=== PATIENT | male | born 1955 | race Caucasian/White ===

== ENCOUNTER → 2019-02-12 | Day surgery (SDC) | payer OTHER ==
[~2019-02-12] MED LIST: ALLO300T PO; AMLO5TAB10 PO; ASPI81TA50 PO; BISO1TAB7 PO; CRESTOR20 MG PO; ERGO500027 PO; FLUO40CA2 PO; GLYCOPYRROLATE 1 MG/5 ML VIAL. ONE; HYDROmorphone 2 MG/ML VIAL IV PRN; IV RINGERS,LACTATED 1000ML 1,000 ML IV SCH; LIDOCAINE 1% PF 2 ML VIAL. ID PRN; LISI-334 PO; METF10007 PO; MORPHINE SULFATE 2 MG/ML VIAL. IV PRN; NIAC500T PO; OMEG1CAP38 PO; ONDANSETRON PF 4 MG/2 ML VIAL. IV PRN; PROCHLORPERAZINE 10 MG/2 ML VIAL. IV PRN; PROPOFOL 20 ML IV ONE; PROPOFOL 40 ML IV ONE; ePHEDrine PF IN SALINE 50 MG/10 ML SYRINGE. IV ONE; fentaNYL PF VIAL 100 MCG/2 ML VIAL IV PRN
[2019-02-12 09:28] VITALS: BP 97/60
--- NOTE | 2019-02-12 13:12 | HP ---
ADMIT DATE: 02/12/2019 UPDATED HISTORY AND PHYSICAL REASON: Colorectal screening, positive Cologuard. HISTORY OF PRESENT ILLNESS: A 63-year-old male whose past medical history is significant for gout, hypertension, diabetes and hyperlipidemia, is seen for a screening colon exam. Bowel habits are regular without diarrhea or constipation and no melena and/or hematochezia. Weight and appetite are stable. Recent Cologuard was positive. He is otherwise without additional complaints. PAST MEDICAL HISTORY: Diabetes, hypertension, hyperlipidemia, gout. ALLERGIES: None. MEDICATIONS: Include allopurinol, amlodipine, aspirin, bisoprolol, vitamin D, Prozac, lisinopril, metformin, niacin, omega 3 and pravastatin. FAMILY AND SOCIAL HISTORY: Smoker and nondrinker. PAST SURGICAL HISTORY: Status post tonsillectomy. REVIEW OF SYSTEMS: Per records. PHYSICAL EXAMINATION: GENERAL: A well-nourished, well-developed male who is alert and cooperative in no acute distress. VITAL SIGNS: Temp is 98.3, pulse 84, respirations 20. HEENT: Normocephalic and atraumatic head. Pupils and extraocular muscles are not tested. LUNGS: Clear. CARDIOVASCULAR: Reveals an S1, S2 without S3, S4 or appreciable murmur. ABDOMEN: Soft abdomen, normal bowel sounds without appreciable hepatosplenomegaly. EXTREMITIES: Reveals no cyanosis, clubbing or edema. IMPRESSION: Colorectal screening, positive Cologuard test, was recommended at this time. The risks and benefits of procedure including risk of hemorrhage and perforation discussed. The patient is willing to proceed. I thank Dr. Vega for allowing us to consult and participate in this patient's care. XOCHITL VEGA MD DR: MIKHAIL/bettie JOB#: [id number] / [id number]
--- NOTE | 2019-02-15 15:06 | PATHOLOGY ---
[facility] Accession Number: [id number] . 01 Material submitted: . PART A: SIGMOID POLYP PART B: HEPATIC FLEXURE POLYP PART C: CECUM POLYP . 01 Clinical history: . Pre-OP DX: Screen Post-OP DX: Pending polyp . 02 Diagnosis: A. Colon biopsy, sigmoid polyp: - Pedunculated tubulovillous adenoma, predominantly tubular. . B. Colon biopsies, hepatic flexure polyp: - Tubular adenoma. . C. Colon biopsies, cecal polyp: - Tubular adenoma. . (JPM:mm; 02/15/2019) [facility]/02/15/2019 . 02 Comment: Sections of the sigmoid colon polyp biopsy reveal a pedunculated tubulovillous adenoma, which is predominantly tubular. There is no high grade dysplasia or evidence of malignancy. The base of the polyp is lined by normal colonic mucosa. . Sections of the hepatic flexure and cecal biopsies reveal tubular adenomas showing no high grade dysplasia or evidence of malignancy. . (JPM:mml; 02/15/2019) . 02 Electronically signed: . Abdi Rodríguez MD, Pathologist NPI- [id number] . 01 Gross description: . A. Received in formalin labeled "Hi Hannon, sigmoid polyp," is a 0.8 x 0.8 x 0.7 cm polypoid piece of carranza soft tissue with a stalk measuring 0.8 cm in length and 0.5 cm in diameter. The margin of the stalk is inked and the specimen is sectioned perpendicular to the margin and entirely submitted in cassette A1 and A2. . B. Received in formalin labeled "Hannon, Hi, hepatic flexure polyp," are 2 segments of carranza soft tissue measuring 0.7 x 0.4 x 0.2 cm in aggregate dimensions and ranging from 0.3 to 0.5 cm in maximum dimension. The specimen is submitted entirely in cassette B1. . C. Received in formalin labeled "Hannon, Hi, cecum polyp," are multiple segments of carranza soft tissue measuring 1.5 x 0.6 x 0.1 cm in aggregate dimensions. The specimen is filtered and entirely submitted in cassette C1. (TSD; 02/12/2019) TOB/TOB . 02 Pathologist provided ICD-10: D12.5, D12.3, D12.0 . 02 CPT . 964633, 643006, 409761 Specimen Comment: A courtesy copy of this report has been sent to Specimen Comment: [phone], . Specimen Comment: Report sent to / DR PEREZ Specimen Comment: A duplicate report has been generated due to demographic updates. Performed at: [facility] [address], [place] [id number] MD Terrell Haskins MD Phone: [phone] Performed at: [facility] [address] [place], [place] [id number] MD Abdi Rodríguez MD Phone: [phone]
== END | disposition home or self-care (01) ==
LOC: SURG 07:25
PROVIDERS: ATTEND Internal Medicine Gastroenterology
DX: D12.0 Benign neoplasm of cecum (principal); D12.3 Benign neoplasm of transverse colon; D12.5 Benign neoplasm of sigmoid colon; K57.30 Diverticulosis of large intestine without perforation or abscess without bleeding; K64.0 First degree hemorrhoids; I10 Essential (primary) hypertension; E11.9 Type 2 diabetes mellitus without complications; E78.5 Hyperlipidemia, unspecified; M10.9 Gout, unspecified; Z79.82 Long term (current) use of aspirin; Z79.899 Other long term (current) drug therapy; Z79.84 Long term (current) use of oral hypoglycemic drugs; F17.200 Nicotine dependence, unspecified, uncomplicated; Z98.890 Other specified postprocedural states
CPT/HCPCS: 45385; 88305; J0171; J2704; J3490; 45380

== ENCOUNTER 2020-01-02 04:33 | Inpatient (IN) | payer MEDICARE, OTHER ==
[2020-01-02] VITALS (11 sets, daily range): BP systolic 122–142; BP diastolic 72–84
[~2020-01-02] VITALS: Ht 188 cm; Wt 89.2 kg
[~2020-01-02 04:33] MED LIST changes: -BISO1TAB7 PO; +BISO1TAB8 PO; -GLYCOPYRROLATE 1 MG/5 ML VIAL. ONE; -HYDROmorphone 2 MG/ML VIAL IV PRN; -IV RINGERS,LACTATED 1000ML 1,000 ML IV SCH; -LIDOCAINE 1% PF 2 ML VIAL. ID PRN; -MORPHINE SULFATE 2 MG/ML VIAL. IV PRN; -ONDANSETRON PF 4 MG/2 ML VIAL. IV PRN; -PROCHLORPERAZINE 10 MG/2 ML VIAL. IV PRN; -PROPOFOL 20 ML IV ONE; -PROPOFOL 40 ML IV ONE; -ePHEDrine PF IN SALINE 50 MG/10 ML SYRINGE. IV ONE; -fentaNYL PF VIAL 100 MCG/2 ML VIAL IV PRN
[2020-01-02] MEDS ORDERED: IV NORMAL SALINE 1000ML BAG 1,000 ML IV ONE (05:30)
--- NOTE | 2020-01-02 05:37 | PHYS DOC ---
Adult General Chief Complaint Chief Complaint: HEMATEMESIS/VOMITING BLOOD HPI HPI 64-year-old male presents to the emergency Department complaints of hematemesis. Patient states he woke this morning coughing and subsequently started vomiting blood. He has no history of blood thinning medications nor that of bleeding ul ers. He describes nausea, vomiting some diarrhea. Patient describes decreased appetite over the last couple days. He denies any concerns for dizziness or syncopal episode. Denies any chest pain or shortness of breath. He has been taking some Pepto-Bismol so his stool is dark. Rectal exam was performed with evidence of dark stool however heme negative on examination per laboratory study. He describes hematemesis this morning with dark clots as well as bright red blood. Nothing makes symptoms worse, nothing makes symptoms better. Review of Systems Review of Systems Constitutional: Denies fever or chills [] Respiratory: Denies cough or shortness of breath [] Cardiovascular: No additional information not addressed in HPI [] GI: epigastric pain, nausea, vomiting, hematemesis, no bloody stools or diarrhea [] : Denies dysuria or hematuria [] Musculoskeletal: Denies back pain or joint pain [] Neurologic: Denies headache, focal weakness or sensory changes [] All other systems were reviewed and found to be within normal limits, except as documented in this note. Current Medications Current Medications Current Medications Medications (Trade) Dose Ordered Sig/Alex Start Time Stop Time Status Last Admin Dose Admin Info (CONTRAST GIVEN -- Rx MONITORING) 1 each PRN DAILY PRN 01/02/20 06:45 01/04/20 06:44 Iohexol (Omnipaque 300 Mg/ml) 75 ml 1X ONCE 01/02/20 06:45 01/02/20 06:46 DC 01/02/20 06:44 75 ML Morphine Sulfate (Morphine Sulfate) 2 mg PRN Q2HR PRN 01/02/20 06:15 01/03/20 06:14 Ondansetron HCl (Zofran) 4 mg PRN Q8HRS PRN 01/02/20 06:15 01/03/20 06:14 Pantoprazole Sodium (PROTONIX VIAL for IV PUSH) 80 mg 1X ONCE 01/02/20 06:15 01/02/20 06:18 DC 01/02/20 06:52 80 MG Pantoprazole Sodium 80 mg/ Sodium Chloride 100 ml @ 10 mls/hr Q10H 01/02/20 06:30 01/02/20 17:22 10 MLS/HR Sodium Chloride 1,000 ml @ 1,000 mls/hr 1X ONCE 01/02/20 05:30 01/02/20 06:29 DC 01/02/20 05:55 1,000 MLS/HR Allergies Allergies Physical Exam Physical Exam Constitutional: Well developed, well nourished, no acute distress, non-toxic appearance. [] HENT: Normocephalic, atraumatic, bilateral external ears normal, oropharynx moist, no oral exudates, nose normal. [] Eyes: PERRLA, EOMI, conjunctiva normal, no discharge. [] Cardiovascular:Heart rate regular rhythm, no murmur [] Lungs & Thorax: Bilateral breath sounds clear to auscultation [] Abdomen: Bowel sounds normal, soft, TTP epigastric, no masses, no pulsatile masses. [] Skin: Warm, dry, no erythema, no rash. [] Extremities: No tenderness, no edema. [] Neurologic: Alert and oriented X 3, no focal deficits noted. [] Psychologic: Affect normal, judgement normal, mood normal. [] Current Patient Data Vital Signs Vital Signs Date Time Temp Pulse Resp B/P (MAP) Pulse Ox O2 Delivery O2 Flow Rate FiO2 01/02/20 07:30 77 16 119/78 (92) 96 Room Air 01/02/20 05:00 97.6 97.6 Lab Values Laboratory Tests Test 01/02/20 05:35 01/02/20 05:47 Stool Occult Blood Negative (NEG) White Blood Count 11.6 x10^3/uL (4.0-11.0) H Red Blood Count 4.54 x10^6/uL (4.30-5.70) Hemoglobin 12.5 g/dL (13.0-17.5) L Hematocrit 37.8 % (39.0-53.0) L Mean Corpuscular Volume 83 fL (79-100) Mean Corpuscular Hemoglobin 28 pg (25-35) Mean Corpuscular Hemoglobin Concent 33 g/dL (31-37) Red Cell Distribution Width 13.8 % (11.5-14.5) Platelet Count 228 x10^3/uL (140-400) Neutrophils (%) (Auto) 83 % (31-73) H Lymphocytes (%) (Auto) 9 % (24-48) L Monocytes (%) (Auto) 6 % (0-9) Eosinophils (%) (Auto) 1 % (0-3) Basophils (%) (Auto) 1 % (0-3) Neutrophils # (Auto) 9.6 x10^3/uL (1.8-7.7) H Lymphocytes # (Auto) 1.0 x10^3/uL (1.0-4.8) Monocytes # (Auto) 0.7 x10^3/uL (0.0-1.1) Eosinophils # (Auto) 0.2 x10^3/uL (0.0-0.7) Basophils # (Auto) 0.1 x10^3/uL (0.0-0.2) Prothrombin Time 13.4 SEC (11.7-14.0) Prothrombin Time INR 1.1 (0.8-1.1) Sodium Level 139 mmol/L (136-145) Potassium Level 4.1 mmol/L (3.5-5.1) Chloride Level 101 mmol/L (98-107) Carbon Dioxide Level 26 mmol/L (21-32) Anion Gap 12 (6-14) Blood Urea Nitrogen 35 mg/dL (8-26) H Creatinine 1.2 mg/dL (0.7-1.3) Estimated GFR (Cockcroft-Gault) 60.6 BUN/Creatinine Ratio 29 (6-20) H Glucose Level 228 mg/dL (70-99) H Calcium Level 8.8 mg/dL (8.5-10.1) Total Bilirubin 0.4 mg/dL (0.2-1.0) Aspartate Amino Transferase (AST) 19 U/L (15-37) Alanine Aminotransferase (ALT) 12 U/L (16-63) L Alkaline Phosphatase 73 U/L (46-116) Total Protein 6.2 g/dL (6.4-8.2) L Albumin 2.9 g/dL (3.4-5.0) L Albumin/Globulin Ratio 0.9 (1.0-1.7) L Laboratory Tests 01/02/20 05:47 Laboratory Tests 01/02/20 05:47 EKG EKG [] Radiology/Procedures Radiology/Procedures [facility] [address] [place] [address] IMAGING REPORT Signed PATIENT: VANITA DE LA CRUZ LACCOUNT: [id number] : 1955 LOCATION: ER AGE: 64 SEX: M EXAM STATUS: REG ER ORD. PHYSICIAN: JACKSON CHERY MD REASON: abd pain, hematemsis, dark stools PROCEDURE: CT ABD PELV W/ IV CONTRST ONLY PQRS Compliance Statement: One or more of the following individualized dose reduction techniques were utilized for this examination: 1. Automated exposure control 2. Adjustment of the mA and/or kV according to patient size 3. Use of iterative reconstruction technique CT ABD PELV W/ IV CONTRST ONLY Clinical Indication: Abdominal pain, hematemesis, dark stools. Comparison: CT abdomen and pelvis without contrast September. Technique: Helical CT imaging of the abdomen and pelvis is performed after 75 cc of Omnipaque 300 IV contrast. Findings: Stable nodule in the right lower lobe. Lung bases are clear. Coronary artery disease. Cardiac size normal. There is moderate wall thickening of the distal esophagus. There are several subcentimeter paraesophageal lymph nodes. Mildly enlarged retrocrural lymph nodes. The liver, spleen, pancreas, and adrenal glands are normal. There is cholelithiasis. Abdominal aorta is normal caliber. Kidneys enhance symmetrically, no hydronephrosis. There is gastrohepatic and. The celiac and connor hepatis adenopathy. Gastrohepatic soft tissue mass measures 6.9 x 3 cm and may be matted lymph nodes. There is mild wall thickening at the gastroesophageal junction. There is no dilated small bowel. Moderate distal colon diverticulosis. The appendix is normal. There is induration of the lower ventral abdominal wall subcutaneous fat bilaterally. The urinary bladder is mildly distended, otherwise normal. The prostate is moderately enlarged. There is no pelvic free fluid. There is disc space narrowing of L5/S1. Mild grade 1 retrolisthesis of L5 on S1. IMPRESSION: 1. Moderate wall thickening of the distal esophagus. Considerations include esophageal malignancy, Marcos's esophagus, or esophagitis. 2. Gastrohepatic, retroperitoneal, and connor hepatis adenopathy. Mildly enlarged retrocrural lymph nodes. There are subcentimeter paraesophageal lymph nodes. Considerations include viet metastases, lymphoproliferative disorder and other consideration. 3. Cholelithiasis. 4. Moderate distal colon diverticulosis. 5. Prostate is moderately enlarged. Electronically signed by: Jareth Espinal MD (01/02/2020 7:02 AM) [id number] DICTATED and SIGNED BY: JARETH ESPINAL MD DATE: 01/02/20 0702 [] Course & Med Decision Making Course & Med Decision Making Pertinent Labs and Imaging studies reviewed. (See chart for details) []64-year-old male presents to the emergency Department complaints of hematemesis. Patient states he woke this morning coughing and subsequently started vomiting blood. He has no history of blood thinning medications nor that of bleeding ulcers. He describes nausea, vomiting some diarrhea. Patient describes decreased appetite over the last couple days. He denies any concerns for dizziness or syncopal episode. Denies any chest pain or shortness of breath. He has been taking some Pepto-Bismol so his stool is dark. Rectal exam was performed with evidence of dark stool however heme negative on examination per laboratory study. He describes hematemesis this morning with dark clots as well as bright red blood. Nothing makes symptoms worse, nothing makes symptoms better. Dragon Disclaimer Dragon Disclaimer This electronic medical record was generated, in whole or in part, using a voice recognition dictation system. Departure Departure Impression: Primary Impression: Hematemesis Additional Impressions: Upper GI bleed Diabetes Disposition: ADMITTED INPATIENT Admitting Physician: HIMLyla Condition: STABLE Referrals: GELACIO PEREZ MD (PCP) Problem Qualifiers Primary Impression: Hematemesis Nausea presence: with nausea Qualified Codes: K92.0 - Hematemesis Additional Impressions: Diabetes Diabetes mellitus type: other specified (including NEEL) Diabetes mellitus exterminator termite insulin use: without exterminator termite use Diabetes mellitus complication status: without complication Qualified Codes: E13.9 - Other specified diabetes mellitus without complications JACKSON CHERY MD Jan 02, 2020 05:37
[2020-01-02 05:58] LABS: BASO # 0.1 x10^3/uL (0.0-0.2); BASO % 1 % (0-3); EOS # 0.2 x10^3/uL (0.0-0.7); EOS % 1 % (0-3); HEMATOCRIT 37.8 % (39.0-53.0); HEMOGLOBIN 12.5 g/dL (13.0-17.5); LYMPH % 9 % (24-48); MEAN CORPUSCULAR HEMOGLOBIN 28 pg (25-35); MEAN CORPUSCULAR HGB CONC 33 g/dL (31-37); MEAN CORPUSCULAR VOLUME 83 fL (79-100); MONO # 0.7 x10^3/uL (0.0-1.1); MONO % 6 % (0-9); NEUT # 9.6 x10^3/uL (1.8-7.7); NEUT % 83 % (31-73); PLATELET COUNT 228 x10^3/uL (140-400); RED BLOOD COUNT 4.54 x10^6/uL (4.30-5.70); RED CELL DISTRIBUTION WIDTH 13.8 % (11.5-14.5); WHITE BLOOD COUNT 11.6 x10^3/uL (4.0-11.0)
[2020-01-02 06:03] LABS: FECAL OB PT NEGATIVE (NEG)
[2020-01-02 06:10] LABS: CALCIUM 8.8 mg/dL (8.5-10.1); CREATININE 1.2 mg/dL (0.7-1.3); GFR 60.6; POTASSIUM 4.1 mmol/L (3.5-5.1)
[2020-01-02 06:12] LABS: ALBUMIN 2.9 g/dL (3.4-5.0); ALBUMIN/GLOBULIN RATIO 0.9 (1.0-1.7); TOTAL BILIRUBIN 0.4 mg/dL (0.2-1.0); TOTAL PROTEIN 6.2 g/dL (6.4-8.2)
[2020-01-02] MEDS ORDERED: MORPHINE SULFATE 2 MG/ML VIAL. IV PRN (06:15)
[2020-01-02] MEDS ORDERED: PANTOPRAZOLE IV PUSH 40 MG VIAL. IVP ONE (06:15)
[2020-01-02] MEDS ORDERED: ONDANSETRON PF 4 MG/2 ML VIAL. IV PRN (06:15)
[2020-01-02 06:22] LABS: PROTHROMBIN TIME PATIENT 13.4 SEC (11.7-14.0)
[2020-01-02] MEDS: PANTOPRAZOLE SODIUM IV DRIP 80 MG in IV NORMAL SALINE 100ML 100 ML IV SCH ×2 (06:34→17:22)
[2020-01-02] MEDS ORDERED: IOHEXOL 300 MG/ML 100ML VIAL. IV ONE (06:45)
[2020-01-02] MEDS ORDERED: CONTRAST GIVEN. MC PRN (06:45)
--- NOTE | 2020-01-02 07:04 | RAD ---
PQRS Compliance Statement: One or more of the following individualized dose reduction techniques were utilized for this examination: 1. Automated exposure control 2. Adjustment of the mA and/or kV according to patient size 3. Use of iterative reconstruction technique CT ABD PELV W/ IV CONTRST ONLY Clinical Indication: Abdominal pain, hematemesis, dark stools. Comparison: CT abdomen and pelvis without contrast September. Technique: Helical CT imaging of the abdomen and pelvis is performed after 75 cc of Omnipaque 300 IV contrast. Findings: Stable nodule in the right lower lobe. Lung bases are clear. Coronary artery disease. Cardiac size normal. There is moderate wall thickening of the distal esophagus. There are several subcentimeter paraesophageal lymph nodes. Mildly enlarged retrocrural lymph nodes. The liver, spleen, pancreas, and adrenal glands are normal. There is cholelithiasis. Abdominal aorta is normal caliber. Kidneys enhance symmetrically, no hydronephrosis. There is gastrohepatic and. The celiac and connor hepatis adenopathy. Gastrohepatic soft tissue mass measures 6.9 x 3 cm and may be matted lymph nodes. There is mild wall thickening at the gastroesophageal junction. There is no dilated small bowel. Moderate distal colon diverticulosis. The appendix is normal. There is induration of the lower ventral abdominal wall subcutaneous fat bilaterally. The urinary bladder is mildly distended, otherwise normal. The prostate is moderately enlarged. There is no pelvic free fluid. There is disc space narrowing of L5/S1. Mild grade 1 retrolisthesis of L5 on S1. IMPRESSION: 1. Moderate wall thickening of the distal esophagus. Considerations include esophageal malignancy, Marcos's esophagus, or esophagitis. 2. Gastrohepatic, retroperitoneal, and connor hepatis adenopathy. Mildly enlarged retrocrural lymph nodes. There are subcentimeter paraesophageal lymph nodes. Considerations include viet metastases, lymphoproliferative disorder and other consideration. 3. Cholelithiasis. 4. Moderate distal colon diverticulosis. 5. Prostate is moderately enlarged. Electronically signed by: Jareth Espinal MD (01/02/2020 7:02 AM) [id number]
[2020-01-02] MEDS ORDERED: ALLO300T PO (10:14)
[2020-01-02] MEDS ORDERED: METF10007 PO (10:15)
[2020-01-02] MEDS ORDERED: CRESTOR40 MG PO (10:19)
[2020-01-02] MEDS ORDERED: ICOS1CAP PO (10:19)
[2020-01-02] MEDS ORDERED: INSU100C4 SQ (10:19)
[2020-01-02] MEDS ORDERED: INSU100V37 SQ (10:20)
--- NOTE | 2020-01-02 10:33 | PDOC2 ---
CONSULT Date of Consult Date of Consult DATE: 01/02/20 TIME: 10:30 Reason for Consult Reason for Consult: Hematemesis/-with asa use, most likely secondary to UGI bleed. PUD, varies, Radha-ross tear, and/or malignancy in differential. Plan serial cbcs IV fluids egd to further assess. Risks and benefits discussed with patient including risk of hemorrhage,perforation, and/or anesthestic reaction who is willing to proceed Full note dictated Current Problem List Problem List Problems Medical Problems: (1) Diabetes Status: Acute (2) Hematemesis Status: Acute (3) Upper GI bleed Status: Acute Current Medications Current Medications Current Medications Sodium Chloride 1,000 ml @ 1,000 mls/hr 1X ONCE IV Last administered on 01/02/20at 05:55; Start 01/02/20 at 05:30; Stop 01/02/20 at 06:29; Status DC Ondansetron HCl (Zofran) 4 mg PRN Q8HRS PRN IV NAUSEA/VOMITING; Start 01/02/20 at 06:15; Stop 01/03/20 at 06:14 Morphine Sulfate (Morphine Sulfate) 2 mg PRN Q2HR PRN IV PAIN; Start 01/02/20 at 06:15; Stop 01/03/20 at 06:14 Pantoprazole Sodium (PROTONIX VIAL for IV PUSH) 80 mg 1X ONCE IVP Last administered on 01/02/20at 06:52; Start 01/02/20 at 06:15; Stop 01/02/20 at 06:18; Status DC Pantoprazole Sodium 80 mg/ Sodium Chloride 100 ml @ 10 mls/hr Q10H IV Last administered on 01/02/20at 06:34; Start 01/02/20 at 06:30 Iohexol (Omnipaque 300 Mg/ml) 75 ml 1X ONCE IV Last administered on 01/02/20at 06:44; Start 01/02/20 at 06:45; Stop 01/02/20 at 06:46; Status DC Info (CONTRAST GIVEN -- Rx MONITORING) 1 each PRN DAILY PRN MC SEE COMMENTS; Start 01/02/20 at 06:45; Stop 01/04/20 at 06:44 Active Scripts Active Reported Tresiba (Insulin Degludec) 100 Unit/1 Ml Vial 45 Unit SQ HS Crestor (Rosuvastatin Calcium) 40 Mg Tablet 20 Mg PO HS Vascepa (Icosapent Ethyl) 1 Gm Capsule 2 Cap PO BID 30 Days Novolog (Insulin Aspart) 100 Unit/1 Ml Cartridge 25 Unit SQ TIDBFRMEAL Metformin Hcl 1,000 Mg Tablet 1,000 Mg PO BIDWMEALS Allopurinol 300 Mg Tablet 1 Tab PO HS Niaspan (Niacin) 500 Mg Tab.er.24h 500 Mg PO HS Fluoxetine Hcl 40 Mg Capsule 1 Cap PO DAILYWBKFT Vitamin D2 (Ergocalciferol (Vitamin D2)) 50,000 Unit Capsule 1 Cap PO WEEKLY Aspir-Low (Aspirin) 81 Mg Tablet.dr 1 Tab PO DAILY Amlodipine Besylate 5 Mg Tablet 5 Mg PO DAILY Lisinopril 20 Mg Tablet 1 Tab PO DAILY Bisoprolol-Hctz 10-6.25 Mg Tab (Bisoprolol Fumarate/Hctz) 1 Each Tablet 1 Tab PO DAILY Allergies Allergies: Coded Allergies: No Known Drug Allergies (Unverified , 02/12/19) Vitals VITALS Vital Signs Date Time Temp Pulse Resp B/P (MAP) Pulse Ox O2 Delivery O2 Flow Rate FiO2 01/02/20 09:30 97.7 97 20 134/83 (100) 100 Room Air 97.7 Labs Labs Laboratory Tests Test 01/02/20 05:35 01/02/20 05:47 Stool Occult Blood Negative (NEG) White Blood Count 11.6 x10^3/uL (4.0-11.0) Red Blood Count 4.54 x10^6/uL (4.30-5.70) Hemoglobin 12.5 g/dL (13.0-17.5) Hematocrit 37.8 % (39.0-53.0) Mean Corpuscular Volume 83 fL (79-100) Mean Corpuscular Hemoglobin 28 pg (25-35) Mean Corpuscular Hemoglobin Concent 33 g/dL (31-37) Red Cell Distribution Width 13.8 % (11.5-14.5) Platelet Count 228 x10^3/uL (140-400) Neutrophils (%) (Auto) 83 % (31-73) Lymphocytes (%) (Auto) 9 % (24-48) Monocytes (%) (Auto) 6 % (0-9) Eosinophils (%) (Auto) 1 % (0-3) Basophils (%) (Auto) 1 % (0-3) Neutrophils # (Auto) 9.6 x10^3/uL (1.8-7.7) Lymphocytes # (Auto) 1.0 x10^3/uL (1.0-4.8) Monocytes # (Auto) 0.7 x10^3/uL (0.0-1.1) Eosinophils # (Auto) 0.2 x10^3/uL (0.0-0.7) Basophils # (Auto) 0.1 x10^3/uL (0.0-0.2) Prothrombin Time 13.4 SEC (11.7-14.0) Prothromb Time International Ratio 1.1 (0.8-1.1) Sodium Level 139 mmol/L (136-145) Potassium Level 4.1 mmol/L (3.5-5.1) Chloride Level 101 mmol/L (98-107) Carbon Dioxide Level 26 mmol/L (21-32) Anion Gap 12 (6-14) Blood Urea Nitrogen 35 mg/dL (8-26) Creatinine 1.2 mg/dL (0.7-1.3) Estimated GFR (Cockcroft-Gault) 60.6 BUN/Creatinine Ratio 29 (6-20) Glucose Level 228 mg/dL (70-99) Calcium Level 8.8 mg/dL (8.5-10.1) Total Bilirubin 0.4 mg/dL (0.2-1.0) Aspartate Amino Transf (AST/SGOT) 19 U/L (15-37) Alanine Aminotransferase (ALT/SGPT) 12 U/L (16-63) Alkaline Phosphatase 73 U/L (46-116) Total Protein 6.2 g/dL (6.4-8.2) Albumin 2.9 g/dL (3.4-5.0) Albumin/Globulin Ratio 0.9 (1.0-1.7) Laboratory Tests Test 01/02/20 05:35 01/02/20 05:47 Stool Occult Blood Negative (NEG) White Blood Count 11.6 x10^3/uL (4.0-11.0) Red Blood Count 4.54 x10^6/uL (4.30-5.70) Hemoglobin 12.5 g/dL (13.0-17.5) Hematocrit 37.8 % (39.0-53.0) Mean Corpuscular Volume 83 fL (79-100) Mean Corpuscular Hemoglobin 28 pg (25-35) Mean Corpuscular Hemoglobin Concent 33 g/dL (31-37) Red Cell Distribution Width 13.8 % (11.5-14.5) Platelet Count 228 x10^3/uL (140-400) Neutrophils (%) (Auto) 83 % (31-73) Lymphocytes (%) (Auto) 9 % (24-48) Monocytes (%) (Auto) 6 % (0-9) Eosinophils (%) (Auto) 1 % (0-3) Basophils (%) (Auto) 1 % (0-3) Neutrophils # (Auto) 9.6 x10^3/uL (1.8-7.7) Lymphocytes # (Auto) 1.0 x10^3/uL (1.0-4.8) Monocytes # (Auto) 0.7 x10^3/uL (0.0-1.1) Eosinophils # (Auto) 0.2 x10^3/uL (0.0-0.7) Basophils # (Auto) 0.1 x10^3/uL (0.0-0.2) Prothrombin Time 13.4 SEC (11.7-14.0) Prothromb Time International Ratio 1.1 (0.8-1.1) Sodium Level 139 mmol/L (136-145) Potassium Level 4.1 mmol/L (3.5-5.1) Chloride Level 101 mmol/L (98-107) Carbon Dioxide Level 26 mmol/L (21-32) Anion Gap 12 (6-14) Blood Urea Nitrogen 35 mg/dL (8-26) Creatinine 1.2 mg/dL (0.7-1.3) Estimated GFR (Cockcroft-Gault) 60.6 BUN/Creatinine Ratio 29 (6-20) Glucose Level 228 mg/dL (70-99) Calcium Level 8.8 mg/dL (8.5-10.1) Total Bilirubin 0.4 mg/dL (0.2-1.0) Aspartate Amino Transf (AST/SGOT) 19 U/L (15-37) Alanine Aminotransferase (ALT/SGPT) 12 U/L (16-63) Alkaline Phosphatase 73 U/L (46-116) Total Protein 6.2 g/dL (6.4-8.2) Albumin 2.9 g/dL (3.4-5.0) Albumin/Globulin Ratio 0.9 (1.0-1.7) XOCHITL BRUCE MD Jan 02, 2020 10:33
--- NOTE | 2020-01-02 11:10 | CONS ---
DATE OF CONSULTATION: 01/02/2020 GI CONSULTATION REASON FOR CONSULTATION: Hematemesis. HISTORY OF PRESENT ILLNESS: A 64-year-old male with past medical history significant for hypertension, diabetes, GERD, arthritis, is seen with hematemesis. The patient states that he was awakened early this morning with nausea. Subsequently, 6-7 episodes of bright red blood and dark red blood with the emesis with this and feeling lightheaded. He has decided to come to the hospital, does take aspirin. As risk factors for peptic ulcer disease, does not take any of the second generation anticoagulations for heart disease such as Plavix, Eliquis, Brilinta. He has had no history of bleeding in the past. Weight and appetite have been stable. Prior colonoscopy a year ago was unrevealing with continued issues, requests additional evaluation. PAST MEDICAL HISTORY: Diabetes, hypertension, hyperlipidemia, gouty arthritis. ALLERGIES: None. MEDICATIONS: On admission include insulin, Crestor, metformin, allopurinol, fluoxetine, aspirin, amlodipine, lisinopril. SOCIAL HISTORY: Does not drink or smoke at this time. FAMILY HISTORY: Noncontributory. REVIEW OF SYSTEMS: Per records. PHYSICAL EXAMINATION: GENERAL: Reveals a well-nourished, well-developed male who is pale in appearance. VITAL SIGNS: Temperature 97.7, pulse 97, respirations 20, blood pressure 134/83. HEENT: Normocephalic, atraumatic head. Pupils and extraocular movements are not tested. Sclerae anicteric. NECK: Supple. LUNGS: Clear. CARDIOVASCULAR: Reveals an S1, S2 without S3, S4 or appreciable murmurs. Tachycardic. ABDOMEN: Reveals a soft abdomen, normal bowel sounds, without appreciable hepatosplenomegaly. EXTREMITIES: Reveals no cyanosis, clubbing or edema. LABORATORY STUDIES: Sodium 139, potassium 4.1, chloride 101, BUN of 35, creatinine 1.2, glucose 228, calcium 8.8, total bilirubin 0.4, AST of 19, ALT of 12, alkaline phosphatase 73, total protein 6.2, albumin 2.9. Hemoglobin 12.5, hematocrit 37.8, white count 11.8, platelet count 228,000. INR is 1.1. IMPRESSION: Hematemesis with aspirin use. Differential includes Radha-Drew tear, peptic ulcer disease, varices, malignancy, among others; therefore, recommend upper endoscopy, PPI therapy, IV fluids. Risks and benefits of procedure including risk of hemorrhage and perforation for operation have been discussed. The patient is willing to proceed at this time. XOCHITL BRUCE MD DR: MIKHAIL/ebttie JOB#: [id number] / [id number] ANNE Marcos MD
[2020-01-02] MEDS ORDERED: PROPOFOL 40 ML IV ONE (11:21)
[2020-01-02] MEDS ORDERED: LIDOCAINE 2% PF 5 ML VIAL. ONE (11:22)
[2020-01-02] MEDS ORDERED: IV RINGERS,LACTATED 1000ML 1,000 ML IV SCH (11:30)
--- NOTE | 2020-01-02 11:45 | PDOC4 ---
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
--- NOTE | 2020-01-02 12:00 | NUR ---
Patient arrived to room 201 via wheelchair, transferred to bed with no assistance. Vital stable, patient on protonix gtt, alert and oriented, call light in reach, will continue to monitor.
[2020-01-02] MEDS: IV NORMAL SALINE 1000ML BAG 1,000 ML IV SCH (12:45)
--- NOTE | 2020-01-02 13:00 | NUR ---
Patient returned from EGD, alert and oriented, vitals stable. Gag reflex tested, clear liquids ordered per Dr. Foster. Will continue to monitor.
[2020-01-02] MEDS ORDERED: IV DEXTROSE 5% 250 ML BAG. IV PRN (13:30)
[2020-01-02] MEDS ORDERED: DEXTROSE 50% 25 GM / 50ML DISP.SYRIN. IV PRN (13:30)
--- NOTE | 2020-01-02 13:32 | PDOC1 ---
History and Physical Date of Admission Date of Admission 01/02/2020 Identification/Chief Complaint Chief Complaint I vomited blood History of Present Illness History of Present Illness Patient is a 64-year-old gentleman with past medical history of hypertension dyslipidemia gout diabetes mellitus type 2 insulin requiring was in his usual state of health until this morning when he presented approximately 6 episodes of hematemesis. The story dates back to approximately 6 months ago when he was noticed to have lost some weight by his primary care physician. The patient did not change his diet this was unintentional weight loss and he continued to be monitored, the patient subsequently developed a sensation his epigastrium of food getting stuck. The patient took 2 bites of his meals and he felt quite full. He decided to self medicate with Pepto-Bismol as the reason for change in the color of his stools. This provided very little relief, the patient has had a colonoscopy already less than a year ago by Dr. Vega and according to the patient results were normal. The patient has not quantified weight loss he denies excessive use of NSAIDs he denies excess alcohol ingestion he denies smoking. Patient does not have a history in his family of cancer. He was admitted to the hospital for upper GI bleeding and underwent an EGD prior to my encounter. A mass in his cardia has been found. I have discussed the findings with him and his family members and reassurance has been provided. The time my notes he is in no acute distress and quite hungry since his last meal was yesterday evening, surgical device sales representative has requested to continue with clear liquid diet for the time being until he is evaluated. Oncology and radiation oncology consultations have been requested by her GI access consultant. The Geronimo Reid's is greatly appreciated. Family members at bedside were reassured as well. All of their concerns were addressed to the best of my abilities Past Medical History Cardiovascular: HTN Rheumatologic: Gout Endocrine: Diabetes Past Surgical History Past Surgical History: No pertinent history Family History Family History: Other (unremarkable and no pertinent) Current Problem List Problem List Problems Medical Problems: (1) Diabetes Status: Acute (2) Hematemesis Status: Acute (3) Upper GI bleed Status: Acute Current Medications Current Medications Current Medications Medications (Trade) Dose Ordered Sig/Alex Start Time Stop Time Status Last Admin Dose Admin Allopurinol (Zyloprim) 300 mg HS 01/02/20 21:00 UNV Amlodipine Besylate (Norvasc) 5 mg DAILY 2/10/20 09:00 UNV Dextrose (Dextrose 50%-Water Syringe) 12.5 gm PRN Q15MIN PRN 01/02/20 13:30 UNV Dextrose (Iv Dextrose 5%) 250 ml PRN Q15MIN PRN 01/02/20 13:30 UNV Info (CONTRAST GIVEN -- Rx MONITORING) 1 each PRN DAILY PRN 01/02/20 06:45 01/04/20 06:44 Insulin Human Lispro (HumaLOG) 0-7 UNITS TIDWMEALS 01/02/20 17:00 UNV Iohexol (Omnipaque 300 Mg/ml) 75 ml 1X ONCE 01/02/20 06:45 01/02/20 06:46 DC 01/02/20 06:44 75 ML Lidocaine HCl (Lidocaine Pf 2% Vial) 5 ml STK-MED ONCE 01/02/20 11:22 01/02/20 11:22 DC Lisinopril (Prinivil) 20 mg DAILY 01/03/20 09:00 UNV Morphine Sulfate (Morphine Sulfate) 2 mg PRN Q2HR PRN 01/02/20 06:15 01/03/20 06:14 Non-Formulary Medication (Bisoprolol Fumarate/Hctz (Bisoprolol-Hctz 10-6.25 Mg Tab)) 1 tab DAILY 01/03/20 09:00 UNV Non-Formulary Medication (Fluoxetine Hcl ) 1 cap [id number] 01/03/20 08:00 UNV Non-Formulary Medication (Niacin (Niaspan)) 500 mg HS 01/02/20 21:00 UNV Non-Formulary Medication (Rosuvastatin Calcium (Crestor)) 20 mg HS 01/02/20 21:00 UNV Ondansetron HCl (Zofran) 4 mg PRN Q8HRS PRN 01/02/20 06:15 01/03/20 06:14 Pantoprazole Sodium (PROTONIX VIAL for IV PUSH) 80 mg 1X ONCE 01/02/20 06:15 01/02/20 06:18 DC 01/02/20 06:52 80 MG Pantoprazole Sodium 80 mg/ Sodium Chloride 100 ml @ 10 mls/hr Q10H 01/02/20 06:30 01/02/20 06:34 10 MLS/HR Propofol 40 ml @ As Directed STK-MED ONCE 01/02/20 11:21 01/02/20 11:22 DC Ringer's Solution 1,000 ml @ 100 mls/hr Q10H 01/02/20 11:30 01/02/20 12:34 DC 01/02/20 11:20 100 MLS/HR Sodium Chloride 1,000 ml @ 75 mls/hr [id number] 01/02/20 12:45 01/02/20 12:45 75 MLS/HR Sucralfate (Carafate) 1 gm QIDACHS 01/02/20 16:30 Allergies Allergies Allergies Coded Allergies Type Severity Reaction Last Updated Verified No Known Drug Allergies 01/02/20 No ROS Review of System CONSTITUTIONAL: No fever or chills EYES: No recent changes SKIN: No rash or itching CARDIOVASCULAR: No chest pain, syncope, palpitations, or edema RESPIRATORY: No SOB or cough GASTROINTESTINAL: No nausea, vomiting or abdominal pain NEUROLOGICAL: No headaches or weakness ENDOCRINE: No cold or heat intolerance GENITOURINARY: No urgency or frequency of urination MUSCULOSKELETAL: No back pain or joint pain LYMPHATICS: No enlarged lymph nodes PSYCHIATRIC: No anxiety or depression Physical Exam Physical Exam Gen.: well-developed well-nourished in no apparent distress Head: Normal shape atraumatic Eyes: Pupils equal reactive to light and accommodation, normal conjunctivae and lids Ears: Normal shape Nose: Normal shape no trauma Mouth: No exudates of the back of throat no thrush no lesions Neck: Supple no JVD no carotid bruit or lymphadenopathy no thyromegaly Chest: Lungs clear to auscultation with good inspiratory effort no crackles rales or rhonchi Cardiovascular: S1-S2 regular rhythm no murmurs gallops or rubs Abdomen: Bowel sounds present soft nontender no hepatosplenomegaly appreciated sign Extremities: No clubbing no cyanosis no edema peripheral pulses palpated bilaterally Neurological: Alert awake oriented in person time place and situation, cranial nerves II through XII intact, no motor or sensory deficits appreciated Psych: Appropriate mood, cooperative Vitals Vitals Vital Signs Date Time Temp Pulse Resp B/P (MAP) Pulse Ox O2 Delivery O2 Flow Rate FiO2 01/02/20 12:08 86 16 115/72 98 Room Air 01/02/20 11:38 98.0 2 98.0 Labs Labs Laboratory Tests Test 01/02/20 05:35 01/02/20 05:47 01/02/20 11:23 01/02/20 12:46 Stool Occult Blood Negative (NEG) White Blood Count 11.6 x10^3/uL (4.0-11.0) Red Blood Count 4.54 x10^6/uL (4.30-5.70) Hemoglobin 12.5 g/dL (13.0-17.5) Hematocrit 37.8 % (39.0-53.0) Mean Corpuscular Volume 83 fL (79-100) Mean Corpuscular Hemoglobin 28 pg (25-35) Mean Corpuscular Hemoglobin Concent 33 g/dL (31-37) Red Cell Distribution Width 13.8 % (11.5-14.5) Platelet Count 228 x10^3/uL (140-400) Neutrophils (%) (Auto) 83 % (31-73) Lymphocytes (%) (Auto) 9 % (24-48) Monocytes (%) (Auto) 6 % (0-9) Eosinophils (%) (Auto) 1 % (0-3) Basophils (%) (Auto) 1 % (0-3) Neutrophils # (Auto) 9.6 x10^3/uL (1.8-7.7) Lymphocytes # (Auto) 1.0 x10^3/uL (1.0-4.8) Monocytes # (Auto) 0.7 x10^3/uL (0.0-1.1) Eosinophils # (Auto) 0.2 x10^3/uL (0.0-0.7) Basophils # (Auto) 0.1 x10^3/uL (0.0-0.2) Prothrombin Time 13.4 SEC (11.7-14.0) Prothromb Time International Ratio 1.1 (0.8-1.1) Sodium Level 139 mmol/L (136-145) Potassium Level 4.1 mmol/L (3.5-5.1) Chloride Level 101 mmol/L (98-107) Carbon Dioxide Level 26 mmol/L (21-32) Anion Gap 12 (6-14) Blood Urea Nitrogen 35 mg/dL (8-26) Creatinine 1.2 mg/dL (0.7-1.3) Estimated GFR (Cockcroft-Gault) 60.6 BUN/Creatinine Ratio 29 (6-20) Glucose Level 228 mg/dL (70-99) Calcium Level 8.8 mg/dL (8.5-10.1) Total Bilirubin 0.4 mg/dL (0.2-1.0) Aspartate Amino Transf (AST/SGOT) 19 U/L (15-37) Alanine Aminotransferase (ALT/SGPT) 12 U/L (16-63) Alkaline Phosphatase 73 U/L (46-116) Total Protein 6.2 g/dL (6.4-8.2) Albumin 2.9 g/dL (3.4-5.0) Albumin/Globulin Ratio 0.9 (1.0-1.7) Glucose (Fingerstick) 189 mg/dL (70-99) 154 mg/dL (70-99) Laboratory Tests Test 01/02/20 05:35 01/02/20 05:47 01/02/20 11:23 01/02/20 12:46 Stool Occult Blood Negative (NEG) White Blood Count 11.6 x10^3/uL (4.0-11.0) Red Blood Count 4.54 x10^6/uL (4.30-5.70) Hemoglobin 12.5 g/dL (13.0-17.5) Hematocrit 37.8 % (39.0-53.0) Mean Corpuscular Volume 83 fL (79-100) Mean Corpuscular Hemoglobin 28 pg (25-35) Mean Corpuscular Hemoglobin Concent 33 g/dL (31-37) Red Cell Distribution Width 13.8 % (11.5-14.5) Platelet Count 228 x10^3/uL (140-400) Neutrophils (%) (Auto) 83 % (31-73) Lymphocytes (%) (Auto) 9 % (24-48) Monocytes (%) (Auto) 6 % (0-9) Eosinophils (%) (Auto) 1 % (0-3) Basophils (%) (Auto) 1 % (0-3) Neutrophils # (Auto) 9.6 x10^3/uL (1.8-7.7) Lymphocytes # (Auto) 1.0 x10^3/uL (1.0-4.8) Monocytes # (Auto) 0.7 x10^3/uL (0.0-1.1) Eosinophils # (Auto) 0.2 x10^3/uL (0.0-0.7) Basophils # (Auto) 0.1 x10^3/uL (0.0-0.2) Prothrombin Time 13.4 SEC (11.7-14.0) Prothromb Time International Ratio 1.1 (0.8-1.1) Sodium Level 139 mmol/L (136-145) Potassium Level 4.1 mmol/L (3.5-5.1) Chloride Level 101 mmol/L (98-107) Carbon Dioxide Level 26 mmol/L (21-32) Anion Gap 12 (6-14) Blood Urea Nitrogen 35 mg/dL (8-26) Creatinine 1.2 mg/dL (0.7-1.3) Estimated GFR (Cockcroft-Gault) 60.6 BUN/Creatinine Ratio 29 (6-20) Glucose Level 228 mg/dL (70-99) Calcium Level 8.8 mg/dL (8.5-10.1) Total Bilirubin 0.4 mg/dL (0.2-1.0) Aspartate Amino Transf (AST/SGOT) 19 U/L (15-37) Alanine Aminotransferase (ALT/SGPT) 12 U/L (16-63) Alkaline Phosphatase 73 U/L (46-116) Total Protein 6.2 g/dL (6.4-8.2) Albumin 2.9 g/dL (3.4-5.0) Albumin/Globulin Ratio 0.9 (1.0-1.7) Glucose (Fingerstick) 189 mg/dL (70-99) 154 mg/dL (70-99) VTE Prophylaxis Ordered VTE Prophylaxis Devices: Yes VTE Pharmacological Prophylaxi: No Assessment/Plan Assessment/Plan Upper GI bleed secondary to gastric mass I suspicion for malignancy biopsies have been taken and we will follow up on the pathology History of hypertension well controlled the present time Story of diabetes mellitus type 2 insulin requiring History of gout Dyslipidemia Reactive leukocytosis most likely Plan: Hold aspirin Follow laboratory data in the a.m. We'll follow recommendations from consultants Clear liquid diet Medications have been resume VT prophylaxis with SCD ANNE RODRIGUEZ MD Jan 02, 2020 13:32
[2020-01-02] MEDS: FLUoxetine HCL 20 MG CAPSULE PO SCH (14:24)
[2020-01-02] MEDS: LISINOPRIL 20 MG TABLET PO SCH (14:25)
[2020-01-02] MEDS: hydroCHLOROthiazide 25 MG TABLET PO SCH (14:25)
[2020-01-02] MEDS: ATENOLOL 50 MG TABLET. PO SCH (14:25)
[2020-01-02] MEDS: amLODIPine BESYLATE 5 MG TABLET PO SCH (14:26)
[2020-01-02] MEDS: INSULIN LISPRO 300 UNITS/3 ML VIAL. SQ SCH (17:00)
[2020-01-02] MEDS: SUCRALFATE 1 GM/10 ML ORAL.SUSP. PEG SCH ×2 (17:23→21:28)
[2020-01-02] MEDS: NIACIN ER 250 MG TABLET.ER PO SCH (21:28)
[2020-01-02] MEDS: ALLOPURINOL 300 MG TABLET. PO SCH (21:28)
[2020-01-02] MEDS: ATORVASTATIN CALCIUM 40 MG TABLET. PO SCH (21:28)
[2020-01-03] MEDS: IV NORMAL SALINE 1000ML BAG 1,000 ML IV SCH ×2 (00:28→15:44)
[2020-01-03] MEDS: PANTOPRAZOLE SODIUM IV DRIP 80 MG in IV NORMAL SALINE 100ML 100 ML IV SCH (02:06)
[2020-01-03 03:15] VITALS: BP 119/75
[2020-01-03 04:32] LABS: BASO % 1 % (0-3); EOS # 0.2 x10^3/uL (0.0-0.7); EOS % 2 % (0-3); HEMATOCRIT 34.1 % (39.0-53.0); HEMOGLOBIN 11.6 g/dL (13.0-17.5); LYMPH # 1.6 x10^3/uL (1.0-4.8); LYMPH % 20 % (24-48); MEAN CORPUSCULAR HEMOGLOBIN 28 pg (25-35); MEAN CORPUSCULAR HGB CONC 34 g/dL (31-37); MEAN CORPUSCULAR VOLUME 83 fL (79-100); MONO # 0.7 x10^3/uL (0.0-1.1); MONO % 9 % (0-9); NEUT # 5.5 x10^3/uL (1.8-7.7); NEUT % 68 % (31-73); PLATELET COUNT 201 x10^3/uL (140-400); RED BLOOD COUNT 4.12 x10^6/uL (4.30-5.70)
[2020-01-03 05:02] LABS: ALBUMIN 2.7 g/dL (3.4-5.0); ALBUMIN/GLOBULIN RATIO 0.9 (1.0-1.7); CALCIUM 8.7 mg/dL (8.5-10.1); CREATININE 1.1 mg/dL (0.7-1.3); POTASSIUM 4.1 mmol/L (3.5-5.1); TOTAL BILIRUBIN 0.6 mg/dL (0.2-1.0); TOTAL PROTEIN 5.7 g/dL (6.4-8.2)
[2020-01-03 06:53] VITALS: BP 135/79
[2020-01-03] MEDS: SUCRALFATE 1 GM/10 ML ORAL.SUSP. PEG SCH ×4 (07:30→20:24)
[2020-01-03] MEDS ORDERED: IOHEXOL 300 MG/ML 100ML VIAL. IV ONE (07:45)
[2020-01-03] MEDS ORDERED: IOHEXOL 240 MG/ML 50ML VIAL. PO ONE (07:45)
[2020-01-03] MEDS: INSULIN LISPRO 300 UNITS/3 ML VIAL. SQ SCH ×4 (08:00→17:38)
[2020-01-03] MEDS ORDERED: CONTRAST GIVEN. MC PRN (08:00)
[2020-01-03 10:08] VITALS: BP 131/76
--- NOTE | 2020-01-03 10:50 | PDOC ---
Subjective: Subjective: Was tolerating clears, now NPO and not sure why. Chest discomfort improved. No recurrent vomiting/bleeding though stools are liquid/black. Objective: Objective: D/w nurse - NPO for another CT today. Surgery and rad onc consults pending. Vital Signs: Vital Signs Date Time Temp Pulse Resp B/P (MAP) Pulse Ox O2 Delivery O2 Flow Rate FiO2 01/03/20 10:08 98.5 69 18 131/76 (94) 96 Room Air 98.5 01/02/20 11:38 2 Labs: Laboratory Tests Test 01/02/20 11:23 01/02/20 12:46 01/02/20 17:26 01/02/20 23:18 Glucose (Fingerstick) 189 mg/dL (70-99) 154 mg/dL (70-99) 110 mg/dL (70-99) 108 mg/dL (70-99) Test 01/03/20 06:56 Glucose (Fingerstick) 145 mg/dL (70-99) Imaging: CT A/P 01/02 IMPRESSION: 1. Moderate wall thickening of the distal esophagus. Considerations include esophageal malignancy, Marcos's esophagus, or esophagitis. 2. Gastrohepatic, retroperitoneal, and connor hepatis adenopathy. Mildly enlarged retrocrural lymph nodes. There are subcentimeter paraesophageal lymph nodes. Considerations include viet metastases, lymphoproliferative disorder and other consideration. 3. Cholelithiasis. 4. Moderate distal colon diverticulosis. 5. Prostate is moderately enlarged. EGD 01/02 gastric cardia mass s/p biopsies PE: GEN: NAD LUNGS: CTAB HEART: RRR ABD: NABS, S/ND/NT NEURO/PSYCH: A & O 3 A/P: Hematemesis - resolved Anemia - stable Gastric mass, lymphadenopathy Cholelithiasis, diverticulosis - noted on CT -- Okay to resume diet after CT per GI. PO PPI, note also on sucralfate. Check anemia parameters for completeness. Await biopsy results. Hemodynamically unstable?: No Is patient in severe pain?: No Is NPO status required?: Yes (for CT) MONICA RESTREPO Jan 03, 2020 10:50
--- NOTE | 2020-01-03 11:48 | NUR ---
SS following for discharge planning. SS reviewed pt chart. Pt is from home with spouse and is currently on room air. SS will continue to follow for discharge planning.
--- NOTE | 2020-01-03 11:52 | RAD ---
CT of the chest, abdomen, and pelvis 01/03/2020 INDICATION: Gastric mass, chest. Staging exam. COMPARISON STUDY: CT of the abdomen with IV contrast only, yesterday TECHNIQUE: CT imaging of the abdomen, pelvis, and chest was performed following the administration of IV and enteric contrast. FINDINGS: Chest: Heart size is normal. No pericardial effusion is seen. Dense coronary calcification is noted. No pathologically enlarged mediastinal adenopathy is seen. Scattered small lymph nodes are noted adjacent to the distal esophagus. Redemonstration of distal esophageal thickening. There is a node immediately posterior to the esophagus on series CT #4, image #3 measuring 2 cm in diameter with central hypodensity. This could represent metastatic adenopathy, possibly with some component of necrosis. There is no pneumothorax, pleural effusion, or focal consolidative infiltrate. Few scattered calcified nodules are noted in the left lung base consistent with prior granulomatous disease. There is a nonspecific 1 to 2 mm nodule in the left lower lobe on axial image 44 which is nonspecific. There is a medial, subpleural 5 mm noncalcified nodule right lower lobe (axial image 39). No acute osseous abnormalities are seen. Abdomen and pelvis: Cholelithiasis noted. Liver is unremarkable. Adrenal glands are unremarkable. Spleen is unremarkable. Probable subcentimeter cysts noted in the posterior right kidney. Kidneys are otherwise unremarkable. Pancreas is unremarkable. Periaortic and retroperitoneal adenopathy is noted in the upper abdomen. Appearance is similar to prior study. Prominent lymph node nodes are present along the superior lesser curvature of the stomach. Largest mass is seen in the right upper abdomen positioned between the duodenum and the IVC. This is felt to most likely represent a conglomeration of lymph nodes measuring 5.4 cm transverse x 3.8 cm and AP. There is no evidence of bowel obstruction. Enteric contrast is seen within the rectum. Distal colonic diverticulosis is noted. Bladder is grossly unremarkable. The prostate is enlarged and partially calcified. No acute osseous abnormalities are seen. IMPRESSION: 1. Distal esophageal thickening, similar to prior exam, concerning for neoplasm. Correlate with recent endoscopy. 2. Mass in the epigastrium abutting/contiguous with the stomach. This could represent a conglomeration of lymph nodes adjacent to the stomach. A partially exophytic gastric mass cannot be excluded on the basis of this exam.. 3. Paraesophageal lymphadenopathy, and upper abdominal lymphadenopathy, most prominent in the lesser curvature of the stomach and in the connor hepatis. The finding is concerning for metastatic disease. 4. 5 mm noncalcified nodule, right lower lobe. 1 to 2 mm nodule, left lower lobe. The appearance is nonspecific. Imaging surveillance recommended. CT DOSING PQRS STATEMENT: One or more of the following individualized dose reduction techniques were utilized for this examination: 1. Automated exposure control 2. Adjustment of the mA and/or kV according to patient size 3. Use of iterative reconstruction technique Electronically signed by: Tyson Arshad MD (01/03/2020 11:50 AM) [id number]
--- NOTE | 2020-01-03 12:06 | PDOC2 ---
DIRKANDREY Elías SUPERVISOR DISPLAY FABRICATION 01/03/20 1206: CONSULT Date of Consult Date of Consult DATE: 01/03/20 TIME: 12:02 Reason for Consult Reason for Consult: gastric mass Referring Physician Referring Physician: Dr Vega Identification/Chief Complaint Chief Complaint hematemesis Source Source: Chart review, Patient History of Present Illness Reason for Visit: Admitted with hematemesis, underwent EGD, findings of gastric mass, biopsies taken Past Medical History Cardiovascular: HTN Rheumatologic: Gout Endocrine: Diabetes Past Surgical History Past Surgical History: No pertinent history Family History Family History: Other (unremarkable and no pertinent) Social History No ALCOHOL: none Drugs: None Lives: with Family Current Problem List Problem List Problems Medical Problems: (1) Diabetes Status: Acute (2) Hematemesis Status: Acute (3) Upper GI bleed Status: Acute Current Medications Current Medications Current Medications Sodium Chloride 1,000 ml @ 1,000 mls/hr 1X ONCE IV Last administered on 01/02/20at 05:55; Start 01/02/20 at 05:30; Stop 01/02/20 at 06:29; Status DC Ondansetron HCl (Zofran) 4 mg PRN Q8HRS PRN IV NAUSEA/VOMITING; Start 01/02/20 at 06:15; Stop 01/03/20 at 06:14; Status DC Morphine Sulfate (Morphine Sulfate) 2 mg PRN Q2HR PRN IV PAIN; Start 01/02/20 at 06:15; Stop 01/03/20 at 06:14; Status DC Pantoprazole Sodium (PROTONIX VIAL for IV PUSH) 80 mg 1X ONCE IVP Last administered on 01/02/20at 06:52; Start 01/02/20 at 06:15; Stop 01/02/20 at 06:18; Status DC Pantoprazole Sodium 80 mg/ Sodium Chloride 100 ml @ 10 mls/hr Q10H IV Last administered on 01/03/20at 02:06; Start 01/02/20 at 06:30; Stop 01/03/20 at 10:49; Status DC Iohexol (Omnipaque 300 Mg/ml) 75 ml 1X ONCE IV Last administered on 01/02/20at 0 6:44; Start 01/02/20 at 06:45; Stop 01/02/20 at 06:46; Status DC Info (CONTRAST GIVEN -- Rx MONITORING) 1 each PRN DAILY PRN MC SEE COMMENTS; Start 01/02/20 at 06:45; Stop 01/04/20 at 06:44 Propofol 40 ml @ As Directed STK-MED ONCE IV ; Start 01/02/20 at 11:21; Stop 01/02/20 at 11:22; Status DC Lidocaine HCl (Lidocaine Pf 2% Vial) 5 ml STK-MED ONCE .ROUTE ; Start 01/02/20 at 11:22; Stop 01/02/20 at 11:22; Status DC Ringer's Solution 1,000 ml @ 100 mls/hr Q10H IV Last administered on 01/02/20at 11:20; Start 01/02/20 at 11:30; Stop 01/02/20 at 12:34; Status DC Sodium Chloride 1,000 ml @ 75 mls/hr [id number] IV Last administered on 01/03/20at 00:28; Start 01/02/20 at 12:45 Sucralfate (Carafate) 1 gm QIDACHS PEG Last administered on 01/02/20at 21:28; Start 01/02/20 at 16:30 Allopurinol (Zyloprim) 300 mg HS PO Last administered on 01/02/20at 21:28; Start 01/02/20 at 21:00 Amlodipine Besylate (Norvasc) 5 mg DAILY PO Last administered on 01/02/20at 14:26; Start 01/02/20 at 14:00 Lisinopril (Prinivil) 20 mg DAILY PO Last administered on 01/02/20at 14:25; Start 01/02/20 at 14:00 Atenolol (Tenormin) 100 mg DAILY PO Last administered on 01/02/20at 14:25; Start 01/02/20 at 14:00 Fluoxetine HCl (PROzac) 40 mg DAILY PO Last administered on 01/02/20at 14:24; Start 01/02/20 at 14:00 Niacin (Slo-Niacin) 500 mg QHS PO Last administered on 01/02/20at 21:28; Start 01/02/20 at 21:00 Atorvastatin Calcium (Lipitor) 80 mg QHS PO Last administered on 01/02/20at 21:28; Start 01/02/20 at 21:00 Insulin Human Lispro (HumaLOG) 0-7 UNITS TIDWMEALS SQ ; Start 01/02/20 at 17:00 Dextrose (Dextrose 50%-Water Syringe) 12.5 gm PRN Q15MIN PRN IV SEE COMMENTS; Start 01/02/20 at 13:30 Dextrose (Iv Dextrose 5%) 250 ml PRN Q15MIN PRN IV SEE COMMENTS; Start 01/02/20 at 13:30 Hydrochlorothiazide (Hydrodiuril) 6.25 mg DAILY PO Last administered on 01/02/20at 14:25; Start 01/02/20 at 14:30 Iohexol (Omnipaque 240 Mg/ml) 30 ml 1X ONCE PO Last administered on 01/03/20at 07:45; Start 01/03/20 at 07:45; Stop 01/03/20 at 07:50; Status DC Iohexol (Omnipaque 300 Mg/ml) 75 ml 1X ONCE IV Last administered on 01/03/20at 07:45; Start 01/03/20 at 07:45; Stop 01/03/20 at 07:50; Status DC Info (CONTRAST GIVEN -- Rx MONITORING) 1 each PRN DAILY PRN MC SEE COMMENTS; Start 01/03/20 at 08:00; Stop 01/05/20 at 07:59 Pantoprazole Sodium (Protonix) 40 mg DAILYAC PO ; Start 01/03/20 at 12:00 Active Scripts Active Reported Tresiba (Insulin Degludec) 100 Unit/1 Ml Vial 45 Unit SQ HS Crestor (Rosuvastatin Calcium) 40 Mg Tablet 20 Mg PO HS Vascepa (Icosapent Ethyl) 1 Gm Capsule 2 Cap PO BID 30 Days Novolog (Insulin Aspart) 100 Unit/1 Ml Cartridge 25 Unit SQ TIDBFRMEAL Metformin Hcl 1,000 Mg Tablet 1,000 Mg PO BIDWMEALS Allopurinol 300 Mg Tablet 1 Tab PO HS Niaspan (Niacin) 500 Mg Tab.er.24h 500 Mg PO HS Fluoxetine Hcl 40 Mg Capsule 1 Cap PO DAILYWBKFT Vitamin D2 (Ergocalciferol (Vitamin D2)) 50,000 Unit Capsule 1 Cap PO WEEKLY Aspir-Low (Aspirin) 81 Mg Tablet.dr 1 Tab PO DAILY Amlodipine Besylate 5 Mg Tablet 5 Mg PO DAILY Lisinopril 20 Mg Tablet 1 Tab PO DAILY Bisoprolol-Hctz 10-6.25 Mg Tab (Bisoprolol Fumarate/Hctz) 1 Each Tablet 1 Tab PO DAILY Allergies Allergies: Coded Allergies: No Known Drug Allergies (Unverified , 01/02/20) ROS General: YES: Other (weight loss, 20 lbs 6 months); No: Chills PSYCHOLOGICAL ROS: No: Anxiety, Depression Eyes: No Blurry vision, No Double vision HEENT: No: Sore Throat Hematological and Lymphatic: YES: Bleeding Problems; No: Blood Clots Respiratory: No: Cough, Shortness of breath Cardiovascular: No Chest Pain, No Palpitations Gastrointestinal: Yes Other (see hpi) Genitourinary: No Dysuria, No Retention Musculoskeletal: No Joint Pain, No Muscle Pain Neurological: No Impaired Coord/balance, No Numbness/Tingling Skin: No Pruritus, No Rash Physical Exam General: Alert, Oriented X3, Cooperative HEENT: Atraumatic, PERRLA Lungs: Clear to auscultation, Normal air movement Heart: Regular rate, Normal S1, Normal S2 Abdomen: Soft, No tenderness Extremities: No clubbing, No cyanosis Skin: No rashes, No breakdown Neuro: Normal gait, Normal speech Psych/Mental Status: Mental status NL, Mood NL MUSCULOSKELETAL: No deformity, No swelling Vitals VITALS Vital Signs Date Time Temp Pulse Resp B/P (MAP) Pulse Ox O2 Delivery O2 Flow Rate FiO2 01/03/20 10:08 98.5 69 18 131/76 (94) 96 Room Air 98.5 01/02/20 11:38 2 Labs Labs Laboratory Tests Test 01/02/20 05:35 01/02/20 05:47 01/02/20 11:23 01/02/20 12:46 Stool Occult Blood Negative (NEG) White Blood Count 11.6 x10^3/uL (4.0-11.0) Red Blood Count 4.54 x10^6/uL (4.30-5.70) Hemoglobin 12.5 g/dL (13.0-17.5) Hematocrit 37.8 % (39.0-53.0) Mean Corpuscular Volume 83 fL (79-100) Mean Corpuscular Hemoglobin 28 pg (25-35) Mean Corpuscular Hemoglobin Concent 33 g/dL (31-37) Red Cell Distribution Width 13.8 % (11.5-14.5) Platelet Count 228 x10^3/uL (140-400) Neutrophils (%) (Auto) 83 % (31-73) Lymphocytes (%) (Auto) 9 % (24-48) Monocytes (%) (Auto) 6 % (0-9) Eosinophils (%) (Auto) 1 % (0-3) Basophils (%) (Auto) 1 % (0-3) Neutrophils # (Auto) 9.6 x10^3/uL (1.8-7.7) Lymphocytes # (Auto) 1.0 x10^3/uL (1.0-4.8) Monocytes # (Auto) 0.7 x10^3/uL (0.0-1.1) Eosinophils # (Auto) 0.2 x10^3/uL (0.0-0.7) Basophils # (Auto) 0.1 x10^3/uL (0.0-0.2) Prothrombin Time 13.4 SEC (11.7-14.0) Prothromb Time International Ratio 1.1 (0.8-1.1) Sodium Level 139 mmol/L (136-145) Potassium Level 4.1 mmol/L (3.5-5.1) Chloride Level 101 mmol/L (98-107) Carbon Dioxide Level 26 mmol/L (21-32) Anion Gap 12 (6-14) Blood Urea Nitrogen 35 mg/dL (8-26) Creatinine 1.2 mg/dL (0.7-1.3) Estimated GFR (Cockcroft-Gault) 60.6 BUN/Creatinine Ratio 29 (6-20) Glucose Level 228 mg/dL (70-99) Calcium Level 8.8 mg/dL (8.5-10.1) Total Bilirubin 0.4 mg/dL (0.2-1.0) Aspartate Amino Transf (AST/SGOT) 19 U/L (15-37) Alanine Aminotransferase (ALT/SGPT) 12 U/L (16-63) Alkaline Phosphatase 73 U/L (46-116) Total Protein 6.2 g/dL (6.4-8.2) Albumin 2.9 g/dL (3.4-5.0) Albumin/Globulin Ratio 0.9 (1.0-1.7) Glucose (Fingerstick) 189 mg/dL (70-99) 154 mg/dL (70-99) Test 2/9/20 17:26 01/02/20 23:18 01/03/20 04:10 01/03/20 06:56 Glucose (Fingerstick) 110 mg/dL (70-99) 108 mg/dL (70-99) 145 mg/dL (70-99) White Blood Count 8.0 x10^3/uL (4.0-11.0) Red Blood Count 4.12 x10^6/uL (4.30-5.70) Hemoglobin 11.6 g/dL (13.0-17.5) Hematocrit 34.1 % (39.0-53.0) Mean Corpuscular Volume 83 fL (79-100) Mean Corpuscular Hemoglobin 28 pg (25-35) Mean Corpuscular Hemoglobin Concent 34 g/dL (31-37) Red Cell Distribution Width 14.0 % (11.5-14.5) Platelet Count 201 x10^3/uL (140-400) Neutrophils (%) (Auto) 68 % (31-73) Lymphocytes (%) (Auto) 20 % (24-48) Monocytes (%) (Auto) 9 % (0-9) Eosinophils (%) (Auto) 2 % (0-3) Basophils (%) (Auto) 1 % (0-3) Neutrophils # (Auto) 5.5 x10^3/uL (1.8-7.7) Lymphocytes # (Auto) 1.6 x10^3/uL (1.0-4.8) Monocytes # (Auto) 0.7 x10^3/uL (0.0-1.1) Eosinophils # (Auto) 0.2 x10^3/uL (0.0-0.7) Basophils # (Auto) 0.0 x10^3/uL (0.0-0.2) Sodium Level 143 mmol/L (136-145) Potassium Level 4.1 mmol/L (3.5-5.1) Chloride Level 109 mmol/L (98-107) Carbon Dioxide Level 27 mmol/L (21-32) Anion Gap 7 (6-14) Blood Urea Nitrogen 29 mg/dL (8-26) Creatinine 1.1 mg/dL (0.7-1.3) Estimated GFR (Cockcroft-Gault) 67.0 BUN/Creatinine Ratio 26 (6-20) Glucose Level 118 mg/dL (70-99) Calcium Level 8.7 mg/dL (8.5-10.1) Iron Level 118 ug/dL (65-175) Total Iron Binding Capacity 232 ug/dL (250-450) Iron Saturation 51 % (15-34) Total Bilirubin 0.6 mg/dL (0.2-1.0) Aspartate Amino Transf (AST/SGOT) 16 U/L (15-37) Alanine Aminotransferase (ALT/SGPT) 9 U/L (16-63) Alkaline Phosphatase 65 U/L (46-116) Total Protein 5.7 g/dL (6.4-8.2) Albumin 2.7 g/dL (3.4-5.0) Albumin/Globulin Ratio 0.9 (1.0-1.7) Vitamin B12 Level 273 pg/mL (247-911) Test 01/03/20 11:07 Glucose (Fingerstick) 158 mg/dL (70-99) Laboratory Tests Test 01/02/20 12:46 01/02/20 17:26 01/02/20 23:18 01/03/20 04:10 Glucose (Fingerstick) 154 mg/dL (70-99) 110 mg/dL (70-99) 108 mg/dL (70-99) White Blood Count 8.0 x10^3/uL (4.0-11.0) Red Blood Count 4.12 x10^6/uL (4.30-5.70) Hemoglobin 11.6 g/dL (13.0-17.5) Hematocrit 34.1 % (39.0-53.0) Mean Corpuscular Volume 83 fL (79-100) Mean Corpuscular Hemoglobin 28 pg (25-35) Mean Corpuscular Hemoglobin Concent 34 g/dL (31-37) Red Cell Distribution Width 14.0 % (11.5-14.5) Platelet Count 201 x10^3/uL (140-400) Neutrophils (%) (Auto) 68 % (31-73) Lymphocytes (%) (Auto) 20 % (24-48) Monocytes (%) (Auto) 9 % (0-9) Eosinophils (%) (Auto) 2 % (0-3) Basophils (%) (Auto) 1 % (0-3) Neutrophils # (Auto) 5.5 x10^3/uL (1.8-7.7) Lymphocytes # (Auto) 1.6 x10^3/uL (1.0-4.8) Monocytes # (Auto) 0.7 x10^3/uL (0.0-1.1) Eosinophils # (Auto) 0.2 x10^3/uL (0.0-0.7) Basophils # (Auto) 0.0 x10^3/uL (0.0-0.2) Sodium Level 143 mmol/L (136-145) Potassium Level 4.1 mmol/L (3.5-5.1) Chloride Level 109 mmol/L (98-107) Carbon Dioxide Level 27 mmol/L (21-32) Anion Gap 7 (6-14) Blood Urea Nitrogen 29 mg/dL (8-26) Creatinine 1.1 mg/dL (0.7-1.3) Estimated GFR (Cockcroft-Gault) 67.0 BUN/Creatinine Ratio 26 (6-20) Glucose Level 118 mg/dL (70-99) Calcium Level 8.7 mg/dL (8.5-10.1) Iron Level 118 ug/dL (65-175) Total Iron Binding Capacity 232 ug/dL (250-450) Iron Saturation 51 % (15-34) Total Bilirubin 0.6 mg/dL (0.2-1.0) Aspartate Amino Transf (AST/SGOT) 16 U/L (15-37) Alanine Aminotransferase (ALT/SGPT) 9 U/L (16-63) Alkaline Phosphatase 65 U/L (46-116) Total Protein 5.7 g/dL (6.4-8.2) Albumin 2.7 g/dL (3.4-5.0) Albumin/Globulin Ratio 0.9 (1.0-1.7) Vitamin B12 Level 273 pg/mL (247-911) Test 01/03/20 06:56 01/03/20 11:07 Glucose (Fingerstick) 145 mg/dL (70-99) 158 mg/dL (70-99) Assessment/Plan Assessment/Plan UGI bleed gastric mass, bx pending ct reviewed oncology and radiation consults pending will have Dr Barros review RIGO BARROS MD 01/03/20 3261: CONSULT Assessment/Plan Assessment/Plan Pt seen and examined. Agree with Ms. Galvin's note Pt currently reports feeling well, hay diet abd soft, ND, NTTP EGD suggests clean GE junction CT reviewed. Biopsy pending. Options would include neoadjuvant therapy or consideration for total gastrectomy for palliative concerns. Thanks for consult! ANDREY GALVIN APRN Jan 03, 2020 12:06 RIGO BARROS MD Jan 03, 2020 17:18
[2020-01-03] MEDS: hydroCHLOROthiazide 25 MG TABLET PO SCH (13:50)
[2020-01-03] MEDS: ATENOLOL 50 MG TABLET. PO SCH (13:50)
[2020-01-03] MEDS: amLODIPine BESYLATE 5 MG TABLET PO SCH (13:51)
[2020-01-03] MEDS: LISINOPRIL 20 MG TABLET PO SCH (13:51)
[2020-01-03] MEDS: FLUoxetine HCL 20 MG CAPSULE PO SCH (13:51)
[2020-01-03] MEDS: PANTOPRAZOLE 40 MG TABLET.DR. PO SCH (13:53)
--- NOTE | 2020-01-03 13:54 | PDOC ---
Provider Note Provider Note Med Onc consult: 1. Clinical stage IV gastric cancer Await path results Plan bone scan See dictation Hemodynamically unstable?: No Is patient in severe pain?: No Is NPO status required?: Yes (for CT) LUNA MCCRACKEN MD Jan 03, 2020 13:54
[2020-01-03 14:11] VITALS: BP 146/88
--- NOTE | 2020-01-03 16:07 | PDOC ---
[employer] PROGRESS NOTE Chief Complaint Chief Complaint Upper GI bleed secondary to gastric mass History of hypertension well controlled the present time Story of diabetes mellitus type 2 insulin requiring History of gout Dyslipidemia Reactive leukocytosis most likely History of Present Illness History of Present Illness Pt seen and examined Discussed with RN chart reviewed No acute events overnight Vitals/I&O Vitals/I&O: Vital Signs Date Time Temp Pulse Resp B/P (MAP) Pulse Ox O2 Delivery O2 Flow Rate FiO2 01/03/20 14:11 98.1 76 18 146/88 (107) 98 Room Air 98.1 01/02/20 11:38 2 I & O 01/02/20 01/02/20 01/03/20 15:00 23:00 07:00 Intake Total 1160 ml 360 ml 100 ml Balance 1160 ml 360 ml 100 ml Physical Exam General: Alert, Oriented X3, Cooperative Heart: Regular rate, Normal S1, Normal S2 Lungs: Clear Abdomen: Soft, No tenderness Extremities: No clubbing, No cyanosis Skin: No rashes, No breakdown Labs Labs: Laboratory Tests Test 01/02/20 17:26 01/02/20 23:18 01/03/20 04:10 01/03/20 06:56 Glucose (Fingerstick) 110 mg/dL (70-99) 108 mg/dL (70-99) 145 mg/dL (70-99) White Blood Count 8.0 x10^3/uL (4.0-11.0) Red Blood Count 4.12 x10^6/uL (4.30-5.70) Hemoglobin 11.6 g/dL (13.0-17.5) Hematocrit 34.1 % (39.0-53.0) Mean Corpuscular Volume 83 fL (79-100) Mean Corpuscular Hemoglobin 28 pg (25-35) Mean Corpuscular Hemoglobin Concent 34 g/dL (31-37) Red Cell Distribution Width 14.0 % (11.5-14.5) Platelet Count 201 x10^3/uL (140-400) Neutrophils (%) (Auto) 68 % (31-73) Lymphocytes (%) (Auto) 20 % (24-48) Monocytes (%) (Auto) 9 % (0-9) Eosinophils (%) (Auto) 2 % (0-3) Basophils (%) (Auto) 1 % (0-3) Neutrophils # (Auto) 5.5 x10^3/uL (1.8-7.7) Lymphocytes # (Auto) 1.6 x10^3/uL (1.0-4.8) Monocytes # (Auto) 0.7 x10^3/uL (0.0-1.1) Eosinophils # (Auto) 0.2 x10^3/uL (0.0-0.7) Basophils # (Auto) 0.0 x10^3/uL (0.0-0.2) Sodium Level 143 mmol/L (136-145) Potassium Level 4.1 mmol/L (3.5-5.1) Chloride Level 109 mmol/L (98-107) Carbon Dioxide Level 27 mmol/L (21-32) Anion Gap 7 (6-14) Blood Urea Nitrogen 29 mg/dL (8-26) Creatinine 1.1 mg/dL (0.7-1.3) Estimated GFR (Cockcroft-Gault) 67.0 BUN/Creatinine Ratio 26 (6-20) Glucose Level 118 mg/dL (70-99) Calcium Level 8.7 mg/dL (8.5-10.1) Iron Level 118 ug/dL (65-175) Total Iron Binding Capacity 232 ug/dL (250-450) Iron Saturation 51 % (15-34) Total Bilirubin 0.6 mg/dL (0.2-1.0) Aspartate Amino Transf (AST/SGOT) 16 U/L (15-37) Alanine Aminotransferase (ALT/SGPT) 9 U/L (16-63) Alkaline Phosphatase 65 U/L (46-116) Total Protein 5.7 g/dL (6.4-8.2) Albumin 2.7 g/dL (3.4-5.0) Albumin/Globulin Ratio 0.9 (1.0-1.7) Vitamin B12 Level 273 pg/mL (247-911) Test 01/03/20 11:07 Glucose (Fingerstick) 158 mg/dL (70-99) Review of Systems Review of Systems: denies SOA denies cough Assessment and Plan Assessmemt and Plan Problems Medical Problems: (1) Diabetes Status: Acute (2) Hematemesis Status: Acute (3) Upper GI bleed Status: Acute Upper GI bleed secondary to gastric mass History of hypertension well controlled the present time Story of diabetes mellitus type 2 insulin requiring History of gout Dyslipidemia Reactive leukocytosis most likely Plan: -Continue to hold aspirin -Oncology consulted -Pending pathology result -Clear liquid diet -VT prophylaxis with SCD -Discharge disposition pending Comment Review of Relevant I have reviewed the following items didier (where applicable) has been applied. Medications: Current Medications Medications (Trade) Dose Ordered Sig/Alex Route PRN Reason Start Time Stop Time Status Last Admin Dose Admin Sucralfate (Carafate) 1 gm QIDACHS PEG 01/02/20 16:30 01/03/20 13:49 Allopurinol (Zyloprim) 300 mg HS PO 01/02/20 21:00 01/02/20 21:28 Niacin (Slo-Niacin) 500 mg QHS PO 01/02/20 21:00 01/02/20 21:28 Atorvastatin Calcium (Lipitor) 80 mg QHS PO 01/02/20 21:00 01/02/20 21:28 Insulin Human Lispro (HumaLOG) 0-7 UNITS TIDWMEALS SQ 01/02/20 17:00 01/03/20 13:59 Iohexol (Omnipaque 240 Mg/ml) 30 ml 1X ONCE PO 01/03/20 07:45 01/03/20 07:50 DC 01/03/20 07:45 Iohexol (Omnipaque 300 Mg/ml) 75 ml 1X ONCE IV 01/03/20 07:45 01/03/20 07:50 DC 01/03/20 07:45 Pantoprazole Sodium (Protonix) 40 mg DAILYAC PO 01/03/20 12:00 01/03/20 13:53 Hemodynamically unstable?: No Is patient in severe pain?: No Is NPO status required?: Yes (for CT) LEV COVINGTON III DO Jan 03, 2020 16:07
[2020-01-03 19:36] VITALS: BP 116/72
[2020-01-03] MEDS: ALLOPURINOL 300 MG TABLET. PO SCH (20:24)
[2020-01-03] MEDS: NIACIN ER 250 MG TABLET.ER PO SCH (20:24)
[2020-01-03] MEDS: ATORVASTATIN CALCIUM 40 MG TABLET. PO SCH (20:25)
[2020-01-03 22:49] VITALS: BP 109/74
--- NOTE | 2020-01-03 22:57 | CONS ---
DATE OF CONSULTATION: 01/03/2020 REQUESTING PHYSICIAN: Dr. Naeem Chino. REASON FOR CONSULTATION: Suspected gastric cancer with lymph node metastasis. HISTORY OF PRESENT ILLNESS: The patient is a 64-year-old gentleman who noticed 6 episodes of hematemesis on 01/02/2020 that prompted him to seek medical attention at [facility]. He has had a 15-pound weight loss over 6 months prior to admission. He has had a history of colonoscopy approximately in [address] Vega which was unremarkable. No history of smoking or heavy alcohol use. He underwent a CT chest, abdomen and pelvis on 01/03/2020 that revealed distal esophageal thickening concerning for neoplasm. Mass in the epigastrium abutting/contiguous with the stomach. Paraesophageal lymphadenopathy and upper abdominal lymphadenopathy, most prominent in the lesser curvature of the stomach in the connor hepatis, concerning for metastatic disease. There is evidence of periaortic and retroperitoneal adenopathy in the upper abdomen. A 5 mm noncalcified nodule in the right lower lobe and 1-2 mm nodule in the left lower lobe is nonspecific. He underwent an upper endoscopy by Dr. Jose Vega on 01/02/2020 which revealed gastric cardia mass. Biopsies were obtained. PAST MEDICAL HISTORY: Hypertension, gout, diabetes. FAMILY HISTORY: Positive for breast cancer. SOCIAL HISTORY: No significant history of smoking or alcohol abuse. He smokes pipe occasionally and he did that for about 5 years. REVIEW OF SYSTEMS: A 12-point review of system was performed. Pertinent positives are mentioned in the history of present illness. Rest of the system review is negative. PHYSICAL EXAMINATION: GENERAL APPEARANCE: The patient is a 64-year-old gentleman who is well developed and nourished and in no acute cardiorespiratory distress. VITAL SIGNS: Blood pressure 146/88, temperature 98.1. HEAD: Atraumatic, normocephalic. EYES: No icterus. NECK: Supple. CHEST: Bilaterally symmetrical. HEART: S1, S2 normal. ABDOMEN: Soft, nontender. CENTRAL NERVOUS SYSTEM: No focal deficits. LYMPHATICS: There is evidence of a left axillary lymph node palpable about 3 cm. SKIN: No rashes. PSYCHOLOGIC: Mood and affect are appropriate. LABORATORY DATA: WBC 8, hemoglobin 11.6, platelet count 201. IMPRESSION AND PLAN: 1. Gastric cancer with retroperitoneal and periaortic lymphadenopathy in addition to other abdominal lymphadenopathy, is clinically suggestive of stage IV gastric cancer. He underwent endoscopy on 01/02/[address] Jose Vega that revealed a gastric cardia mass and biopsies have been obtained and I will await biopsy results. I explained to the patient that clinically this is consistent with advanced gastric cancer and I would recommend palliative chemotherapy after confirmation of diagnosis. I will obtain bone scan for completion of staging workup. 2. Anemia. Hemoglobin 11.6 on 01/03/2020, likely secondary to underlying malignancy. I will obtain iron studies and B12. LUNA MCCRACKEN MD DR: EBONI/bettie JOB#: [id number] / [id number]
[2020-01-04 03:42] VITALS: BP 113/68
[2020-01-04 03:56] LABS: HEMATOCRIT 32.1 % (39.0-53.0); RED BLOOD COUNT 3.88 x10^6/uL (4.30-5.70); RED CELL DISTRIBUTION WIDTH 13.9 % (11.5-14.5)
[2020-01-04] MEDS: IV NORMAL SALINE 1000ML BAG 1,000 ML IV SCH (04:32)
[2020-01-04] MEDS: SUCRALFATE 1 GM/10 ML ORAL.SUSP. PEG SCH ×3 (05:58→17:01)
[2020-01-04] MEDS: PANTOPRAZOLE 40 MG TABLET.DR. PO SCH (05:58)
[2020-01-04 07:01] VITALS: BP 123/78
[2020-01-04] MEDS: hydroCHLOROthiazide 25 MG TABLET PO SCH (08:48)
[2020-01-04] MEDS: FLUoxetine HCL 20 MG CAPSULE PO SCH (08:48)
[2020-01-04] MEDS: ATENOLOL 50 MG TABLET. PO SCH (08:48)
[2020-01-04] MEDS: LISINOPRIL 20 MG TABLET PO SCH (08:48)
[2020-01-04] MEDS: amLODIPine BESYLATE 5 MG TABLET PO SCH (08:48)
--- NOTE | 2020-01-04 08:52 | PDOC ---
SURGICAL PROGRESS NOTE Subjective Pt without c/o, no N/V Vital Signs Vital Signs Date Time Temp Pulse Resp B/P (MAP) Pulse Ox O2 Delivery O2 Flow Rate FiO2 01/04/20 07:01 98.4 65 16 123/78 (93) 97 Room Air 98.4 I&O Intake and Output 01/04/20 07:00 Intake Total 2030 ml Balance 2030 ml Intake Oral 920 ml IV Total 1110 ml # Voids 7 General: Alert, Oriented X3, Cooperative, No acute distress Abdomen: Soft, No tenderness Labs Laboratory Tests Test 01/02/20 11:23 01/02/20 12:46 01/02/20 14:35 01/02/20 17:26 Glucose (Fingerstick) 189 mg/dL (70-99) 154 mg/dL (70-99) 110 mg/dL (70-99) Clostridium difficile Toxin B Gene Negative (Negative) Test 01/02/20 23:18 01/03/20 04:10 01/03/20 06:56 01/03/20 11:07 Glucose (Fingerstick) 108 mg/dL (70-99) 145 mg/dL (70-99) 158 mg/dL (70-99) White Blood Count 8.0 x10^3/uL (4.0-11.0) Red Blood Count 4.12 x10^6/uL (4.30-5.70) Hemoglobin 11.6 g/dL (13.0-17.5) Hematocrit 34.1 % (39.0-53.0) Mean Corpuscular Volume 83 fL (79-100) Mean Corpuscular Hemoglobin 28 pg (25-35) Mean Corpuscular Hemoglobin Concent 34 g/dL (31-37) Red Cell Distribution Width 14.0 % (11.5-14.5) Platelet Count 201 x10^3/uL (140-400) Neutrophils (%) (Auto) 68 % (31-73) Lymphocytes (%) (Auto) 20 % (24-48) Monocytes (%) (Auto) 9 % (0-9) Eosinophils (%) (Auto) 2 % (0-3) Basophils (%) (Auto) 1 % (0-3) Neutrophils # (Auto) 5.5 x10^3/uL (1.8-7.7) Lymphocytes # (Auto) 1.6 x10^3/uL (1.0-4.8) Monocytes # (Auto) 0.7 x10^3/uL (0.0-1.1) Eosinophils # (Auto) 0.2 x10^3/uL (0.0-0.7) Basophils # (Auto) 0.0 x10^3/uL (0.0-0.2) Sodium Level 143 mmol/L (136-145) Potassium Level 4.1 mmol/L (3.5-5.1) Chloride Level 109 mmol/L (98-107) Carbon Dioxide Level 27 mmol/L (21-32) Anion Gap 7 (6-14) Blood Urea Nitrogen 29 mg/dL (8-26) Creatinine 1.1 mg/dL (0.7-1.3) Estimated GFR (Cockcroft-Gault) 67.0 BUN/Creatinine Ratio 26 (6-20) Glucose Level 118 mg/dL (70-99) Calcium Level 8.7 mg/dL (8.5-10.1) Iron Level 118 ug/dL (65-175) Total Iron Binding Capacity 232 ug/dL (250-450) Iron Saturation 51 % (15-34) Total Bilirubin 0.6 mg/dL (0.2-1.0) Aspartate Amino Transf (AST/SGOT) 16 U/L (15-37) Alanine Aminotransferase (ALT/SGPT) 9 U/L (16-63) Alkaline Phosphatase 65 U/L (46-116) Total Protein 5.7 g/dL (6.4-8.2) Albumin 2.7 g/dL (3.4-5.0) Albumin/Globulin Ratio 0.9 (1.0-1.7) Vitamin B12 Level 273 pg/mL (247-911) Test 01/03/20 16:34 01/03/20 20:27 01/04/20 03:25 01/04/20 07:04 Glucose (Fingerstick) 223 mg/dL (70-99) 244 mg/dL (70-99) 146 mg/dL (70-99) White Blood Count 8.0 x10^3/uL (4.0-11.0) Red Blood Count 3.88 x10^6/uL (4.30-5.70) Hemoglobin 11.0 g/dL (13.0-17.5) Hematocrit 32.1 % (39.0-53.0) Mean Corpuscular Volume 83 fL (79-100) Mean Corpuscular Hemoglobin 28 pg (25-35) Mean Corpuscular Hemoglobin Concent 34 g/dL (31-37) Red Cell Distribution Width 13.9 % (11.5-14.5) Platelet Count 193 x10^3/uL (140-400) Ferritin 127 ng/mL (26-388) Laboratory Tests Test 01/03/20 11:07 01/03/20 16:34 01/03/20 20:27 01/04/20 03:25 Glucose (Fingerstick) 158 mg/dL (70-99) 223 mg/dL (70-99) 244 mg/dL (70-99) White Blood Count 8.0 x10^3/uL (4.0-11.0) Red Blood Count 3.88 x10^6/uL (4.30-5.70) Hemoglobin 11.0 g/dL (13.0-17.5) Hematocrit 32.1 % (39.0-53.0) Mean Corpuscular Volume 83 fL (79-100) Mean Corpuscular Hemoglobin 28 pg (25-35) Mean Corpuscular Hemoglobin Concent 34 g/dL (31-37) Red Cell Distribution Width 13.9 % (11.5-14.5) Platelet Count 193 x10^3/uL (140-400) Ferritin 127 ng/mL (26-388) Test 01/04/20 07:04 Glucose (Fingerstick) 146 mg/dL (70-99) Problem List Problems Medical Problems: (1) Diabetes Status: Acute (2) Hematemesis Status: Acute (3) Upper GI bleed Status: Acute Assessment/Plan gastric mass await biopsy to consider treatment options. potentially, pt may be d/c'ed home prior to biopsy results RIGO MAGUIRE MD Jan 04, 2020 08:52
[2020-01-04] MEDS: INSULIN LISPRO 300 UNITS/3 ML VIAL. SQ SCH ×2 (08:59→12:36)
[2020-01-04 10:04] VITALS: BP 134/72
--- NOTE | 2020-01-04 11:57 | PDOC ---
[employer] PROGRESS NOTE Chief Complaint Chief Complaint Upper GI bleed secondary to gastric mass History of hypertension well controlled the present time Story of diabetes mellitus type 2 insulin requiring History of gout Dyslipidemia Reactive leukocytosis most likely History of Present Illness History of Present Illness Patient was seen and examined on the floor Discussed with RN Chart reviewed Pathologist called No acute events overnight Vitals/I&O Vitals/I&O: Vital Signs Date Time Temp Pulse Resp B/P (MAP) Pulse Ox O2 Delivery O2 Flow Rate FiO2 01/04/20 10:04 98.0 64 16 134/72 (92) 100 Room Air 98.0 01/04/20 08:00 2.0 I & O 01/03/20 01/03/20 01/04/20 15:00 23:00 07:00 Intake Total 360 ml 1220 ml 450 ml Balance 360 ml 1220 ml 450 ml Physical Exam General: Alert, Oriented X3, Cooperative, No acute distress Heart: Regular rate, Normal S1, Normal S2 Lungs: Clear Abdomen: Soft, No tenderness Extremities: No clubbing, No cyanosis Skin: No rashes, No breakdown Labs Labs: Laboratory Tests Test 01/03/20 16:34 01/03/20 20:27 01/04/20 03:25 01/04/20 07:04 Glucose (Fingerstick) 223 mg/dL (70-99) 244 mg/dL (70-99) 146 mg/dL (70-99) White Blood Count 8.0 x10^3/uL (4.0-11.0) Red Blood Count 3.88 x10^6/uL (4.30-5.70) Hemoglobin 11.0 g/dL (13.0-17.5) Hematocrit 32.1 % (39.0-53.0) Mean Corpuscular Volume 83 fL (79-100) Mean Corpuscular Hemoglobin 28 pg (25-35) Mean Corpuscular Hemoglobin Concent 34 g/dL (31-37) Red Cell Distribution Width 13.9 % (11.5-14.5) Platelet Count 193 x10^3/uL (140-400) Ferritin 127 ng/mL (26-388) Test 01/04/20 11:13 Glucose (Fingerstick) 210 mg/dL (70-99) Review of Systems Review of Systems: Neuro: denies new onset weakness, denies [facility]: denies n/v/d, denies any melena Assessment and Plan Assessmemt and Plan Assessment: Upper GI bleed secondary to gastric mass Anemia History of hypertension well controlled the present time Story of diabetes mellitus type 2 insulin requiring History of gout Dyslipidemia Reactive leukocytosis most likely Plan: Call patient with results of pathology report when available Monitor anemia Per hem/onc, consider palliative chemotherapy pending Dx Comment Review of Relevant I have reviewed the following items didier (where applicable) has been applied. Medications: Current Medications Medications (Trade) Dose Ordered Sig/Alex Route PRN Reason Start Time Stop Time Status Last Admin Dose Admin Pantoprazole Sodium (Protonix) 40 mg DAILYAC PO 01/03/20 12:00 01/04/20 05:58 Insulin Human Lispro (HumaLOG) 15 units TIDWMEALS SQ 01/03/20 17:30 01/04/20 08:59 Hemodynamically unstable?: No Is patient in severe pain?: No Is NPO status required?: Yes (for CT) LEV COVINGTON III DO Jan 04, 2020 11:57
--- NOTE | 2020-01-04 14:00 | PDOC ---
Subjective: Subjective: Says he just got a call about his biopsy - "it's gastric." Tolerating diet, stooling normally. Would like to go home. Objective: Vital Signs: Vital Signs Date Time Temp Pulse Resp B/P (MAP) Pulse Ox O2 Delivery O2 Flow Rate FiO2 01/04/20 10:04 98.0 64 16 134/72 (92) 100 Room Air 98.0 01/04/20 08:00 2.0 Labs: Laboratory Tests Test 01/03/20 16:34 01/03/20 20:27 01/04/20 07:04 01/04/20 11:13 Glucose (Fingerstick) 223 mg/dL (70-99) 244 mg/dL (70-99) 146 mg/dL (70-99) 210 mg/dL (70-99) Imaging: Bone Scan 01/04 pending PE: GEN: NAD LUNGS: CTAB HEART: RRR ABD: NABS, S/ND/NT NEURO/PSYCH: A & O 3 A/P: Gastric mass, lymphadenopathy -- No biopsy results I see but pt says he got a call with results ? Continue PPI, add B12. Continue per oncology, etc. Hemodynamically unstable?: No Is patient in severe pain?: No Is NPO status required?: No MONICA RESTREPO Jan 04, 2020 14:00
[2020-01-04 14:07] VITALS: BP 116/63
--- NOTE | 2020-01-04 14:52 | PDOC ---
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, 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, no focal neurologic deficit SKIN: No rash IV: ok Labs Lab Laboratory Tests Test 01/03/20 16:34 01/03/20 20:27 01/04/20 03:25 01/04/20 07:04 Glucose (Fingerstick) 223 mg/dL (70-99) 244 mg/dL (70-99) 146 mg/dL (70-99) White Blood Count 8.0 x10^3/uL (4.0-11.0) Red Blood Count 3.88 x10^6/uL (4.30-5.70) Hemoglobin 11.0 g/dL (13.0-17.5) Hematocrit 32.1 % (39.0-53.0) Mean Corpuscular Volume 83 fL (79-100) Mean Corpuscular Hemoglobin 28 pg (25-35) Mean Corpuscular Hemoglobin Concent 34 g/dL (31-37) Red Cell Distribution Width 13.9 % (11.5-14.5) Platelet Count 193 x10^3/uL (140-400) Ferritin 127 ng/mL (26-388) Test 01/04/20 11:13 Glucose (Fingerstick) 210 mg/dL (70-99) Objective Assessment Patient was presented in Tumor Board, today. All radiologic exams and pathology was reviewed and discussed. HER2 receptors are pending. Because of the extensive disease including paraaortic nodes patient was placed in Stage IV. Despite amount of bulky disease patient is asymptomatic. His bleeding has also been controlled. Plan Plan of Care Dr. Kellogg will be visiting with patient concerning systemic treatment options. At this time, since patient is asymptomatic radiation does not have a role. However, if there is bleeding, pain or obstruction, reconsideration of radiation for palliative purposes can be revisited. In addition, if patient has a dramatic response consolidation with radiation should be followed. Hemodynamically unstable?: No Is patient in severe pain?: No Is NPO status required?: No Problem Qualifiers (1) Hematemesis: Nausea presence: with nausea Qualified Codes: K92.0 - Hematemesis (2) Hematemesis: Nausea presence: with nausea Qualified Codes: K92.0 - Hematemesis (3) Diabetes: Diabetes mellitus type: other specified (including NEEL) Diabetes mellitus long term care administrator insulin use: without long term care administrator use Diabetes mellitus complication status: without complication Qualified Codes: E13.9 - Other specified diabetes mellitus without complications DELFINO ATKINSON MD Jan 04, 2020 14:52
--- NOTE | 2020-01-04 15:48 | PDOC ---
PROGRESS NOTES Subjective Subjective HPI - f/u of Gastric cancer ROS - No Hematemesis Objective Objective Vital Signs Date Time Temp Pulse Resp B/P (MAP) Pulse Ox O2 Delivery O2 Flow Rate FiO2 01/04/20 14:07 98.3 62 16 116/63 (80) 99 Room Air 98.3 01/04/20 08:00 2.0 Intake and Output 01/04/20 07:00 Intake Total 2030 ml Balance 2030 ml Intake Oral 920 ml IV Total 1110 ml # Voids 7 Physical Exam Heart: Normal S1, Normal S2 General: Alert, Oriented X3 Lungs: Clear to auscultation Neuro: Normal speech Psych/Mental Status: Mental status NL Assessment Assessment Problems Medical Problems: (1) Diabetes Status: Acute (2) Hematemesis Status: Acute (3) Upper GI bleed Status: Acute IMPRESSION AND PLAN: 1. Gastric cancer with retroperitoneal and periaortic lymphadenopathy in addition to other abdominal lymphadenopathy, is clinically suggestive of stage IV gastric cancer. He underwent endoscopy on 01/02/[address] Jose Vega that revealed a gastric cardia mass and biopsies have been obtained and I reviewed with pathologist that confirmed malignancy. I would recommend palliative chemotherapy. Her 2 antonio pending. Bone scan 01/04/2020 for completion of staging workup. Results pending Ok to d/c home when ok with others. f/u with me next week. 2. Anemia. Hemoglobin 11.6 on 01/03/2020, likely secondary to underlying malignancy. Iron studies are suggestive of anemia due to chronic disease. B12 is 273. Plan B12 supplements. Comment Review of Relevant I have reviewed the following items didier (where applicable) has been applied. Labs Laboratory Tests Test 01/02/20 17:26 01/02/20 23:18 01/03/20 04:10 01/03/20 06:56 Glucose (Fingerstick) 110 mg/dL (70-99) 108 mg/dL (70-99) 145 mg/dL (70-99) White Blood Count 8.0 x10^3/uL (4.0-11.0) Red Blood Count 4.12 x10^6/uL (4.30-5.70) Hemoglobin 11.6 g/dL (13.0-17.5) Hematocrit 34.1 % (39.0-53.0) Mean Corpuscular Volume 83 fL (79-100) Mean Corpuscular Hemoglobin 28 pg (25-35) Mean Corpuscular Hemoglobin Concent 34 g/dL (31-37) Red Cell Distribution Width 14.0 % (11.5-14.5) Platelet Count 201 x10^3/uL (140-400) Neutrophils (%) (Auto) 68 % (31-73) Lymphocytes (%) (Auto) 20 % (24-48) Monocytes (%) (Auto) 9 % (0-9) Eosinophils (%) (Auto) 2 % (0-3) Basophils (%) (Auto) 1 % (0-3) Neutrophils # (Auto) 5.5 x10^3/uL (1.8-7.7) Lymphocytes # (Auto) 1.6 x10^3/uL (1.0-4.8) Monocytes # (Auto) 0.7 x10^3/uL (0.0-1.1) Eosinophils # (Auto) 0.2 x10^3/uL (0.0-0.7) Basophils # (Auto) 0.0 x10^3/uL (0.0-0.2) Sodium Level 143 mmol/L (136-145) Potassium Level 4.1 mmol/L (3.5-5.1) Chloride Level 109 mmol/L (98-107) Carbon Dioxide Level 27 mmol/L (21-32) Anion Gap 7 (6-14) Blood Urea Nitrogen 29 mg/dL (8-26) Creatinine 1.1 mg/dL (0.7-1.3) Estimated GFR (Cockcroft-Gault) 67.0 BUN/Creatinine Ratio 26 (6-20) Glucose Level 118 mg/dL (70-99) Calcium Level 8.7 mg/dL (8.5-10.1) Iron Level 118 ug/dL (65-175) Total Iron Binding Capacity 232 ug/dL (250-450) Iron Saturation 51 % (15-34) Total Bilirubin 0.6 mg/dL (0.2-1.0) Aspartate Amino Transf (AST/SGOT) 16 U/L (15-37) Alanine Aminotransferase (ALT/SGPT) 9 U/L (16-63) Alkaline Phosphatase 65 U/L (46-116) Total Protein 5.7 g/dL (6.4-8.2) Albumin 2.7 g/dL (3.4-5.0) Albumin/Globulin Ratio 0.9 (1.0-1.7) Vitamin B12 Level 273 pg/mL (247-911) Test 01/03/20 11:07 01/03/20 16:34 01/03/20 20:27 01/04/20 03:25 Glucose (Fingerstick) 158 mg/dL (70-99) 223 mg/dL (70-99) 244 mg/dL (70-99) White Blood Count 8.0 x10^3/uL (4.0-11.0) Red Blood Count 3.88 x10^6/uL (4.30-5.70) Hemoglobin 11.0 g/dL (13.0-17.5) Hematocrit 32.1 % (39.0-53.0) Mean Corpuscular Volume 83 fL (79-100) Mean Corpuscular Hemoglobin 28 pg (25-35) Mean Corpuscular Hemoglobin Concent 34 g/dL (31-37) Red Cell Distribution Width 13.9 % (11.5-14.5) Platelet Count 193 x10^3/uL (140-400) Ferritin 127 ng/mL (26-388) Test 01/04/20 07:04 01/04/20 11:13 Glucose (Fingerstick) 146 mg/dL (70-99) 210 mg/dL (70-99) Laboratory Tests Test 01/03/20 16:34 01/03/20 20:27 01/04/20 03:25 01/04/20 07:04 Glucose (Fingerstick) 223 mg/dL (70-99) 244 mg/dL (70-99) 146 mg/dL (70-99) White Blood Count 8.0 x10^3/uL (4.0-11.0) Red Blood Count 3.88 x10^6/uL (4.30-5.70) Hemoglobin 11.0 g/dL (13.0-17.5) Hematocrit 32.1 % (39.0-53.0) Mean Corpuscular Volume 83 fL (79-100) Mean Corpuscular Hemoglobin 28 pg (25-35) Mean Corpuscular Hemoglobin Concent 34 g/dL (31-37) Red Cell Distribution Width 13.9 % (11.5-14.5) Platelet Count 193 x10^3/uL (140-400) Ferritin 127 ng/mL (26-388) Test 01/04/20 11:13 Glucose (Fingerstick) 210 mg/dL (70-99) Medications Current Medications Sodium Chloride 1,000 ml @ 1,000 mls/hr 1X ONCE IV Last administered on 01/02/20at 05:55; Start 01/02/20 at 05:30; Stop 01/02/20 at 06:29; Status DC Ondansetron HCl (Zofran) 4 mg PRN Q8HRS PRN IV NAUSEA/VOMITING; Start 01/02/20 at 06:15; Stop 01/03/20 at 06:14; Status DC Morphine Sulfate (Morphine Sulfate) 2 mg PRN Q2HR PRN IV PAIN; Start 01/02/20 at 06:15; Stop 01/03/20 at 06:14; Status DC Pantoprazole Sodium (PROTONIX VIAL for IV PUSH) 80 mg 1X ONCE IVP Last administered on 01/02/20at 06:52; Start 01/02/20 at 06:15; Stop 01/02/20 at 06:18; Status DC Pantoprazole Sodium 80 mg/ Sodium Chloride 100 ml @ 10 mls/hr Q10H IV Last adm inistered on 01/03/20at 02:06; Start 01/02/20 at 06:30; Stop 01/03/20 at 10:49; Status DC Iohexol (Omnipaque 300 Mg/ml) 75 ml 1X ONCE IV Last administered on 01/02/20at 06:44; Start 01/02/20 at 06:45; Stop 01/02/20 at 06:46; Status DC Info (CONTRAST GIVEN -- Rx MONITORING) 1 each PRN DAILY PRN MC SEE COMMENTS; Start 01/02/20 at 06:45; Stop 01/04/20 at 06:44; Status DC Propofol 40 ml @ As Directed STK-MED ONCE IV ; Start 01/02/20 at 11:21; Stop 01/02/20 at 11:22; Status DC Lidocaine HCl (Lidocaine Pf 2% Vial) 5 ml STK-MED ONCE .ROUTE ; Start 01/02/20 at 11:22; Stop 01/02/20 at 11:22; Status DC Ringer's Solution 1,000 ml @ 100 mls/hr Q10H IV Last administered on 01/02/20at 11:20; Start 01/02/20 at 11:30; Stop 01/02/20 at 12:34; Status DC Sodium Chloride 1,000 ml @ 75 mls/hr [id number] IV Last administered on 01/04/20at 04:32; Start 01/02/20 at 12:45 Sucralfate (Carafate) 1 gm QIDACHS PEG Last administered on 01/04/20at 11:30; Start 01/02/20 at 16:30 Allopurinol (Zyloprim) 300 mg HS PO Last administered on 01/03/20at 20:24; Start 01/02/20 at 21:00 Amlodipine Besylate (Norvasc) 5 mg DAILY PO Last administered on 01/04/20at 08:48; Start 01/02/20 at 14:00 Lisinopril (Prinivil) 20 mg DAILY PO Last administered on 01/04/20at 08:48; Start 01/02/20 at 14:00 Atenolol (Tenormin) 100 mg DAILY PO Last administered on 01/04/20at 08:48; Start 01/02/20 at 14:00 Fluoxetine HCl (PROzac) 40 mg DAILY PO Last administered on 01/04/20at 08:48; Start 01/02/20 at 14:00 Niacin (Slo-Niacin) 500 mg QHS PO Last administered on 01/03/20at 20:24; Start 01/02/20 at 21:00 Atorvastatin Calcium (Lipitor) 80 mg QHS PO Last administered on 01/03/20 20:25; Start 01/02/20 at 21:00 Insulin Human Lispro (HumaLOG) 0-7 UNITS TIDWMEALS SQ Last administered on 01/03/20at 13:59; Start 01/02/20 at 17:00; Stop 01/03/20 at 17:25; Status DC Dextrose (Dextrose 50%-Water Syringe) 12.5 gm PRN Q15MIN PRN IV SEE COMMENTS; Start 01/02/20 at 13:30 Dextrose (Iv Dextrose 5%) 250 ml PRN Q15MIN PRN IV SEE COMMENTS; Start 01/02/20 at 13:30 Hydrochlorothiazide (Hydrodiuril) 6.25 mg DAILY PO Last administered on 01/04/20at 08:48; Start 01/02/20 at 14:30 Iohexol (Omnipaque 240 Mg/ml) 30 ml 1X ONCE PO Last administered on 01/03/20at 07:45; Start 01/03/20 at 07:45; Stop 01/03/20 at 07:50; Status DC Iohexol (Omnipaque 300 Mg/ml) 75 ml 1X ONCE IV Last administered on 01/03/20at 07:45; Start 01/03/20 at 07:45; Stop 01/03/20 at 07:50; Status DC Info (CONTRAST GIVEN -- Rx MONITORING) 1 each PRN DAILY PRN MC SEE COMMENTS; Start 01/03/20 at 08:00; Stop 01/05/20 at 07:59 Pantoprazole Sodium (Protonix) 40 mg DAILYAC PO Last administered on 01/04/20at 05:58; Start 01/03/20 at 12:00 Insulin Human Lispro (HumaLOG) 15 units TIDWMEALS SQ Last administered on 01/04/20at 12:36; Start 01/03/20 at 17:30 Cyanocobalamin (Vitamin B-12) 1,000 mcg DAILY PO ; Start 01/05/20 at 09:00 Active Scripts Active Reported Tresiba (Insulin Degludec) 100 Unit/1 Ml Vial 45 Unit SQ HS Crestor (Rosuvastatin Calcium) 40 Mg Tablet 20 Mg PO HS Vascepa (Icosapent Ethyl) 1 Gm Capsule 2 Cap PO BID 30 Days Novolog (Insulin Aspart) 100 Unit/1 Ml Cartridge 25 Unit SQ TIDBFRMEAL Metformin Hcl 1,000 Mg Tablet 1,000 Mg PO BIDWMEALS Allopurinol 300 Mg Tablet 1 Tab PO HS Niaspan (Niacin) 500 Mg Tab.er.24h 500 Mg PO HS Fluoxetine Hcl 40 Mg Capsule 1 Cap PO DAILYWBKFT Vitamin D2 (Ergocalciferol (Vitamin D2)) 50,000 Unit Capsule 1 Cap PO WEEKLY Aspir-Low (Aspirin) 81 Mg Tablet.dr 1 Tab PO DAILY Amlodipine Besylate 5 Mg Tablet 5 Mg PO DAILY Lisinopril 20 Mg Tablet 1 Tab PO DAILY Bisoprolol-Hctz 10-6.25 Mg Tab (Bisoprolol Fumarate/Hctz) 1 Each Tablet 1 Tab PO DAILY Vitals/I & O Vital Sign - Last 24 Hours 01/03/20 01/03/20 01/03/20 01/04/20 19:36 19:45 22:49 03:42 Temp 98.0 98.2 98.0 98.0 98.2 98.0 Pulse 76 81 61 Resp 16 16 16 B/P (MAP) 116/72 (87) 109/74 (86) 113/68 (83) Pulse Ox 95 99 98 O2 Delivery Room Air Room Air Room Air Room Air 01/04/20 01/04/20 01/04/20 01/04/20 07:01 08:00 08:48 08:48 Temp 98.4 98.4 Pulse 65 65 65 Resp 16 B/P (MAP) 123/78 (93) 123/78 123/78 Pulse Ox 97 O2 Delivery Room Air Room Air O2 Flow Rate 2.0 01/04/20 01/04/20 01/04/20 08:48 10:04 14:07 Temp 98.0 98.3 98.0 98.3 Pulse 65 64 62 Resp 16 16 B/P (MAP) 123/78 134/72 (92) 116/63 (80) Pulse Ox 100 99 O2 Delivery Room Air Room Air Intake and Output 01/03/20 01/03/20 01/04/20 15:00 23:00 07:00 Intake Total 360 ml 1220 ml 450 ml Balance 360 ml 1220 ml 450 ml Hemodynamically unstable?: No Is patient in severe pain?: No Is NPO status required?: LUNA Woodard MD Jan 04, 2020 15:47
[2020-01-04] MEDS ORDERED: CYANOCOBALAMIN (VITAMIN B-12) 1,000 MCG TABLET. PO SCH (16:00)
--- NOTE | 2020-01-04 16:34 | RAD ---
Whole body bone scan Clinical indications: Gastric cancer. Staging. COMPARISON: No previous bone scan available. CT study of the chest abdomen pelvis dated January 03, 2020. TECHNIQUE: After IV infusion of 25 mCi of technetium 99m MDP, delayed anterior and posterior planar images of the whole body were performed. Left lateral and right lateral images of the chest were performed. FINDINGS: Bilateral renal function is evident. Scoliosis is seen. Degenerative changes of the sternoclavicular joints and AC joints are seen. Degenerative changes of both feet and ankles is seen. No pattern of uptake is seen to indicate osseous metastatic disease scintigraphically otherwise. IMPRESSION: No osseous metastatic disease is seen scintigraphically. Electronically signed by: Manpreet Nugent MD (01/04/2020 4:30 PM) [facility]
--- NOTE | 2020-01-04 17:06 | PATHOLOGY ---
[facility] Accession Number: [id number] . 01 Material submitted: . gastrointestinal site - GASTRIC CARDIA MASS . 01 Clinical history: . hematemesis . 02 Diagnosis: Gastric biopsies, gastric cardia mass: - ADENOCARCINOMA, MODERATELY-WELL TO FOCALLY POORLY DIFFERENTIATED. SEE COMMENT. LBQ 01/04/2020 1305 Local . 02 Comment: Sections of the gastric cardia mass reveal a malignant epithelial neoplasm. Focal areas of the neoplasm show fairly well formed malignant glands which infiltrate between and around smooth muscle fibers. There are focal areas showing crowded small malignant glands which infiltrate a reactive desmoplastic stroma. There is also an area of the neoplasm where the malignant cells are present in solid nests and sheets within which there are a few signet ring tumor cells. There is evidence of ulceration with acute inflammatory exudate. A properly controlled immunoperoxidase stain for Helicobacter is negative for Helicobacter organisms. The morphologic findings are supportive of the diagnosis of a moderately-well to focally poorly differentiated adenocarcinoma. The case is also examined by Dr. Sesay, who concurs with the diagnosis. The results are reported to Dr. Kellogg, Dr. Vega, and Dr. Briones on 01/04/2020. (JPM/db; 01/04/2020) . Special stain: Immunoperoxidase stain for Helicobacter on A1 . 02 Electronically signed: . Abdi Rodríguez MD, Pathologist NPI- [id number] . 01 Gross description: . The specimen is received in formalin, labeled "[place], gastric cardia mass" and consists of multiple fragments of pink-carranza tissue measuring 1.4 x 0.6 x 0.3 cm in aggregate which are entirely submitted in A1. (SDY; 01/03/2020) SYU/SYU 01/03/[address] [place] [address] . 02 Pathologist provided ICD-10: C16.9 . 02 CPT . 792839, A01168 Specimen Comment: A courtesy copy of this report has been sent to [phone], [phone] Specimen Comment: [id number] Specimen Comment: Report sent to / DR PEREZ Performed at: 01 [facility] [address] [facility] [address], [place], [place] [id number] MD Terrell Haskins MD Phone: [phone] Performed at: 02 [facility] [address] [place], [place] [id number] MD Abdi Rodríguez MD Phone: [phone]
[2020-01-04] MEDS ORDERED: PANT40TA77 PO (17:32)
[2020-01-04] MEDS ORDERED: CYAN-25 PO (17:33)
--- NOTE | 2020-01-04 18:43 | NUR ---
Discharge Note: VANITA DE LA CRUZ Discharge instructions and discharge home medications reviewed with Patient and a copy given. All questions have been answered and understanding verbalized. [facility] [place] per patient request.
[2020-01-05] MEDS ORDERED: CYANOCOBALAMIN (VITAMIN B-12) 1,000 MCG TABLET. PO SCH (09:00)
== END 2020-01-04 18:35 | disposition home or self-care (01) | DRG 374 ==
LOC: ER 04:33 → ED HOLD 08:11 → 2 NORTH 09:53
PROVIDERS: ADMIT Internal Medicine; ATTEND Internal Medicine
PROC: 0DB68ZX Excision of Stomach, Via Natural or Artificial Opening Endoscopic, Diagnostic (ICD-10-PCS; principal; 2020-01-02 11:15)
DX: C16.9 Malignant neoplasm of stomach, unspecified (principal); K57.31 Diverticulosis of large intestine without perforation or abscess with bleeding; D62 Acute posthemorrhagic anemia; E11.9 Type 2 diabetes mellitus without complications; E78.5 Hyperlipidemia, unspecified; I10 Essential (primary) hypertension; M10.9 Gout, unspecified; K21.9 Gastro-esophageal reflux disease without esophagitis; M19.90 Unspecified osteoarthritis, unspecified site; D72.828 Other elevated white blood cell count; K80.20 Calculus of gallbladder without cholecystitis without obstruction; F17.290 Nicotine dependence, other tobacco product, uncomplicated; Z80.3 Family history of malignant neoplasm of breast; Z79.82 Long term (current) use of aspirin; Z79.4 Long term (current) use of insulin
CPT/HCPCS: 36415; 43239; 71260; 74177; 78306; 80053; 82274; 82378; 82607; 82728; 82962; 83540; 83550; 85025; 85027; 85610; 86301; 87493; 99285; A9503; C9113; J1815; J2001; J2704; J7030; J7120; Q9966; Q9967; G0378

== ENCOUNTER 2020-01-13 08:22 | Day surgery (SDC) | payer MEDICARE ==
[~2020-01-13] VITALS: Ht 188 cm; Wt 89.5 kg
[~2020-01-13 08:22] MED LIST changes: +CRESTOR40 MG PO; +CYAN-25 PO; +HYDROmorphone 2 MG/ML VIAL IV PRN; +ICOS1CAP PO; +INSU100C4 SQ; +INSU100V37 SQ; +IV RINGERS,LACTATED 1000ML 1,000 ML IV SCH; +MORPHINE SULFATE 2 MG/ML VIAL. IV PRN; +ONDANSETRON PF 4 MG/2 ML VIAL. IV PRN; +PANT40TA77 PO; +PROCHLORPERAZINE 10 MG/2 ML VIAL. IV PRN; +fentaNYL PF VIAL 100 MCG/2 ML VIAL IV PRN
[2020-01-13] MEDS ORDERED: HEPARIN PF 500 UNIT/5 ML DISP.SYRIN. ONE ×2 (09:06→09:07)
[2020-01-13] MEDS ORDERED: HEPARIN for IV BOLUS 10,000 UNIT/10 ML VIAL. ONE (09:06)
[2020-01-13] MEDS ORDERED: BUPIVACAINE-EPI 0.25%-1:200000 MPF 30 ML VIAL. ONE (09:07)
[2020-01-13] MEDS ORDERED: ACETAMINOPHEN 500 MG TABLET PO ONE (09:15)
[2020-01-13] MEDS ORDERED: INSULIN LISPRO 100 UNIT/ML 3ML VIAL for OP,RR ONLY. SQ PRN (09:15)
[2020-01-13] MEDS ORDERED: DEXAMETHASONE SOD PHOS 20 MG/5 ML VIAL. ONE (09:26)
[2020-01-13] MEDS ORDERED: LIDOCAINE 2% PF 5 ML VIAL. ONE (09:26)
[2020-01-13] MEDS ORDERED: PROPOFOL 20 ML IV ONE (09:26)
[2020-01-13] MEDS ORDERED: ONDANSETRON PF 4 MG/2 ML VIAL. ONE (09:26)
[2020-01-13] MEDS ORDERED: SEVOFLURANE 61 TO 120 MINUTES. IH ONE (10:38)
--- NOTE | 2020-01-13 10:46 | PDOC4 ---
Operative Note Operative Note Date: 01/13/2020 Preoperative diagnosis: Gastric cancer Postoperative diagnosis: Same Procedure: Port-A-Cath placement left cephalic Surgeon: Fidencio Specimen: None Patient: Patient is a 64-year-old male who is been diagnosed with metastatic gastric cancer is needing chemotherapy and long-term venous access for his chemotherapy. Procedure Port-A-Cath placement was explained to the patient in detail risks benefits were also discussed including bleeding infection pneumothoraces alternatives to this procedure also discussed with the patient who seemed to understand and gave both verbal and written consent had the procedure performed. Patient was taken to the operative room placed in supine position general anesthesia was initiated once patient was sleep his chest and neck were prepped and draped usual sterile fashion using ChloraPrep. An area in the left deltopectoral groove was injected with quarter percent Marcaine with epinephrine incision was made with a 15 blade scalpel this is carried down through the subcutaneous tissue using electrocautery provide hemostasis until the cephalic vein was visualized this was controlled proximally and distally with Vicryl suture. The vein was partially opened with 11 blade scalpel and a Salinger wire was placed under direct visualization and by fluoroscopy a peel- away dilator was then placed over the wire and the catheter was placed through the peel-away. Port was placed on the back end of the catheter this was all done under fluoroscopy. The port was then sutured in place and a pocket was made with blunt dissection on the anterior chest wall this was sewn into place with a 3-0 Prolene. The port was then accessed was good blood return was easily flushed with hep saline. Wound was then closed in 2 layers a deep layer running 3-0 Vicryl skin was approximated for septic and a Monocryl. Port was then accessed again and locked with 1 mL of 1000 units per cc of heparin. Mastisol Steri- Strips and island dressing were applied. Patient was awakened expend an operating operating room taken to recovery in stable condition all sponge instrument needle counts listed as correct estimate blood loss 5 mL MADELYN NAVARRO MD Jan 13, 2020 10:46
--- NOTE | 2020-01-13 10:48 | DISCH ---
DISCHARGE INSTRUCTIONS Condition on Discharge Condition on Discharge: Stable Activity After Discharge Activity Instructions for Disc: Avoid exertion Other activity instructions: no lifting left arm above head for 1 week Diet after Discharge Diet after Discharge: Diabetic No Calorie Level Diet Texture: Regular Liquid Texture: Thin Liquid Checks after Discharge Checks after discharge: Check blood press - daily, Check blood sugar, ac/hs Contacting the DRCelso after DC Call your doctor for: If your condition worsens Follow-Up Follow up with: Dr. Navarro in 2 weeks Treatment/Equipment after DC Adaptive Equipment Issued: None MADELYN NAVARRO MD Jan 13, 2020 10:48
[2020-01-13] MEDS ORDERED: HYDR-3164 PO (11:17)
[2020-01-13 11:53] VITALS: BP 126/66
--- NOTE | 2020-01-15 08:01 | RAD ---
C-arm fluoroscopy with fluoroscopic spot views Clinical indications: Port-A-Cath insertion in OR. Total fluoroscopic time: 10.1 seconds. Total fluoroscopic spot views: 3. IMPRESSION: See operative report for full details. Electronically signed by: Manpreet Nugent MD (01/15/2020 7:58 AM) [facility]
== END 2020-01-13 12:21 | disposition home or self-care (01) ==
LOC: SURG 08:22
PROVIDERS: ATTEND Surgery
DX: Z45.2 Encounter for adjustment and management of vascular access device (principal); C16.9 Malignant neoplasm of stomach, unspecified; I10 Essential (primary) hypertension; M10.9 Gout, unspecified; E11.9 Type 2 diabetes mellitus without complications; F32.9 Major depressive disorder, single episode, unspecified; E78.00 Pure hypercholesterolemia, unspecified; Z79.899 Other long term (current) drug therapy; Z87.891 Personal history of nicotine dependence; Z87.442 Personal history of urinary calculi; Z87.39 Personal history of other diseases of the musculoskeletal system and connective tissue; Z79.84 Long term (current) use of oral hypoglycemic drugs
CPT/HCPCS: 36561; 82962; A7015; C1788; J0696; J1100; J1644; J2001; J2405; J2704; J7120; 36556

== ENCOUNTER 2020-09-02 06:28 | Inpatient (IN) | payer MEDICARE ==
[~2020-09-02] VITALS: Ht 185.4 cm; Wt 86.6 kg
[2020-09-02] VITALS (8 sets, daily range): BP systolic 99–116; BP diastolic 54–69
[~2020-09-02 06:28] MED LIST changes: +AMLO-186 PO; -AMLO5TAB10 PO; +HYDR-3164 PO; -HYDROmorphone 2 MG/ML VIAL IV PRN; -IV RINGERS,LACTATED 1000ML 1,000 ML IV SCH; -MORPHINE SULFATE 2 MG/ML VIAL. IV PRN; -ONDANSETRON PF 4 MG/2 ML VIAL. IV PRN; -PROCHLORPERAZINE 10 MG/2 ML VIAL. IV PRN; -fentaNYL PF VIAL 100 MCG/2 ML VIAL IV PRN
--- NOTE | 2020-09-02 06:59 | PHYS DOC ---
Past Medical History Past Medical History: Depression, Diabetes-Type I, High Cholesterol, Hype rtension Past Surgical History: Tonsillectomy Smoking Status: Former Smoker Alcohol Use: None General Adult EDM: Chief Complaint: GI PROBLEM HPI: HPI: History obtained from patient. Patient is a 65-year-old male with a history of insulin-dependent diabetes as well as stomach cancer who presents with hematemesis. He states 1 hour prior to arrival he began vomiting bright red blood. He states he was diagnosed with stomach cancer approximately 8 months ago. He states he has been receiving chemotherapy every 2 weeks. He states his last treatment was 5 days ago. He states that he has never had bloody vomit posttreatments before. He states he was never told that this could be expected. Denies any abdominal pain. Denies shortness of breath or chest pain. Did note some lightheadedness prior to EMS arrival. States he did get nausea relief with 4 mg of Zofran. States he also notes black tarry stools beginning this morning. Does not take iron or Pepto-Bismol. Does not take blood thinners. States he follows with Dr. Yanez at [facility] for his cancer. Denies fevers. No other complaints. Review of Systems: Review of Systems: Constitutional: Denies fever or chills. [] Eyes: Denies change in visual acuity. [] HENT: Denies nasal congestion or sore throat. [] Respiratory: Denies cough or shortness of breath. [] Cardiovascular: Denies chest pain or edema. [] GI: Positive for hematemesis and black tarry stools : Denies dysuria. [] Musculoskeletal: Denies back pain or joint pain. [] Integument: Denies rash. [] Neurologic: Denies headache, focal weakness or sensory changes. [] Endocrine: Denies polyuria or polydipsia. [] Lymphatic: Denies swollen glands. [] Psychiatric: Denies depression or anxiety. [] Heart Score: Risk Factors: Risk Factors: DM, Current or recent (<one month) smoker, HTN, HLP, family history of CAD, obesity. Risk Scores: Score 0 - 3: 2.5% MACE over next 6 weeks - Discharge Home Score 4 - 6: 20.3% MACE over next 6 weeks - Admit for Clinical Observation Score 7 - 10: 72.7% MACE over next 6 weeks - Early Invasive Strategies Current Medications: Current Medications Medications (Trade) Dose Ordered Sig/Alex Start Time Stop Time Status Last Admin Dose Admin Metoclopramide HCl (Reglan Vial) 10 mg 1X ONCE 09/02/20 07:00 09/02/20 07:01 Pantoprazole Sodium (PROTONIX VIAL for IV PUSH) 80 mg 1X ONCE 09/02/20 07:00 09/02/20 07:01 Pantoprazole Sodium 80 mg/ Sodium Chloride 100 ml @ 10 mls/hr Q10H 09/02/20 07:00 09/03/20 06:59 Sodium Chloride 1,000 ml @ 1,000 mls/hr 1X ONCE 09/02/20 07:00 09/02/20 07:59 Allergies: Allergies: Allergies Coded Allergies Type Severity Reaction Last Updated Verified No Known Drug Allergies 01/13/20 No Physical Exam: PE: Constitutional: Well developed, well nourished, no acute distress, non-toxic appearance. [] HENT: Normocephalic, atraumatic, bilateral external ears normal, oropharynx moist, no oral exudates, nose normal. [] Eyes: PERRLA, EOMI, conjunctiva normal, no discharge. [] Neck: Normal range of motion, no tenderness, supple, no stridor. [] Cardiovascular:Heart rate regular rhythm, no murmur [] Lungs & Thorax: Bilateral breath sounds clear to auscultation [] Abdomen: Soft, nontender, nonacute abdomen. No involuntary guarding or rigidity noted. No acute peritonitis. Bright red blood noted on patient's chest. Black tarry stool noted on rectal exam. Skin: Warm, dry, no erythema, no rash. [] Back: No tenderness, no CVA tenderness. [] Extremities: No tenderness, no cyanosis, no clubbing, ROM intact, no edema. [] Neurologic: Alert and oriented X 3, normal motor function, normal sensory function, no focal deficits noted. [] Psychologic: Affect normal, judgement normal, mood normal. [] Current Patient Data: Labs: Laboratory Tests Test 09/02/20 06:45 White Blood Count 13.1 x10^3/uL Red Blood Count 2.98 x10^6/uL Hemoglobin 9.2 g/dL Hematocrit 27.3 % Mean Corpuscular Volume 92 fL Mean Corpuscular Hemoglobin 31 pg Mean Corpuscular Hemoglobin Concent 34 g/dL Red Cell Distribution Width 16.4 % Platelet Count 292 x10^3/uL Neutrophils (%) (Auto) 66 % Lymphocytes (%) (Auto) 27 % Monocytes (%) (Auto) 4 % Eosinophils (%) (Auto) 2 % Basophils (%) (Auto) 0 % Neutrophils # (Auto) 8.7 x10^3/uL Lymphocytes # (Auto) 3.6 x10^3/uL Monocytes # (Auto) 0.5 x10^3/uL Eosinophils # (Auto) 0.3 x10^3/uL Basophils # (Auto) 0.0 x10^3/uL Prothrombin Time 14.7 SEC Prothromb Time International Ratio 1.2 Sodium Level 135 mmol/L Potassium Level 4.5 mmol/L Chloride Level 102 mmol/L Carbon Dioxide Level 22 mmol/L Anion Gap 11 Blood Urea Nitrogen 58 mg/dL Creatinine 1.5 mg/dL Estimated GFR (Cockcroft-Gault) 46.7 BUN/Creatinine Ratio 39 Glucose Level 498 mg/dL Lactic Acid Level 6.0 mmol/L Calcium Level 8.7 mg/dL Total Bilirubin 0.5 mg/dL Aspartate Amino Transf (AST/SGOT) 13 U/L Alanine Aminotransferase (ALT/SGPT) 17 U/L Alkaline Phosphatase 52 U/L Total Protein 5.3 g/dL Albumin 2.7 g/dL Albumin/Globulin Ratio 1.0 Lipase 152 U/L Current Medications Medications (Trade) Dose Ordered Sig/Alex Route PRN Reason Start Time Stop Time Status Last Admin Dose Admin Pantoprazole Sodium (PROTONIX VIAL for IV PUSH) 80 mg 1X ONCE IVP 09/02/20 07:00 09/02/20 07:01 DC 09/02/20 07:21 Metoclopramide HCl (Reglan Vial) 10 mg 1X ONCE IVP 09/02/20 07:00 09/02/20 07:01 DC 09/02/20 07:20 Pantoprazole Sodium 80 mg/ Sodium Chloride 100 ml @ 10 mls/hr Q10H IV 09/02/20 07:00 09/03/20 06:59 09/02/20 07:22 Sodium Chloride 1,000 ml @ 1,000 mls/hr 1X ONCE IV 09/02/20 07:00 09/02/20 07:59 DC 09/02/20 07:22 Iohexol (Omnipaque 350 Mg/ml) 90 ml 1X ONCE IV 09/02/20 08:15 09/02/20 08:20 DC 09/02/20 08:40 Info (CONTRAST GIVEN -- Rx MONITORING) 1 each PRN DAILY PRN MC SEE COMMENTS 09/02/20 08:30 09/04/20 08:29 Vital Signs: Vital Signs Date Time Temp Pulse Resp B/P (MAP) Pulse Ox O2 Delivery O2 Flow Rate FiO2 09/02/20 06:32 97.5 79 16 114/64 (81) 94 Room Air 97.5 EKG: EKG: [] Radiology/Procedures: Radiology/Procedures: [id number] [place] [address] IMAGING REPORT Signed PATIENT: VANITA DE LA CRUZ LACCOUNT: [id number] : 1955 LOCATION: ER AGE: 65 SEX: M EXAM STATUS: REG ER ORD. PHYSICIAN: LULY ROSADO DO REASON: UGIB hx stomach CA PROCEDURE: CT ANGIOGRAPHY ABD AND PELVIS PQRS Compliance Statement: One or more of the following individualized dose reduction techniques were utilized for this examination: 1. Automated exposure control 2. Adjustment of the mA and/or kV according to patient size 3. Use of iterative reconstruction technique CT ANGIOGRAPHY ABD AND PELVIS Clinical Indication: Reason: UGIB hx stomach CA / Comparison: CT chest abdomen and pelvis with contrast January 03, 2020. TECHNIQUE: Helical CT imaging of the abdomen and pelvis is performed before and after 75 cc of Omnipaque 300 IV contrast using angiogram protocol. 3-D MIP and volume rendering reconstructions of the abdominal aorta. Findings: The abdominal aorta is normal caliber. Abdominal aorta branches are patent. There is a small caliber accessory right renal artery. The iliac and visualized femoral arteries are without significant stenosis. There is no blush of enhancement or pooling of contrast to indicate acute upper GI bleed. There is atelectasis or scarring in the periphery of the bilateral lung bases. Cardiac size is normal. Wall thickening of the distal esophagus is unchanged. Cholelithiasis. Liver, spleen, pancreas, and right adrenal gland are stable. There is a new 1.3 cm nodule of the left adrenal gland. There is mild bilateral pelvic caliectasis. There is no ureteral calculus. Finding probably secondary to moderate distention of the urinary bladder. Retrocrural lymph nodes are improved. Gastrohepatic mass is stable to slightly smaller. Alan hepatis adenopathy is stable to slightly improved. The lymph nodes are more low density which could be due to necrosis. Retroperitoneal adenopathy is unchanged. No dilated small bowel. Distal colon diverticulosis. No colon wall thickening is identified. The seminal vesicles are prominent. Prostate moderately enlarged. No pelvic free fluid. There is grade 1 retrolisthesis of L5 on S1. IMPRESSION: 1. No evidence of acute GI bleed. 2. Upper abdominal adenopathy is stable to slightly improved. The lymph nodes are decreased in density which could be due to necrosis. 3. There is unchanged thickening of the distal esophagus concerning for neoplasm. 4. There is new small left adrenal nodule suspicious for metastasis. 5. There is mild bilateral pelvocaliectasis probably secondary to moderate distention of the urinary bladder. Electronically signed by: Jareth Espinal MD (09/02/2020 9:11 AM) [facility] DICTATED and SIGNED BY: JARETH ESPINAL MD DATE: 09/02/20910 [] Course & Med Decision Making: Course & Med Decision Making Pertinent Labs and Imaging studies reviewed. (See chart for details) [] Patient is a 65-year-old male who presents with chief complaint of hematemesis. He states this began 1 hour ago. He notes history of stomach cancer. Initial vital signs grossly unremarkable. Normal blood pressure. Non- tachycardic. Clinically the patient does appear anemic with pale skin and pale conjunctive a. Initial labs are consistent with upper GI bleed BUN to creatinine ratio 39. Lactate of 6.0. Anemia of 9.2. No previous hemoglobin for comparison. Patient did temporarily have a low blood pressure of 90/60. Given his acute blood loss with 1 episode of active bright red bloody vomit in the emergency department 1 unit packed red blood cells will be transfused slo wly. He was given 1 L normal saline and his blood pressure did improve. Remains non-tachycardic. Appropriate mentation. After antiemetics he has not vomited. He was given 80 mg of Protonix as well as started on 8 mg/h drip of Protonix. Given the patient's active GI bleed I did discuss the case with GI specialist Dr. Palacios. He agreed with current treatment plan and recommend h ospitalization. He also mentioned that this might not be amenable to endoscopy given the cancerous component to his etiology. He recommended consulting general surgery and interventional radiology. I did speak with general surgeon Dr. Harris as well as interventional radiologist physician . They have been notified of the patient. Per the request of Dr. Riddle CT angiography of the abdomen pelvis will be obtained. He does remain hemodynamically stable. Patient will be hospitalized to our facility for further monitoring and care. Dragon Disclaimer: Dragon Disclaimer: This electronic medical record was generated, in whole or in part, using a voice recognition dictation system. Departure Departure Impression: Primary Impression: Upper GI bleed Additional Impressions: Gastric adenocarcinoma Anemia Qualified Codes: D62 - Acute posthemorrhagic anemia Lactic acidemia Disposition: ADMITTED INPT THIS HOSP Condition: STABLE Referrals: GELACIO PEREZ MD (PCP) LULY ROSADO DO Sep 02, 2020 06:59
[2020-09-02] MEDS ORDERED: IV NORMAL SALINE 1000ML BAG 1,000 ML IV ONE ×2 (07:00→11:00)
[2020-09-02] MEDS ORDERED: METOCLOPRAMIDE HCL 10 MG/2 ML VIAL. IVP ONE (07:00)
[2020-09-02] MEDS ORDERED: PANTOPRAZOLE IV PUSH 40 MG VIAL. IVP ONE (07:00)
[2020-09-02 07:02] LABS: BASO % 0 % (0-3); EOS # 0.3 x10^3/uL (0.0-0.7); EOS % 2 % (0-3); HEMATOCRIT 27.3 % (39.0-53.0); HEMOGLOBIN 9.2 g/dL (13.0-17.5); LYMPH # 3.6 x10^3/uL (1.0-4.8); LYMPH % 27 % (24-48); MEAN CORPUSCULAR HEMOGLOBIN 31 pg (25-35); MEAN CORPUSCULAR HGB CONC 34 g/dL (31-37); MEAN CORPUSCULAR VOLUME 92 fL (79-100); MONO # 0.5 x10^3/uL (0.0-1.1); MONO % 4 % (0-9); NEUT # 8.7 x10^3/uL (1.8-7.7); NEUT % 66 % (31-73); PLATELET COUNT 292 x10^3/uL (140-400); RED BLOOD COUNT 2.98 x10^6/uL (4.30-5.70); RED CELL DISTRIBUTION WIDTH 16.4 % (11.5-14.5); WHITE BLOOD COUNT 13.1 x10^3/uL (4.0-11.0)
[2020-09-02] MEDS: PANTOPRAZOLE SODIUM IV DRIP 80 MG in IV NORMAL SALINE 100ML 100 ML IV SCH ×2 (07:22→17:40)
[2020-09-02 07:26] LABS: PROTHROMBIN TIME PATIENT 14.7 SEC (11.7-14.0)
[2020-09-02 07:27] LABS: ALBUMIN 2.7 g/dL (3.4-5.0); CALCIUM 8.7 mg/dL (8.5-10.1); CREATININE 1.5 mg/dL (0.7-1.3); GFR 46.7; POTASSIUM 4.5 mmol/L (3.5-5.1); TOTAL BILIRUBIN 0.5 mg/dL (0.2-1.0); TOTAL PROTEIN 5.3 g/dL (6.4-8.2)
[2020-09-02] MEDS ORDERED: IOHEXOL 350 MG/ML 100 ML VIAL. IV ONE (08:15)
[2020-09-02] MEDS ORDERED: CONTRAST GIVEN. MC PRN (08:30)
--- NOTE | 2020-09-02 09:14 | RAD ---
PQRS Compliance Statement: One or more of the following individualized dose reduction techniques were utilized for this examination: 1. Automated exposure control 2. Adjustment of the mA and/or kV according to patient size 3. Use of iterative reconstruction technique CT ANGIOGRAPHY ABD AND PELVIS Clinical Indication: Reason: UGIB hx stomach CA / Comparison: CT chest abdomen and pelvis with contrast January 03, 2020. TECHNIQUE: Helical CT imaging of the abdomen and pelvis is performed before and after 75 cc of Omnipaque 300 IV contrast using angiogram protocol. 3-D MIP and volume rendering reconstructions of the abdominal aorta. Findings: The abdominal aorta is normal caliber. Abdominal aorta branches are patent. There is a small caliber accessory right renal artery. The iliac and visualized femoral arteries are without significant stenosis. There is no blush of enhancement or pooling of contrast to indicate acute upper GI bleed. There is atelectasis or scarring in the periphery of the bilateral lung bases. Cardiac size is normal. Wall thickening of the distal esophagus is unchanged. Cholelithiasis. Liver, spleen, pancreas, and right adrenal gland are stable. There is a new 1.3 cm nodule of the left adrenal gland. There is mild bilateral pelvic caliectasis. There is no ureteral calculus. Finding probably secondary to moderate distention of the urinary bladder. Retrocrural lymph nodes are improved. Gastrohepatic mass is stable to slightly smaller. Alan hepatis adenopathy is stable to slightly improved. The lymph nodes are more low density which could be due to necrosis. Retroperitoneal adenopathy is unchanged. No dilated small bowel. Distal colon diverticulosis. No colon wall thickening is identified. The seminal vesicles are prominent. Prostate moderately enlarged. No pelvic free fluid. There is grade 1 retrolisthesis of L5 on S1. IMPRESSION: 1. No evidence of acute GI bleed. 2. Upper abdominal adenopathy is stable to slightly improved. The lymph nodes are decreased in density which could be due to necrosis. 3. There is unchanged thickening of the distal esophagus concerning for neoplasm. 4. There is new small left adrenal nodule suspicious for metastasis. 5. There is mild bilateral pelvocaliectasis probably secondary to moderate distention of the urinary bladder. Electronically signed by: Jareth Espinal MD (09/02/2020 9:11 AM) [facility]
--- NOTE | 2020-09-02 10:55 | PDOC1 ---
History and Physical Date of Service: DOS: DATE: 09/02/20 TIME: 10:51 Chief Complaint: Chief Complain: Hematemesis History of Present Illness: HPI: 65-year-old male with a history of insulin-dependent diabetes as well as stomach cancer who presents with hematemesis. He states 1 hour prior to arrival he began vomiting bright red blood. He states he was diagnosed with stomach cancer approximately 8 months ago. He states he has been receiving chemotherapy every 2 weeks. He states his last treatment was 5 days ago. He states that he has never had bloody vomit posttreatments before. He states he was never told that this could be expected. Denies any abdominal pain. Denies shortness of breath or chest pain. Did note some lightheadedness prior to EMS arrival. States he did get nausea relief with 4 mg of Zofran. States he also notes black tarry stools beginning this morning. Does not take iron or Pepto-Bismol. Does not take blood thinners. States he follows with Dr. Yanez at [facility] for his cancer. Denies fevers. No other complaints. Past Medical/Surgical History: PMH/PSH: Past Medical History: Depression, Diabetes-Type I, High Cholesterol, Hypertension Past Surgical History: Tonsillectomy Allergies: Allergies: Coded Allergies: No Known Drug Allergies (Unverified , 01/13/20) Family History: Family History: Reviewed and none reported Social History: Social History: Smoking Status: Former Smoker Alcohol Use: None Current Medications: Current Medications Current Medications Pantoprazole Sodium (PROTONIX VIAL for IV PUSH) 80 mg 1X ONCE IVP Last administered on 09/02/20at 07:21; Start 09/02/20 at 07:00; Stop 09/02/20 at 07:01; Status DC Metoclopramide HCl (Reglan Vial) 10 mg 1X ONCE IVP Last administered on 09/02/20at 07:20; Start 09/02/20 at 07:00; Stop 09/02/20 at 07:01; Status DC Pantoprazole Sodium 80 mg/ Sodium Chloride 100 ml @ 10 mls/hr Q10H IV Last administered on 09/02/20at 07:22; Start 09/02/20 at 07:00; Stop 09/03/20 at 06:59 Sodium Chloride 1,000 ml @ 1,000 mls/hr 1X ONCE IV Last administered on 08/24 at 07:22; Start 09/02/20 at 07:00; Stop 09/02/20 at 07:59; Status DC Iohexol (Omnipaque 350 Mg/ml) 90 ml 1X ONCE IV Last administered on 09/02/20at 08:40; Start 09/02/20 at 08:15; Stop 09/02/20 at 08:20; Status DC Info (CONTRAST GIVEN -- Rx MONITORING) 1 each PRN DAILY PRN MC SEE COMMENTS; Start 09/02/20 at 08:30; Stop 09/04/20 at 08:29 Sodium Chloride 1,000 ml @ 1,000 mls/hr 1X ONCE IV ; Start 09/02/20 at 11:00; Stop 09/02/20 at 11:59 Active Scripts Active Reported [place] 5-325 Tablet (Acetaminophen/Hydrocodone Bitart) 1 Each Tablet 1-2 Tab PO Q6HRS Vitamin B-12 (Cyanocobalamin (Vitamin B-12)) 1,000 Mcg Tablet 1 Tab PO DAILY 30 Days Protonix (Pantoprazole Sodium) 40 Mg Tablet.dr 40 Mg PO DAILYAC Tresiba (Insulin Degludec) 100 Unit/1 Ml Vial 45 Unit SQ HS Crestor (Rosuvastatin Calcium) 40 Mg Tablet 20 Mg PO HS Vascepa (Icosapent Ethyl) 1 Gm Capsule 2 Cap PO BID 30 Days Novolog (Insulin Aspart) 100 Unit/1 Ml Cartridge 25 Unit SQ TIDBFRMEAL Metformin Hcl 1,000 Mg Tablet 1,000 Mg PO BIDWMEALS Allopurinol 300 Mg Tablet 1 Tab PO HS Fluoxetine Hcl 40 Mg Capsule 1 Cap PO DAILYWBKFT Vitamin D2 (Ergocalciferol (Vitamin D2)) 50,000 Unit Capsule 1 Cap PO WEEKLY Aspir-Low (Aspirin) 81 Mg Tablet.dr 1 Tab PO DAILY Amlodipine Besylate 5 Mg Tablet 5 Mg PO DAILY Lisinopril 20 Mg Tablet 1 Tab PO DAILY Bisoprolol-Hctz 10-6.25 Mg Tab (Bisoprolol Fumarate/Hctz) 1 Each Tablet 1 Tab PO DAILY ROS: Review of Systems Review of System REVIEW OF SYSTEMS: GENERAL: Denies weakness SKIN: No bruising, hair changes or rashes. EYES: No blurred, double or loss of vision. NOSE AND THROAT: No history of nosebleeds, hoarseness or sore throat. HEART: No history of palpitations, chest pain or shortness of breath on exertion. LUNGS: Denies cough, hemoptysis, wheezing or shortness of breath. GASTROINTESTINAL: Denies changes in appetite, nausea, vomiting, diarrhea or constipation. GENITOURINARY: No history of frequency, urgency, hesitancy or nocturia. NEUROLOGIC: Denies history of numbness, tingling, or tremor. PSYCHIATRIC: No history of panic, anxiety or depression. ENDOCRINE: No history of heat or cold intolerance, polyuria or polydipsia. EXTREMITIES: Denies joint pain, pain on walking or stiffness. Physical Exam: Vital Signs: Vital Signs Date Time Temp Pulse Resp B/P (MAP) Pulse Ox O2 Delivery O2 Flow Rate FiO2 09/02/20 09:28 97.5 84 16 99/59 97.5 09/02/20 06:32 94 Room Air Physcial Exam: GEN: No apparent distress. Alert and oriented HEENT: Normal cephalic, atraumatic, external auditory canals are patent EYES: Extraocular muscles are intact, pupil are equally round and reactive to light and accommodation MUSCULOSKELETAL: Well developed , well nourished, good range of motion ENDOCRINE: No thyromegaly was palpated LYMPHATICS: No cervical chain or axillary nodes were noted HEMATOPOIETIC: No bruising NECK: Supple, no JVD, no thyromegaly was noted LUNGS: Clear to auscultation in all lung fowler without rhonchi or wheezing HEART: RRR, S!, S2 present. Peripheral pulses intact, no obvious murmurs noted ABDOMEN: Soft, nontender. Positive bowel sounds, no organomegaly, normal bowel sounds EXTREMITIES: Without clubbing, cyanosis, or edema. Pedal pulses intact. Negative Homans sign NEUROLOGIC: Normal speech and tone. A&O x 3, moves all extremities, no obvious focal deficits PSYCHIATRIC: Normal affect, normal mood. Stable SKIN: No ulcerations or rashes, good skin turgor, no jaundice VASCULAR: Good capillary refill, neurovascular bundle appears to be intact Labs: Labs: Laboratory Tests Test 09/02/20 06:45 White Blood Count 13.1 x10^3/uL (4.0-11.0) Red Blood Count 2.98 x10^6/uL (4.30-5.70) Hemoglobin 9.2 g/dL (13.0-17.5) Hematocrit 27.3 % (39.0-53.0) Mean Corpuscular Volume 92 fL (79-100) Mean Corpuscular Hemoglobin 31 pg (25-35) Mean Corpuscular Hemoglobin Concent 34 g/dL (31-37) Red Cell Distribution Width 16.4 % (11.5-14.5) Platelet Count 292 x10^3/uL (140-400) Neutrophils (%) (Auto) 66 % (31-73) Lymphocytes (%) (Auto) 27 % (24-48) Monocytes (%) (Auto) 4 % (0-9) Eosinophils (%) (Auto) 2 % (0-3) Basophils (%) (Auto) 0 % (0-3) Neutrophils # (Auto) 8.7 x10^3/uL (1.8-7.7) Lymphocytes # (Auto) 3.6 x10^3/uL (1.0-4.8) Monocytes # (Auto) 0.5 x10^3/uL (0.0-1.1) Eosinophils # (Auto) 0.3 x10^3/uL (0.0-0.7) Basophils # (Auto) 0.0 x10^3/uL (0.0-0.2) Prothrombin Time 14.7 SEC (11.7-14.0) Prothromb Time International Ratio 1.2 (0.8-1.1) Sodium Level 135 mmol/L (136-145) Potassium Level 4.5 mmol/L (3.5-5.1) Chloride Level 102 mmol/L (98-107) Carbon Dioxide Level 22 mmol/L (21-32) Anion Gap 11 (6-14) Blood Urea Nitrogen 58 mg/dL (8-26) Creatinine 1.5 mg/dL (0.7-1.3) Estimated GFR (Cockcroft-Gault) 46.7 BUN/Creatinine Ratio 39 (6-20) Glucose Level 498 mg/dL (70-99) Lactic Acid Level 6.0 mmol/L (0.4-2.0) Calcium Level 8.7 mg/dL (8.5-10.1) Total Bilirubin 0.5 mg/dL (0.2-1.0) Aspartate Amino Transf (AST/SGOT) 13 U/L (15-37) Alanine Aminotransferase (ALT/SGPT) 17 U/L (16-63) Alkaline Phosphatase 52 U/L (46-116) Total Protein 5.3 g/dL (6.4-8.2) Albumin 2.7 g/dL (3.4-5.0) Albumin/Globulin Ratio 1.0 (1.0-1.7) Lipase 152 U/L (73-393) Laboratory Tests Test 09/02/20 06:45 White Blood Count 13.1 x10^3/uL (4.0-11.0) Red Blood Count 2.98 x10^6/uL (4.30-5.70) Hemoglobin 9.2 g/dL (13.0-17.5) Hematocrit 27.3 % (39.0-53.0) Mean Corpuscular Volume 92 fL (79-100) Mean Corpuscular Hemoglobin 31 pg (25-35) Mean Corpuscular Hemoglobin Concent 34 g/dL (31-37) Red Cell Distribution Width 16.4 % (11.5-14.5) Platelet Count 292 x10^3/uL (140-400) Neutrophils (%) (Auto) 66 % (31-73) Lymphocytes (%) (Auto) 27 % (24-48) Monocytes (%) (Auto) 4 % (0-9) Eosinophils (%) (Auto) 2 % (0-3) Basophils (%) (Auto) 0 % (0-3) Neutrophils # (Auto) 8.7 x10^3/uL (1.8-7.7) Lymphocytes # (Auto) 3.6 x10^3/uL (1.0-4.8) Monocytes # (Auto) 0.5 x10^3/uL (0.0-1.1) Eosinophils # (Auto) 0.3 x10^3/uL (0.0-0.7) Basophils # (Auto) 0.0 x10^3/uL (0.0-0.2) Prothrombin Time 14.7 SEC (11.7-14.0) Prothromb Time International Ratio 1.2 (0.8-1.1) Sodium Level 135 mmol/L (136-145) Potassium Level 4.5 mmol/L (3.5-5.1) Chloride Level 102 mmol/L (98-107) Carbon Dioxide Level 22 mmol/L (21-32) Anion Gap 11 (6-14) Blood Urea Nitrogen 58 mg/dL (8-26) Creatinine 1.5 mg/dL (0.7-1.3) Estimated GFR (Cockcroft-Gault) 46.7 BUN/Creatinine Ratio 39 (6-20) Glucose Level 498 mg/dL (70-99) Lactic Acid Level 6.0 mmol/L (0.4-2.0) Calcium Level 8.7 mg/dL (8.5-10.1) Total Bilirubin 0.5 mg/dL (0.2-1.0) Aspartate Amino Transf (AST/SGOT) 13 U/L (15-37) Alanine Aminotransferase (ALT/SGPT) 17 U/L (16-63) Alkaline Phosphatase 52 U/L (46-116) Total Protein 5.3 g/dL (6.4-8.2) Albumin 2.7 g/dL (3.4-5.0) Albumin/Globulin Ratio 1.0 (1.0-1.7) Lipase 152 U/L (73-393) Images: Images CTA ABD/[place] IMPRESSION: 1. No evidence of acute GI bleed. 2. Upper abdominal adenopathy is stable to slightly improved. The lymph nodes are decreased in density which could be due to necrosis. 3. There is unchanged thickening of the distal esophagus concerning for neoplasm. 4. There is new small left adrenal nodule suspicious for metastasis. 5. There is mild bilateral pelvocaliectasis probably secondary to moderate distention of the urinary bladder. Assessment/Plan Assessment/Plan Acute upper GI bleed Gastric adenocarcinoma Acute posthemorrhagic anemia Lactic acidosis DONNIE due to vasomotor nephropathy Hyperglycemia with clinical insignificance at this time Severe protein malnutrition Hyponatremia likely due to volume depletion Reactive leukocytosis Admit to medicine for further management GI consult Pending 2 units PRBC Trend hemoglobin Contraindicated for DVT prophylaxis IV Protonix GI prophylaxis ADA diet Full code Discussed with RN and SW Disposition pending GI evaluation Surrogate decision maker is the Justifications for Admission Other Justification SAGAR AVELAR MD Sep 02, 2020 10:55
[2020-09-02] MEDS ORDERED: POTASSIUM CHLORIDE 10MEQ 100 ML IV PRN (11:00)
[2020-09-02] MEDS ORDERED: MAGNESIUM SULFATE 2GM 50 ML IV SCH (11:00)
[2020-09-02] MEDS ORDERED: DEXTROSE 50% 25 GM / 50ML DISP.SYRIN. IV PRN (11:00)
[2020-09-02] MEDS ORDERED: DOCUSATE SODIUM 100 MG CAPSULE. PO PRN (11:00)
[2020-09-02] MEDS ORDERED: ONDANSETRON PF 4 MG/2 ML VIAL. IVP PRN (11:00)
[2020-09-02] MEDS ORDERED: POTASSIUM CHLORIDE 20 MEQ TABLET.ER. PO PRN (11:00)
[2020-09-02] MEDS ORDERED: POTASSIUM CHLORIDE 10MEQ 100 ML IV SCH (11:00)
[2020-09-02] MEDS ORDERED: SENNOSIDES 8.6 MG TABLET PO PRN (11:00)
[2020-09-02] MEDS ORDERED: ELECTROLYTE (NON-ICU) PROTOCOL MC PRN (11:15)
--- NOTE | 2020-09-02 11:23 | PDOC2 ---
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 At that time he presented with hematemesis and had endoscopy revealing the mass biopsy showing adenocarcinoma. CT imaging revealed associated lymphadenopathy which was malignant suggesting a stage IV diagnosis. Since that time he has had a port placed and is undergoing chemotherapy at [facility]. He describes acute chemotherapy and then some recent maintenance therapy at home IV which may or may not be immunotherapy. We just do not have the records. He is a good historian and relates that his tumor has shrunk down to about a quarter of its previous size and has been maintaining a good appetite without nausea vomiting or anorexia. However over the last 24 hours his symptoms of change. He develop ed nausea, vomiting with hematemesis of dark red blood and clots and melena. These are all new symptoms but are similar to his presentation back in December. He describes no other bleeding episodes in the last 8 months. Past Medical History Cardiovascular: HTN Heme/Onc: Cancer (Gastric adenocarcinoma) Rheumatologic: Gout Endocrine: Diabetes Past Surgical History Past Surgical History: Other (Port placement), No pertinent history Family History Family History: Other Social History ALCOHOL: none Drugs: None Lives: with Family Current Problem List Problem List Problems Medical Problems: (1) Anemia Status: Acute (2) Lactic acidemia Status: Acute (3) Upper GI bleed Status: Acute Current Medications Current Medications Current Medications Pantoprazole Sodium (PROTONIX VIAL for IV PUSH) 80 mg 1X ONCE IVP Last administered on 09/02/20at 07:21; Start 09/02/20 at 07:00; Stop 09/02/20 at 07:01; Status DC Metoclopramide HCl (Reglan Vial) 10 mg 1X ONCE IVP Last administered on 09/02/20at 07:20; Start 09/02/20 at 07:00; Stop 09/02/20 at 07:01; Status DC Pantoprazole Sodium 80 mg/ Sodium Chloride 100 ml @ 10 mls/hr Q10H IV Last administered on 09/02/20at 07:22; Start 09/02/20 at 07:00; Stop 09/03/20 at 06:59 Sodium Chloride 1,000 ml @ 1,000 mls/hr 1X ONCE IV Last administered on 09/02/20at 07:22; Start 09/02/20 at 07:00; Stop 09/02/20 at 07:59; Status DC Iohexol (Omnipaque 350 Mg/ml) 90 ml 1X ONCE IV Last administered on 09/02/20at 08:40; Start 09/02/20 at 08:15; Stop 09/02/20 at 08:20; Status DC Info (CONTRAST GIVEN -- Rx MONITORING) 1 each PRN DAILY PRN MC SEE COMMENTS; Start 09/02/20 at 08:30; Stop 09/04/20 at 08:29 Sodium Chloride 1,000 ml @ 1,000 mls/hr 1X ONCE IV Last administered on 09/02/20at 08:00; Start 09/02/20 at 11:00; Stop 09/02/20 at 11:59 Sennosides (Senna) 17.2 mg PRN BID PRN PO CONSTIPATION; Start 09/02/20 at 11:00 Docusate Sodium (Colace) 100 mg PRN DAILY PRN PO HARD STOOLS; Start 09/02/20 at 11:00 Ondansetron HCl (Zofran) 4 mg PRN Q6HRS PRN IVP NAUSEA/VOMITING; Start 09/02/20 at 11:00 Potassium Chloride (Klor-Con) 40 meq 1X PRN PO PER PROTOCOL; Start 09/02/20 at 11:00; Status UNV Magnesium Oxide (Magnesium Oxide) 400 mg BID PO ; Start 09/02/20 at 21:00; Stop 09/04/20 at 09:01; Status UNV Potassium Chloride/Water 100 ml @ 100 mls/hr Q1H IV ; Start 09/02/20 at 11:00; Stop 09/02/20 at 14:59; Status UNV Magnesium Sulfate 50 ml @ 25 mls/hr Q24H IV ; Start 09/02/20 at 11:00; Stop 09/04/20 at 12:59; Status UNV Potassium Chloride/Water 100 ml @ 100 mls/hr Q1H PRN IV low k; Start 09/02/20 at 11:00; Status UNV Insulin Human Lispro (HumaLOG) 0-5 UNITS TIDWMEALS SQ ; Start 09/02/20 at 12:00 Dextrose (Dextrose 50%-Water Syringe) 12.5 gm PRN Q15MIN PRN IV SEE COMMENTS; Start 09/02/20 at 11:00 Info (Non-Icu Electrolyte Protocol) 1 ea CONT PRN PRN MC SEE COMMENTS; Start 09/02/20 at 11:15 Active Scripts Active Reported [place] 5-325 Tablet (Acetaminophen/Hydrocodone Bitart) 1 Each Tablet 1-2 Tab PO Q6HRS Vitamin B-12 (Cyanocobalamin (Vitamin B-12)) 1,000 Mcg Tablet 1 Tab PO DAILY 30 Days Protonix (Pantoprazole Sodium) 40 Mg Tablet.dr 40 Mg PO DAILYAC Tresiba (Insulin Degludec) 100 Unit/1 Ml Vial 45 Unit SQ HS Crestor (Rosuvastatin Calcium) 40 Mg Tablet 20 Mg PO HS Vascepa (Icosapent Ethyl) 1 Gm Capsule 2 Cap PO BID 30 Days Novolog (Insulin Aspart) 100 Unit/1 Ml Cartridge 25 Unit SQ TIDBFRMEAL Metformin Hcl 1,000 Mg Tablet 1,000 Mg PO BIDWMEALS Allopurinol 300 Mg Tablet 1 Tab PO HS Fluoxetine Hcl 40 Mg Capsule 1 Cap PO DAILYWBKFT Vitamin D2 (Ergocalciferol (Vitamin D2)) 50,000 Unit Capsule 1 Cap PO WEEKLY Aspir-Low (Aspirin) 81 Mg Tablet.dr 1 Tab PO DAILY Amlodipine Besylate 5 Mg Tablet 5 Mg PO DAILY Lisinopril 20 Mg Tablet 1 Tab PO DAILY Bisoprolol-Hctz 10-6.25 Mg Tab (Bisoprolol Fumarate/Hctz) 1 Each Tablet 1 Tab PO DAILY Allergies Allergies: Coded Allergies: No Known Drug Allergies (Unverified , 01/13/20) Physical Exam General: Alert, Oriented X3, Cooperative HEENT: Atraumatic, PERRLA Lungs: Clear to auscultation Heart: Regular rate, Normal S1, Normal S2 Abdomen: Normal bowel sounds, Soft, No tenderness, No hepatosplenomegaly Extremities: No clubbing, No cyanosis Psych/Mental Status: Mental status NL Vitals VITALS Vital Signs Date Time Temp Pulse Resp B/P (MAP) Pulse Ox O2 Delivery O2 Flow Rate FiO2 09/02/20 10:26 85 97/51 (66) 97 Room Air 09/02/20 09:28 97.5 16 97.5 Labs Labs Laboratory Tests Test 09/02/20 06:45 White Blood Count 13.1 x10^3/uL (4.0-11.0) Red Blood Count 2.98 x10^6/uL (4.30-5.70) Hemoglobin 9.2 g/dL (13.0-17.5) Hematocrit 27.3 % (39.0-53.0) Mean Corpuscular Volume 92 fL (79-100) Mean Corpuscular Hemoglobin 31 pg (25-35) Mean Corpuscular Hemoglobin Concent 34 g/dL (31-37) Red Cell Distribution Width 16.4 % (11.5-14.5) Platelet Count 292 x10^3/uL (140-400) Neutrophils (%) (Auto) 66 % (31-73) Lymphocytes (%) (Auto) 27 % (24-48) Monocytes (%) (Auto) 4 % (0-9) Eosinophils (%) (Auto) 2 % (0-3) Basophils (%) (Auto) 0 % (0-3) Neutrophils # (Auto) 8.7 x10^3/uL (1.8-7.7) Lymphocytes # (Auto) 3.6 x10^3/uL (1.0-4.8) Monocytes # (Auto) 0.5 x10^3/uL (0.0-1.1) Eosinophils # (Auto) 0.3 x10^3/uL (0.0-0.7) Basophils # (Auto) 0.0 x10^3/uL (0.0-0.2) Prothrombin Time 14.7 SEC (11.7-14.0) Prothromb Time International Ratio 1.2 (0.8-1.1) Sodium Level 135 mmol/L (136-145) Potassium Level 4.5 mmol/L (3.5-5.1) Chloride Level 102 mmol/L (98-107) Carbon Dioxide Level 22 mmol/L (21-32) Anion Gap 11 (6-14) Blood Urea Nitrogen 58 mg/dL (8-26) Creatinine 1.5 mg/dL (0.7-1.3) Estimated GFR (Cockcroft-Gault) 46.7 BUN/Creatinine Ratio 39 (6-20) Glucose Level 498 mg/dL (70-99) Lactic Acid Level 6.0 mmol/L (0.4-2.0) Calcium Level 8.7 mg/dL (8.5-10.1) Total Bilirubin 0.5 mg/dL (0.2-1.0) Aspartate Amino Transf (AST/SGOT) 13 U/L (15-37) Alanine Aminotransferase (ALT/SGPT) 17 U/L (16-63) Alkaline Phosphatase 52 U/L (46-116) Total Protein 5.3 g/dL (6.4-8.2) Albumin 2.7 g/dL (3.4-5.0) Albumin/Globulin Ratio 1.0 (1.0-1.7) Lipase 152 U/L (73-393) Laboratory Tests Test 09/02/20 06:45 White Blood Count 13.1 x10^3/uL (4.0-11.0) Red Blood Count 2.98 x10^6/uL (4.30-5.70) Hemoglobin 9.2 g/dL (13.0-17.5) Hematocrit 27.3 % (39.0-53.0) Mean Corpuscular Volume 92 fL (79-100) Mean Corpuscular Hemoglobin 31 pg (25-35) Mean Corpuscular Hemoglobin Concent 34 g/dL (31-37) Red Cell Distribution Width 16.4 % (11.5-14.5) Platelet Count 292 x10^3/uL (140-400) Neutrophils (%) (Auto) 66 % (31-73) Lymphocytes (%) (Auto) 27 % (24-48) Monocytes (%) (Auto) 4 % (0-9) Eosinophils (%) (Auto) 2 % (0-3) Basophils (%) (Auto) 0 % (0-3) Neutrophils # (Auto) 8.7 x10^3/uL (1.8-7.7) Lymphocytes # (Auto) 3.6 x10^3/uL (1.0-4.8) Monocytes # (Auto) 0.5 x10^3/uL (0.0-1.1) Eosinophils # (Auto) 0.3 x10^3/uL (0.0-0.7) Basophils # (Auto) 0.0 x10^3/uL (0.0-0.2) Prothrombin Time 14.7 SEC (11.7-14.0) Prothromb Time International Ratio 1.2 (0.8-1.1) Sodium Level 135 mmol/L (136-145) Potassium Level 4.5 mmol/L (3.5-5.1) Chloride Level 102 mmol/L (98-107) Carbon Dioxide Level 22 mmol/L (21-32) Anion Gap 11 (6-14) Blood Urea Nitrogen 58 mg/dL (8-26) Creatinine 1.5 mg/dL (0.7-1.3) Estimated GFR (Cockcroft-Gault) 46.7 BUN/Creatinine Ratio 39 (6-20) Glucose Level 498 mg/dL (70-99) Lactic Acid Level 6.0 mmol/L (0.4-2.0) Calcium Level 8.7 mg/dL (8.5-10.1) Total Bilirubin 0.5 mg/dL (0.2-1.0) Aspartate Amino Transf (AST/SGOT) 13 U/L (15-37) Alanine Aminotransferase (ALT/SGPT) 17 U/L (16-63) Alkaline Phosphatase 52 U/L (46-116) Total Protein 5.3 g/dL (6.4-8.2) Albumin 2.7 g/dL (3.4-5.0) Albumin/Globulin Ratio 1.0 (1.0-1.7) Lipase 152 U/L (73-393) Assessment/Plan Assessment/Plan Acute hematemesis and melena. Based on his history most likely related to his fundic adenocarcinoma but could be related to other causes that might of superimposed themselves in his clinical setting of chronic chemotherapy. This could include peptic ulcer disease or Radha-Drew tear but most likely the bleeding is from the tumor particularly since it is likely necrotic after chronic chemotherapy. Fortunately his platelet count is reasonable and he is not on any blood thinners and clinically appears fairly stable today. Intervention and treatment of such bleeding is difficult. Endoscopic evaluation can be limited particularly if the tumor itself is necrotic but possibly might benefit from epinephrine injection or cautery in a limited way. If another source for bleeding such as a peptic ulcer or Radha-Drew tear in addition to his cancer is the cause for bleeding this can be treated and could be part of the rationale for an EGD just to eliminate other possibilities. Plan: Supportive care, IV fluids, transfusion Proceed with COVID testing We will consider endoscopic evaluation tomorrow to rule out other causes and provide any potential treatment for his gastric cancer bleeding. Fortunately the CT angiogram does not reveal any active bleeding into the lumen so hopefully his bleeding has slowed or stopped. However if he develops recurrent recalcitrant bleeding it may be prudent to consider interventional radiology since endoscopic or even surgical approaches are limited in this setting Although he relates a significant amount of improvement with his chemotherapy , the CT angio does suggest improvement but not resolution of adenopathy or the mass. TANYA BLAIR MD Sep 02, 2020 11:23
[2020-09-02] MEDS: INSULIN LISPRO 300 UNITS/3 ML VIAL. SQ SCH ×2 (12:00→18:03)
[2020-09-02] MEDS ORDERED: MAGNESIUM OXIDE 400 MG TABLET PO SCH (21:00)
[2020-09-02] MEDS: INSULIN GLARGINE SYRINGE. SQ SCH (22:12)
[2020-09-03] VITALS (9 sets, daily range): BP systolic 91–128; BP diastolic 60–75
[2020-09-03] MEDS: PANTOPRAZOLE SODIUM IV DRIP 80 MG in IV NORMAL SALINE 100ML 100 ML IV SCH (04:15)
[2020-09-03 04:59] LABS: BASO % 0 % (0-3); EOS # 0.1 x10^3/uL (0.0-0.7); EOS % 2 % (0-3); HEMATOCRIT 24.1 % (39.0-53.0); HEMOGLOBIN 8.3 g/dL (13.0-17.5); LYMPH % 26 % (24-48); MEAN CORPUSCULAR HEMOGLOBIN 31 pg (25-35); MEAN CORPUSCULAR HGB CONC 35 g/dL (31-37); MEAN CORPUSCULAR VOLUME 89 fL (79-100); MONO # 0.4 x10^3/uL (0.0-1.1); MONO % 5 % (0-9); NEUT # 5.2 x10^3/uL (1.8-7.7); NEUT % 68 % (31-73); PLATELET COUNT 215 x10^3/uL (140-400); RED CELL DISTRIBUTION WIDTH 16.5 % (11.5-14.5); WHITE BLOOD COUNT 7.6 x10^3/uL (4.0-11.0)
[2020-09-03 05:15] LABS: CALCIUM 8.9 mg/dL (8.5-10.1); CREATININE 1.5 mg/dL (0.7-1.3); GFR 46.7; MAGNESIUM 1.8 mg/dL (1.8-2.4); PHOSPHORUS 2.7 mg/dL (2.6-4.7); POTASSIUM 4.4 mmol/L (3.5-5.1)
[2020-09-03] MEDS ORDERED: LIDOCAINE 2% PF 5 ML VIAL. ONE (07:33)
[2020-09-03] MEDS ORDERED: PROPOFOL 10 MG/ML (20ML) VIAL. IV ONE ×3 (07:33→08:41)
[2020-09-03] MEDS: IV RINGERS,LACTATED 1000ML 1,000 ML IV SCH ×2 (07:40→21:20)
[2020-09-03] MEDS: INSULIN LISPRO 300 UNITS/3 ML VIAL. SQ SCH ×4 (08:00→17:46)
[2020-09-03] MEDS: INSULIN GLARGINE SYRINGE. SQ SCH ×2 (09:00→21:00)
[2020-09-03] MEDS ORDERED: EPINEPHrine SYRINGE 1 MG/10 ML SYRINGE SQ ONE (09:04)
[2020-09-03] MEDS ORDERED: EPINEPHrine SYRINGE 1 MG/10 ML SYRINGE ONE (09:17)
--- NOTE | 2020-09-03 09:27 | PDOC4 ---
PROCEDURE Procedure EGD with therapeutic scope Anesthesia- propofol Dx- AdenoCA in fundus- with acute bleeding E- distal esophagitis and 4 cm hiatal hernia- no bleeding G- large organized clots in fundus with recent bleeding- mutlpile organized clots removed with therapeutic scope with suction and Ny Net- over 300 cc- but some could not be removed- area was blindly injected with epinephrine 1:10,000 - total of 8 cc antral gastritis without ulcers- body of stomach OK D- several small duodenal ulcers WITHOUT bleeding- superficial- Plan- close observation REglan and liquids only to avoid further hematemesis if bleeding controlled, consider repeat EGD in several days to re- evaluate if further active bleeding occurs, consider TANYA STEARNS MD Sep 03, 2020 09:27
--- NOTE | 2020-09-03 09:35 | PDOC ---
PROGRESS NOTES Date of Service: DATE: 09/03/20 TIME: 09:34 Chief Complaint Chief Complaint Images: Images CTA ABD/[place] IMPRESSION: 1. No evidence of acute GI bleed. 2. Upper abdominal adenopathy is stable to slightly improved. The lymph nodes are decreased in density which could be due to necrosis. 3. There is unchanged thickening of the distal esophagus concerning for neoplasm. 4. There is new small left adrenal nodule suspicious for metastasis. 5. There is mild bilateral pelvocaliectasis probably secondary to moderate distention of the urinary bladder. impression Acute upper GI bleed hgb at 8.3, trend Gastric adenocarcinoma Gastrohepatic mass is stable to slightly smaller. Alan hepatis adenopathy is stable to slightly improved. The lymph nodes are more low density which could be due to necrosis. Retroperitoneal adenopathy is unchanged. Acute posthemorrhagic anemia Lactic acidosis DONNIE due to vasomotor nephropathy Hyperglycemia with clinical insignificance at this time Severe protein malnutrition Hyponatremia likely due to volume depletion Reactive leukocytosis remote tobacco abuse new small left adrenal nodule suspicious for metastasis. on cta 09-02 plan Admit to medicine cvc bed GI consult transfused 2 units PRBC Contraindicated for DVT prophylaxis IV Protonix GI prophylaxis ADA diet Full code Discussed with RN and SW Disposition pending GI evaluation Surrogate decision maker is the oncology consult hgb q 8 hrs REglan and liquids only to avoid further hematemesis if bleeding controlled, consider repeat EGD in several days to re-evaluate if further active bleeding occurs, consider IR consult 38 min pt exam, chart review, > 50% of time spent with exam, chart review, pt care coordination Justifications for Admission Justifications for Admission Other Justification acute ugi bleeding History of Present Illness History of Present Illness Chief Complaint: Chief Complain: Hematemesis History of Present Illness: HPI: 65-year-old male with a history of insulin-dependent diabetes as well as stomach cancer who presents with hematemesis. He states 1 hour prior to arrival he b teressa vomiting bright red blood. He states he was diagnosed with stomach cancer approximately 8 months ago. He states he has been receiving chemotherapy every 2 weeks. He states his last treatment was 5 days ago. He states that he has never had bloody vomit post treatments before. He states he was never told that this could be expected. Denies any abdominal pain. Denies shortness of breath or chest pain. Did note some lightheadedness prior to EMS arrival. States he did get nausea relief with 4 mg of Zofran. States he also notes black tarry stools beginning 10-10 . Does not take iron or Pepto-Bismol. Does not take blood thinners. States he follows with Dr. Yaenz at [facility] for his cancer. Denies fevers. No other complaints. Past Medical/Surgical History: PMH/PSH: Past Medical History: Depression, Diabetes-Type I, High Cholesterol, Hypertension Past Surgical History: Tonsillectomy Allergies: Allergies: Coded Allergies: No Known Drug Allergies (Unverified , 01/13/20) Family History: Family History: Reviewed and none reported Social History: Social History: Smoking Status: Former Smoker Alcohol Use: None Vitals Vitals Vital Signs Date Time Temp Pulse Resp B/P (MAP) Pulse Ox O2 Delivery O2 Flow Rate FiO2 09/03/20 09:26 97.4 108 20 141/70 97 Room Air 97.4 09/03/20 09:19 3 Physical Exam General: Alert, Oriented X3, Cooperative, No acute distress Heart: Regular rate, Normal S1, Normal S2 Lungs: Clear Abdomen: Normal bowel sounds, Soft, No tenderness, No hepatosplenomegaly Extremities: No clubbing, No cyanosis Labs LABS PROCEDURE Procedure EGD with therapeutic scope Anesthesia- propofol Dx- AdenoCA in fundus- with acute bleeding E- distal esophagitis and 4 cm hiatal hernia- no bleeding G- large organized clots in fundus with recent bleeding- mutlpile organized clots removed with therapeutic scope with suction and Ny Net- over 300 cc- but some could not be removed- area was blindly injected with epinephrine 1:10 ,000 - total of 8 cc antral gastritis without ulcers- body of stomach OK D- several small duodenal ulcers WITHOUT bleeding- superficial- Plan- close observation REglan and liquids only to avoid further hematemesis if bleeding controlled, consider repeat EGD in several days to re- evaluate if further active bleeding occurs, consider TANYA STEARNS MD Sep 03, 2020 09:27 One or more of the following individualized dose reduction techniques were utilized for this examination: 1. Automated exposure control 2. Adjustment of the mA and/or kV according to patient size 3. Use of iterative reconstruction technique CT ANGIOGRAPHY ABD AND PELVIS Clinical Indication: Reason: UGIB hx stomach CA / Comparison: CT chest abdomen and pelvis with contrast January 03, 2020. TECHNIQUE: Helical CT imaging of the abdomen and pelvis is performed before and after 75 cc of Omnipaque 300 IV contrast using angiogram protocol. 3-D MIP and volume rendering reconstructions of the abdominal aorta. Findings: The abdominal aorta is normal caliber. Abdominal aorta branches are patent. There is a small caliber accessory right renal artery. The iliac and visualized femoral arteries are without significant stenosis. There is no blush of enhancement or pooling of contrast to indicate acute upper GI bleed. There is atelectasis or scarring in the periphery of the bilateral lung bases. Cardiac size is normal. Wall thickening of the distal esophagus is unchanged. Cholelithiasis. Liver, spleen, pancreas, and right adrenal gland are stable. There is a new 1.3 cm nodule of the left adrenal gland. There is mild bilateral pelvic caliectasis. There is no ureteral calculus. Finding probably secondary to moderate distention of the urinary bladder. Retrocrural lymph nodes are improved. Gastrohepatic mass is stable to slightly smaller. Alan hepatis adenopathy is stable to slightly improved. The lymph nodes are more low density which could be due to necrosis. Retroperitoneal adenopathy is unchanged. No dilated small bowel. Distal colon diverticulosis. No colon wall thickening is identified. The seminal vesicles are prominent. Prostate moderately enlarged. No pelvic free fluid. There is grade 1 retrolisthesis of L5 on S1. IMPRESSION: 1. No evidence of acute GI bleed. 2. Upper abdominal adenopathy is stable to slightly improved. The lymph nodes are decreased in density which could be due to necrosis. 3. There is unchanged thickening of the distal esophagus concerning for neoplasm. 4. There is new small left adrenal nodule suspicious for metastasis. 5. There is mild bilateral pelvocaliectasis probably secondary to moderate distention of the urinary bladder. Electronically signed by: Jareth Espinal MD (09/02/2020 9:11 AM) [facility] DICTATED and SIGNED BY: JARETH ESPINAL MD DATE: 09/02/20 0911 Laboratory Tests Test 09/02/20 14:24 09/02/20 17:38 09/02/20 18:00 09/02/20 21:45 Glucose (Fingerstick) 378 mg/dL (70-99) 325 mg/dL (70-99) 375 mg/dL (70-99) SARS-CoV-2 Antigen (Rapid) Negative (NEGATIVE) Test 09/03/20 04:00 White Blood Count 7.6 x10^3/uL (4.0-11.0) Red Blood Count 2.70 x10^6/uL (4.30-5.70) Hemoglobin 8.3 g/dL (13.0-17.5) Hematocrit 24.1 % (39.0-53.0) Mean Corpuscular Volume 89 fL (79-100) Mean Corpuscular Hemoglobin 31 pg (25-35) Mean Corpuscular Hemoglobin Concent 35 g/dL (31-37) Red Cell Distribution Width 16.5 % (11.5-14.5) Platelet Count 215 x10^3/uL (140-400) Neutrophils (%) (Auto) 68 % (31-73) Lymphocytes (%) (Auto) 26 % (24-48) Monocytes (%) (Auto) 5 % (0-9) Eosinophils (%) (Auto) 2 % (0-3) Basophils (%) (Auto) 0 % (0-3) Neutrophils # (Auto) 5.2 x10^3/uL (1.8-7.7) Lymphocytes # (Auto) 2.0 x10^3/uL (1.0-4.8) Monocytes # (Auto) 0.4 x10^3/uL (0.0-1.1) Eosinophils # (Auto) 0.1 x10^3/uL (0.0-0.7) Basophils # (Auto) 0.0 x10^3/uL (0.0-0.2) Sodium Level 140 mmol/L (136-145) Potassium Level 4.4 mmol/L (3.5-5.1) Chloride Level 105 mmol/L (98-107) Carbon Dioxide Level 27 mmol/L (21-32) Anion Gap 8 (6-14) Blood Urea Nitrogen 48 mg/dL (8-26) Creatinine 1.5 mg/dL (0.7-1.3) Estimated GFR (Cockcroft-Gault) 46.7 Glucose Level 282 mg/dL (70-99) Calcium Level 8.9 mg/dL (8.5-10.1) Phosphorus Level 2.7 mg/dL (2.6-4.7) Magnesium Level 1.8 mg/dL (1.8-2.4) Assessment and Plan Assessmemt and Plan Problems Medical Problems: (1) Anemia Status: Acute (2) Lactic acidemia Status: Acute (3) Upper GI bleed Status: Acute Comment Review of Relevant I have reviewed the following items didier (where applicable) has been applied. Labs Laboratory Tests Test 09/02/20 06:45 09/02/20 14:24 09/02/20 17:38 09/02/20 18:00 White Blood Count 13.1 x10^3/uL (4.0-11.0) Red Blood Count 2.98 x10^6/uL (4.30-5.70) Hemoglobin 9.2 g/dL (13.0-17.5) Hematocrit 27.3 % (39.0-53.0) Mean Corpuscular Volume 92 fL (79-100) Mean Corpuscular Hemoglobin 31 pg (25-35) Mean Corpuscular Hemoglobin Concent 34 g/dL (31-37) Red Cell Distribution Width 16.4 % (11.5-14.5) Platelet Count 292 x10^3/uL (140-400) Neutrophils (%) (Auto) 66 % (31-73) Lymphocytes (%) (Auto) 27 % (24-48) Monocytes (%) (Auto) 4 % (0-9) Eosinophils (%) (Auto) 2 % (0-3) Basophils (%) (Auto) 0 % (0-3) Neutrophils # (Auto) 8.7 x10^3/uL (1.8-7.7) Lymphocytes # (Auto) 3.6 x10^3/uL (1.0-4.8) Monocytes # (Auto) 0.5 x10^3/uL (0.0-1.1) Eosinophils # (Auto) 0.3 x10^3/uL (0.0-0.7) Basophils # (Auto) 0.0 x10^3/uL (0.0-0.2) Prothrombin Time 14.7 SEC (11.7-14.0) Prothromb Time International Ratio 1.2 (0.8-1.1) Sodium Level 135 mmol/L (136-145) Potassium Level 4.5 mmol/L (3.5-5.1) Chloride Level 102 mmol/L (98-107) Carbon Dioxide Level 22 mmol/L (21-32) Anion Gap 11 (6-14) Blood Urea Nitrogen 58 mg/dL (8-26) Creatinine 1.5 mg/dL (0.7-1.3) Estimated GFR (Cockcroft-Gault) 46.7 BUN/Creatinine Ratio 39 (6-20) Glucose Level 498 mg/dL (70-99) Lactic Acid Level 6.0 mmol/L (0.4-2.0) Calcium Level 8.7 mg/dL (8.5-10.1) Total Bilirubin 0.5 mg/dL (0.2-1.0) Aspartate Amino Transf (AST/SGOT) 13 U/L (15-37) Alanine Aminotransferase (ALT/SGPT) 17 U/L (16-63) Alkaline Phosphatase 52 U/L (46-116) Total Protein 5.3 g/dL (6.4-8.2) Albumin 2.7 g/dL (3.4-5.0) Albumin/Globulin Ratio 1.0 (1.0-1.7) Lipase 152 U/L (73-393) Glucose (Fingerstick) 378 mg/dL (70-99) 325 mg/dL (70-99) SARS-CoV-2 Antigen (Rapid) Negative (NEGATIVE) Test 09/02/20 21:45 09/03/20 04:00 Glucose (Fingerstick) 375 mg/dL (70-99) White Blood Count 7.6 x10^3/uL (4.0-11.0) Red Blood Count 2.70 x10^6/uL (4.30-5.70) Hemoglobin 8.3 g/dL (13.0-17.5) Hematocrit 24.1 % (39.0-53.0) Mean Corpuscular Volume 89 fL (79-100) Mean Corpuscular Hemoglobin 31 pg (25-35) Mean Corpuscular Hemoglobin Concent 35 g/dL (31-37) Red Cell Distribution Width 16.5 % (11.5-14.5) Platelet Count 215 x10^3/uL (140-400) Neutrophils (%) (Auto) 68 % (31-73) Lymphocytes (%) (Auto) 26 % (24-48) Monocytes (%) (Auto) 5 % (0-9) Eosinophils (%) (Auto) 2 % (0-3) Basophils (%) (Auto) 0 % (0-3) Neutrophils # (Auto) 5.2 x10^3/uL (1.8-7.7) Lymphocytes # (Auto) 2.0 x10^3/uL (1.0-4.8) Monocytes # (Auto) 0.4 x10^3/uL (0.0-1.1) Eosinophils # (Auto) 0.1 x10^3/uL (0.0-0.7) Basophils # (Auto) 0.0 x10^3/uL (0.0-0.2) Sodium Level 140 mmol/L (136-145) Potassium Level 4.4 mmol/L (3.5-5.1) Chloride Level 105 mmol/L (98-107) Carbon Dioxide Level 27 mmol/L (21-32) Anion Gap 8 (6-14) Blood Urea Nitrogen 48 mg/dL (8-26) Creatinine 1.5 mg/dL (0.7-1.3) Estimated GFR (Cockcroft-Gault) 46.7 Glucose Level 282 mg/dL (70-99) Calcium Level 8.9 mg/dL (8.5-10.1) Phosphorus Level 2.7 mg/dL (2.6-4.7) Magnesium Level 1.8 mg/dL (1.8-2.4) Laboratory Tests Test 09/02/20 14:24 09/02/20 17:38 09/02/20 18:00 09/02/20 21:45 Glucose (Fingerstick) 378 mg/dL (70-99) 325 mg/dL (70-99) 375 mg/dL (70-99) SARS-CoV-2 Antigen (Rapid) Negative (NEGATIVE) Test 09/03/20 04:00 White Blood Count 7.6 x10^3/uL (4.0-11.0) Red Blood Count 2.70 x10^6/uL (4.30-5.70) Hemoglobin 8.3 g/dL (13.0-17.5) Hematocrit 24.1 % (39.0-53.0) Mean Corpuscular Volume 89 fL (79-100) Mean Corpuscular Hemoglobin 31 pg (25-35) Mean Corpuscular Hemoglobin Concent 35 g/dL (31-37) Red Cell Distribution Width 16.5 % (11.5-14.5) Platelet Count 215 x10^3/uL (140-400) Neutrophils (%) (Auto) 68 % (31-73) Lymphocytes (%) (Auto) 26 % (24-48) Monocytes (%) (Auto) 5 % (0-9) Eosinophils (%) (Auto) 2 % (0-3) Basophils (%) (Auto) 0 % (0-3) Neutrophils # (Auto) 5.2 x10^3/uL (1.8-7.7) Lymphocytes # (Auto) 2.0 x10^3/uL (1.0-4.8) Monocytes # (Auto) 0.4 x10^3/uL (0.0-1.1) Eosinophils # (Auto) 0.1 x10^3/uL (0.0-0.7) Basophils # (Auto) 0.0 x10^3/uL (0.0-0.2) Sodium Level 140 mmol/L (136-145) Potassium Level 4.4 mmol/L (3.5-5.1) Chloride Level 105 mmol/L (98-107) Carbon Dioxide Level 27 mmol/L (21-32) Anion Gap 8 (6-14) Blood Urea Nitrogen 48 mg/dL (8-26) Creatinine 1.5 mg/dL (0.7-1.3) Estimated GFR (Cockcroft-Gault) 46.7 Glucose Level 282 mg/dL (70-99) Calcium Level 8.9 mg/dL (8.5-10.1) Phosphorus Level 2.7 mg/dL (2.6-4.7) Magnesium Level 1.8 mg/dL (1.8-2.4) Medications Current Medications Pantoprazole Sodium (PROTONIX VIAL for IV PUSH) 80 mg 1X ONCE IVP Last administered on 09/02/20at 07:21; Start 09/02/20 at 07:00; Stop 09/02/20 at 07:01; Status DC Metoclopramide HCl (Reglan Vial) 10 mg 1X ONCE IVP Last administered on 09/02/20at 07:20; Start 09/02/20 at 07:00; Stop 09/02/20 at 07:01; Status DC Pantoprazole Sodium 80 mg/ Sodium Chloride 100 ml @ 10 mls/hr Q10H IV Last administered on 09/03/20at 04:15; Start 09/02/20 at 07:00; Stop 09/03/20 at 06:59; Status DC Sodium Chloride 1,000 ml @ 1,000 mls/hr 1X ONCE IV Last administered on 09/02/20at 07:22; Start 09/02/20 at 07:00; Stop 09/02/20 at 07:59; Status DC Iohexol (Omnipaque 350 Mg/ml) 90 ml 1X ONCE IV Last administered on 09/02/20at 08:40; Start 09/02/20 at 08:15; Stop 09/02/20 at 08:20; Status DC Info (CONTRAST GIVEN -- Rx MONITORING) 1 each PRN DAILY PRN MC SEE COMMENTS; Start 09/02/20 at 08:30; Stop 09/04/20 at 08:29 Sodium Chloride 1,000 ml @ 1,000 mls/hr 1X ONCE IV Last administered on 09/02/20at 08:00; Start 09/02/20 at 11:00; Stop 09/02/20 at 11:59; Status DC Sennosides (Senna) 17.2 mg PRN BID PRN PO CONSTIPATION; Start 09/02/20 at 11:00 Docusate Sodium (Colace) 100 mg PRN DAILY PRN PO HARD STOOLS; Start 09/02/20 at 11:00 Ondansetron HCl (Zofran) 4 mg PRN Q6HRS PRN IVP NAUSEA/VOMITING; Start 09/12 at 11:00 Potassium Chloride (Klor-Con) 40 meq 1X PRN PO PER PROTOCOL; Start 09/02/20 at 11:00; Status UNV Magnesium Oxide (Magnesium Oxide) 400 mg BID PO ; Start 09/02/20 at 21:00; Stop 09/04/20 at 09:01; Status UNV Potassium Chloride/Water 100 ml @ 100 mls/hr Q1H IV ; Start 09/02/20 at 11:00; Stop 09/02/20 at 14:59; Status UNV Magnesium Sulfate 50 ml @ 25 mls/hr Q24H IV ; Start 09/02/20 at 11:00; Stop 09/04/20 at 12:59; Status UNV Potassium Chloride/Water 100 ml @ 100 mls/hr Q1H PRN IV low k; Start 09/02/20 at 11:00; Status UNV Insulin Human Lispro (HumaLOG) 0-5 UNITS TIDWMEALS SQ Last administered on 09/02/20at 18:03; Start 09/02/20 at 12:00 Dextrose (Dextrose 50%-Water Syringe) 12.5 gm PRN Q15MIN PRN IV SEE COMMENTS; Start 09/02/20 at 11:00 Info (Non-Icu Electrolyte Protocol) 1 ea CONT PRN PRN MC SEE COMMENTS; Start 09/02/20 at 11:15 Insulin Glargine (Lantus Syringe) 15 unit BID SQ Last administered on 09/02/20at 22:12; Start 09/02/20 at 21:00 Propofol (Diprivan) 200 mg STK-MED ONCE IV ; Start 09/03/20 at 07:33; Stop 09/03/20 at 07:33; Status DC Lidocaine HCl (Lidocaine Pf 2% Vial) 5 ml STK-MED ONCE .ROUTE ; Start 09/03/20 at 07:33; Stop 09/03/20 at 07:33; Status DC Ringer's Solution 1,000 ml @ 75 mls/hr [id number] IV Last administered on 09/03/20at 07:40; Start 09/03/20 at 08:00 Propofol (Diprivan) 200 mg STK-MED ONCE IV ; Start 09/03/20 at 08:18; Stop 09/03/20 at 08:19; Status DC Propofol (Diprivan) 200 mg STK-MED ONCE IV ; Start 09/03/20 at 08:41; Stop 09/03/20 at 08:42; Status DC Epinephrine HCl (EPINEPHrine SYRINGE) 1 mg STK-MED ONCE SQ Last administered on 09/03/20at 09:04; Start 09/03/20 at 09:04; Stop 09/03/20 at 09:08; Status DC Epinephrine HCl (EPINEPHrine SYRINGE) 1 mg STK-MED ONCE .ROUTE ; Start 09/03/20 at 09:17; Stop 09/03/20 at 09:17; Status DC Active Scripts Active Reported [place] 5-325 Tablet (Acetaminophen/Hydrocodone Bitart) 1 Each Tablet 1-2 Tab PO Q6HRS Vitamin B-12 (Cyanocobalamin (Vitamin B-12)) 1,000 Mcg Tablet 1 Tab PO DAILY 30 Days Protonix (Pantoprazole Sodium) 40 Mg Tablet.dr 40 Mg PO DAILYAC Tresiba (Insulin Degludec) 100 Unit/1 Ml Vial 45 Unit SQ HS Crestor (Rosuvastatin Calcium) 40 Mg Tablet 20 Mg PO HS Vascepa (Icosapent Ethyl) 1 Gm Capsule 2 Cap PO BID 30 Days Novolog (Insulin Aspart) 100 Unit/1 Ml Cartridge 25 Unit SQ TIDBFRMEAL Metformin Hcl 1,000 Mg Tablet 1,000 Mg PO BIDWMEALS Allopurinol 300 Mg Tablet 1 Tab PO HS Fluoxetine Hcl 40 Mg Capsule 1 Cap PO DAILYWBKFT Vitamin D2 (Ergocalciferol (Vitamin D2)) 50,000 Unit Capsule 1 Cap PO WEEKLY Aspir-Low (Aspirin) 81 Mg Tablet.dr 1 Tab PO DAILY Amlodipine Besylate 5 Mg Tablet 5 Mg PO DAILY Lisinopril 20 Mg Tablet 1 Tab PO DAILY Bisoprolol-Hctz 10-6.25 Mg Tab (Bisoprolol Fumarate/Hctz) 1 Each Tablet 1 Tab PO DAILY Vitals/I & O Vital Sign - Last 24 Hours 09/02/20 09/02/20 09/02/20 09/02/20 09:41 09:56 10:11 10:26 Pulse 74 83 83 85 B/P (MAP) 100/54 (69) 93/51 (65) 95/51 (66) 97/51 (66) Pulse Ox 95 96 96 97 O2 Delivery Room Air Room Air Room Air Room Air 09/02/20 09/02/20 09/02/20 09/02/20 10:41 10:56 11:11 11:26 Pulse 78 94 80 80 B/P (MAP) 109/56 (73) 114/66 (82) 103/59 (74) 101/58 (72) Pulse Ox 98 97 98 96 O2 Delivery Room Air Room Air Room Air Room Air 09/02/20 09/02/20 09/02/20 10/10/20 11:41 12:15 15:00 19:43 Temp 97.6 98.0 98.4 97.6 98.0 98.4 Pulse 82 93 91 96 Resp 20 18 16 B/P (MAP) 102/63 (76) 116/69 (85) 99/54 (69) 107/61 (76) Pulse Ox 98 97 95 96 O2 Delivery Room Air Room Air Room Air Room Air 09/02/20 09/03/20 09/03/20 09/03/20 22:46 03:17 06:11 07:51 Temp 99.0 97.9 98.2 97.5 99.0 97.9 98.2 97.5 Pulse 94 90 99 99 Resp 16 16 16 20 B/P (MAP) 105/64 (78) 107/70 (82) 107/64 (78) Pulse Ox 97 98 97 98 O2 Delivery Room Air Room Air Room Air 09/03/20 09/03/20 09/03/20 09/03/20 08:00 09:09 09:19 09:26 Temp 97.4 97.4 97.4 97.4 97.4 97.4 Pulse 99 116 110 108 Resp 20 20 B/P (MAP) 159/78 144/74 141/70 Pulse Ox 98 100 100 97 O2 Delivery Nasal Cannula Nasal Cannula Nasal Cannula Room Air O2 Flow Rate 3 4 3 Intake and Output 09/02/20 09/02/20 09/03/20 15:00 23:00 07:00 Intake Total 2350 ml 660 ml 100 ml Balance 2350 ml 660 ml 100 ml Justicifation of Admission Dx: Justifications for Admission: Justification of Admission Dx: Yes Comments: ACUTE UPPER GI BLEEDING, STOMACH CANCER MADELYN ALICIA MD Sep 03, 2020 09:35
[2020-09-03] MEDS ORDERED: PANTOPRAZOLE IV PUSH 40 MG VIAL. IVP ONE (10:00)
[2020-09-03] MEDS ORDERED: DEXTROSE 50% 25 GM / 50ML DISP.SYRIN. IV PRN (13:00)
[2020-09-03] MEDS: METOCLOPRAMIDE HCL 10 MG/2 ML VIAL. IVP SCH ×2 (14:18→22:00)
[2020-09-03 16:01] LABS: BILIRUBIN,URINE NEGATIVE (NEG); CLARITY,URINE CLEAR; COLOR,URINE YELLOW; NITRITE,URINE NEGATIVE (NEG); PROTEIN,URINE NEGATIVE (NEG-TRACE); UROBILINOGEN,URINE 0.2 mg/dL (0.2 mg/dL)
[2020-09-03 16:11] LABS: BACTERIA,URINE 0 /HPF (0-FEW); RBC,URINE 0 /HPF (0-2); WBC,URINE 0 /HPF (0-4)
[2020-09-04] VITALS (15 sets, daily range): BP systolic 113–153; BP diastolic 65–81
[2020-09-04] MEDS: METOCLOPRAMIDE HCL 10 MG/2 ML VIAL. IVP SCH ×3 (05:07→22:04)
[2020-09-04 07:09] LABS: BASO % 1 % (0-3); EOS # 0.1 x10^3/uL (0.0-0.7); EOS % 2 % (0-3); LYMPH % 25 % (24-48); MEAN CORPUSCULAR HEMOGLOBIN 32 pg (25-35); MEAN CORPUSCULAR HGB CONC 35 g/dL (31-37); MEAN CORPUSCULAR VOLUME 90 fL (79-100); MONO # 0.4 x10^3/uL (0.0-1.1); MONO % 9 % (0-9); NEUT # 2.6 x10^3/uL (1.8-7.7); NEUT % 64 % (31-73); PLATELET COUNT 127 x10^3/uL (140-400); RED BLOOD COUNT 1.93 x10^6/uL (4.30-5.70); RED CELL DISTRIBUTION WIDTH 16.3 % (11.5-14.5); WHITE BLOOD COUNT 4.1 x10^3/uL (4.0-11.0)
[2020-09-04 07:16] LABS: HEMOGLOBIN 6.2 g/dL (13.0-17.5)
[2020-09-04 07:17] LABS: HEMATOCRIT 17.5 % (39.0-53.0)
[2020-09-04 07:26] LABS: CREATININE 1.3 mg/dL (0.7-1.3); GFR 55.1; POTASSIUM 4.4 mmol/L (3.5-5.1)
--- NOTE | 2020-09-04 08:06 | PDOC ---
[employer] PROGRESS NOTE Date of Service DOS: DATE: 09/04/20 TIME: 08:06 Chief Complaint Chief Complaint Images: Images CTA ABD/[place] IMPRESSION: 1. No evidence of acute GI bleed. 2. Upper abdominal adenopathy is stable to slightly improved. The lymph nodes are decreased in density which could be due to necrosis. 3. There is unchanged thickening of the distal esophagus concerning for neoplasm. 4. There is new small left adrenal nodule suspicious for metastasis. 5. There is mild bilateral pelvocaliectasis probably secondary to moderate distention of the urinary bladder. impression Acute upper GI bleed hgb at 8.3, trend Gastric adenocarcinoma Gastrohepatic mass is stable to slightly smaller. Alan hepatis adenopathy is stable to slightly improved. The lymph nodes are more low density which could be due to necrosis. Retroperitoneal adenopathy is unchanged. Acute posthemorrhagic anemia Lactic acidosis DONNIE due to vasomotor nephropathy Hyperglycemia with clinical insignificance at this time Severe protein malnutrition Hyponatremia likely due to volume depletion Reactive leukocytosis remote tobacco abuse new small left adrenal nodule suspicious for metastasis. on cta 09-02 plan Admit to medicine cvc bed GI consult transfused 2 units PRBC Contraindicated for DVT prophylaxis IV Protonix GI prophylaxis ADA diet Full code Discussed with RN and SW Disposition pending GI evaluation Surrogate decision maker is the oncology consult hgb q 8 hrs REglan and liquids only to avoid further hematemesis if bleeding controlled, consider repeat EGD in several days to re-evaluate if further active bleeding occurs, consider IR consult 38 min pt exam, chart review, > 50% of time spent with exam, chart review, pt care coordination Justifications for Admission Justifications for Admission Other Justification acute ugi bleeding History of Present Illness History of Present Illness Mr Abraham is a 65-year-old male with a history of insulin-dependent diabetes, depression, HLD, HTN, gastric adenocarcinoma presents with hematemesis. He states 1 hour prior to arrival he began vomiting bright red blood. He states he was diagnosed with stomach cancer approximately 8 months ago. He states he has been receiving chemotherapy every 2 weeks. He states his last treatment was 5 days ago. He states that he has never had bloody vomit post treatments before. He states he was never told that this could be expected. Denies any abdominal pain. Denies shortness of breath or chest pain. Did note some lightheadedness prior to EMS arrival. States he did get nausea relief with 4 mg of Zofran. States he also notes black tarry stools beginning 10-10 . Does not take iron or Pepto-Bismol. Does not take blood thinners. States he follows with Dr. Yanez at [facility] for his cancer. Denies fevers. No other complaints. Hb 6.2 today, feeling badly. 2u PRBC ordered. Glucose in 300s. Takes 15u tid and 15u lantus at night. Vitals/I&O Vitals/I&O: Vital Signs Date Time Temp Pulse Resp B/P (MAP) Pulse Ox O2 Delivery O2 Flow Rate FiO2 09/04/20 07:09 98.3 92 16 136/65 (88) 98 Room Air 98.3 09/03/20 09:19 3 I & O 09/03/20 09/03/20 09/04/20 15:00 23:00 07:00 Intake Total 1500 ml 1440 ml 726 ml Balance 1500 ml 1440 ml 726 ml Physical Exam General: Alert, Oriented X3, Cooperative, No acute distress Heart: Regular rate, Normal S1, Normal S2 Lungs: Clear Abdomen: Normal bowel sounds, Soft, No tenderness, No hepatosplenomegaly Extremities: No clubbing, No cyanosis Labs Labs: Laboratory Tests Test 09/03/20 12:01 09/03/20 14:25 09/03/20 16:10 09/03/20 17:16 Glucose (Fingerstick) 372 mg/dL (70-99) 366 mg/dL (70-99) Urine Collection Type Unknown Urine Color Yellow Urine Clarity Clear Urine pH 5.0 (<5.0-8.0) Urine Specific [place] 1.025 (1.000-1.030) Urine Protein Negative mg/dL (NEG-TRACE) Urine Glucose (UA) >=1000 mg/dL (NEG) Urine Ketones (Stick) Trace mg/dL (NEG) Urine Blood Negative (NEG) Urine Nitrite Negative (NEG) Urine Bilirubin Negative (NEG) Urine Urobilinogen Dipstick 0.2 mg/dL (0.2 mg/dL) Urine Leukocyte Esterase Negative (NEG) Urine RBC 0 /HPF (0-2) Urine WBC 0 /HPF (0-4) Urine Bacteria 0 /HPF (0-FEW) Hemoglobin 6.6 g/dL (13.0-17.5) Test 09/03/20 20:55 09/04/20 06:10 09/04/20 07:10 Glucose (Fingerstick) 343 mg/dL (70-99) 319 mg/dL (70-99) White Blood Count 4.1 x10^3/uL (4.0-11.0) Red Blood Count 1.93 x10^6/uL (4.30-5.70) Hemoglobin 6.2 g/dL (13.0-17.5) Hematocrit 17.5 % (39.0-53.0) Mean Corpuscular Volume 90 fL (79-100) Mean Corpuscular Hemoglobin 32 pg (25-35) Mean Corpuscular Hemoglobin Concent 35 g/dL (31-37) Red Cell Distribution Width 16.3 % (11.5-14.5) Platelet Count 127 x10^3/uL (140-400) Neutrophils (%) (Auto) 64 % (31-73) Lymphocytes (%) (Auto) 25 % (24-48) Monocytes (%) (Auto) 9 % (0-9) Eosinophils (%) (Auto) 2 % (0-3) Basophils (%) (Auto) 1 % (0-3) Neutrophils # (Auto) 2.6 x10^3/uL (1.8-7.7) Lymphocytes # (Auto) 1.0 x10^3/uL (1.0-4.8) Monocytes # (Auto) 0.4 x10^3/uL (0.0-1.1) Eosinophils # (Auto) 0.1 x10^3/uL (0.0-0.7) Basophils # (Auto) 0.0 x10^3/uL (0.0-0.2) Sodium Level 137 mmol/L (136-145) Potassium Level 4.4 mmol/L (3.5-5.1) Chloride Level 104 mmol/L (98-107) Carbon Dioxide Level 28 mmol/L (21-32) Anion Gap 5 (6-14) Blood Urea Nitrogen 42 mg/dL (8-26) Creatinine 1.3 mg/dL (0.7-1.3) Estimated GFR (Cockcroft-Gault) 55.1 Glucose Level 328 mg/dL (70-99) Calcium Level 8.0 mg/dL (8.5-10.1) Assessment and Plan Assessmemt and Plan Problems Medical Problems: (1) Anemia Status: Acute (2) Lactic acidemia Status: Acute (3) Upper GI bleed Status: Acute Comment Review of Relevant I have reviewed the following items didier (where applicable) has been applied. Medications: Current Medications Medications (Trade) Dose Ordered Sig/Alex Route PRN Reason Start Time Stop Time Status Last Admin Dose Admin Epinephrine HCl (EPINEPHrine SYRINGE) 1 mg STK-MED ONCE SQ 09/03/20 09:04 09/03/20 09:08 DC 09/03/20 09:04 Metoclopramide HCl (Reglan Vial) 10 mg Q8HRS IVP 09/03/20 14:00 09/04/20 05:07 Pantoprazole Sodium (PROTONIX VIAL for IV PUSH) 40 mg 1X ONCE IVP 09/03/20 10:00 09/03/20 10:01 DC 09/03/20 12:39 Insulin Human Lispro (HumaLOG) 0-7 UNITS TIDWMEALS SQ 09/03/20 13:00 09/03/20 17:46 Justifications for Admission Other Justification Upper GIB LAURA KIRBY MD Sep 04, 2020 08:06
[2020-09-04] MEDS: PANTOPRAZOLE IV PUSH 40 MG VIAL. IVP SCH (08:25)
[2020-09-04] MEDS: INSULIN LISPRO 300 UNITS/3 ML VIAL. SQ SCH ×4 (08:32→16:47)
[2020-09-04] MEDS: INSULIN GLARGINE SYRINGE. SQ SCH (08:32)
[2020-09-04] MEDS: IV RINGERS,LACTATED 1000ML 1,000 ML IV SCH (10:40)
--- NOTE | 2020-09-04 12:10 | PDOC2 ---
CONSULT Date of Consult Date of Consult DATE: 09/04/20 TIME: 12:01 Reason for Consult Reason for Consult: History of gastric cancer Referring Physician Referring Physician: Dr. King Identification/Chief Complaint Chief Complaint Hematemesis Source Source: Chart review, Patient History of Present Illness Reason for Visit: Hi Abraham is a 65-year-old male with history of gastric adenocarcinoma who has been admitted to the hospital for further evaluation and management of hematemesis. Patient reports having been diagnosed with gastric cancer with HER-2 positive in December 2019. He has followed initially with Dr. Kellogg and then subsequently transferred care to Dr. Walter Yanez at [facility]. He had previously received FOLFOX with Herceptin and has now transition to palliative chemotherapy with 5-FU with Herceptin. He reports that he was informed that his cancer was not controlled at the last visit with Dr. Yanez. He reports that his last cycle of chemotherapy was 1 week ago. He denies fever or chills. He reports noticing vomiting with black contents. He subsequently noticed black stools. He came into the hospital for further evaluation and jerome retana. He received endoscopy during this hospital stay which showed distal esophagitis, large organized clots in the gastric fundus, antral gastritis with ulcers and small duodenal ulcers. Multiple organized clots were removed with suction and the area was blindly injected with epinephrine. Repeat endoscopy is being planned by Dr. Mac Oncology consultation has been sought in view of the patient's history of cancer. He reports no additional concerns at this time. Past Medical History Cardiovascular: HTN Heme/Onc: Cancer (Gastric adenocarcinoma) Rheumatologic: Gout Endocrine: Diabetes Past Surgical History Past Surgical History: Other (Port placement), No pertinent history Family History Family History: Other Social History ALCOHOL: none Drugs: None Lives: with Family Current Problem List Problem List Problems Medical Problems: (1) Anemia Status: Acute (2) Lactic acidemia Status: Acute (3) Upper GI bleed Status: Acute Current Medications Current Medications Current Medications Pantoprazole Sodium (PROTONIX VIAL for IV PUSH) 80 mg 1X ONCE IVP Last administered on 09/02/20at 07:21; Start 09/02/20 at 07:00; Stop 09/02/20 at 07:01; Status DC Metoclopramide HCl (Reglan Vial) 10 mg 1X ONCE IVP Last administered on 09/02/20at 07:20; Start 09/02/20 at 07:00; Stop 09/02/20 at 07:01; Status DC Pantoprazole Sodium 80 mg/ Sodium Chloride 100 ml @ 10 mls/hr Q10H IV Last administered on 09/03/20at 04:15; Start 09/02/20 at 07:00; Stop 09/03/20 at 06:59; Status DC Sodium Chloride 1,000 ml @ 1,000 mls/hr 1X ONCE IV Last administered on 09/02/20at 07:22; Start 09/02/20 at 07:00; Stop 09/02/20 at 07:59; Status DC Iohexol (Omnipaque 350 Mg/ml) 90 ml 1X ONCE IV Last administered on 09/02/20at 08:40; Start 09/02/20 at 08:15; Stop 09/02/20 at 08:20; Status DC Info (CONTRAST GIVEN -- Rx MONITORING) 1 each PRN DAILY PRN MC SEE COMMENTS; Start 09/02/20 at 08:30; Stop 09/04/20 at 08:29; Status DC Sodium Chloride 1,000 ml @ 1,000 mls/hr 1X ONCE IV Last administered on 09/02/20at 08:00; Start 09/02/20 at 11:00; Stop 09/02/20 at 11:59; Status DC Sennosides (Senna) 17.2 mg PRN BID PRN PO CONSTIPATION; Start 09/02/20 at 11:00 Docusate Sodium (Colace) 100 mg PRN DAILY PRN PO HARD STOOLS; Start 09/02/20 at 11:00 Ondansetron HCl (Zofran) 4 mg PRN Q6HRS PRN IVP NAUSEA/VOMITING; Start 09/02/20 at 11:00 Potassium Chloride (Klor-Con) 40 meq 1X PRN PO PER PROTOCOL; Start 09/02/20 at 11:00; Status UNV Magnesium Oxide (Magnesium Oxide) 400 mg BID PO ; Start 09/02/20 at 21:00; Stop 09/04/20 at 09:01; Status UNV Potassium Chloride/Water 100 ml @ 100 mls/hr Q1H IV ; Start 09/02/20 at 11:00; Stop 09/02/20 at 14:59; Status UNV Magnesium Sulfate 50 ml @ 25 mls/hr Q24H IV ; Start 09/02/20 at 11:00; Stop 09/04/20 at 12:59; Status UNV Potassium Chloride/Water 100 ml @ 100 mls/hr Q1H PRN IV low k; Start 09/02/20 at 11:00; Status UNV Insulin Human Lispro (HumaLOG) 0-5 UNITS TIDWMEALS SQ Last administered on 09/02/20at 18:03; Start 09/02/20 at 12:00; Stop 09/03/20 at 12:52; Status DC Dextrose (Dextrose 50%-Water Syringe) 12.5 gm PRN Q15MIN PRN IV SEE COMMENTS; Start 09/02/20 at 11:00 Info (Non-Icu Electrolyte Protocol) 1 ea CONT PRN PRN MC SEE COMMENTS; Start 09/02/20 at 11:15 Insulin Glargine (Lantus Syringe) 15 unit BID SQ Last administered on 09/03/20at 21:00; Start 09/02/20 at 21:00 Propofol (Diprivan) 200 mg STK-MED ONCE IV ; Start 09/03/20 at 07:33; Stop 09/03/20 at 07:33; Status DC Lidocaine HCl (Lidocaine Pf 2% Vial) 5 ml STK-MED ONCE .ROUTE ; Start 09/03/20 at 07:33; Stop 09/03/20 at 07:33; Status DC Ringer's Solution 1,000 ml @ 75 mls/hr [id number] IV Last administered on 09/03/20at 07:40; Start 09/03/20 at 08:00 Propofol (Diprivan) 200 mg STK-MED ONCE IV ; Start 09/03/20 at 08:18; Stop 09/03/20 at 08:19; Status DC Propofol (Diprivan) 200 mg STK-MED ONCE IV ; Start 09/03/20 at 08:41; Stop 09/03/20 at 08:42; Status DC Epinephrine HCl (EPINEPHrine SYRINGE) 1 mg STK-MED ONCE SQ Last administered on 09/03/20at 09:04; Start 09/03/20 at 09:04; Stop 09/03/20 at 09:08; Status DC Epinephrine HCl (EPINEPHrine SYRINGE) 1 mg STK-MED ONCE .ROUTE ; Start 10/11/20 at 09:17; Stop 09/03/20 at 09:17; Status DC Metoclopramide HCl (Reglan Vial) 10 mg Q8HRS IVP Last administered on 09/04/20at 05:07; Start 09/03/20 at 14:00 Pantoprazole Sodium (PROTONIX VIAL for IV PUSH) 40 mg DAILYAC IVP Last administered on 09/04/20at 08:25; Start 09/04/20 at 07:30 Pantoprazole Sodium (PROTONIX VIAL for IV PUSH) 40 mg 1X ONCE IVP Last administered on 09/03/20at 12:39; Start 09/03/20 at 10:00; Stop 09/03/20 at 10:01; Status DC Insulin Human Lispro (HumaLOG) 0-7 UNITS TIDWMEALS SQ Last administered on 09/04/20at 08:32; Start 09/03/20 at 13:00 Dextrose (Dextrose 50%-Water Syringe) 12.5 gm PRN Q15MIN PRN IV SEE COMMENTS; Start 09/03/20 at 13:00; Status UNV Active Scripts Active Reported D[place]on 5-325 Tablet (Acetaminophen/Hydrocodone Bitart) 1 Each Tablet 1-2 Tab PO Q6HRS Vitamin B-12 (Cyanocobalamin (Vitamin B-12)) 1,000 Mcg Tablet 1 Tab PO DAILY 30 Days Protonix (Pantoprazole Sodium) 40 Mg Tablet.dr 40 Mg PO DAILYAC Tresiba (Insulin Degludec) 100 Unit/1 Ml Vial 45 Unit SQ HS Crestor (Rosuvastatin Calcium) 40 Mg Tablet 20 Mg PO HS Vascepa (Icosapent Ethyl) 1 Gm Capsule 2 Cap PO BID 30 Days Novolog (Insulin Aspart) 100 Unit/1 Ml Cartridge 25 Unit SQ TIDBFRMEAL Metformin Hcl 1,000 Mg Tablet 1,000 Mg PO BIDWMEALS Allopurinol 300 Mg Tablet 1 Tab PO HS Fluoxetine Hcl 40 Mg Capsule 1 Cap PO DAILYWBKFT Vitamin D2 (Ergocalciferol (Vitamin D2)) 50,000 Unit Capsule 1 Cap PO WEEKLY Aspir-Low (Aspirin) 81 Mg Tablet.dr 1 Tab PO DAILY Amlodipine Besylate 5 Mg Tablet 5 Mg PO DAILY Lisinopril 20 Mg Tablet 1 Tab PO DAILY Bisoprolol-Hctz 10-6.25 Mg Tab (Bisoprolol Fumarate/Hctz) 1 Each Tablet 1 Tab PO DAILY Allergies Allergies: Coded Allergies: No Known Drug Allergies (Unverified , 09/03/20) ROS General: YES: Fatigue, Malaise; No: Chills, Night Sweats PSYCHOLOGICAL ROS: No: Anxiety, Behavioral Disorder Eyes: No Blurry vision, No Decreased vision HEENT: No: Heacaches, Visual Changes ALLERGY AND IMMUNOLOGY: No: Nasal Congestion Hematological and Lymphatic: No: Blood Clots, Brusing, Night Sweats ENDOCRINE: YES: Malaise/lethargy Respiratory: No: Cough, Hemoptysis Cardiovascular: No Chest Pain, No Palpitations Gastrointestinal: Yes Nausea, Yes Vomiting, Yes Abdominal Pain, Yes Melena, Yes Other (Hematemesis positive) Genitourinary: No Dysuria, No Flank Pain Musculoskeletal: No Gait Disturbance, No Joint Pain Neurological: No Confusion, No Dizziness Skin: No Dry Skin, No Eczema Physical Exam General: Alert, Oriented X3 HEENT: Atraumatic Lungs: Clear to auscultation Heart: Regular rate Abdomen: Normal bowel sounds, Soft Extremities: No clubbing, No cyanosis Skin: No rashes Neuro: Normal gait, Normal speech Psych/Mental Status: Mental status NL MUSCULOSKELETAL: No deformity Vitals VITALS Vital Signs Date Time Temp Pulse Resp B/P (MAP) Pulse Ox O2 Delivery O2 Flow Rate FiO2 09/04/20 11:14 98.6 108 18 127/74 98.6 09/04/20 10:50 98 Room Air 09/03/20 09:19 3 Labs Labs Laboratory Tests Test 09/02/20 14:24 09/02/20 17:38 09/02/20 18:00 09/02/20 21:45 Glucose (Fingerstick) 378 mg/dL (70-99) 325 mg/dL (70-99) 375 mg/dL (70-99) Coronavirus (PCR) Not detected (Not Detected) SARS-CoV-2 Antigen (Rapid) Negative (NEGATIVE) Test 09/03/20 04:00 09/03/20 12:01 09/03/20 14:25 09/03/20 16:10 White Blood Count 7.6 x10^3/uL (4.0-11.0) Red Blood Count 2.70 x10^6/uL (4.30-5.70) Hemoglobin 8.3 g/dL (13.0-17.5) 6.6 g/dL (13.0-17.5) Hematocrit 24.1 % (39.0-53.0) Mean Corpuscular Volume 89 fL (79-100) Mean Corpuscular Hemoglobin 31 pg (25-35) Mean Corpuscular Hemoglobin Concent 35 g/dL (31-37) Red Cell Distribution Width 16.5 % (11.5-14.5) Platelet Count 215 x10^3/uL (140-400) Neutrophils (%) (Auto) 68 % (31-73) Lymphocytes (%) (Auto) 26 % (24-48) Monocytes (%) (Auto) 5 % (0-9) Eosinophils (%) (Auto) 2 % (0-3) Basophils (%) (Auto) 0 % (0-3) Neutrophils # (Auto) 5.2 x10^3/uL (1.8-7.7) Lymphocytes # (Auto) 2.0 x10^3/uL (1.0-4.8) Monocytes # (Auto) 0.4 x10^3/uL (0.0-1.1) Eosinophils # (Auto) 0.1 x10^3/uL (0.0-0.7) Basophils # (Auto) 0.0 x10^3/uL (0.0-0.2) Sodium Level 140 mmol/L (136-145) Potassium Level 4.4 mmol/L (3.5-5.1) Chloride Level 105 mmol/L (98-107) Carbon Dioxide Level 27 mmol/L (21-32) Anion Gap 8 (6-14) Blood Urea Nitrogen 48 mg/dL (8-26) Creatinine 1.5 mg/dL (0.7-1.3) Estimated GFR (Cockcroft-Gault) 46.7 Glucose Level 282 mg/dL (70-99) Calcium Level 8.9 mg/dL (8.5-10.1) Phosphorus Level 2.7 mg/dL (2.6-4.7) Magnesium Level 1.8 mg/dL (1.8-2.4) Glucose (Fingerstick) 372 mg/dL (70-99) Urine Collection Type Unknown Urine Color Yellow Urine Clarity Clear Urine pH 5.0 (<5.0-8.0) Urine Specific [place] 1.025 (1.000-1.030) Urine Protein Negative mg/dL (NEG-TRACE) Urine Glucose (UA) >=1000 mg/dL (NEG) Urine Ketones (Stick) Trace mg/dL (NEG) Urine Blood Negative (NEG) Urine Nitrite Negative (NEG) Urine Bilirubin Negative (NEG) Urine Urobilinogen Dipstick 0.2 mg/dL (0.2 mg/dL) Urine Leukocyte Esterase Negative (NEG) Urine RBC 0 /HPF (0-2) Urine WBC 0 /HPF (0-4) Urine Bacteria 0 /HPF (0-FEW) Test 09/03/20 17:16 09/03/20 20:55 09/04/20 06:10 09/04/20 07:10 Glucose (Fingerstick) 366 mg/dL (70-99) 343 mg/dL (70-99) 319 mg/dL (70-99) White Blood Count 4.1 x10^3/uL (4.0-11.0) Red Blood Count 1.93 x10^6/uL (4.30-5.70) Hemoglobin 6.2 g/dL (13.0-17.5) Hematocrit 17.5 % (39.0-53.0) Mean Corpuscular Volume 90 fL (79-100) Mean Corpuscular Hemoglobin 32 pg (25-35) Mean Corpuscular Hemoglobin Concent 35 g/dL (31-37) Red Cell Distribution Width 16.3 % (11.5-14.5) Platelet Count 127 x10^3/uL (140-400) Neutrophils (%) (Auto) 64 % (31-73) Lymphocytes (%) (Auto) 25 % (24-48) Monocytes (%) (Auto) 9 % (0-9) Eosinophils (%) (Auto) 2 % (0-3) Basophils (%) (Auto) 1 % (0-3) Neutrophils # (Auto) 2.6 x10^3/uL (1.8-7.7) Lymphocytes # (Auto) 1.0 x10^3/uL (1.0-4.8) Monocytes # (Auto) 0.4 x10^3/uL (0.0-1.1) Eosinophils # (Auto) 0.1 x10^3/uL (0.0-0.7) Basophils # (Auto) 0.0 x10^3/uL (0.0-0.2) Sodium Level 137 mmol/L (136-145) Potassium Level 4.4 mmol/L (3.5-5.1) Chloride Level 104 mmol/L (98-107) Carbon Dioxide Level 28 mmol/L (21-32) Anion Gap 5 (6-14) Blood Urea Nitrogen 42 mg/dL (8-26) Creatinine 1.3 mg/dL (0.7-1.3) Estimated GFR (Cockcroft-Gault) 55.1 Glucose Level 328 mg/dL (70-99) Calcium Level 8.0 mg/dL (8.5-10.1) Laboratory Tests Test 09/03/20 14:25 09/03/20 16:10 09/03/20 17:16 09/03/20 20:55 Urine Collection Type Unknown Urine Color Yellow Urine Clarity Clear Urine pH 5.0 (<5.0-8.0) Urine Specific [place] 1.025 (1.000-1.030) Urine Protein Negative mg/dL (NEG-TRACE) Urine Glucose (UA) >=1000 mg/dL (NEG) Urine Ketones (Stick) Trace mg/dL (NEG) Urine Blood Negative (NEG) Urine Nitrite Negative (NEG) Urine Bilirubin Negative (NEG) Urine Urobilinogen Dipstick 0.2 mg/dL (0.2 mg/dL) Urine Leukocyte Esterase Negative (NEG) Urine RBC 0 /HPF (0-2) Urine WBC 0 /HPF (0-4) Urine Bacteria 0 /HPF (0-FEW) Hemoglobin 6.6 g/dL (13.0-17.5) Glucose (Fingerstick) 366 mg/dL (70-99) 343 mg/dL (70-99) Test 09/04/20 06:10 09/04/20 07:10 White Blood Count 4.1 x10^3/uL (4.0-11.0) Red Blood Count 1.93 x10^6/uL (4.30-5.70) Hemoglobin 6.2 g/dL (13.0-17.5) Hematocrit 17.5 % (39.0-53.0) Mean Corpuscular Volume 90 fL (79-100) Mean Corpuscular Hemoglobin 32 pg (25-35) Mean Corpuscular Hemoglobin Concent 35 g/dL (31-37) Red Cell Distribution Width 16.3 % (11.5-14.5) Platelet Count 127 x10^3/uL (140-400) Neutrophils (%) (Auto) 64 % (31-73) Lymphocytes (%) (Auto) 25 % (24-48) Monocytes (%) (Auto) 9 % (0-9) Eosinophils (%) (Auto) 2 % (0-3) Basophils (%) (Auto) 1 % (0-3) Neutrophils # (Auto) 2.6 x10^3/uL (1.8-7.7) Lymphocytes # (Auto) 1.0 x10^3/uL (1.0-4.8) Monocytes # (Auto) 0.4 x10^3/uL (0.0-1.1) Eosinophils # (Auto) 0.1 x10^3/uL (0.0-0.7) Basophils # (Auto) 0.0 x10^3/uL (0.0-0.2) Sodium Level 137 mmol/L (136-145) Potassium Level 4.4 mmol/L (3.5-5.1) Chloride Level 104 mmol/L (98-107) Carbon Dioxide Level 28 mmol/L (21-32) Anion Gap 5 (6-14) Blood Urea Nitrogen 42 mg/dL (8-26) Creatinine 1.3 mg/dL (0.7-1.3) Estimated GFR (Cockcroft-Gault) 55.1 Glucose Level 328 mg/dL (70-99) Calcium Level 8.0 mg/dL (8.5-10.1) Glucose (Fingerstick) 319 mg/dL (70-99) Images Images CT abdomen: IMPRESSION: 1. No evidence of acute GI bleed. 2. Upper abdominal adenopathy is stable to slightly improved. The lymph nodes are decreased in density which could be due to necrosis. 3. There is unchanged thickening of the distal esophagus concerning for neoplasm. 4. There is new small left adrenal nodule suspicious for metastasis. 5. There is mild bilateral pelvocaliectasis probably secondary to moderate distention of the urinary bladder. Assessment/Plan Assessment/Plan Assessment: Metastatic gastric cancer, HER-2 positive Acute GI bleed secondary to gastric cancer Iron deficiency anemia secondary to bleeding Recommendations: -Received 5-FU on 08/29/2020. Will follow CBC. Do not anticipate need for growth factor support at this time -He plans on resuming follow-up with Dr. Yanez post hospital discharge. I think this is reasonable. -Transfuse as needed to maintain hemoglobin greater than 7 -Check INR and fibrinogen level tomorrow a.m. -Follow-up GI recommendations regarding need for repeat endoscopy -Rest per hospitalist physician, Dr. King -I will follow. Please call with questions Stanley Ugalde MD Medical Oncology/Hematology Ph: [phone] LOBO UGALDE MD Sep 04, 2020 12:10
--- NOTE | 2020-09-04 12:39 | PDOC ---
Date of Service: DATE: 09/04/20 TIME: 12:33 Subjective: Subjective: No bleeding. Asking about repeat EGD. Objective: Vital Signs: Vital Signs Date Time Temp Pulse Resp B/P (MAP) Pulse Ox O2 Delivery O2 Flow Rate FiO2 09/04/20 11:14 98.6 108 18 127/74 98.6 09/04/20 10:50 98 Room Air 09/03/20 09:19 3 Labs: Laboratory Tests Test 09/03/20 14:25 09/03/20 16:10 09/03/20 17:16 09/03/20 20:55 Urine Collection Type Unknown Urine Color Yellow Urine Clarity Clear Urine pH 5.0 Urine Specific [place] 1.025 Urine Protein Negative mg/dL Urine Glucose (UA) >=1000 mg/dL Urine Ketones (Stick) Trace mg/dL Urine Blood Negative Urine Nitrite Negative Urine Bilirubin Negative Urine Urobilinogen Dipstick 0.2 mg/dL Urine Leukocyte Esterase Negative Urine RBC 0 /HPF Urine WBC 0 /HPF Urine Bacteria 0 /HPF Hemoglobin 6.6 g/dL Glucose (Fingerstick) 366 mg/dL 343 mg/dL Test 09/04/20 06:10 09/04/20 07:10 White Blood Count 4.1 x10^3/uL Red Blood Count 1.93 x10^6/uL Hemoglobin 6.2 g/dL Hematocrit 17.5 % Mean Corpuscular Volume 90 fL Mean Corpuscular Hemoglobin 32 pg Mean Corpuscular Hemoglobin Concent 35 g/dL Red Cell Distribution Width 16.3 % Platelet Count 127 x10^3/uL Neutrophils (%) (Auto) 64 % Lymphocytes (%) (Auto) 25 % Monocytes (%) (Auto) 9 % Eosinophils (%) (Auto) 2 % Basophils (%) (Auto) 1 % Neutrophils # (Auto) 2.6 x10^3/uL Lymphocytes # (Auto) 1.0 x10^3/uL Monocytes # (Auto) 0.4 x10^3/uL Eosinophils # (Auto) 0.1 x10^3/uL Basophils # (Auto) 0.0 x10^3/uL Sodium Level 137 mmol/L Potassium Level 4.4 mmol/L Chloride Level 104 mmol/L Carbon Dioxide Level 28 mmol/L Anion Gap 5 Blood Urea Nitrogen 42 mg/dL Creatinine 1.3 mg/dL Estimated GFR (Cockcroft-Gault) 55.1 Glucose Level 328 mg/dL Calcium Level 8.0 mg/dL Glucose (Fingerstick) 319 mg/dL Imaging: CTA A/P 09/02 IMPRESSION: 1. No evidence of acute GI bleed. 2. Upper abdominal adenopathy is stable to slightly improved. The lymph nodes are decreased in density which could be due to necrosis. 3. There is unchanged thickening of the distal esophagus concerning for neoplasm. 4. There is new small left adrenal nodule suspicious for metastasis. 5. There is mild bilateral pelvocaliectasis probably secondary to moderate distention of the urinary bladder. EGD 09/03 Dx- AdenoCA in fundus- with acute bleeding E- distal esophagitis and 4 cm hiatal hernia- no bleeding G- large organized clots in fundus with recent bleeding- mutlpile organized clots removed with therapeutic scope with suction and Ny Net- over 300 cc- but some could not be removed- area was blindly injected with epinephrine 1:10,000 - total of 8 cc antral gastritis without ulcers- body of stomach OK D- several small duodenal ulcers WITHOUT bleeding- superficial- Plan- close observation REglan and liquids only to avoid further hematemesis if bleeding controlled, consider repeat EGD in several days to re- evaluate if further active bleeding occurs, consider IR PE: GEN: NAD LUGS: CTAB HEART: RRR ABD: S/ND/NT NEURO/PSYCH: A & O 3 A/P: Hematemesis/melena - no recurrence - EGD yesterday as above - on IV PPI and Reglan, clears Anemia - transfusions ongoing Metastatic gastric adenocarcinoma -- Continue per heme/onc. Reviewed w/ Dr. Vega - IR embolization if transfusion needs become excessive - role of re-scoping is limited. Justicifation of Admission Dx: Justifications for Admission: Justification of Admission Dx: Yes MONICA RESTREPO Sep 04, 2020 12:39
--- NOTE | 2020-09-04 14:07 | NUR ---
SS following for discharge planning. SS reviewed pt chart and discussed with pt RN. Pt is from home with spouse and is currently on room air. PT/OT ordered. Pt hemoglobin low and pt received two units of blood. SS will continue to follow for discharge planning.
[2020-09-04 20:13] LABS: HEMATOCRIT 23.3 % (39.0-53.0); HEMOGLOBIN 8.1 g/dL (13.0-17.5); RED BLOOD COUNT 2.57 x10^6/uL (4.30-5.70); RED CELL DISTRIBUTION WIDTH 15.1 % (11.5-14.5); WHITE BLOOD COUNT 8.1 x10^3/uL (4.0-11.0)
[2020-09-04] MEDS ORDERED: INSULIN GLARGINE SYRINGE. SQ SCH (21:00)
[2020-09-05 03:24] VITALS: BP 142/80
[2020-09-05 07:00] VITALS: BP 129/78
--- NOTE | 2020-09-05 07:53 | PDOC ---
[employer] PROGRESS NOTE Date of Service DOS: DATE: 09/05/20 TIME: 07:52 Chief Complaint Chief Complaint A/P: Acute upper GI bleed hgb at 8.3, trend Gastric adenocarcinoma Gastrohepatic mass is stable to slightly smaller. Alan hepatis adenopathy is stable to slightly improved. The lymph nodes are more low density which could be due to necrosis. Retroperitoneal adenopathy is unchanged. Acute posthemorrhagic anemia Lactic acidosis DONNIE due to vasomotor nephropathy Hyperglycemia with clinical insignificance at this time Severe protein malnutrition Hyponatremia likely due to volume depletion Reactive leukocytosis remote tobacco abuse new small left adrenal nodule suspicious for metastasis. on cta 09-02 plan Admit to medicine cvc bed GI consult transfused 2 units PRBC Contraindicated for DVT prophylaxis IV Protonix GI prophylaxis ADA diet Full code Discussed with RN and SW Disposition pending GI evaluation Surrogate decision maker is the oncology consult hgb q 8 hrs REglan and liquids only to avoid further hematemesis if bleeding controlled, consider repeat EGD in several days to re-evaluate if further active bleeding occurs, 38 min pt exam, chart review, > 50% of time spent with exam, chart review, pt care coordination History of Present Illness History of Present Illness Mr Abraham is a 65-year-old male with a history of insulin-dependent diabetes, depression, HLD, HTN, gastric adenocarcinoma presents with hematemesis. He states 1 hour prior to arrival he began vomiting bright red blood. He states he was diagnosed with stomach cancer approximately 8 months ago. He states he has been receiving chemotherapy every 2 weeks. He states his last treatment was 5 days ago. He states that he has never had bloody vomit post treatments before. He states he was never told that this could be expected. Denies any abdominal pain. Denies shortness of breath or chest pain. Did note some lightheadedness prior to EMS arrival. States he did get nausea relief with 4 mg of Zofran. States he also notes black tarry stools beginning 09-02 . Does not take iron or Pepto-Bismol. Does not take blood thinners. States he follows with Dr. Yanez at [facility] for his cancer. Denies fevers. No other complaints. 09/04: Hb 6.2 today, feeling badly. 2u PRBC ordered. Glucose in 300s. Takes 15u tid and 15u lantus at night. Hb up to 8.6 post-transfusion. Feeling improved overall. Glucose still in 300s. 2 tarry stools overnight. No pain after liquid diet. Vitals/I&O Vitals/I&O: Vital Signs Date Time Temp Pulse Resp B/P (MAP) Pulse Ox O2 Delivery O2 Flow Rate FiO2 09/05/20 03:24 98.8 93 18 142/80 (100) 97 Room Air 98.8 I & O 09/04/20 09/04/20 09/05/20 15:00 23:00 07:00 Intake Total 1180 ml 850 ml 700 ml Balance 1180 ml 850 ml 700 ml Physical Exam General: Alert, Oriented X3 Heart: Regular rate Lungs: Clear Abdomen: Normal bowel sounds, Soft Extremities: No clubbing, No cyanosis Skin: No rashes Labs Labs: Laboratory Tests Test 09/04/20 12:37 09/04/20 16:18 09/04/20 19:58 09/04/20 22:05 Glucose (Fingerstick) 295 mg/dL (70-99) 370 mg/dL (70-99) 336 mg/dL (70-99) White Blood Count 8.1 x10^3/uL (4.0-11.0) Red Blood Count 2.57 x10^6/uL (4.30-5.70) Hemoglobin 8.1 g/dL (13.0-17.5) Hematocrit 23.3 % (39.0-53.0) Mean Corpuscular Volume 91 fL (79-100) Mean Corpuscular Hemoglobin 32 pg (25-35) Mean Corpuscular Hemoglobin Concent 35 g/dL (31-37) Red Cell Distribution Width 15.1 % (11.5-14.5) Platelet Count 164 x10^3/uL (140-400) Test 09/04/20 22:10 09/05/20 07:15 Hemoglobin 8.6 g/dL (13.0-17.5) Glucose (Fingerstick) 320 mg/dL (70-99) Assessment and Plan Assessmemt and Plan Problems Medical Problems: (1) Anemia Status: Acute (2) Lactic acidemia Status: Acute (3) Upper GI bleed Status: Acute Comment Review of Relevant I have reviewed the following items didier (where applicable) has been applied. Medications: Current Medications Medications (Trade) Dose Ordered Sig/Alex Route PRN Reason Start Time Stop Time Status Last Admin Dose Admin Insulin Glargine (Lantus Syringe) 25 unit QHS SQ 09/04/20 21:00 09/04/20 22:13 Insulin Human Lispro (HumaLOG) 15 units TIDWMEALS SQ 09/04/20 17:00 09/04/20 16:47 Justifications for Admission Other Justification Upper GIB LAURA KIRBY MD Sep 05, 2020 07:53
[2020-09-05] MEDS: PANTOPRAZOLE IV PUSH 40 MG VIAL. IVP SCH (08:14)
[2020-09-05] MEDS: METOCLOPRAMIDE HCL 10 MG/2 ML VIAL. IVP SCH (08:14)
[2020-09-05] MEDS: INSULIN LISPRO 300 UNITS/3 ML VIAL. SQ SCH ×6 (08:23→17:16)
[2020-09-05] MEDS ORDERED: amLODIPine BESYLATE 5 MG TABLET PO SCH (09:00)
[2020-09-05] MEDS ORDERED: CYANOCOBALAMIN (VITAMIN B-12) 1,000 MCG TABLET. PO SCH (09:00)
[2020-09-05] MEDS ORDERED: METOCLOPRAMIDE HCL 10 MG/2 ML VIAL. IVP PRN (10:00)
--- NOTE | 2020-09-05 10:02 | PDOC ---
Date of Service: DATE: 09/05/20 TIME: 09:57 Subjective: Subjective: Hungry - remains on clear liquids. Has one black stool about every 24 hours. Objective: Vital Signs: Vital Signs Date Time Temp Pulse Resp B/P (MAP) Pulse Ox O2 Delivery O2 Flow Rate FiO2 09/05/20 08:15 93 142/80 09/05/20 08:00 Room Air 09/05/20 07:00 98.6 16 94 98.6 Labs: Laboratory Tests Test 09/04/20 12:37 09/04/20 16:18 09/04/20 19:58 09/04/20 22:05 Glucose (Fingerstick) 295 mg/dL 370 mg/dL 336 mg/dL White Blood Count 8.1 x10^3/uL Red Blood Count 2.57 x10^6/uL Hemoglobin 8.1 g/dL Hematocrit 23.3 % Mean Corpuscular Volume 91 fL Mean Corpuscular Hemoglobin 32 pg Mean Corpuscular Hemoglobin Concent 35 g/dL Red Cell Distribution Width 15.1 % Platelet Count 164 x10^3/uL Test 09/04/20 22:10 09/05/20 07:15 Hemoglobin 8.6 g/dL Glucose (Fingerstick) 320 mg/dL PE: GEN: NAD LUNGS: CTAB HEART: RRR ABD: NABS, S/ND/NT NEURO/PSYCH: A & O 3 A/P: Hematemesis/melena - EGD w/ distal esophagitis, hiatl hernia, multiple clots in fundus s/p epi, gastritis w/o ulcers, small duodenal ulcers without bleeding Anemia - Hgb better after transfusions Metastatic gastric adenocarcinoma -- Okay to ADAT per GI. Recheck Hgb. PO PPI. Can stop Reglan. If bleeding continues/recurs, consider IR eval re: embolization. Continue per heme/onc. Justicifation of Admission Dx: Justifications for Admission: Justification of Admission Dx: Yes MONICA RESTREPO Sep 05, 2020 10:02
[2020-09-05 11:00] VITALS: BP 110/66
--- NOTE | 2020-09-05 12:11 | NUR ---
SS following up with discharge planning. SS reviewed pt chart and discussed with pt RN. Pt is currently on room air. PT/OT recommended home independent. Pt advancing diet. Discharge order on the chart for home with self care.
[2020-09-05 13:16] LABS: HEMATOCRIT 22.5 % (39.0-53.0); HEMOGLOBIN 7.8 g/dL (13.0-17.5)
[2020-09-05 15:00] VITALS: BP 125/76
--- NOTE | 2020-09-05 18:21 | NUR ---
Discharge Note: VANITA DE LA CRUZ [address] [place] [address] Discharge instructions and discharge home medications reviewed with Patient and a copy given. All questions have been answered and understanding verbalized. The following instructions and handouts were given: GI bleed and anemia Discontinued IV line Patient discharged to home with self care via family member
[2020-09-05] MEDS ORDERED: SUCRALFATE 1 GM TABLET. PO SCH (21:00)
--- NOTE | 2020-09-05 22:47 | PDOC3 ---
Discharge Summary Visit Information Date of Admission: Sep 02, 2020 Date of Discharge: Sep 05, 2020 Admitting Diagnosis: Acute blood loss anemia, Hematemesis Final Diagnosis Problems Medical Problems: (1) Anemia Status: Acute (2) Lactic acidemia Status: Acute (3) Upper GI bleed Status: Acute Brief Hospital Course Allergies Allergies Coded Allergies Type Severity Reaction Last Updated Verified No Known Drug Allergies 09/03/20 No Vital Signs Vital Signs Date Time Temp Pulse Resp B/P (MAP) Pulse Ox O2 Delivery O2 Flow Rate FiO2 09/05/20 15:00 98.0 124 18 125/76 (92) 98 Room Air 98.0 Lab Results Laboratory Tests Test 09/04/20 06:10 09/04/20 07:10 09/04/20 12:37 09/04/20 16:18 White Blood Count 4.1 x10^3/uL (4.0-11.0) Red Blood Count 1.93 x10^6/uL (4.30-5.70) Hemoglobin 6.2 g/dL (13.0-17.5) Hematocrit 17.5 % (39.0-53.0) Mean Corpuscular Volume 90 fL (79-100) Mean Corpuscular Hemoglobin 32 pg (25-35) Mean Corpuscular Hemoglobin Concent 35 g/dL (31-37) Red Cell Distribution Width 16.3 % (11.5-14.5) Platelet Count 127 x10^3/uL (140-400) Neutrophils (%) (Auto) 64 % (31-73) Lymphocytes (%) (Auto) 25 % (24-48) Monocytes (%) (Auto) 9 % (0-9) Eosinophils (%) (Auto) 2 % (0-3) Basophils (%) (Auto) 1 % (0-3) Neutrophils # (Auto) 2.6 x10^3/uL (1.8-7.7) Lymphocytes # (Auto) 1.0 x10^3/uL (1.0-4.8) Monocytes # (Auto) 0.4 x10^3/uL (0.0-1.1) Eosinophils # (Auto) 0.1 x10^3/uL (0.0-0.7) Basophils # (Auto) 0.0 x10^3/uL (0.0-0.2) Sodium Level 137 mmol/L (136-145) Potassium Level 4.4 mmol/L (3.5-5.1) Chloride Level 104 mmol/L (98-107) Carbon Dioxide Level 28 mmol/L (21-32) Anion Gap 5 (6-14) Blood Urea Nitrogen 42 mg/dL (8-26) Creatinine 1.3 mg/dL (0.7-1.3) Estimated GFR (Cockcroft-Gault) 55.1 Glucose Level 328 mg/dL (70-99) Calcium Level 8.0 mg/dL (8.5-10.1) Glucose (Fingerstick) 319 mg/dL (70-99) 295 mg/dL (70-99) 370 mg/dL (70-99) Test 09/04/20 19:58 09/04/20 22:05 09/04/20 22:10 09/05/20 07:15 White Blood Count 8.1 x10^3/uL (4.0-11.0) Red Blood Count 2.57 x10^6/uL (4.30-5.70) Hemoglobin 8.1 g/dL (13.0-17.5) 8.6 g/dL (13.0-17.5) Hematocrit 23.3 % (39.0-53.0) Mean Corpuscular Volume 91 fL (79-100) Mean Corpuscular Hemoglobin 32 pg (25-35) Mean Corpuscular Hemoglobin Concent 35 g/dL (31-37) Red Cell Distribution Width 15.1 % (11.5-14.5) Platelet Count 164 x10^3/uL (140-400) Glucose (Fingerstick) 336 mg/dL (70-99) 320 mg/dL (70-99) Test 09/05/20 12:00 09/05/20 12:50 09/05/20 17:03 Glucose (Fingerstick) 319 mg/dL (70-99) 297 mg/dL (70-99) Hemoglobin 7.8 g/dL (13.0-17.5) Hematocrit 22.5 % (39.0-53.0) Mean Corpuscular Hemoglobin Concent 35 g/dL (31-37) Laboratory Tests Test 09/05/20 07:15 09/05/20 12:00 09/05/20 12:50 09/05/20 17:03 Glucose (Fingerstick) 320 mg/dL (70-99) 319 mg/dL (70-99) 297 mg/dL (70-99) Hemoglobin 7.8 g/dL (13.0-17.5) Hematocrit 22.5 % (39.0-53.0) Mean Corpuscular Hemoglobin Concent 35 g/dL (31-37) Brief Hospital Course Mr Abraham is a 65-year-old male with a history of insulin-dependent diabetes, depression, HLD, HTN, gastric adenocarcinoma presents with hematemesis. He states 1 hour prior to arrival he began vomiting bright red blood. He states he was diagnosed with stomach cancer approximately 8 months ago. He states he has been receiving chemotherapy every 2 weeks. He states his last treatment was 5 days ago. He states that he has never had bloody vomit post treatments before. He states he was never told that this could be expected. Denies any abdominal pain. Denies shortness of breath or chest pain. Did note some lightheadedness prior to EMS arrival. States he did get nausea relief with 4 mg of Zofran. States he also notes black tarry stools beginning 09-02 . Does not take iron or Pepto-Bismol. Does not take blood thinners. States he follows with Dr. Yanez at [facility] for his cancer. Denies fevers. No other complaints. 09/04: Hb 6.2 today, feeling badly. 2u PRBC ordered. Glucose in 300s. Takes 15u tid and 15u lantus at night. Hb up to 7.8 post-transfusion. Feeling improved overall. Glucose still in 300s. 2 tarry stools overnight. No pain after liquid diet. He has strict instructions for return and monitoring. Consults: GI and Hematology/Oncology Problem list: Acute upper GI bleed hgb at 8.3, trend Gastric adenocarcinoma Gastrohepatic mass is stable to slightly smaller. Alan hepatis adenopathy is stable to slightly improved. The lymph nodes are more low density which could be due to necrosis. Retroperitoneal adenopathy is unchanged. Acute posthemorrhagic anemia Lactic acidosis DONNIE due to vasomotor nephropathy Hyperglycemia with clinical insignificance at this time Severe protein malnutrition Hyponatremia likely due to volume depletion Reactive leukocytosis remote tobacco abuse new small left adrenal nodule suspicious for metastasis. on cta 10-10 38 min pt exam, chart review, > 50% of time spent with exam, chart review, pt care coordination Plan: Radiation therapy for palliation of bleeding and/or arterial embolization may be needed if bleeding recurs. Discharge Information Condition at Discharge: Improved Follow Up: Weeks (1) Disposition/Orders: D/C to Home Scheduled Allopurinol (Allopurinol) 300 Mg Tablet, 1 TAB PO HS for gout, #30 Ref 5 (Reported) Entered as Reported by: ROYA DAVIS on 01/02/20 1014 Last Taken: Unknown Dose on 09/01/20 Last Action: Last Taken Edited on 09/02/201749 by TARUN PRINGLE Amlodipine Besylate (Amlodipine Besylate) 5 Mg Tablet, 5 MG PO DAILY for hypertension, (Reported) Entered as Reported by: FAVIOLA DONG on 02/12/19737 Last Taken: Unknown Dose on 09/01/20 Last Action: Continued on 09/04/201428 by LAURA KIRBY MD Bisoprolol Fumarate/Hctz (Bisoprolol-Hctz 10-6.25 Mg Tab) 1 Each Tablet, 1 TAB PO DAILY for hypertension, #30 Ref 5 (Reported) Entered as Reported by: FAVIOLA DONG on 02/12/19 0737 Last Taken: Unknown Dose on 09/01/20 Last Action: Last Taken Edited on 09/02/201749 by TARUN PRINGLE Cyanocobalamin (Vitamin B-12) (Vitamin B-12) 1,000 Mcg Tablet, 1 TAB PO DAILY for VITAMIN DEFICIENCY for 30 Days, #30 Ref 0 (Reported) Entered as Reported by: ARTUR ARELLANO on 01/04/201732 Last Action: Continued on 09/04/201428 by LAURA KIRBY MD Ergocalciferol (Vitamin D2) (Vitamin D2) 50,000 Unit Capsule, 1 CAP PO WEEKLY for supplement, #12 (Reported) Entered as Reported by: FAVIOLA DONG on 02/12/19740 Fluoxetine Hcl (Fluoxetine Hcl) 40 Mg Capsule, 1 CAP PO DAILYWBKFT for antidepressant, #30 Ref 2 (Reported) Entered as Reported by: FAVIOLA DONG on 02/12/19740 Last Taken: Unknown Dose on 09/01/20 Last Action: Last Taken Edited on 09/02/201749 by TARUN PRINGLE Hydrocodone/Apap 5-325 ([place] 5-325 Tablet) 1 Each Tablet, 1-2 TAB PO Q6HRS for pain, #12 (Reported) Entered as Reported by: AMARI HERNANDEZ, RN on 01/13/20 1117 Icosapent Ethyl (Vascepa) 1 Gm Capsule, 2 CAP PO BID for cholesterol for 30 Days, #120 Ref 0 (Reported) Entered as Reported by: ROYA DAVIS on 01/02/20 1019 Insulin Aspart (Novolog) 100 Unit/1 Ml Cartridge, 25 UNIT SQ TIDBFRMEAL for diabetes, (Reported) Entered as Reported by: ROYA DAVIS on 01/02/20 1019 Last Action: Converted on 09/04/201428 by LAURA KIRBY MD Insulin Degludec (Tresiba) 100 Unit/1 Ml Vial, 45 UNIT SQ HS for diabetes, (Reported) Entered as Reported by: ROYA DAVIS on 01/02/20 1020 Lisinopril (Lisinopril) 20 Mg Tablet, 1 TAB PO DAILY for hypertension, #30 Ref 5 (Reported) Entered as Reported by: FAVIOLA DONG on 02/12/19 0738 Last Taken: Unknown Dose on 09/01/20 Last Action: Last Taken Edited on 09/02/201749 by TARUN PRINGLE Pantoprazole Sodium (Protonix ) 40 Mg Tablet.dr, 40 MG PO DAILYAC for GERD, (Reported) Entered as Reported by: ARTUR ARELLANO on 01/04/20 173 Last Taken: Unknown Dose on 09/01/20 Last Action: Last Taken Edited on 1749 by TARUN PRINGLE Rosuvastatin Calcium (Crestor) 40 Mg Tablet, 20 MG PO HS for FOR CHOLESTEROL, #30 Ref 0 (Reported) Entered as Reported by: ROYA DAVIS on 01/02/20 1019 Last Taken: Unknown Dose on 09/01/20 Last Action: Last Taken Edited on 09/02/201749 by TARUN PRINGLE Discontinued Medications Aspirin (Aspir-Low) 81 Mg Tablet., 1 TAB PO DAILY for heart health, #30 Ref 3 (Reported) Entered as Reported by: FAVIOLA DONG on 02/12/19 0740 Last Action: HELD on 09/04/201428 by LAURA KIRBY MD Metformin Hcl (Metformin Hcl) 1,000 Mg Tablet, 1,000 MG PO BIDWMEALS for diabetes, (Reported) Entered as Reported by: ROYA DAVIS on 01/02/20 1015 Justicifation of Admission Dx: Justifications for Admission: Justification of Admission Dx: Yes LAURA KIRBY MD Sep 05, 2020 22:47
[2020-09-06] MEDS ORDERED: PANTOPRAZOLE 40 MG TABLET.DR. PO SCH (07:30)
== END 2020-09-05 18:23 | disposition home or self-care (01) | DRG 374 ==
LOC: ER 06:28 → ED HOLD 09:04 → 2 SOUTH 10:34
PROVIDERS: ADMIT Internal Medicine; ATTEND Internal Medicine
PROC: 30233N1 Transfusion of Nonautologous Red Blood Cells into Peripheral Vein, Percutaneous Approach (ICD-10-PCS; principal; 2020-09-02)
PROC: 0DC68ZZ Extirpation of Matter from Stomach, Via Natural or Artificial Opening Endoscopic (ICD-10-PCS; 2020-09-03 08:00)
DX: C16.9 Malignant neoplasm of stomach, unspecified (principal); E43 Unspecified severe protein-calorie malnutrition; N17.0 Acute kidney failure with tubular necrosis; D62 Acute posthemorrhagic anemia; E87.1 Hypo-osmolality and hyponatremia; K92.0 Hematemesis; D72.828 Other elevated white blood cell count; E10.65 Type 1 diabetes mellitus with hyperglycemia; K29.70 Gastritis, unspecified, without bleeding; K26.9 Duodenal ulcer, unspecified as acute or chronic, without hemorrhage or perforation; K20.90 Esophagitis, unspecified without bleeding; E78.00 Pure hypercholesterolemia, unspecified; E78.5 Hyperlipidemia, unspecified; E86.9 Volume depletion, unspecified; F32.9 Major depressive disorder, single episode, unspecified; Z20.828 Contact with and (suspected) exposure to other viral communicable diseases; I10 Essential (primary) hypertension; K44.9 Diaphragmatic hernia without obstruction or gangrene; Z79.4 Long term (current) use of insulin; Z87.891 Personal history of nicotine dependence; Z79.82 Long term (current) use of aspirin; Z79.899 Other long term (current) drug therapy; Z68.25 Body mass index [BMI] 25.0-25.9, adult
CPT/HCPCS: 36415; 43247; 43255; 74174; 80048; 80053; 81001; 82962; 83605; 83690; 83735; 84100; 85014; 85018; 85025; 85027; 85610; 86850; 86900; 86901; 86920; 87426; 96361; 96374; 96375; 99285; C1757; C9113; J0171; J1815; J2704; J2765; J7030; J7120; P9016; Q9967; G0378; U0003-CS

== ENCOUNTER → 2020-09-27 | Outpatient (CLI) | payer MEDICARE ==
[2020-09-13 12:00] VITALS: BP 102/72
[~2020-09-27] MED LIST changes: +SUCR1TAB35 PO
[2020-09-27 08:42] LABS: BASO % 1 % (0-3); EOS # 0.2 x10^3/uL (0.0-0.7); EOS % 5 % (0-3); HEMATOCRIT 27.4 % (39.0-53.0); LYMPH # 0.3 x10^3/uL (1.0-4.8); LYMPH % 6 % (24-48); MEAN CORPUSCULAR HEMOGLOBIN 28 pg (25-35); MEAN CORPUSCULAR HGB CONC 33 g/dL (31-37); MEAN CORPUSCULAR VOLUME 85 fL (79-100); MONO # 0.4 x10^3/uL (0.0-1.1); MONO % 10 % (0-9); NEUT # 3.6 x10^3/uL (1.8-7.7); NEUT % 79 % (31-73); PLATELET COUNT 206 x10^3/uL (140-400); RED BLOOD COUNT 3.23 x10^6/uL (4.30-5.70); RED CELL DISTRIBUTION WIDTH 16.9 % (11.5-14.5); WHITE BLOOD COUNT 4.6 x10^3/uL (4.0-11.0)
[2020-09-27 09:03] LABS: ALBUMIN 2.7 g/dL (3.4-5.0); ALBUMIN/GLOBULIN RATIO 0.8 (1.0-1.7); CALCIUM 8.6 mg/dL (8.5-10.1); CREATININE 1.2 mg/dL (0.7-1.3); GFR 60.4; POTASSIUM 3.7 mmol/L (3.5-5.1); TOTAL BILIRUBIN 0.3 mg/dL (0.2-1.0)
[2020-09-27 10:34] LABS: % BANDS 1 % (0-9); % EOS 2 % (0-5); % LYMPHS 2 % (24-48); % MONOS 7 % (0-10); % SEGS 88 % (35-66)
[2020-09-27 10:35] LABS: PLT ESTIMATE ADEQUATE (ADEQUATE)
[2020-09-27 14:40] LABS: MAGNESIUM 1.4 mg/dL (1.8-2.4)
== END ==
LOC: ONCLAB 08:32
PROVIDERS: ATTEND Internal Medicine Hematology & Oncology
DX: C16.0 Malignant neoplasm of cardia (principal)
CPT/HCPCS: 36415; 80053; 82607; 82728; 82746; 83540; 83550; 83615; 83735; 85007; 85025

== ENCOUNTER → 2020-10-11 | Outpatient (CLI) | payer MEDICARE ==
[2020-09-13 12:00] VITALS: BP 102/72
[2020-10-11 10:08] LABS: BASO % 1 % (0-3); EOS # 0.2 x10^3/uL (0.0-0.7); EOS % 3 % (0-3); HEMATOCRIT 32.8 % (39.0-53.0); HEMOGLOBIN 10.8 g/dL (13.0-17.5); LYMPH # 0.6 x10^3/uL (1.0-4.8); LYMPH % 7 % (24-48); MEAN CORPUSCULAR HEMOGLOBIN 27 pg (25-35); MEAN CORPUSCULAR HGB CONC 33 g/dL (31-37); MEAN CORPUSCULAR VOLUME 81 fL (79-100); MONO # 0.8 x10^3/uL (0.0-1.1); MONO % 10 % (0-9); NEUT # 6.5 x10^3/uL (1.8-7.7); NEUT % 80 % (31-73); PLATELET COUNT 236 x10^3/uL (140-400); RED BLOOD COUNT 4.06 x10^6/uL (4.30-5.70); RED CELL DISTRIBUTION WIDTH 17.5 % (11.5-14.5); WHITE BLOOD COUNT 8.2 x10^3/uL (4.0-11.0)
[2020-10-11 10:16] LABS: CALCIUM 9.1 mg/dL (8.5-10.1); CREATININE 1.6 mg/dL (0.7-1.3); GFR 43.3; POTASSIUM 3.9 mmol/L (3.5-5.1)
[2020-10-11 10:29] LABS: ALBUMIN 3.1 g/dL (3.4-5.0); ALBUMIN/GLOBULIN RATIO 0.9 (1.0-1.7); TOTAL BILIRUBIN 0.3 mg/dL (0.2-1.0); TOTAL PROTEIN 6.4 g/dL (6.4-8.2)
== END ==
LOC: ONCLAB 09:36
PROVIDERS: ATTEND Internal Medicine Hematology & Oncology
DX: C16.0 Malignant neoplasm of cardia (principal)
CPT/HCPCS: 36415; 80053; 85025

== ENCOUNTER → 2020-10-23 | Outpatient (CLI) | payer MEDICARE ==
[2020-09-13 12:00] VITALS: BP 102/72
--- NOTE | 2020-10-23 14:30 | CARD ---
MR#: [id number] Date of Study: 10/23/2020 Ordering Physician: LOBO UGALDE, Referring Physician: LOBO UGALDE, Tech: Alba Garcia APPROVED REPORT EXAM: Two-dimensional and M-mode echocardiogram with Doppler and color Doppler. Other Information Quality : AverageHR: 63bpm INDICATION Metastatic HER2 Neoplasm Gastroesophageal junction RISK FACTORS Hypertension Hyperlipidemia Diabetes 2D DIMENSIONS RVDd3.4 (2.9-3.5cm)Left Atrium(2D)3.1 (1.6-4.0cm) IVSd1.0 (0.7-1.1cm)Aortic Root(2D)3.5 (2.0-3.7cm) LVDd5.2 (3.9-5.9cm)LVOT Diameter2.1 (1.8-2.4cm) PWd0.9 (0.7-1.1cm)LVDs2.8 (2.5-4.0cm) FS (%) 46.8 %SV102.1 ml LVEF(%)77.8 (>50%) Aortic Valve AoV Peak Scottie.129.3cm/sAoV VTI27.2cm AO Peak GR.6.7mmHgLVOT Peak Scottie.99.3cm/s LVOT VTI 24.40cmAO Mean GR.4mmHg MYAH (VMAX)1.78gt7GRT (VTI)2.99cm2 Mitral Valve MV E Geiipywa50.8cm/sMV DECEL [id number] MV A Irhuuvwf23.8cm/sMV [id number] E/A Ratio1.1MVA (PHT)3.13cm2 TDI E/Lateral E'7.3E/Medial E'8.5 Pulmonary Valve PV Peak Bxjcripw29.8cm/sPV Peak Grad.3mmHg Tricuspid Valve TR P. Yttpwlck002af/sRAP LEVXFINS2fkVu TR Peak Gr.83nwKiCUVR70woRa Pulmonary Vein S1 Dlvqdxdb55.2cm/sD2 Leirbmlb25.9cm/s PVa [id number] LEFT VENTRICLE The left ventricle is normal size. There is normal left ventricular wall thickness. The left ventricu lar systolic function is normal and the ejection fraction is within normal range. The Ejection Fracti on is 50-55%. There is normal LV segmental wall motion. Transmitral Doppler flow pattern is Grade II- pseudonormal filling dynamics. RIGHT VENTRICLE The right ventricle is normal size. There is normal right ventricular wall thickness. The right ventr icular systolic function is normal. ATRIA The left atrium size is normal. The right atrium size is normal. The interatrial septum is intact wit h no evidence for an atrial septal defect or patent foramen ovale as noted on 2-D or Doppler imaging. AORTIC VALVE The aortic valve is thickened but opens well. Doppler and Color Flow revealed trace aortic regurgitat ion. There is no significant aortic valvular stenosis. Calculated aortic valve area is 3.03 cm2 with maximum pressure gradient of 8 mmHg and mean pressure gradient of 4 mmHg. MITRAL VALVE The mitral valve is normal in structure and function. There is no evidence of mitral valve prolapse. There is no mitral valve stenosis. Doppler and Color Flow revealed no mitral valve regurgitation note d. TRICUSPID VALVE The tricuspid valve is normal in structure and function. Doppler and Color Flow revealed trace tricus pid regurgitation with an estimated PAP of 27 mmHg. There is no tricuspid valve stenosis. PULMONIC VALVE The pulmonic valve is not well visualized. Doppler and Color Flow revealed trace pulmonic valvular re gurgitation. There is no pulmonic valvular stenosis. GREAT VESSELS The aortic root is normal in size. The ascending aorta is normal in size. The IVC is normal in size a nd collapses >50% with inspiration. PERICARDIAL EFFUSION There is no evidence of significant pericardial effusion. Critical Notification Critical Value: No <Conclusion> The left ventricular systolic function is normal and the ejection fraction is within normal range. Th e Ejection Fraction is 50-55%. There is normal LV segmental wall motion. Signed by : Isaias Ramirez, Electronically Approved : 10/23/2020 14:30:15
== END ==
LOC: ECHO 08:58
PROVIDERS: ATTEND Internal Medicine Hematology & Oncology
DX: C16.0 Malignant neoplasm of cardia (principal)
CPT/HCPCS: 93306

== ENCOUNTER → 2020-10-25 | Outpatient (CLI) | payer MEDICARE ==
[2020-09-13 12:00] VITALS: BP 102/72
[2020-10-25 08:22] LABS: CALCIUM 9.2 mg/dL (8.5-10.1); CREATININE 1.3 mg/dL (0.7-1.3); GFR 55.1; POTASSIUM 4.2 mmol/L (3.5-5.1)
[2020-10-25 08:26] LABS: BASO % 0 % (0-3); EOS # 0.1 x10^3/uL (0.0-0.7); EOS % 2 % (0-3); HEMATOCRIT 31.7 % (39.0-53.0); HEMOGLOBIN 10.6 g/dL (13.0-17.5); LYMPH # 0.5 x10^3/uL (1.0-4.8); LYMPH % 10 % (24-48); MEAN CORPUSCULAR HEMOGLOBIN 28 pg (25-35); MEAN CORPUSCULAR HGB CONC 34 g/dL (31-37); MEAN CORPUSCULAR VOLUME 83 fL (79-100); MONO # 0.5 x10^3/uL (0.0-1.1); MONO % 10 % (0-9); NEUT # 4.3 x10^3/uL (1.8-7.7); NEUT % 78 % (31-73); PLATELET COUNT 140 x10^3/uL (140-400); RED CELL DISTRIBUTION WIDTH 20.1 % (11.5-14.5); WHITE BLOOD COUNT 5.5 x10^3/uL (4.0-11.0)
[2020-10-25 08:28] LABS: ALBUMIN 3.2 g/dL (3.4-5.0); ALBUMIN/GLOBULIN RATIO 1.2 (1.0-1.7); TOTAL BILIRUBIN 0.3 mg/dL (0.2-1.0); TOTAL PROTEIN 5.9 g/dL (6.4-8.2)
== END ==
LOC: ONCLAB 08:05
PROVIDERS: ATTEND Internal Medicine Hematology & Oncology
DX: C16.0 Malignant neoplasm of cardia (principal)
CPT/HCPCS: 36415; 80053; 85025

== ENCOUNTER → 2020-11-06 | Outpatient (CLI) | payer MEDICARE ==
[2020-09-13 12:00] VITALS: BP 102/72
[~2020-11-06] MED LIST changes: +CONTRAST GIVEN. MC PRN; +HEPARIN PF 500 UNIT/5 ML DISP.SYRIN. IVP ONE; +IOHEXOL 240 MG/ML 50ML VIAL. PO ONE; +IOHEXOL 300 MG/ML 100ML VIAL. IV ONE
--- NOTE | 2020-11-07 11:24 | RAD ---
ADDENDUM #1 Addendum: 5. Cholelithiasis with mild gallbladder wall thickening or pericholecystic fluid could be associated with systemic inflammation versus cholecystitis. End of addendum: Electronically signed by: Angela Rai MD (11/07/2020 11:41 AM) [id number] ORIGINAL REPORT PQRS Compliance Statement: One or more of the following individualized dose reduction techniques were utilized for this examinat ion: 1. Automated exposure control 2. Adjustment of the mA and/or kV according to patient size 3. 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 COMPARISON: CT abdomen/pelvis 09/02/2020 TECHNIQUE: Multiple axial CT images of the abdomen and pelvis were obtained after the intravenous adm inistration of 60 cc Omnipaque 300. Coronal and sagittal reformats are provided. Oral contrast was ad ministered. FINDINGS: Lung bases are clear. Mild circumferential wall thickening involving the distal esophagus. There is s mall hiatal hernia. Heart size is within normal limits. Three-vessel coronary artery vascular calcifi cations are present. No suspicious hepatic lesions are identified. Spleen is borderline enlarged measuring 13.7 cm in obli que craniocaudal dimension, previously measuring 4.1 cm. Left adrenal nodule appears marginally decre ased in size measuring 10 x 10 mm, previously measuring 13 x 13 mm (series 2, image 23). Right adrena l gland is normal in appearance. Pancreas is normal. Cholelithiasis. Mild gallbladder wall thickening is noted with trace pericholecystic fluid. Abdominal aorta is normal in course and caliber with mild calcified atheromatous plaque. There is no free fluid or free intraperitoneal air. There is decrease in size of a previously seen hypoattenuatin g gastrohepatic lymph node measuring 6.2 x 3.6 cm, currently measuring 4.0 x 1.8 cm (series 2, image 24). A portacaval lymph node measures 3.5 x 1.5 cm, previously measuring 4.8 x 2.9 cm (series 2, imag e 30). Left periaortic lymph node measures 1.9 x 1.8 cm, previously measuring 3.1 x 2.4 cm. No new or enlarging abdominal or pelvic lymphadenopathy. There is a indeterminate lesion within the superior pole left kidney measuring 1.2 cm (2, image 26) w hich measures higher than that of simple fluid. A simple cyst in the lateral superior pole right kidn ey measuring 10 mm. No hydronephrosis. Oral contrast was administered. There is moderate colonic diverticulosis without adjacent inflammatio n. No bowel obstruction or inflammation. Appendix is normal. There is focal wall thickening at the ga stroesophageal junction. Prostate and seminal vesicles are normal in appearance. No suspicious osseou s abnormality is identified. There is levoconvex scoliosis of the lumbar spine. IMPRESSION: 1. There is focal circumferential wall thickening involving the distal esophagus and gastroesophageal junction without a discrete mass. Consideration may be given for posttreatment related changes. Petra elate with site of primary malignancy. 2. Decrease in size of gastrohepatic, portacaval and periaortic lymphadenopathy as described in solai l above. Findings favor treatment response. 3. Indeterminate lesion identified in the superior pole left kidney measuring 1.2 cm. Attention on fo llow-up exams is recommended. 4. Decrease in size of left adrenal nodule previously measuring 1.3 x 1.3 cm currently measuring 1.0 x 1.0 cm. Electronically signed by: Angela Rai MD (11/07/2020 11:21 AM) [id number]
== END ==
LOC: CT 08:51
PROVIDERS: ATTEND Internal Medicine Hematology & Oncology
DX: C16.0 Malignant neoplasm of cardia (principal)
CPT/HCPCS: 74177; J1642; Q9966; Q9967

== ENCOUNTER → 2020-11-08 | Outpatient (CLI) | payer MEDICARE ==
[2020-09-13 12:00] VITALS: BP 102/72
[~2020-11-08] MED LIST changes: -CONTRAST GIVEN. MC PRN; -HEPARIN PF 500 UNIT/5 ML DISP.SYRIN. IVP ONE; -IOHEXOL 240 MG/ML 50ML VIAL. PO ONE; -IOHEXOL 300 MG/ML 100ML VIAL. IV ONE
[2020-11-08 09:30] LABS: CALCIUM 8.8 mg/dL (8.5-10.1); GFR 74.5; POTASSIUM 4.2 mmol/L (3.5-5.1)
[2020-11-08 09:31] LABS: BASO % 1 % (0-3); EOS # 0.1 x10^3/uL (0.0-0.7); EOS % 3 % (0-3); HEMATOCRIT 32.8 % (39.0-53.0); HEMOGLOBIN 10.9 g/dL (13.0-17.5); LYMPH # 0.4 x10^3/uL (1.0-4.8); LYMPH % 11 % (24-48); MEAN CORPUSCULAR HEMOGLOBIN 28 pg (25-35); MEAN CORPUSCULAR HGB CONC 33 g/dL (31-37); MEAN CORPUSCULAR VOLUME 85 fL (79-100); MONO # 0.5 x10^3/uL (0.0-1.1); MONO % 12 % (0-9); NEUT # 2.9 x10^3/uL (1.8-7.7); NEUT % 73 % (31-73); PLATELET COUNT 123 x10^3/uL (140-400); RED BLOOD COUNT 3.85 x10^6/uL (4.30-5.70); RED CELL DISTRIBUTION WIDTH 22.4 % (11.5-14.5)
[2020-11-08 09:35] LABS: ALBUMIN 2.9 g/dL (3.4-5.0); ALBUMIN/GLOBULIN RATIO 0.9 (1.0-1.7); TOTAL BILIRUBIN 0.5 mg/dL (0.2-1.0); TOTAL PROTEIN 6.1 g/dL (6.4-8.2)
[2020-11-08 10:54] LABS: PLT ESTIMATE ADEQUATE (ADEQUATE)
[2020-11-08 10:55] LABS: ANISOCYTOSIS PRESENT
[2020-11-08 11:23] LABS: DIRECT BILIRUBIN 0.3 mg/dL (0.0-0.2); TOTAL BILIRUBIN 0.4 mg/dL (0.2-1.0); TOTAL PROTEIN 6.2 g/dL (6.4-8.2)
== END ==
LOC: ONCLAB 09:08
PROVIDERS: ATTEND Internal Medicine Hematology & Oncology
DX: C16.0 Malignant neoplasm of cardia (principal)
CPT/HCPCS: 36415; 80053; 80076; 85025; 86705; 86709; 86803; 87340

== ENCOUNTER → 2020-11-15 | Outpatient (CLI) | payer MEDICARE ==
[2020-09-13 12:00] VITALS: BP 102/72
[2020-11-15 09:35] LABS: BASO % 1 % (0-3); EOS # 0.1 x10^3/uL (0.0-0.7); EOS % 3 % (0-3); HEMATOCRIT 38.5 % (39.0-53.0); HEMOGLOBIN 12.7 g/dL (13.0-17.5); LYMPH # 0.6 x10^3/uL (1.0-4.8); LYMPH % 14 % (24-48); MEAN CORPUSCULAR HEMOGLOBIN 29 pg (25-35); MEAN CORPUSCULAR HGB CONC 33 g/dL (31-37); MEAN CORPUSCULAR VOLUME 87 fL (79-100); MONO # 0.8 x10^3/uL (0.0-1.1); MONO % 16 % (0-9); NEUT # 3.2 x10^3/uL (1.8-7.7); NEUT % 67 % (31-73); PLATELET COUNT 182 x10^3/uL (140-400); RED BLOOD COUNT 4.44 x10^6/uL (4.30-5.70); RED CELL DISTRIBUTION WIDTH 22.3 % (11.5-14.5); WHITE BLOOD COUNT 4.8 x10^3/uL (4.0-11.0)
[2020-11-15 09:41] LABS: CALCIUM 9.2 mg/dL (8.5-10.1); CREATININE 1.4 mg/dL (0.7-1.3); GFR 50.5; POTASSIUM 3.8 mmol/L (3.5-5.1)
[2020-11-15 09:47] LABS: ALBUMIN/GLOBULIN RATIO 0.8 (1.0-1.7); DIRECT BILIRUBIN 2.2 mg/dL (0.0-0.2); TOTAL BILIRUBIN 2.5 mg/dL (0.2-1.0); TOTAL PROTEIN 6.7 g/dL (6.4-8.2)
== END ==
LOC: ONCLAB 08:23
PROVIDERS: ATTEND Internal Medicine Hematology & Oncology
DX: C16.0 Malignant neoplasm of cardia (principal)
CPT/HCPCS: 36415; 80053; 82248; 85025

== ENCOUNTER → 2020-11-15 | Outpatient (CLI) | payer MEDICARE ==
[2020-09-13 12:00] VITALS: BP 102/72
--- NOTE | 2020-11-15 13:45 | RAD ---
EXAMINATION: US ABDOMEN LTD 11/15/2020 1:05 PM INDICATION: Elevated LFTs TECHNIQUE: Su scale and color Doppler ultrasound images of the right upper quadrant were obtained. COMPARISON: CT abdomen pelvis 11/06/2020. FINDINGS: Liver: The liver is normal in size measuring 18.4 cm in length. Normal echogenicity. No focal liver l esion. Main portal vein is at the upper limit of normal in size but patent with antegrade flow. Gallbladder: The gallbladder is normal in caliber. There are shadowing echogenic calculi in the gall bladder neck. Gallbladder wall is mildly thickened measuring 6 mm. Bile ducts: The common bile duct is normal measuring 5 mm. No intrahepatic biliary duct dilatation. Right kidney: The right kidney measures 12.1 x 4.7 x 5.0 cm. Normal cortical thickness and echogenic ity. No hydronephrosis. Other: Pancreas is obscured by bowel gas. No ascites. IMPRESSION: Cholelithiasis with gallbladder wall thickening, which can be seen with acute cholecystit is. This was similar on CT 11/06/2020. Correlate with clinical parameters. Electronically signed by: Dorothy Liao MD (11/15/2020 1:43 PM) [id number]
== END ==
LOC: US 12:59
PROVIDERS: ATTEND Physician Assistant
DX: K80.20 Calculus of gallbladder without cholecystitis without obstruction (principal); C16.0 Malignant neoplasm of cardia; R94.5 Abnormal results of liver function studies
CPT/HCPCS: 76705

== ENCOUNTER → 2020-11-23 | Outpatient (CLI) | payer MEDICARE ==
[2020-11-20 15:00] VITALS: BP 137/92
[~2020-11-23] MED LIST changes: +ONDA8TAB15 PO; +PROC10TA2 PO
--- NOTE | 2020-11-23 14:12 | RAD ---
Abdominal MRI with MRCP. INDICATION: History of metastatic cancer in the gastroesophageal region. COMPARISON: HIDA scan of 11/16/2020, abdomen and pelvis CT with oral and IV contrast of 11/06/2020. A bdominal ultrasound of 11/15/2020. TECHNIQUE: Multiplanar multisequence MR imaging of the abdomen was performed. Heavily T2-weighted MRC P images were acquired with maximum intensity projection reformats FINDINGS: The MRCP images show intrahepatic biliary dilation with abrupt cut off of the left main and right zaida n bile ducts, best illustrated on 3-D MIP reformats. Liver shows marked hypoattenuation in the right hepatic lobe and lateral segment of the left hepatic lobe with greatest sparing of the caudate lobe and medial segment left hepatic lobe. This hypointensi ty mitigates somewhat on opposed phase imaging, implying severe hepatic siderosis or hemochromatosis. Contracted gallbladder. Mild wall thickening to the gallbladder. Cholelithiasis. No significant ascites. Adrenals, spleen, pancreas and kidneys are unremarkable as well. 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 Cholelithiasis. No overt MRCP images suggesting acute cholecystitis. Correlate clinically. Electronically signed by: Anderson Adorno MD (11/23/2020 2:09 PM) [id number]
== END ==
LOC: MRI 11:29
PROVIDERS: ATTEND Internal Medicine Hematology & Oncology
DX: C16.0 Malignant neoplasm of cardia (principal); K80.20 Calculus of gallbladder without cholecystitis without obstruction; R59.0 Localized enlarged lymph nodes
CPT/HCPCS: 74181

== ENCOUNTER 2020-11-24 15:53 | Inpatient (IN) | payer MEDICARE ==
[~2020-11-24] VITALS: Ht 185.4 cm; Wt 77.6 kg
[~2020-11-24 15:53] MED LIST changes: -LISI-334 PO; +LISI20TA18 PO; -ONDA8TAB15 PO; -PROC10TA2 PO
[2020-11-24 16:19] LABS: BASO # 0.1 x10^3/uL (0.0-0.2); BASO % 1 % (0-3); EOS # 0.1 x10^3/uL (0.0-0.7); EOS % 1 % (0-3); HEMATOCRIT 41.2 % (39.0-53.0); HEMOGLOBIN 13.2 g/dL (13.0-17.5); LYMPH # 0.5 x10^3/uL (1.0-4.8); LYMPH % 8 % (24-48); MEAN CORPUSCULAR HEMOGLOBIN 28 pg (25-35); MEAN CORPUSCULAR HGB CONC 32 g/dL (31-37); MEAN CORPUSCULAR VOLUME 87 fL (79-100); MONO # 0.6 x10^3/uL (0.0-1.1); MONO % 9 % (0-9); NEUT # 5.1 x10^3/uL (1.8-7.7); NEUT % 82 % (31-73); PLATELET COUNT 238 x10^3/uL (140-400); RED BLOOD COUNT 4.72 x10^6/uL (4.30-5.70); WHITE BLOOD COUNT 6.3 x10^3/uL (4.0-11.0)
[2020-11-24 16:23] LABS: CALCIUM 9.5 mg/dL (8.5-10.1); CREATININE 1.3 mg/dL (0.7-1.3); GFR 55.1; POTASSIUM 4.2 mmol/L (3.5-5.1)
[2020-11-24 16:37] LABS: ALBUMIN 2.6 g/dL (3.4-5.0); ALBUMIN/GLOBULIN RATIO 0.7 (1.0-1.7); TOTAL BILIRUBIN 18.1 mg/dL (0.2-1.0); TOTAL PROTEIN 6.4 g/dL (6.4-8.2)
--- NOTE | 2020-11-24 16:57 | ED.ADGEN ---
Past Medical History Past Medical History: Cancer, Depression, Diabetes-Type I, Diabetes-Type II, GERD, High Cholesterol, Hypertension, Other Additional Past Medical Histor: STOMACH CA,GOUT/GI BLEED/LACTIC ACIDEMIA Past Surgical History: Tonsillectomy Smoking Status: Former Smoker Alcohol Use: None General Adult EDM: Chief Complaint: WEAKNESS/GENERALIZED HPI: HPI: Patient is a 65-year-old male who presents to the emergency room complaining of severe weakness. He states that he initially started getting weak about 10 days ago and was admitted to the hospital at that time. He had elevated LFTs and yesterday had an MRCP which she has not gotten the results of. He was discharged home on Friday and his weakness is progressively gotten worse. Today his legs gave out and he continues to not eat or drink anything. He states that he is unable to stand at this time. He denies any fever. He does have some nausea without vomiting. He has not had any diarrhea. He does not know if he has had any kind of fevers. Review of Systems: Review of Systems: Complete ROS is negative unless otherwise documented in HPI Current Medications: Current Medications Medications (Trade) Dose Ordered Sig/Alex Start Time Stop Time Status Last Admin Dose Admin Acetaminophen (Tylenol) 650 mg PRN Q4HRS PRN 11/24/20 17:15 Cefepime HCl (Maxipime) 2 gm 1X ONCE 11/24/20 17:30 11/24/20 17:31 Dextrose (Dextrose 50%-Water Syringe) 12.5 gm PRN Q15MIN PRN 11/24/20 17:15 Docusate Sodium (Colace) 100 mg PRN DAILY PRN 11/24/20 17:15 Enoxaparin Sodium (Lovenox 40mg Syringe) 40 mg Q24H 11/24/20 21:00 Hydromorphone HCl (Dilaudid) 0.4 mg PRN Q2HRS PRN 11/24/20 17:15 Metronidazole 100 ml @ 100 mls/hr Q12HR 11/24/20 21:00 Ondansetron HCl (Zofran) 4 mg PRN Q6HRS PRN 11/24/20 17:15 Piperacillin Sod/ Tazobactam Sod 3.375 gm/Sodium Chloride 50 ml @ 100 mls/hr 1X ONCE 11/24/20 17:45 11/24/20 18:14 Cancel Sennosides (Senna) 17.2 mg PRN BID PRN 11/24/20 17:15 Sodium Chloride 1,000 ml @ 100 mls/hr Q10H 11/24/20 17:15 Allergies: Allergies: Allergies Coded Allergies Type Severity Reaction Last Updated Verified No Known Drug Allergies 09/03/20 No Physical Exam: PE: General: Awake, alert, cachectic, severe jaundice, scleral icterus HEENT: Atraumatic, EOMI, PERRL, airway patent, dry oral mucosa Neck: Supple, trachea midline Respiratory: CTA bilaterally, normal effort, no wheezing/crackles CV: RRR, no murmur, cap refill <2 GI: Soft, nondistended, nontender, no masses MSK: No obvious deformities Skin: Warm, dry, intact Neuro: A&O x3, speech NL, sensory and motor grossly intact, no focal deficits Psych: Normal affect, normal mood, not suicidal or homicidal Current Patient Data: Labs: Laboratory Tests Test 11/24/20 16:04 White Blood Count 6.3 x10^3/uL (4.0-11.0) Red Blood Count 4.72 x10^6/uL (4.30-5.70) Hemoglobin 13.2 g/dL (13.0-17.5) Hematocrit 41.2 % (39.0-53.0) Mean Corpuscular Volume 87 fL (79-100) Mean Corpuscular Hemoglobin 28 pg (25-35) Mean Corpuscular Hemoglobin Concent 32 g/dL (31-37) Red Cell Distribution Width 20.0 % (11.5-14.5) H Platelet Count 238 x10^3/uL (140-400) Neutrophils (%) (Auto) 82 % (31-73) H Lymphocytes (%) (Auto) 8 % (24-48) L Monocytes (%) (Auto) 9 % (0-9) Eosinophils (%) (Auto) 1 % (0-3) Basophils (%) (Auto) 1 % (0-3) Neutrophils # (Auto) 5.1 x10^3/uL (1.8-7.7) Lymphocytes # (Auto) 0.5 x10^3/uL (1.0-4.8) L Monocytes # (Auto) 0.6 x10^3/uL (0.0-1.1) Eosinophils # (Auto) 0.1 x10^3/uL (0.0-0.7) Basophils # (Auto) 0.1 x10^3/uL (0.0-0.2) Sodium Level 133 mmol/L (136-145) L Potassium Level 4.2 mmol/L (3.5-5.1) Chloride Level 96 mmol/L (98-107) L Carbon Dioxide Level 27 mmol/L (21-32) Anion Gap 10 (6-14) Blood Urea Nitrogen 23 mg/dL (8-26) Creatinine 1.3 mg/dL (0.7-1.3) Estimated GFR (Cockcroft-Gault) 55.1 BUN/Creatinine Ratio 18 (6-20) Glucose Level 317 mg/dL (70-99) H Calcium Level 9.5 mg/dL (8.5-10.1) Total Bilirubin 18.1 mg/dL (0.2-1.0) H Aspartate Amino Transferase (AST) 328 U/L (15-37) H Alanine Aminotransferase (ALT) 276 U/L (16-63) H Alkaline Phosphatase 1166 U/L (46-116) H Troponin I Quantitative < 0.017 ng/mL (0.000-0.055) Total Protein 6.4 g/dL (6.4-8.2) Albumin 2.6 g/dL (3.4-5.0) L Albumin/Globulin Ratio 0.7 (1.0-1.7) L Laboratory Tests 11/24/20 16:04 Laboratory Tests 11/24/20 16:04 Vital Signs: Vital Signs Date Time Temp Pulse Resp B/P (MAP) Pulse Ox O2 Delivery O2 Flow Rate FiO2 11/24/20 15:53 98.0 95 20 142/85 (104) 97 Room Air 98.0 EKG: EKG: [] Heart Score: Risk Factors: Risk Factors: DM, Current or recent (<one month) smoker, HTN, HLP, family history of CAD, obesity. Risk Scores: Score 0 - 3: 2.5% MACE over next 6 weeks - Discharge Home Score 4 - 6: 20.3% MACE over next 6 weeks - Admit for Clinical Observation Score 7 - 10: 72.7% MACE over next 6 weeks - Early Invasive Strategies Radiology/Procedures: Radiology/Procedures: [] Course & Med Decision Making: Course & Med Decision Making Pertinent Labs and Imaging studies reviewed. (See chart for details) Patient is 65-year-old male who presents to the emergency room with weakness, jaundice. Patient overall is well-appearing. Fluids and antibiotics were started. Patient's bilirubin is 18 and his LFTs are elevated. Labs are sign ificantly worse than they have been previously. I cannot reviewed the MRCP report. Patient will need to be admitted for further evaluation by GI and surgery. Consults were placed for their services. Dragon Disclaimer: Dragon Disclaimer: This electronic medical record was generated, in whole or in part, using a voice recognition dictation system. Departure Departure Impression: Primary Impression: Hyperbilirubinemia Additional Impressions: Gastric adenocarcinoma Weakness Fall Disposition: 09 ADMITTED INPT THIS HOSP Condition: STABLE Referrals: GELACIO PEREZ MD (PCP) Problem Qualifiers SUZAN SAENZ MD Nov 24, 2020 16:57
--- NOTE | 2020-11-24 17:08 | PDOC1 ---
History and Physical Date of Service: DOS: DATE: 11/24/20 TIME: 17:01 Chief Complaint: Chief Complain: generalized weakness History of Present Illness: HPI: 65-year-old male who presents to the emergency room complaining of severe weakness. He states that he initially started getting weak about 10 days ago and was admitted to the hospital at that time. He had elevated LFTs and yesterday had an MRCP which she has not gotten the results of. He was discharged home on Friday and his weakness is progressively gotten worse. Today his legs gave out and he continues to not eat or drink anything. He states that he is unable to stand at this time. He denies any fever. He does have some nausea without vomiting. He has not had any diarrhea. He does not know if he has had any kind of fevers. Past Medical/Surgical History: PMH/PSH: Past Medical History: Depression, Diabetes-Type I, Diabetes-Type II, GERD, High Cholesterol, Hypertension, metastatic gastric cancer,GOUT/GI BLEED/LACTIC ACIDEMIA Past Surgical History: Tonsillectomy Allergies: Allergies: Coded Allergies: No Known Drug Allergies (Unverified , 09/03/20) Family History: Family History: Reviewed with no relevant findings Social History: Social History: Smoking Status: Former Smoker Alcohol Use: None Current Medications: Current Medications Active Scripts Active Reported Carafate (Sucralfate) 1 Gm Tablet 1 Gm PO BID Hildreth 5-325 Tablet (Acetaminophen/Hydrocodone Bitart) 1 Each Tablet 1-2 Tab PO Q6HRS Vitamin B-12 (Cyanocobalamin (Vitamin B-12)) 1,000 Mcg Tablet 1 Tab PO DAILY 30 Days Protonix (Pantoprazole Sodium) 40 Mg Tablet.dr 40 Mg PO DAILYAC Tresiba (Insulin Degludec) 100 Unit/1 Ml Vial 45 Unit SQ HS Crestor (Rosuvastatin Calcium) 40 Mg Tablet 20 Mg PO HS Vascepa (Icosapent Ethyl) 1 Gm Capsule 2 Cap PO BID 30 Days Novolog (Insulin Aspart) 100 Unit/1 Ml Cartridge 25 Unit SQ TIDBFRMEAL Allopurinol 300 Mg Tablet 1 Tab PO HS Fluoxetine Hcl 40 Mg Capsule 1 Cap PO DAILYWBKFT Vitamin D2 (Ergocalciferol (Vitamin D2)) 50,000 Unit Capsule 1 Cap PO WEEKLY Amlodipine Besylate 5 Mg Tablet 5 Mg PO DAILY Lisinopril 20 Mg Tablet 1 Tab PO DAILY Bisoprolol-Hctz 10-6.25 Mg Tab (Bisoprolol Fumarate/Hctz) 1 Each Tablet 1 Tab PO DAILY ROS: Review of Systems Review of System REVIEW OF SYSTEMS: GENERAL: Denies weakness SKIN: No bruising, hair changes or rashes. EYES: No blurred, double or loss of vision. NOSE AND THROAT: No history of nosebleeds, hoarseness or sore throat. HEART: No history of palpitations, chest pain or shortness of breath on exertion. LUNGS: Denies cough, hemoptysis, wheezing or shortness of breath. GASTROINTESTINAL: Denies changes in appetite, nausea, vomiting, diarrhea or constipation. GENITOURINARY: No history of frequency, urgency, hesitancy or nocturia. NEUROLOGIC: Denies history of numbness, tingling, or tremor. PSYCHIATRIC: No history of panic, anxiety or depression. ENDOCRINE: No history of heat or cold intolerance, polyuria or polydipsia. EXTREMITIES: Denies joint pain, pain on walking or stiffness. Physical Exam: Vital Signs: Vital Signs Date Time Temp Pulse Resp B/P (MAP) Pulse Ox O2 Delivery O2 Flow Rate FiO2 11/24/20 15:53 98.0 95 20 142/85 (104) 97 Room Air 98.0 Physcial Exam: GEN: No apparent distress. Alert and oriented HEENT: Normal cephalic, atraumatic, external auditory canals are patent EYES: Extraocular muscles are intact, pupil are equally round and reactive to light and accommodation MUSCULOSKELETAL: Well developed , well nourished, good range of motion ENDOCRINE: No thyromegaly was palpated LYMPHATICS: No cervical chain or axillary nodes were noted HEMATOPOIETIC: No bruising NECK: Supple, no JVD, no thyromegaly was noted LUNGS: Clear to auscultation in all lung fowler without rhonchi or wheezing HEART: RRR, S!, S2 present. Peripheral pulses intact, no obvious murmurs noted ABDOMEN: Soft, nontender. Positive bowel sounds, no organomegaly, normal bowel sounds EXTREMITIES: Without clubbing, cyanosis, or edema. Pedal pulses intact. Negative Homans sign NEUROLOGIC: Normal speech and tone. A&O x 3, moves all extremities, no o bvious focal deficits PSYCHIATRIC: Normal affect, normal mood. Stable SKIN: No ulcerations or rashes, good skin turgor, no jaundice VASCULAR: Good capillary refill, neurovascular bundle appears to be intact Labs: Labs: Laboratory Tests Test 11/24/20 16:04 White Blood Count 6.3 x10^3/uL (4.0-11.0) Red Blood Count 4.72 x10^6/uL (4.30-5.70) Hemoglobin 13.2 g/dL (13.0-17.5) Hematocrit 41.2 % (39.0-53.0) Mean Corpuscular Volume 87 fL (79-100) Mean Corpuscular Hemoglobin 28 pg (25-35) Mean Corpuscular Hemoglobin Concent 32 g/dL (31-37) Red Cell Distribution Width 20.0 % (11.5-14.5) Platelet Count 238 x10^3/uL (140-400) Neutrophils (%) (Auto) 82 % (31-73) Lymphocytes (%) (Auto) 8 % (24-48) Monocytes (%) (Auto) 9 % (0-9) Eosinophils (%) (Auto) 1 % (0-3) Basophils (%) (Auto) 1 % (0-3) Neutrophils # (Auto) 5.1 x10^3/uL (1.8-7.7) Lymphocytes # (Auto) 0.5 x10^3/uL (1.0-4.8) Monocytes # (Auto) 0.6 x10^3/uL (0.0-1.1) Eosinophils # (Auto) 0.1 x10^3/uL (0.0-0.7) Basophils # (Auto) 0.1 x10^3/uL (0.0-0.2) Sodium Level 133 mmol/L (136-145) Potassium Level 4.2 mmol/L (3.5-5.1) Chloride Level 96 mmol/L (98-107) Carbon Dioxide Level 27 mmol/L (21-32) Anion Gap 10 (6-14) Blood Urea Nitrogen 23 mg/dL (8-26) Creatinine 1.3 mg/dL (0.7-1.3) Estimated GFR (Cockcroft-Gault) 55.1 BUN/Creatinine Ratio 18 (6-20) Glucose Level 317 mg/dL (70-99) Calcium Level 9.5 mg/dL (8.5-10.1) Total Bilirubin 18.1 mg/dL (0.2-1.0) Aspartate Amino Transf (AST/SGOT) 328 U/L (15-37) Alanine Aminotransferase (ALT/SGPT) 276 U/L (16-63) Alkaline Phosphatase 1166 U/L (46-116) Troponin I Quantitative < 0.017 ng/mL (0.000-0.055) Total Protein 6.4 g/dL (6.4-8.2) Albumin 2.6 g/dL (3.4-5.0) Albumin/Globulin Ratio 0.7 (1.0-1.7) Laboratory Tests Test 11/24/20 16:04 White Blood Count 6.3 x10^3/uL (4.0-11.0) Red Blood Count 4.72 x10^6/uL (4.30-5.70) Hemoglobin 13.2 g/dL (13.0-17.5) Hematocrit 41.2 % (39.0-53.0) Mean Corpuscular Volume 87 fL (79-100) Mean Corpuscular Hemoglobin 28 pg (25-35) Mean Corpuscular Hemoglobin Concent 32 g/dL (31-37) Red Cell Distribution Width 20.0 % (11.5-14.5) Platelet Count 238 x10^3/uL (140-400) Neutrophils (%) (Auto) 82 % (31-73) Lymphocytes (%) (Auto) 8 % (24-48) Monocytes (%) (Auto) 9 % (0-9) Eosinophils (%) (Auto) 1 % (0-3) Basophils (%) (Auto) 1 % (0-3) Neutrophils # (Auto) 5.1 x10^3/uL (1.8-7.7) Lymphocytes # (Auto) 0.5 x10^3/uL (1.0-4.8) Monocytes # (Auto) 0.6 x10^3/uL (0.0-1.1) Eosinophils # (Auto) 0.1 x10^3/uL (0.0-0.7) Basophils # (Auto) 0.1 x10^3/uL (0.0-0.2) Sodium Level 133 mmol/L (136-145) Potassium Level 4.2 mmol/L (3.5-5.1) Chloride Level 96 mmol/L (98-107) Carbon Dioxide Level 27 mmol/L (21-32) Anion Gap 10 (6-14) Blood Urea Nitrogen 23 mg/dL (8-26) Creatinine 1.3 mg/dL (0.7-1.3) Estimated GFR (Cockcroft-Gault) 55.1 BUN/Creatinine Ratio 18 (6-20) Glucose Level 317 mg/dL (70-99) Calcium Level 9.5 mg/dL (8.5-10.1) Total Bilirubin 18.1 mg/dL (0.2-1.0) Aspartate Amino Transf (AST/SGOT) 328 U/L (15-37) Alanine Aminotransferase (ALT/SGPT) 276 U/L (16-63) Alkaline Phosphatase 1166 U/L (46-116) Troponin I Quantitative < 0.017 ng/mL (0.000-0.055) Total Protein 6.4 g/dL (6.4-8.2) Albumin 2.6 g/dL (3.4-5.0) Albumin/Globulin Ratio 0.7 (1.0-1.7) Images: Images MRCP IMPRESSION: 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 Cholelithiasis. No overt MRCP images suggesting acute cholecystitis. Correlate clinically. Assessment/Plan Assessment/Plan Acute generalized weakness Hyperbilirubinemia, likely direct due to biliary stricture in the extrahepatic biliary ducts Transaminitis likely due to hepatic congestion Severe protein malnutrition Metastatic gastric cancer Admit to medicine for further management GI consult for possible ERCP We will start empiric IV antibiotics N.p.o. Continue IV fluids Lovenox for DVT prophylaxis Protonix GI prophylaxis ADA diet Full code Discussed with RN and SW Disposition pending GI evaluation Surrogate decision maker is the Justifications for Admission Other Justification Acute cholecystitis SAGAR AVELAR MD Nov 24, 2020 17:08
[2020-11-24] MEDS ORDERED: ACETAMINOPHEN 325 MG TABLET. PO PRN (17:15)
[2020-11-24] MEDS ORDERED: IV NORMAL SALINE 1000ML BAG 1,000 ML IV ONE (17:15)
[2020-11-24] MEDS ORDERED: DEXTROSE 50% 25 GM / 50ML DISP.SYRIN. IV PRN ×2 (17:15→21:30)
[2020-11-24] MEDS ORDERED: SENNOSIDES 8.6 MG TABLET PO PRN (17:15)
[2020-11-24] MEDS ORDERED: DOCUSATE SODIUM 100 MG CAPSULE. PO PRN (17:15)
[2020-11-24] MEDS ORDERED: CEFEPIME HCL IV Push 2 GM VIAL. IVP ONE (17:30)
[2020-11-24] MEDS ORDERED: PIPERACILLIN/TAZOBACTAM 3.375 GM in IV NORMAL SALINE 50ML 50 ML IV ONE (17:45)
[2020-11-24 19:30] VITALS: BP 138/82
[2020-11-24] MEDS: ATORVASTATIN CALCIUM 40 MG TABLET. PO SCH (22:00)
[2020-11-24] MEDS: IV NORMAL SALINE 1000ML BAG 1,000 ML IV SCH (22:44)
[2020-11-24] MEDS: ENOXAPARIN 40 MG/0.4 ML SYRINGE. SQ SCH (22:47)
[2020-11-24 23:00] VITALS: BP 143/80
[2020-11-24] MEDS ORDERED: C.DIFF MED SCREEN BY RX. MC ONE (23:15)
[2020-11-24] MEDS: ZOLPIDEM 5 MG TABLET. PO PRN (23:44)
[2020-11-25] MEDS ORDERED: HYDROcodone/APAP 5/325MG 1 TAB TABLET PO SCH
[2020-11-25 03:00] VITALS: BP 123/73
[2020-11-25 07:00] VITALS: BP 130/79
[2020-11-25] MEDS: ONDANSETRON PF 4 MG/2 ML VIAL. IVP PRN (07:29)
[2020-11-25] MEDS ORDERED: PANTOPRAZOLE 40 MG TABLET.DR. PO SCH (07:30)
[2020-11-25] MEDS ORDERED: PROC10TA2 PO (07:33)
[2020-11-25] MEDS ORDERED: ONDA8TAB15 PO (07:33)
[2020-11-25] MEDS: INSULIN LISPRO 300 UNITS/3 ML VIAL. SQ SCH ×3 (07:53→17:00)
[2020-11-25] MEDS: FLUoxetine HCL 20 MG CAPSULE PO SCH (08:00)
[2020-11-25] MEDS: SUCRALFATE 1 GM TABLET. PO SCH ×2 (09:00→21:00)
[2020-11-25] MEDS: CYANOCOBALAMIN (VITAMIN B-12) 1,000 MCG TABLET. PO SCH (09:00)
[2020-11-25] MEDS: NON FORMULARY ITEM (Icosapent Ethyl (Vascepa) 2 CAP) PO SCH ×2 (09:00→21:00)
--- NOTE | 2020-11-25 09:03 | PDOC ---
G I PROGRESS NOTE Reason for Follow-up Metastatic gastric cancer/obstructive jaundice Subjective Tolerating po Physical Exam Jaundiced Lungs clear CV S1 S2 ABD +BS, soft, nontender Review of Relevant I have reviewed the following items didier (where applicable) has been applied. Labs Laboratory Tests Test 11/24/20 16:04 11/24/20 23:19 11/25/20 07:44 White Blood Count 6.3 x10^3/uL (4.0-11.0) Red Blood Count 4.72 x10^6/uL (4.30-5.70) Hemoglobin 13.2 g/dL (13.0-17.5) Hematocrit 41.2 % (39.0-53.0) Mean Corpuscular Volume 87 fL (79-100) Mean Corpuscular Hemoglobin 28 pg (25-35) Mean Corpuscular Hemoglobin Concent 32 g/dL (31-37) Red Cell Distribution Width 20.0 % (11.5-14.5) Platelet Count 238 x10^3/uL (140-400) Neutrophils (%) (Auto) 82 % (31-73) Lymphocytes (%) (Auto) 8 % (24-48) Monocytes (%) (Auto) 9 % (0-9) Eosinophils (%) (Auto) 1 % (0-3) Basophils (%) (Auto) 1 % (0-3) Neutrophils # (Auto) 5.1 x10^3/uL (1.8-7.7) Lymphocytes # (Auto) 0.5 x10^3/uL (1.0-4.8) Monocytes # (Auto) 0.6 x10^3/uL (0.0-1.1) Eosinophils # (Auto) 0.1 x10^3/uL (0.0-0.7) Basophils # (Auto) 0.1 x10^3/uL (0.0-0.2) Sodium Level 133 mmol/L (136-145) Potassium Level 4.2 mmol/L (3.5-5.1) Chloride Level 96 mmol/L (98-107) Carbon Dioxide Level 27 mmol/L (21-32) Anion Gap 10 (6-14) Blood Urea Nitrogen 23 mg/dL (8-26) Creatinine 1.3 mg/dL (0.7-1.3) Estimated GFR (Cockcroft-Gault) 55.1 BUN/Creatinine Ratio 18 (6-20) Glucose Level 317 mg/dL (70-99) Calcium Level 9.5 mg/dL (8.5-10.1) Total Bilirubin 18.1 mg/dL (0.2-1.0) Aspartate Amino Transf (AST/SGOT) 328 U/L (15-37) Alanine Aminotransferase (ALT/SGPT) 276 U/L (16-63) Alkaline Phosphatase 1166 U/L (46-116) Troponin I Quantitative < 0.017 ng/mL (0.000-0.055) Total Protein 6.4 g/dL (6.4-8.2) Albumin 2.6 g/dL (3.4-5.0) Albumin/Globulin Ratio 0.7 (1.0-1.7) Glucose (Fingerstick) 265 mg/dL (70-99) 245 mg/dL (70-99) Laboratory Tests Test 11/24/20 16:04 11/24/20 23:19 11/25/20 07:44 White Blood Count 6.3 x10^3/uL (4.0-11.0) Red Blood Count 4.72 x10^6/uL (4.30-5.70) Hemoglobin 13.2 g/dL (13.0-17.5) Hematocrit 41.2 % (39.0-53.0) Mean Corpuscular Volume 87 fL (79-100) Mean Corpuscular Hemoglobin 28 pg (25-35) Mean Corpuscular Hemoglobin Concent 32 g/dL (31-37) Red Cell Distribution Width 20.0 % (11.5-14.5) Platelet Count 238 x10^3/uL (140-400) Neutrophils (%) (Auto) 82 % (31-73) Lymphocytes (%) (Auto) 8 % (24-48) Monocytes (%) (Auto) 9 % (0-9) Eosinophils (%) (Auto) 1 % (0-3) Basophils (%) (Auto) 1 % (0-3) Neutrophils # (Auto) 5.1 x10^3/uL (1.8-7.7) Lymphocytes # (Auto) 0.5 x10^3/uL (1.0-4.8) Monocytes # (Auto) 0.6 x10^3/uL (0.0-1.1) Eosinophils # (Auto) 0.1 x10^3/uL (0.0-0.7) Basophils # (Auto) 0.1 x10^3/uL (0.0-0.2) Sodium Level 133 mmol/L (136-145) Potassium Level 4.2 mmol/L (3.5-5.1) Chloride Level 96 mmol/L (98-107) Carbon Dioxide Level 27 mmol/L (21-32) Anion Gap 10 (6-14) Blood Urea Nitrogen 23 mg/dL (8-26) Creatinine 1.3 mg/dL (0.7-1.3) Estimated GFR (Cockcroft-Gault) 55.1 BUN/Creatinine Ratio 18 (6-20) Glucose Level 317 mg/dL (70-99) Calcium Level 9.5 mg/dL (8.5-10.1) Total Bilirubin 18.1 mg/dL (0.2-1.0) Aspartate Amino Transf (AST/SGOT) 328 U/L (15-37) Alanine Aminotransferase (ALT/SGPT) 276 U/L (16-63) Alkaline Phosphatase 1166 U/L (46-116) Troponin I Quantitative < 0.017 ng/mL (0.000-0.055) Total Protein 6.4 g/dL (6.4-8.2) Albumin 2.6 g/dL (3.4-5.0) Albumin/Globulin Ratio 0.7 (1.0-1.7) Glucose (Fingerstick) 265 mg/dL (70-99) 245 mg/dL (70-99) Medications Current Medications Piperacillin Sod/ Tazobactam Sod 3.375 gm/Sodium Chloride 50 ml @ 100 mls/hr 1X ONCE IV ; Start 11/24/20 at 17:45; Stop 11/24/20 at 18:14; Status Cancel Sodium Chloride 1,000 ml @ 1,000 mls/hr 1X ONCE IV Last administered on 11/24/20at 17:26; Start 11/24/20 at 17:15; Stop 11/24/20 at 18:14; Status DC Sennosides (Senna) 17.2 mg PRN BID PRN PO CONSTIPATION Last administered on 11/24/20at 22:47; Start 11/24/20 at 17:15 Docusate Sodium (Colace) 100 mg PRN DAILY PRN PO HARD STOOLS; Start 11/24/20 at 17:15 Ondansetron HCl (Zofran) 4 mg PRN Q6HRS PRN IVP NAUSEA/VOMITING Last administered on 11/25/20at 07:29; Start 11/24/20 at 17:15 Dextrose (Dextrose 50%-Water Syringe) 12.5 gm PRN Q15MIN PRN IV SEE COMMENTS; Start 11/24/20 at 17:15 Sodium Chloride 1,000 ml @ 100 mls/hr Q10H IV Last administered on 11/24/20at 22:44; Start 11/24/20 at 17:15 Acetaminophen (Tylenol) 650 mg PRN Q4HRS PRN PO TEMP OVER 100.4F OR MILD PAIN; Start 11/24/20 at 17:15 Hydromorphone HCl (Dilaudid) 0.4 mg PRN Q2HRS PRN IV SEVERE PAIN 7-10; Start 11/24/20 at 17:15 Enoxaparin Sodium (Lovenox 40mg Syringe) 40 mg Q24H SQ Last administered on 11/24/20at 22:47; Start 11/24/20 at 21:00 Cefepime HCl (Maxipime) 2 gm 1X ONCE IVP Last administered on 11/24/20at 17:26; Start 11/24/20 at 17:30; Stop 11/24/20 at 17:31; Status DC Metronidazole 100 ml @ 100 mls/hr Q12HR IV Last administered on 11/24/20at 22:43; Start 11/24/20 at 21:00 Cyanocobalamin (Vitamin B-12) 1,000 mcg DAILY PO ; Start 11/25/20 at 09:00 Ergocalciferol (Vitamin D2) 50,000 unit WEEKLY PO ; Start 12/01/20 at 09:00 Acetaminophen/ Hydrocodone Bitart (Lortab 5/325) 1 tab Q6HRS PO ; Start 11/25/20 at 00:00; Stop 11/24/20 at 23:29; Status DC Pantoprazole Sodium (Protonix) 40 mg DAILYAC PO ; Start 11/25/20 at 07:30 Sucralfate (Carafate) 1 gm BID PO ; Start 11/25/20 at 09:00 Fluoxetine HCl (PROzac) 40 mg DAILYWBKFT PO ; Start 11/25/20 at 08:00 Non-Formulary Medication (Icosapent Ethyl (Vascepa)) 2 cap BID PO ; Start 11/25/20 at 09:00; Status UNV Atorvastatin Calcium (Lipitor) 80 mg QHS PO ; Start 11/24/20 at 22:00 Insulin Human Lispro (HumaLOG) 0-7 UNITS TIDWMEALS SQ Last administered on 11/25/20at 07:53; Start 11/25/20 at 08:00 Dextrose (Dextrose 50%-Water Syringe) 12.5 gm PRN Q15MIN PRN IV SEE COMMENTS; Start 11/24/20 at 21:30 Pharmacy Consult (C.diff Med Screen By Rx) 1 each 1X ONCE [facility] ; Start 11/24/20 at 23:15; Stop 11/24/20 at 23:19; Status DC Zolpidem Tartrate (Ambien) 5 mg PRN QHS PRN PO INSOMNIA Last administered on 11/24/20at 23:44; Start 11/24/20 at 23:30 Acetaminophen/ Hydrocodone Bitart (Lortab 5/325) 1 tab PRN Q6HRS PRN PO MODERATE PAIN 4-6; Start 11/24/20 at 23:30 Non-Formulary Medication (Ondansetron (Ondansetron Odt)) 8 mg Q6HRS PO ; Start 11/25/20 at 12:00; Status UNV Non-Formulary Medication (Prochlorperazine Maleate ) 1 tab Q6H PO ; Start 11/25/20 at 07:45; Status UNV Active Scripts Active Reported Ondansetron Odt (Ondansetron) 8 Mg Tab.rapdis 8 Mg PO Q6HRS Prochlorperazine Maleate 10 Mg Tablet 1 Tab PO Q6H Carafate (Sucralfate) 1 Gm Tablet 1 Gm PO BID [place] 5-325 Tablet (Acetaminophen/Hydrocodone Bitart) 1 Each Tablet 1-2 Tab PO Q6HRS Vitamin B-12 (Cyanocobalamin (Vitamin B-12)) 1,000 Mcg Tablet 1 Tab PO DAILY 30 Days Protonix (Pantoprazole Sodium) 40 Mg Tablet.dr 40 Mg PO DAILYAC Tresiba (Insulin Degludec) 100 Unit/1 Ml Vial 45 Unit SQ HS Crestor (Rosuvastatin Calcium) 40 Mg Tablet 20 Mg PO HS Vascepa (Icosapent Ethyl) 1 Gm Capsule 2 Cap PO BID 30 Days Novolog (Insulin Aspart) 100 Unit/1 Ml Cartridge 25 Unit SQ TIDBFRMEAL Allopurinol 300 Mg Tablet 1 Tab PO HS Fluoxetine Hcl 40 Mg Capsule 1 Cap PO DAILYWBKFT Vitamin D2 (Ergocalciferol (Vitamin D2)) 50,000 Unit Capsule 1 Cap PO WEEKLY Amlodipine Besylate 5 Mg Tablet 5 Mg PO DAILY Lisinopril 20 Mg Tablet 1 Tab PO DAILY Bisoprolol-Hctz 10-6.25 Mg Tab (Bisoprolol Fumarate/Hctz) 1 Each Tablet 1 Tab PO DAILY Vitals/I & O Vital Sign - Last 24 Hours 11/24/20 11/24/20 11/24/20 11/24/20 15:53 16:26 16:56 17:26 Temp 98.0 98.0 Pulse 95 88 88 90 Resp 20 15 22 18 B/P (MAP) 142/85 (104) 126/81 (96) 129/80 (96) 138/87 (104) Pulse Ox 97 95 95 95 O2 Delivery Room Air Room Air Room Air Room Air 11/24/20 11/24/20 11/24/20 11/24/20 17:56 19:30 20:00 23:00 Temp 98.5 97.9 98.5 97.9 Pulse 84 87 92 Resp 17 20 20 B/P (MAP) 127/76 (93) 138/82 (100) 143/80 (101) Pulse Ox 94 98 96 O2 Delivery Room Air Room Air Room Air Room Air 11/25/20 11/25/20 03:00 07:00 Temp 98.0 98.0 98.0 98.0 Pulse 83 96 Resp 18 16 B/P (MAP) 123/73 (90) 130/79 (96) Pulse Ox 94 95 O2 Delivery Room Air Room Air Intake and Output 11/24/20 11/24/20 11/25/20 15:00 23:00 07:00 Intake Total 1200 ml 210 ml Output Total 350 ml Balance 1200 ml -140 ml Problem List Problems Medical Problems: (1) Fall Status: Acute (2) Hyperbilirubinemia Status: Acute (3) Weakness Status: Acute Assessment Obstructive jaundice- with metastatic gastric cancer on adjuvant chemotherapy for recurrent bleeding, most likely refractory now with hilar obstruction on MRCP, long filler cigar roller machine life expectancy is less than six months to one year, patient does wish to proceed with ERCP with stent placement early next week, will plan for Friday either as inpatient or outpatient Justicifation of Admission Dx: Justifications for Admission: Justification of Admission Dx: Yes XOCHITL BRUCE MD Nov 25, 2020 09:03
[2020-11-25 09:42] LABS: BASO % 1 % (0-3); EOS # 0.1 x10^3/uL (0.0-0.7); EOS % 1 % (0-3); HEMATOCRIT 34.8 % (39.0-53.0); HEMOGLOBIN 11.4 g/dL (13.0-17.5); LYMPH # 0.4 x10^3/uL (1.0-4.8); LYMPH % 5 % (24-48); MEAN CORPUSCULAR HEMOGLOBIN 29 pg (25-35); MEAN CORPUSCULAR HGB CONC 33 g/dL (31-37); MEAN CORPUSCULAR VOLUME 88 fL (79-100); MONO # 0.7 x10^3/uL (0.0-1.1); MONO % 10 % (0-9); NEUT # 5.4 x10^3/uL (1.8-7.7); NEUT % 83 % (31-73); PLATELET COUNT 175 x10^3/uL (140-400); RED BLOOD COUNT 3.98 x10^6/uL (4.30-5.70); WHITE BLOOD COUNT 6.5 x10^3/uL (4.0-11.0)
[2020-11-25 09:56] LABS: CALCIUM 8.9 mg/dL (8.5-10.1); GFR 74.5; MAGNESIUM 1.7 mg/dL (1.8-2.4); PHOSPHORUS 2.8 mg/dL (2.6-4.7); POTASSIUM 3.7 mmol/L (3.5-5.1)
[2020-11-25] MEDS: IV NORMAL SALINE 1000ML BAG 1,000 ML IV SCH ×4 (10:05→21:59)
--- NOTE | 2020-11-25 10:57 | PDOC ---
[facility] PROGRESS NOTE Date of Service DOS: DATE: 11/25/20 TIME: 10:55 Chief Complaint Chief Complaint Acute generalized weakness due to obstructive jaundice Hyperbilirubinemia, likely direct due to biliary stricture in the extrahepatic biliary ducts Transaminitis likely due to hepatic congestion Severe protein malnutrition Metastatic gastric cancer Admit to medicine for further management GI consult for possible ERCP Continue empiric prophylactic IV antibiotics N.p.o. Continue IV fluids Lovenox for DVT prophylaxis Protonix GI prophylaxis ADA diet Full code Discussed with RN and LASHELL Disposition pending GI evaluation Surrogate decision maker is the History of Present Illness History of Present Illness 11/25/2020 No acute events overnight. Patient remains afebrile. Seen and examined bedside. Continues to have nausea and little appetite. Denies abdominal pain or diarrhea. Does endorse dark urine output and pale stools. Patient is jaundiced. Received Ambien last night for sleep and says that it did help him. Pending ear pending ERCP next Friday. Patient's chart, labs, images were reviewed and discussed with RN 65-year-old male who presents to the emergency room complaining of severe weakness. He states that he initially started getting weak about 10 days ago and was admitted to the hospital at that time. He had elevated LFTs and yesterday had an MRCP which she has not gotten the results of. He was discharged home on Friday and his weakness is progressively gotten worse. Today his legs gave out and he continues to not eat or drink anything. He states that he is unable to stand at this time. He denies any fever. He does have some nausea without vomiting. He has not had any diarrhea. He does not know if he has had any kind of fevers. Vitals/I&O Vitals/I&O: Vital Signs Date Time Temp Pulse Resp B/P (MAP) Pulse Ox O2 Delivery O2 Flow Rate FiO2 11/25/20 07:00 98.0 96 16 130/79 (96) 95 Room Air 98.0 I & O 11/24/20 11/24/20 11/25/20 15:00 23:00 07:00 Intake Total 1200 ml 210 ml Output Total 350 ml Balance 1200 ml -140 ml Physical Exam Lungs: Clear Labs Labs: Laboratory Tests Test 11/24/20 16:04 11/24/20 23:19 11/25/20 07:44 11/25/20 08:40 White Blood Count 6.3 x10^3/uL (4.0-11.0) 6.5 x10^3/uL (4.0-11.0) Red Blood Count 4.72 x10^6/uL (4.30-5.70) 3.98 x10^6/uL (4.30-5.70) Hemoglobin 13.2 g/dL (13.0-17.5) 11.4 g/dL (13.0-17.5) Hematocrit 41.2 % (39.0-53.0) 34.8 % (39.0-53.0) Mean Corpuscular Volume 87 fL (79-100) 88 fL (79-100) Mean Corpuscular Hemoglobin 28 pg (25-35) 29 pg (25-35) Mean Corpuscular Hemoglobin Concent 32 g/dL (31-37) 33 g/dL (31-37) Red Cell Distribution Width 20.0 % (11.5-14.5) 19.0 % (11.5-14.5) Platelet Count 238 x10^3/uL (140-400) 175 x10^3/uL (140-400) Neutrophils (%) (Auto) 82 % (31-73) 83 % (31-73) Lymphocytes (%) (Auto) 8 % (24-48) 5 % (24-48) Monocytes (%) (Auto) 9 % (0-9) 10 % (0-9) Eosinophils (%) (Auto) 1 % (0-3) 1 % (0-3) Basophils (%) (Auto) 1 % (0-3) 1 % (0-3) Neutrophils # (Auto) 5.1 x10^3/uL (1.8-7.7) 5.4 x10^3/uL (1.8-7.7) Lymphocytes # (Auto) 0.5 x10^3/uL (1.0-4.8) 0.4 x10^3/uL (1.0-4.8) Monocytes # (Auto) 0.6 x10^3/uL (0.0-1.1) 0.7 x10^3/uL (0.0-1.1) Eosinophils # (Auto) 0.1 x10^3/uL (0.0-0.7) 0.1 x10^3/uL (0.0-0.7) Basophils # (Auto) 0.1 x10^3/uL (0.0-0.2) 0.0 x10^3/uL (0.0-0.2) Sodium Level 133 mmol/L (136-145) 134 mmol/L (136-145) Potassium Level 4.2 mmol/L (3.5-5.1) 3.7 mmol/L (3.5-5.1) Chloride Level 96 mmol/L (98-107) 99 mmol/L (98-107) Carbon Dioxide Level 27 mmol/L (21-32) 27 mmol/L (21-32) Anion Gap 10 (6-14) 8 (6-14) Blood Urea Nitrogen 23 mg/dL (8-26) 21 mg/dL (8-26) Creatinine 1.3 mg/dL (0.7-1.3) 1.0 mg/dL (0.7-1.3) Estimated GFR (Cockcroft-Gault) 55.1 74.5 BUN/Creatinine Ratio 18 (6-20) Glucose Level 317 mg/dL (70-99) 205 mg/dL (70-99) Calcium Level 9.5 mg/dL (8.5-10.1) 8.9 mg/dL (8.5-10.1) Total Bilirubin 18.1 mg/dL (0.2-1.0) Aspartate Amino Transf (AST/SGOT) 328 U/L (15-37) Alanine Aminotransferase (ALT/SGPT) 276 U/L (16-63) Alkaline Phosphatase 1166 U/L (46-116) Troponin I Quantitative < 0.017 ng/mL (0.000-0.055) Total Protein 6.4 g/dL (6.4-8.2) Albumin 2.6 g/dL (3.4-5.0) Albumin/Globulin Ratio 0.7 (1.0-1.7) Glucose (Fingerstick) 265 mg/dL (70-99) 245 mg/dL (70-99) Phosphorus Level 2.8 mg/dL (2.6-4.7) Magnesium Level 1.7 mg/dL (1.8-2.4) Assessment and Plan Assessmemt and Plan Problems Medical Problems: (1) Fall Status: Acute (2) Hyperbilirubinemia Status: Acute (3) Weakness Status: Acute Comment Review of Relevant I have reviewed the following items didier (where applicable) has been applied. Medications: Current Medications Medications (Trade) Dose Ordered Sig/Alex Route PRN Reason Start Time Stop Time Status Last Admin Dose Admin Sodium Chloride 1,000 ml @ 1,000 mls/hr 1X ONCE IV 11/24/20 17:15 11/24/20 18:14 DC 11/24/20 17:26 Sennosides (Senna) 17.2 mg PRN BID PRN PO CONSTIPATION 11/24/20 17:15 11/24/20 22:47 Ondansetron HCl (Zofran) 4 mg PRN Q6HRS PRN IVP NAUSEA/VOMITING 11/24/20 17:15 11/25/20 07:29 Sodium Chloride 1,000 ml @ 100 mls/hr Q10H IV 11/24/20 17:15 11/25/20 10:05 Enoxaparin Sodium (Lovenox 40mg Syringe) 40 mg Q24H SQ 11/24/20 21:00 11/24/20 22:47 Cefepime HCl (Maxipime) 2 gm 1X ONCE IVP 11/24/20 17:30 11/24/20 17:31 DC 11/24/20 17:26 Metronidazole 100 ml @ 100 mls/hr Q12HR IV 11/24/20 21:00 11/24/20 22:43 Insulin Human Lispro (HumaLOG) 0-7 UNITS TIDWMEALS SQ 11/25/20 08:00 11/25/20 07:53 Zolpidem Tartrate (Ambien) 5 mg PRN QHS PRN PO INSOMNIA 11/24/20 23:30 11/24/20 23:44 Justifications for Admission Abdominal Pain Indications Is patient in severe pain?: Yes Justification for admission: Patient has severe pain that requires (parenteral analgesic-please state analgesics and route) at least every 4 hours necessitating inpatient level of care. Is NPO status required?: Yes Justification for admission: Patient may require to be NPO for greater 24hours making it medically necessary to manage patient as inpatient. Other Justification Acute cholecystitis SAGAR AVELAR MD Nov 25, 2020 10:57
[2020-11-25 11:00] VITALS: BP 130/77
--- NOTE | 2020-11-25 11:57 | PDOC2 ---
ANDREY CAVAZOS SPORTS PHOTOGRAPHER 11/25/20 1157: CONSULT Date of Consult Date of Consult DATE: 11/25/20 TIME: 11:53 Reason for Consult Reason for Consult: elevated LFTs Referring Physician Referring Physician: ER Identification/Chief Complaint Chief Complaint weakness Source Source: Chart review, Patient History of Present Illness Reason for Visit: Patient known from previous admissions. Gastric cancer, on chemotherapy. Jaundice, MRCP as outpt, noted GI notes with plans for stent on Friday Past Medical History Cardiovascular: HTN, Hyperlipidemia GI: GI bleed Heme/Onc: Cancer Rheumatologic: Gout Endocrine: Diabetes Past Surgical History Past Surgical History: Tonsillectomy, Other Family History Family History: Cancer, Other Social History ALCOHOL: none Drugs: None Lives: with Family Current Problem List Problem List Problems Medical Problems: (1) Fall Status: Acute (2) Hyperbilirubinemia Status: Acute (3) Weakness Status: Acute Current Medications Current Medications Current Medications Piperacillin Sod/ Tazobactam Sod 3.375 gm/Sodium Chloride 50 ml @ 100 mls/hr 1X ONCE IV ; Start 11/24/20 at 17:45; Stop 11/24/20 at 18:14; Status Cancel Sodium Chloride 1,000 ml @ 1,000 mls/hr 1X ONCE IV Last administered on 11/24/20at 17:26; Start 11/24/20 at 17:15; Stop 11/24/20 at 18:14; Status DC Sennosides (Senna) 17.2 mg PRN BID PRN PO CONSTIPATION Last administered on 11/24/20at 22:47; Start 11/24/20 at 17:15 Docusate Sodium (Colace) 100 mg PRN DAILY PRN PO HARD STOOLS; Start 11/24/20 at 17:15 Ondansetron HCl (Zofran) 4 mg PRN Q6HRS PRN IVP NAUSEA/VOMITING Last admi nistered on 11/25/20at 07:29; Start 11/24/20 at 17:15 Dextrose (Dextrose 50%-Water Syringe) 12.5 gm PRN Q15MIN PRN IV SEE COMMENTS; Start 11/24/20 at 17:15 Sodium Chloride 1,000 ml @ 100 mls/hr Q10H IV Last administered on 11/25/20at 10:05; Start 11/24/20 at 17:15 Acetaminophen (Tylenol) 650 mg PRN Q4HRS PRN PO TEMP OVER 100.4F OR MILD PAIN; Start 11/24/20 at 17:15 Hydromorphone HCl (Dilaudid) 0.4 mg PRN Q2HRS PRN IV SEVERE PAIN 7-10; Start 11/24/20 at 17:15 Enoxaparin Sodium (Lovenox 40mg Syringe) 40 mg Q24H SQ Last administered on 11/24/20at 22:47; Start 11/24/20 at 21:00 Cefepime HCl (Maxipime) 2 gm 1X ONCE IVP Last administered on 11/24/20at 17:26; Start 11/24/20 at 17:30; Stop 11/24/20 at 17:31; Status DC Metronidazole 100 ml @ 100 mls/hr Q12HR IV Last administered on 11/24/20at 22:43; Start 11/24/20 at 21:00 Cyanocobalamin (Vitamin B-12) 1,000 mcg DAILY PO ; Start 11/25/20 at 09:00 Ergocalciferol (Vitamin D2) 50,000 unit WEEKLY PO ; Start 12/01/20 at 09:00 Acetaminophen/ Hydrocodone Bitart (Lortab 5/325) 1 tab Q6HRS PO ; Start 11/25/20 at 00:00; Stop 11/24/20 at 23:29; Status DC Pantoprazole Sodium (Protonix) 40 mg DAILYAC PO ; Start 11/25/20 at 07:30 Sucralfate (Carafate) 1 gm BID PO ; Start 11/25/20 at 09:00 Fluoxetine HCl (PROzac) 40 mg DAILYWBKFT PO ; Start 11/25/20 at 08:00 Non-Formulary Medication (Icosapent Ethyl (Vascepa)) 2 cap BID PO ; Start 11/25/20 at 09:00; Status UNV Atorvastatin Calcium (Lipitor) 80 mg QHS PO ; Start 11/24/20 at 22:00 Insulin Human Lispro (HumaLOG) 0-7 UNITS TIDWMEALS SQ Last administered on 11/25/20at 07:53; Start 11/25/20 at 08:00 Dextrose (Dextrose 50%-Water Syringe) 12.5 gm PRN Q15MIN PRN IV SEE COMMENTS; Start 11/24/20 at 21:30 Pharmacy Consult (Nancy Med Screen By Rx) 1 each 1X ONCE [facility] ; Start 11/24/20 at 23:15; Stop 11/24/20 at 23:19; Status DC Zolpidem Tartrate (Ambien) 5 mg PRN QHS PRN PO INSOMNIA Last administered on 11/24/20at 23:44; Start 11/24/20 at 23:30 Acetaminophen/ Hydrocodone Bitart (Lortab 5/325) 1 tab PRN Q6HRS PRN PO MODERATE PAIN 4-6; Start 11/24/20 at 23:30 Ondansetron HCl (Zofran Odt) 8 mg Q6HRS PO ; Start 11/25/20 at 12:00 Prochlorperazine Maleate (Compazine) 10 mg Q6HRS PO ; Start 11/25/20 at 12:00 Active Scripts Active Reported Ondansetron Odt (Ondansetron) 8 Mg Tab.rapdis 8 Mg PO Q6HRS Prochlorperazine Maleate 10 Mg Tablet 1 Tab PO Q6H Carafate (Sucralfate) 1 Gm Tablet 1 Gm PO BID Amberson 5-325 Tablet (Acetaminophen/Hydrocodone Bitart) 1 Each Tablet 1-2 Tab PO Q6HRS Vitamin B-12 (Cyanocobalamin (Vitamin B-12)) 1,000 Mcg Tablet 1 Tab PO DAILY 30 Days Protonix (Pantoprazole Sodium) 40 Mg Tablet.dr 40 Mg PO DAILYAC Tresiba (Insulin Degludec) 100 Unit/1 Ml Vial 45 Unit SQ HS Crestor (Rosuvastatin Calcium) 40 Mg Tablet 20 Mg PO HS Vascepa (Icosapent Ethyl) 1 Gm Capsule 2 Cap PO BID 30 Days Novolog (Insulin Aspart) 100 Unit/1 Ml Cartridge 25 Unit SQ TIDBFRMEAL Allopurinol 300 Mg Tablet 1 Tab PO HS Fluoxetine Hcl 40 Mg Capsule 1 Cap PO DAILYWBKFT Vitamin D2 (Ergocalciferol (Vitamin D2)) 50,000 Unit Capsule 1 Cap PO WEEKLY Amlodipine Besylate 5 Mg Tablet 5 Mg PO DAILY Lisinopril 20 Mg Tablet 1 Tab PO DAILY Bisoprolol-Hctz 10-6.25 Mg Tab (Bisoprolol Fumarate/Hctz) 1 Each Tablet 1 Tab PO DAILY Allergies Allergies: Coded Allergies: No Known Drug Allergies (Unverified , 09/03/20) ROS General: YES: Fatigue, Malaise; No: Chills, Other (fevers ) PSYCHOLOGICAL ROS: No: Anxiety, Depression Eyes: No Blurry vision, No Double vision HEENT: No: Heacaches, Sore Throat Hematological and Lymphatic: YES: Bleeding Problems; No: Blood Clots Respiratory: No: Cough, Shortness of breath Cardiovascular: No Chest Pain, No Palpitations Gastrointestinal: No Nausea, No Vomiting Genitourinary: No Dysuria, No Hematuria Musculoskeletal: No Joint Pain, No Muscle Pain Neurological: No Impaired Coord/balance, No Numbness/Tingling Skin: No Pruritus, No Rash Physical Exam General: Alert, Oriented X3, Cooperative HEENT: Atraumatic, Other (significant jaundice) Lungs: Clear to auscultation, Normal air movement Heart: Regular rate, Normal S1, Normal S2 Abdomen: Soft, No tenderness, No hepatosplenomegaly Extremities: No clubbing, No cyanosis Skin: No rashes, No breakdown Neuro: Normal gait, Normal speech Vitals VITALS Vital Signs Date Time Temp Pulse Resp B/P (MAP) Pulse Ox O2 Delivery O2 Flow Rate FiO2 11/25/20 11:00 98.1 98 18 130/77 (94) 97 Room Air 98.1 Labs Labs Laboratory Tests Test 11/24/20 16:04 11/24/20 23:19 11/25/20 07:44 11/25/20 08:40 White Blood Count 6.3 x10^3/uL (4.0-11.0) 6.5 x10^3/uL (4.0-11.0) Red Blood Count 4.72 x10^6/uL (4.30-5.70) 3.98 x10^6/uL (4.30-5.70) Hemoglobin 13.2 g/dL (13.0-17.5) 11.4 g/dL (13.0-17.5) Hematocrit 41.2 % (39.0-53.0) 34.8 % (39.0-53.0) Mean Corpuscular Volume 87 fL (79-100) 88 fL (79-100) Mean Corpuscular Hemoglobin 28 pg (25-35) 29 pg (25-35) Mean Corpuscular Hemoglobin Concent 32 g/dL (31-37) 33 g/dL (31-37) Red Cell Distribution Width 20.0 % (11.5-14.5) 19.0 % (11.5-14.5) Platelet Count 238 x10^3/uL (140-400) 175 x10^3/uL (140-400) Neutrophils (%) (Auto) 82 % (31-73) 83 % (31-73) Lymphocytes (%) (Auto) 8 % (24-48) 5 % (24-48) Monocytes (%) (Auto) 9 % (0-9) 10 % (0-9) Eosinophils (%) (Auto) 1 % (0-3) 1 % (0-3) Basophils (%) (Auto) 1 % (0-3) 1 % (0-3) Neutrophils # (Auto) 5.1 x10^3/uL (1.8-7.7) 5.4 x10^3/uL (1.8-7.7) Lymphocytes # (Auto) 0.5 x10^3/uL (1.0-4.8) 0.4 x10^3/uL (1.0-4.8) Monocytes # (Auto) 0.6 x10^3/uL (0.0-1.1) 0.7 x10^3/uL (0.0-1.1) Eosinophils # (Auto) 0.1 x10^3/uL (0.0-0.7) 0.1 x10^3/uL (0.0-0.7) Basophils # (Auto) 0.1 x10^3/uL (0.0-0.2) 0.0 x10^3/uL (0.0-0.2) Sodium Level 133 mmol/L (136-145) 134 mmol/L (136-145) Potassium Level 4.2 mmol/L (3.5-5.1) 3.7 mmol/L (3.5-5.1) Chloride Level 96 mmol/L (98-107) 99 mmol/L (98-107) Carbon Dioxide Level 27 mmol/L (21-32) 27 mmol/L (21-32) Anion Gap 10 (6-14) 8 (6-14) Blood Urea Nitrogen 23 mg/dL (8-26) 21 mg/dL (8-26) Creatinine 1.3 mg/dL (0.7-1.3) 1.0 mg/dL (0.7-1.3) Estimated GFR (Cockcroft-Gault) 55.1 74.5 BUN/Creatinine Ratio 18 (6-20) Glucose Level 317 mg/dL (70-99) 205 mg/dL (70-99) Calcium Level 9.5 mg/dL (8.5-10.1) 8.9 mg/dL (8.5-10.1) Total Bilirubin 18.1 mg/dL (0.2-1.0) Aspartate Amino Transf (AST/SGOT) 328 U/L (15-37) Alanine Aminotransferase (ALT/SGPT) 276 U/L (16-63) Alkaline Phosphatase 1166 U/L (46-116) Troponin I Quantitative < 0.017 ng/mL (0.000-0.055) Total Protein 6.4 g/dL (6.4-8.2) Albumin 2.6 g/dL (3.4-5.0) Albumin/Globulin Ratio 0.7 (1.0-1.7) Glucose (Fingerstick) 265 mg/dL (70-99) 245 mg/dL (70-99) Phosphorus Level 2.8 mg/dL (2.6-4.7) Magnesium Level 1.7 mg/dL (1.8-2.4) Laboratory Tests Test 11/24/20 16:04 11/24/20 23:19 11/25/20 07:44 11/25/20 08:40 White Blood Count 6.3 x10^3/uL (4.0-11.0) 6.5 x10^3/uL (4.0-11.0) Red Blood Count 4.72 x10^6/uL (4.30-5.70) 3.98 x10^6/uL (4.30-5.70) Hemoglobin 13.2 g/dL (13.0-17.5) 11.4 g/dL (13.0-17.5) Hematocrit 41.2 % (39.0-53.0) 34.8 % (39.0-53.0) Mean Corpuscular Volume 87 fL (79-100) 88 fL (79-100) Mean Corpuscular Hemoglobin 28 pg (25-35) 29 pg (25-35) Mean Corpuscular Hemoglobin Concent 32 g/dL (31-37) 33 g/dL (31-37) Red Cell Distribution Width 20.0 % (11.5-14.5) 19.0 % (11.5-14.5) Platelet Count 238 x10^3/uL (140-400) 175 x10^3/uL (140-400) Neutrophils (%) (Auto) 82 % (31-73) 83 % (31-73) Lymphocytes (%) (Auto) 8 % (24-48) 5 % (24-48) Monocytes (%) (Auto) 9 % (0-9) 10 % (0-9) Eosinophils (%) (Auto) 1 % (0-3) 1 % (0-3) Basophils (%) (Auto) 1 % (0-3) 1 % (0-3) Neutrophils # (Auto) 5.1 x10^3/uL (1.8-7.7) 5.4 x10^3/uL (1.8-7.7) Lymphocytes # (Auto) 0.5 x10^3/uL (1.0-4.8) 0.4 x10^3/uL (1.0-4.8) Monocytes # (Auto) 0.6 x10^3/uL (0.0-1.1) 0.7 x10^3/uL (0.0-1.1) Eosinophils # (Auto) 0.1 x10^3/uL (0.0-0.7) 0.1 x10^3/uL (0.0-0.7) Basophils # (Auto) 0.1 x10^3/uL (0.0-0.2) 0.0 x10^3/uL (0.0-0.2) Sodium Level 133 mmol/L (136-145) 134 mmol/L (136-145) Potassium Level 4.2 mmol/L (3.5-5.1) 3.7 mmol/L (3.5-5.1) Chloride Level 96 mmol/L (98-107) 99 mmol/L (98-107) Carbon Dioxide Level 27 mmol/L (21-32) 27 mmol/L (21-32) Anion Gap 10 (6-14) 8 (6-14) Blood Urea Nitrogen 23 mg/dL (8-26) 21 mg/dL (8-26) Creatinine 1.3 mg/dL (0.7-1.3) 1.0 mg/dL (0.7-1.3) Estimated GFR (Cockcroft-Gault) 55.1 74.5 BUN/Creatinine Ratio 18 (6-20) Glucose Level 317 mg/dL (70-99) 205 mg/dL (70-99) Calcium Level 9.5 mg/dL (8.5-10.1) 8.9 mg/dL (8.5-10.1) Total Bilirubin 18.1 mg/dL (0.2-1.0) Aspartate Amino Transf (AST/SGOT) 328 U/L (15-37) Alanine Aminotransferase (ALT/SGPT) 276 U/L (16-63) Alkaline Phosphatase 1166 U/L (46-116) Troponin I Quantitative < 0.017 ng/mL (0.000-0.055) Total Protein 6.4 g/dL (6.4-8.2) Albumin 2.6 g/dL (3.4-5.0) Albumin/Globulin Ratio 0.7 (1.0-1.7) Glucose (Fingerstick) 265 mg/dL (70-99) 245 mg/dL (70-99) Phosphorus Level 2.8 mg/dL (2.6-4.7) Magnesium Level 1.7 mg/dL (1.8-2.4) Assessment/Plan Assessment/Plan metastatic gastric cancer elevated lfts, jaundice plans for ercp/stent friday no surgical plans will sign off, please call with questions MADELYN NAVARRO MD 11/25/20 5477: CONSULT Assessment/Plan Assessment/Plan Patient seen and examined by me. History of metastatic gastric cancer with elevated LFTs abdomen is soft. Agree with Pito assessment plan ANDREY CAVAZOS APRN Nov 25, 2020 11:57 MADELYN NAVARRO MD Nov 25, 2020 14:47
[2020-11-25] MEDS: PROCHLORPERAZINE 5 MG TABLET. PO SCH ×2 (12:00→18:00)
[2020-11-25] MEDS: ONDANSETRON ODT 4 MG TAB.RAPDIS. PO SCH ×2 (12:00→18:00)
[2020-11-25 15:00] VITALS: BP 127/77
[2020-11-25 19:00] VITALS: BP 147/79
[2020-11-25] MEDS: ATORVASTATIN CALCIUM 40 MG TABLET. PO SCH (21:00)
[2020-11-25] MEDS: ENOXAPARIN 40 MG/0.4 ML SYRINGE. SQ SCH (21:59)
[2020-11-25 23:04] VITALS: BP 128/74
[2020-11-26] VITALS (7 sets, daily range): BP systolic 101–154; BP diastolic 58–98
[2020-11-26] MEDS: PROCHLORPERAZINE 10 MG/2 ML VIAL. IV SCH ×4 (00:25→17:52)
[2020-11-26] MEDS: ONDANSETRON PF 4 MG/2 ML VIAL. IVP SCH ×4 (00:25→18:00)
[2020-11-26] MEDS: HYDROmorphone 2 MG/ML VIAL IV PRN ×2 (04:12→10:12)
[2020-11-26] MEDS: PANTOPRAZOLE IV PUSH 40 MG VIAL. IVP SCH (07:45)
[2020-11-26] MEDS: FLUoxetine HCL 20 MG CAPSULE PO SCH (08:00)
[2020-11-26] MEDS: INSULIN LISPRO 300 UNITS/3 ML VIAL. SQ SCH ×3 (08:00→17:50)
[2020-11-26] MEDS: SUCRALFATE 1 GM TABLET. PO SCH ×2 (08:12→21:54)
[2020-11-26] MEDS: NON FORMULARY ITEM (Icosapent Ethyl (Vascepa) 2 CAP) PO SCH (08:12)
[2020-11-26] MEDS: CYANOCOBALAMIN (VITAMIN B-12) 1,000 MCG TABLET. PO SCH (08:12)
[2020-11-26 09:21] LABS: BASO # 0.1 x10^3/uL (0.0-0.2); BASO % 1 % (0-3); EOS # 0.1 x10^3/uL (0.0-0.7); EOS % 2 % (0-3); HEMATOCRIT 35.8 % (39.0-53.0); HEMOGLOBIN 11.9 g/dL (13.0-17.5); LYMPH # 0.5 x10^3/uL (1.0-4.8); LYMPH % 8 % (24-48); MEAN CORPUSCULAR HEMOGLOBIN 29 pg (25-35); MEAN CORPUSCULAR HGB CONC 33 g/dL (31-37); MEAN CORPUSCULAR VOLUME 88 fL (79-100); MONO # 0.5 x10^3/uL (0.0-1.1); MONO % 9 % (0-9); NEUT # 4.7 x10^3/uL (1.8-7.7); NEUT % 80 % (31-73); PLATELET COUNT 177 x10^3/uL (140-400); RED BLOOD COUNT 4.09 x10^6/uL (4.30-5.70); RED CELL DISTRIBUTION WIDTH 19.2 % (11.5-14.5); WHITE BLOOD COUNT 5.9 x10^3/uL (4.0-11.0)
[2020-11-26 09:51] LABS: ALBUMIN 2.1 g/dL (3.4-5.0); ALBUMIN/GLOBULIN RATIO 0.6 (1.0-1.7); CREATININE 0.9 mg/dL (0.7-1.3); GFR 84.2; MAGNESIUM 1.8 mg/dL (1.8-2.4); PHOSPHORUS 2.6 mg/dL (2.6-4.7); POTASSIUM 3.8 mmol/L (3.5-5.1); TOTAL BILIRUBIN 21.3 mg/dL (0.2-1.0); TOTAL PROTEIN 5.8 g/dL (6.4-8.2)
--- NOTE | 2020-11-26 10:09 | PDOC ---
[employer] PROGRESS NOTE Date of Service DOS: DATE: 11/26/20 TIME: 10:07 Chief Complaint Chief Complaint Acute generalized weakness due to obstructive jaundice Hyperbilirubinemia, likely direct due to biliary stricture in the extrahepatic biliary ducts Transaminitis likely due to hepatic congestion Severe protein malnutrition Metastatic gastric cancer Admit to medicine for further management GI consult for possible ERCP Continue empiric prophylactic IV antibiotics N.p.o. Continue IV fluids Lovenox for DVT prophylaxis Protonix GI prophylaxis ADA diet Full code Discussed with RN and LASHELL Disposition pending GI evaluation Surrogate decision maker is the History of Present Illness History of Present Illness 11/26/20 No acute events overnight. Patient remains afebrile. Continues to be jaundiced. Little appetite but is tolerating clears. Patient's chart, labs, images were reviewed and discussed with RN. Pending ERCP on Friday11/25/2020 No acute events overnight. Patient remains afebrile. Seen and examined bedside. Continues to have nausea and little appetite. Denies abdominal pain or diarrhea. Does endorse dark urine output and pale stools. Patient is jaundiced. Received Ambien last night for sleep and says that it did help him. Pending ear pending ERCP next Friday. Patient's chart, labs, images were reviewed and discussed with RN 65-year-old male who presents to the emergency room complaining of severe weakness. He states that he initially started getting weak about 10 days ago and was admitted to the hospital at that time. He had elevated LFTs and yesterday had an MRCP which she has not gotten the results of. He was discharged home on Friday and his weakness is progressively gotten worse. Today his legs gave out and he continues to not eat or drink anything. He states that he is unable to stand at this time. He denies any fever. He does have some nausea without vomiting. He has not had any diarrhea. He does not know if he has had any kind of fevers. Vitals/I&O Vitals/I&O: Vital Signs Date Time Temp Pulse Resp B/P (MAP) Pulse Ox O2 Delivery O2 Flow Rate FiO2 11/26/20 07:30 97.8 87 18 154/91 (112) 97 97.8 11/26/20 05:21 Room Air I & O 11/25/20 11/25/20 11/26/20 15:00 23:00 07:00 Intake Total 0 ml 120 ml Balance 0 ml 120 ml Physical Exam General: Alert, Oriented X3, Cooperative Heart: Regular rate, Normal S1, Normal S2 Lungs: Clear Abdomen: Soft, No tenderness, No hepatosplenomegaly Extremities: No clubbing, No cyanosis Skin: No rashes, No breakdown Labs Labs: Laboratory Tests Test 11/25/20 11:55 11/25/20 17:06 11/25/20 20:37 11/26/20 08:27 Glucose (Fingerstick) 244 mg/dL (70-99) 200 mg/dL (70-99) 292 mg/dL (70-99) 185 mg/dL (70-99) Test 11/26/20 08:35 White Blood Count 5.9 x10^3/uL (4.0-11.0) Red Blood Count 4.09 x10^6/uL (4.30-5.70) Hemoglobin 11.9 g/dL (13.0-17.5) Hematocrit 35.8 % (39.0-53.0) Mean Corpuscular Volume 88 fL (79-100) Mean Corpuscular Hemoglobin 29 pg (25-35) Mean Corpuscular Hemoglobin Concent 33 g/dL (31-37) Red Cell Distribution Width 19.2 % (11.5-14.5) Platelet Count 177 x10^3/uL (140-400) Neutrophils (%) (Auto) 80 % (31-73) Lymphocytes (%) (Auto) 8 % (24-48) Monocytes (%) (Auto) 9 % (0-9) Eosinophils (%) (Auto) 2 % (0-3) Basophils (%) (Auto) 1 % (0-3) Neutrophils # (Auto) 4.7 x10^3/uL (1.8-7.7) Lymphocytes # (Auto) 0.5 x10^3/uL (1.0-4.8) Monocytes # (Auto) 0.5 x10^3/uL (0.0-1.1) Eosinophils # (Auto) 0.1 x10^3/uL (0.0-0.7) Basophils # (Auto) 0.1 x10^3/uL (0.0-0.2) Sodium Level 134 mmol/L (136-145) Potassium Level 3.8 mmol/L (3.5-5.1) Chloride Level 100 mmol/L (98-107) Carbon Dioxide Level 27 mmol/L (21-32) Anion Gap 7 (6-14) Blood Urea Nitrogen 16 mg/dL (8-26) Creatinine 0.9 mg/dL (0.7-1.3) Estimated GFR (Cockcroft-Gault) 84.2 BUN/Creatinine Ratio 18 (6-20) Glucose Level 225 mg/dL (70-99) Calcium Level 9.0 mg/dL (8.5-10.1) Phosphorus Level 2.6 mg/dL (2.6-4.7) Magnesium Level 1.8 mg/dL (1.8-2.4) Total Bilirubin 21.3 mg/dL (0.2-1.0) Aspartate Amino Transf (AST/SGOT) 224 U/L (15-37) Alanine Aminotransferase (ALT/SGPT) 207 U/L (16-63) Alkaline Phosphatase 987 U/L (46-116) Total Protein 5.8 g/dL (6.4-8.2) Albumin 2.1 g/dL (3.4-5.0) Albumin/Globulin Ratio 0.6 (1.0-1.7) Assessment and Plan Assessmemt and Plan Problems Medical Problems: (1) Fall Status: Acute (2) Hyperbilirubinemia Status: Acute (3) Weakness Status: Acute Comment Review of Relevant I have reviewed the following items didier (where applicable) has been applied. Medications: Current Medications Medications (Trade) Dose Ordered Sig/Alex Route PRN Reason Start Time Stop Time Status Last Admin Dose Admin Pantoprazole Sodium (PROTONIX VIAL for IV PUSH) 40 mg DAILYAC IVP 11/26/20 07:30 11/26/20 07:45 Ondansetron HCl (Zofran) 4 mg Q6HRS IVP 11/26/20 00:00 11/26/20 05:33 Prochlorperazine Edisylate (Compazine) 10 mg Q6HRS IV 11/26/20 00:00 11/26/20 05:32 Justifications for Admission Abdominal Pain Indications Is patient in severe pain?: Yes Justification for admission: Patient has severe pain that requires (parenteral analgesic-please state analgesics and route) at least every 4 hours necessitating inpatient level of care. Is NPO status required?: Yes Justification for admission: Patient may require to be NPO for greater 24hours making it medically necessary to manage patient as inpatient. Other Justification Acute cholecystitis SAGAR AVELAR MD Nov 26, 2020 10:09
[2020-11-26] MEDS: IV NORMAL SALINE 1000ML BAG 1,000 ML IV SCH ×2 (10:13→21:53)
--- NOTE | 2020-11-26 13:50 | PDOC ---
G I PROGRESS NOTE Reason for Follow-up Obstructive jaundice/metastatic gastric cancer Subjective Hungry/will advance diet Physical Exam Jaundiced Lungs clear CV S1 S2 Review of Relevant I have reviewed the following items didier (where applicable) has been applied. Labs Laboratory Tests Test 11/24/20 16:04 11/24/20 23:19 11/25/20 07:44 11/25/20 08:40 White Blood Count 6.3 x10^3/uL (4.0-11.0) 6.5 x10^3/uL (4.0-11.0) Red Blood Count 4.72 x10^6/uL (4.30-5.70) 3.98 x10^6/uL (4.30-5.70) Hemoglobin 13.2 g/dL (13.0-17.5) 11.4 g/dL (13.0-17.5) Hematocrit 41.2 % (39.0-53.0) 34.8 % (39.0-53.0) Mean Corpuscular Volume 87 fL (79-100) 88 fL (79-100) Mean Corpuscular Hemoglobin 28 pg (25-35) 29 pg (25-35) Mean Corpuscular Hemoglobin Concent 32 g/dL (31-37) 33 g/dL (31-37) Red Cell Distribution Width 20.0 % (11.5-14.5) 19.0 % (11.5-14.5) Platelet Count 238 x10^3/uL (140-400) 175 x10^3/uL (140-400) Neutrophils (%) (Auto) 82 % (31-73) 83 % (31-73) Lymphocytes (%) (Auto) 8 % (24-48) 5 % (24-48) Monocytes (%) (Auto) 9 % (0-9) 10 % (0-9) Eosinophils (%) (Auto) 1 % (0-3) 1 % (0-3) Basophils (%) (Auto) 1 % (0-3) 1 % (0-3) Neutrophils # (Auto) 5.1 x10^3/uL (1.8-7.7) 5.4 x10^3/uL (1.8-7.7) Lymphocytes # (Auto) 0.5 x10^3/uL (1.0-4.8) 0.4 x10^3/uL (1.0-4.8) Monocytes # (Auto) 0.6 x10^3/uL (0.0-1.1) 0.7 x10^3/uL (0.0-1.1) Eosinophils # (Auto) 0.1 x10^3/uL (0.0-0.7) 0.1 x10^3/uL (0.0-0.7) Basophils # (Auto) 0.1 x10^3/uL (0.0-0.2) 0.0 x10^3/uL (0.0-0.2) Sodium Level 133 mmol/L (136-145) 134 mmol/L (136-145) Potassium Level 4.2 mmol/L (3.5-5.1) 3.7 mmol/L (3.5-5.1) Chloride Level 96 mmol/L (98-107) 99 mmol/L (98-107) Carbon Dioxide Level 27 mmol/L (21-32) 27 mmol/L (21-32) Anion Gap 10 (6-14) 8 (6-14) Blood Urea Nitrogen 23 mg/dL (8-26) 21 mg/dL (8-26) Creatinine 1.3 mg/dL (0.7-1.3) 1.0 mg/dL (0.7-1.3) Estimated GFR (Cockcroft-Gault) 55.1 74.5 BUN/Creatinine Ratio 18 (6-20) Glucose Level 317 mg/dL (70-99) 205 mg/dL (70-99) Calcium Level 9.5 mg/dL (8.5-10.1) 8.9 mg/dL (8.5-10.1) Total Bilirubin 18.1 mg/dL (0.2-1.0) Aspartate Amino Transf (AST/SGOT) 328 U/L (15-37) Alanine Aminotransferase (ALT/SGPT) 276 U/L (16-63) Alkaline Phosphatase 1166 U/L (46-116) Troponin I Quantitative < 0.017 ng/mL (0.000-0.055) Total Protein 6.4 g/dL (6.4-8.2) Albumin 2.6 g/dL (3.4-5.0) Albumin/Globulin Ratio 0.7 (1.0-1.7) Glucose (Fingerstick) 265 mg/dL (70-99) 245 mg/dL (70-99) Phosphorus Level 2.8 mg/dL (2.6-4.7) Magnesium Level 1.7 mg/dL (1.8-2.4) Test 11/25/20 11:55 11/25/20 17:06 11/25/20 20:37 11/26/20 08:27 Glucose (Fingerstick) 244 mg/dL (70-99) 200 mg/dL (70-99) 292 mg/dL (70-99) 185 mg/dL (70-99) Test 11/26/20 08:35 11/26/20 11:26 White Blood Count 5.9 x10^3/uL (4.0-11.0) Red Blood Count 4.09 x10^6/uL (4.30-5.70) Hemoglobin 11.9 g/dL (13.0-17.5) Hematocrit 35.8 % (39.0-53.0) Mean Corpuscular Volume 88 fL (79-100) Mean Corpuscular Hemoglobin 29 pg (25-35) Mean Corpuscular Hemoglobin Concent 33 g/dL (31-37) Red Cell Distribution Width 19.2 % (11.5-14.5) Platelet Count 177 x10^3/uL (140-400) Neutrophils (%) (Auto) 80 % (31-73) Lymphocytes (%) (Auto) 8 % (24-48) Monocytes (%) (Auto) 9 % (0-9) Eosinophils (%) (Auto) 2 % (0-3) Basophils (%) (Auto) 1 % (0-3) Neutrophils # (Auto) 4.7 x10^3/uL (1.8-7.7) Lymphocytes # (Auto) 0.5 x10^3/uL (1.0-4.8) Monocytes # (Auto) 0.5 x10^3/uL (0.0-1.1) Eosinophils # (Auto) 0.1 x10^3/uL (0.0-0.7) Basophils # (Auto) 0.1 x10^3/uL (0.0-0.2) Sodium Level 134 mmol/L (136-145) Potassium Level 3.8 mmol/L (3.5-5.1) Chloride Level 100 mmol/L (98-107) Carbon Dioxide Level 27 mmol/L (21-32) Anion Gap 7 (6-14) Blood Urea Nitrogen 16 mg/dL (8-26) Creatinine 0.9 mg/dL (0.7-1.3) Estimated GFR (Cockcroft-Gault) 84.2 BUN/Creatinine Ratio 18 (6-20) Glucose Level 225 mg/dL (70-99) Calcium Level 9.0 mg/dL (8.5-10.1) Phosphorus Level 2.6 mg/dL (2.6-4.7) Magnesium Level 1.8 mg/dL (1.8-2.4) Total Bilirubin 21.3 mg/dL (0.2-1.0) Aspartate Amino Transf (AST/SGOT) 224 U/L (15-37) Alanine Aminotransferase (ALT/SGPT) 207 U/L (16-63) Alkaline Phosphatase 987 U/L (46-116) Total Protein 5.8 g/dL (6.4-8.2) Albumin 2.1 g/dL (3.4-5.0) Albumin/Globulin Ratio 0.6 (1.0-1.7) Glucose (Fingerstick) 229 mg/dL (70-99) Laboratory Tests Test 11/25/20 17:06 11/25/20 20:37 11/26/20 08:27 11/26/20 08:35 Glucose (Fingerstick) 200 mg/dL (70-99) 292 mg/dL (70-99) 185 mg/dL (70-99) White Blood Count 5.9 x10^3/uL (4.0-11.0) Red Blood Count 4.09 x10^6/uL (4.30-5.70) Hemoglobin 11.9 g/dL (13.0-17.5) Hematocrit 35.8 % (39.0-53.0) Mean Corpuscular Volume 88 fL (79-100) Mean Corpuscular Hemoglobin 29 pg (25-35) Mean Corpuscular Hemoglobin Concent 33 g/dL (31-37) Red Cell Distribution Width 19.2 % (11.5-14.5) Platelet Count 177 x10^3/uL (140-400) Neutrophils (%) (Auto) 80 % (31-73) Lymphocytes (%) (Auto) 8 % (24-48) Monocytes (%) (Auto) 9 % (0-9) Eosinophils (%) (Auto) 2 % (0-3) Basophils (%) (Auto) 1 % (0-3) Neutrophils # (Auto) 4.7 x10^3/uL (1.8-7.7) Lymphocytes # (Auto) 0.5 x10^3/uL (1.0-4.8) Monocytes # (Auto) 0.5 x10^3/uL (0.0-1.1) Eosinophils # (Auto) 0.1 x10^3/uL (0.0-0.7) Basophils # (Auto) 0.1 x10^3/uL (0.0-0.2) Sodium Level 134 mmol/L (136-145) Potassium Level 3.8 mmol/L (3.5-5.1) Chloride Level 100 mmol/L (98-107) Carbon Dioxide Level 27 mmol/L (21-32) Anion Gap 7 (6-14) Blood Urea Nitrogen 16 mg/dL (8-26) Creatinine 0.9 mg/dL (0.7-1.3) Estimated GFR (Cockcroft-Gault) 84.2 BUN/Creatinine Ratio 18 (6-20) Glucose Level 225 mg/dL (70-99) Calcium Level 9.0 mg/dL (8.5-10.1) Phosphorus Level 2.6 mg/dL (2.6-4.7) Magnesium Level 1.8 mg/dL (1.8-2.4) Total Bilirubin 21.3 mg/dL (0.2-1.0) Aspartate Amino Transf (AST/SGOT) 224 U/L (15-37) Alanine Aminotransferase (ALT/SGPT) 207 U/L (16-63) Alkaline Phosphatase 987 U/L (46-116) Total Protein 5.8 g/dL (6.4-8.2) Albumin 2.1 g/dL (3.4-5.0) Albumin/Globulin Ratio 0.6 (1.0-1.7) Test 11/26/20 11:26 Glucose (Fingerstick) 229 mg/dL (70-99) Medications Current Medications Piperacillin Sod/ Tazobactam Sod 3.375 gm/Sodium Chloride 50 ml @ 100 mls/hr 1X ONCE IV ; Start 11/24/20 at 17:45; Stop 11/24/20 at 18:14; Status Cancel Sodium Chloride 1,000 ml @ 1,000 mls/hr 1X ONCE IV Last administered on 11/24/20at 17:26; Start 11/24/20 at 17:15; Stop 11/24/20 at 18:14; Status DC Sennosides (Senna) 17.2 mg PRN BID PRN PO CONSTIPATION Last administered on 11/24/20at 22:47; Start 11/24/20 at 17:15 Docusate Sodium (Colace) 100 mg PRN DAILY PRN PO HARD STOOLS; Start 11/24/20 at 17:15 Ondansetron HCl (Zofran) 4 mg PRN Q6HRS PRN IVP NAUSEA/VOMITING Last administered on 11/25/20at 07:29; Start 11/24/20 at 17:15 Dextrose (Dextrose 50%-Water Syringe) 12.5 gm PRN Q15MIN PRN IV SEE COMMENTS; Start 11/24/20 at 17:15; Stop 11/26/20 at 11:17; Status DC Sodium Chloride 1,000 ml @ 100 mls/hr Q10H IV Last administered on 11/26/20at 1 0:13; Start 11/24/20 at 17:15 Acetaminophen (Tylenol) 650 mg PRN Q4HRS PRN PO TEMP OVER 100.4F OR MILD PAIN; Start 11/24/20 at 17:15 Hydromorphone HCl (Dilaudid) 0.4 mg PRN Q2HRS PRN IV SEVERE PAIN 7-10 Last administered on 11/26/20at 10:12; Start 11/24/20 at 17:15 Enoxaparin Sodium (Lovenox 40mg Syringe) 40 mg Q24H SQ Last administered on 11/25/20at 21:59; Start 11/24/20 at 21:00 Cefepime HCl (Maxipime) 2 gm 1X ONCE IVP Last administered on 11/24/20at 17:26; Start 11/24/20 at 17:30; Stop 11/24/20 at 17:31; Status DC Metronidazole 100 ml @ 100 mls/hr Q12HR IV Last administered on 11/26/20at 08:55; Start 11/24/20 at 21:00 Cyanocobalamin (Vitamin B-12) 1,000 mcg DAILY PO ; Start 11/25/20 at 09:00 Ergocalciferol (Vitamin D2) 50,000 unit WEEKLY PO ; Start 12/01/20 at 09:00 Acetaminophen/ Hydrocodone Bitart (Lortab 5/325) 1 tab Q6HRS PO ; Start 11/25/20 at 00:00; Stop 11/24/20 at 23:29; Status DC Pantoprazole Sodium (Protonix) 40 mg DAILYAC PO ; Start 11/25/20 at 07:30; Stop 11/25/20 at 23:40; Status DC Sucralfate (Carafate) 1 gm BID PO ; Start 11/25/20 at 09:00 Fluoxetine HCl (PROzac) 40 mg DAILYWBKFT PO ; Start 11/25/20 at 08:00 Non-Formulary Medication (Icosapent Ethyl (Vascepa)) 2 cap BID PO ; Start 11/25/20 at 09:00; Stop 11/26/20 at 12:31; Status DC Atorvastatin Calcium (Lipitor) 80 mg QHS PO ; Start 11/24/20 at 22:00 Insulin Human Lispro (HumaLOG) 0-7 UNITS TIDWMEALS SQ Last administered on 11/26/20at 12:25; Start 11/25/20 at 08:00 Dextrose (Dextrose 50%-Water Syringe) 12.5 gm PRN Q15MIN PRN IV SEE COMMENTS; Start 11/24/20 at 21:30 Pharmacy Consult (C.diff Med Screen By Rx) 1 each 1X ONCE [facility] ; Start 11/24/20 at 23:15; Stop 11/24/20 at 23:19; Status DC Zolpidem Tartrate (Ambien) 5 mg PRN QHS PRN PO INSOMNIA Last administered on 11/24/20at 23:44; Start 11/24/20 at 23:30 Acetaminophen/ Hydrocodone Bitart (Lortab 5/325) 1 tab PRN Q6HRS PRN PO MODERATE PAIN 4-6; Start 11/24/20 at 23:30 Ondansetron HCl (Zofran Odt) 8 mg Q6HRS PO ; Start 11/25/20 at 12:00; Stop 11/25/20 at 23:40; Status DC Prochlorperazine Maleate (Compazine) 10 mg Q6HRS PO ; Start 11/25/20 at 12:00; Stop 11/25/20 at 23:40; Status DC Pantoprazole Sodium (PROTONIX VIAL for IV PUSH) 40 mg DAILYAC IVP Last administered on 11/26/20at 07:45; Start 11/26/20 at 07:30 Ondansetron HCl (Zofran) 4 mg Q6HRS IVP Last administered on 11/26/20at 05:33; Start 11/26/20 at 00:00 Prochlorperazine Edisylate (Compazine) 10 mg Q6HRS IV Last administered on 11/26/20at 12:21; Start 11/26/20 at 00:00 Active Scripts Active Reported Ondansetron Odt (Ondansetron) 8 Mg Tab.rapdis 8 Mg PO Q6HRS Prochlorperazine Maleate 10 Mg Tablet 1 Tab PO Q6H Carafate (Sucralfate) 1 Gm Tablet 1 Gm PO BID [place] 5-325 Tablet (Acetaminophen/Hydrocodone Bitart) 1 Each Tablet 1-2 Tab PO Q6HRS Vitamin B-12 (Cyanocobalamin (Vitamin B-12)) 1,000 Mcg Tablet 1 Tab PO DAILY 30 Days Protonix (Pantoprazole Sodium) 40 Mg Tablet.dr 40 Mg PO DAILYAC Tresiba (Insulin Degludec) 100 Unit/1 Ml Vial 45 Unit SQ HS Crestor (Rosuvastatin Calcium) 40 Mg Tablet 20 Mg PO HS Vascepa (Icosapent Ethyl) 1 Gm Capsule 2 Cap PO BID 30 Days Novolog (Insulin Aspart) 100 Unit/1 Ml Cartridge 25 Unit SQ TIDBFRMEAL Allopurinol 300 Mg Tablet 1 Tab PO HS Fluoxetine Hcl 40 Mg Capsule 1 Cap PO DAILYWBKFT Vitamin D2 (Ergocalciferol (Vitamin D2)) 50,000 Unit Capsule 1 Cap PO WEEKLY Amlodipine Besylate 5 Mg Tablet 5 Mg PO DAILY Lisinopril 20 Mg Tablet 1 Tab PO DAILY Bisoprolol-Hctz 10-6.25 Mg Tab (Bisoprolol Fumarate/Hctz) 1 Each Tablet 1 Tab PO DAILY Vitals/I & O Vital Sign - Last 24 Hours 11/25/20 11/25/20 11/25/20 11/25/20 15:00 19:00 20:28 23:04 Temp 97.7 98.0 98.0 97.7 98.0 98.0 Pulse 85 88 82 Resp 16 18 18 B/P (MAP) 127/77 (94) 147/79 (101) 128/74 (92) Pulse Ox 97 97 98 O2 Delivery Room Air Room Air Room Air Room Air 11/26/20 11/26/20 11/26/20 11/26/20 03:05 04:12 05:21 07:30 Temp 97.9 97.8 97.9 97.8 Pulse 83 87 Resp 18 18 17 18 B/P (MAP) 114/67 (83) 154/91 (112) Pulse Ox 96 96 96 97 O2 Delivery Room Air Room Air Room Air 11/26/20 11/26/20 11/26/20 11/26/20 08:00 10:12 11:25 11:50 Temp 98.6 98.6 Pulse 91 Resp 18 B/P (MAP) 101/66 (78) Pulse Ox 97 99 O2 Delivery Room Air Room Air Room Air Intake and Output 11/25/20 11/25/20 11/26/20 15:00 23:00 07:00 Intake Total 0 ml 120 ml Balance 0 ml 120 ml Problem List Problems Medical Problems: (1) Fall Status: Acute (2) Hyperbilirubinemia Status: Acute (3) Weakness Status: Acute Assessment Obstructive jaundice-with metastatic gastric cancer despite chemotherapy and radiation for bleeding Plan advance diet serial labs ERCP with possible stent placement Friday if anesthesia available Justicifation of Admission Dx: Justifications for Admission: Justification of Admission Dx: Yes XOCHITL BRUCE MD Nov 26, 2020 13:50
[2020-11-26] MEDS: ENOXAPARIN 40 MG/0.4 ML SYRINGE. SQ SCH (21:54)
[2020-11-26] MEDS: ATORVASTATIN CALCIUM 40 MG TABLET. PO SCH (21:54)
[2020-11-27] MEDS: PROCHLORPERAZINE 10 MG/2 ML VIAL. IV SCH ×5 (00:33→23:37)
[2020-11-27] MEDS: ONDANSETRON PF 4 MG/2 ML VIAL. IVP SCH ×5 (00:34→23:37)
[2020-11-27] MEDS: HYDROmorphone 2 MG/ML VIAL IV PRN (00:35)
[2020-11-27 03:13] VITALS: BP 133/80
[2020-11-27] MEDS: IV NORMAL SALINE 1000ML BAG 1,000 ML IV SCH ×3 (05:29→23:37)
[2020-11-27] MEDS: INSULIN LISPRO 300 UNITS/3 ML VIAL. SQ SCH ×3 (08:00→16:58)
[2020-11-27] MEDS: PANTOPRAZOLE IV PUSH 40 MG VIAL. IVP SCH (08:46)
[2020-11-27] MEDS: CYANOCOBALAMIN (VITAMIN B-12) 1,000 MCG TABLET. PO SCH (08:46)
[2020-11-27] MEDS: FLUoxetine HCL 20 MG CAPSULE PO SCH (08:46)
[2020-11-27 09:00] VITALS: BP 124/74
[2020-11-27] MEDS: SUCRALFATE 1 GM TABLET. PO SCH ×2 (09:00→20:39)
--- NOTE | 2020-11-27 10:24 | PDOC ---
Date of Service: DATE: 11/27/20 TIME: 10:19 Subjective: Subjective: Feels about the same. Can eat a little. Wants me to help him straighten up his blankets. Objective: Objective: CA19-9 [id number] 11/20/20, CEA normal. 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 Cholelithiasis. No overt MRCP images suggesting acute cholecystitis. Correlate clinically. PE: GEN: chronically ill LUNGS: CTAB anteriorly HEART: RRR ABD: non-distended EXTREMITY: No edema SKIN: +jaundice NEURO/PSYCH: A & O 3 A/P: Metastatic gastric cancer, jaundice Abnormal MRCP - biliary stricture Cholelithiasis Rapid COVID negative 11/26/20 -- ERCP tomorrow afternoon. Continue PPI, check INR for completeness. Justicifation of Admission Dx: Justifications for Admission: Justification of Admission Dx: Yes MONICA RESTREPO Nov 27, 2020 10:24
--- NOTE | 2020-11-27 10:54 | NUR ---
SW following. Discussed with RN, pt from home, room air, ada diet, rapid COVID-19 negative. ERCP with possible stent placement Friday (11/28/2020). PT/OT ordered. SW will continue to follow for any discharge planning needs.
[2020-11-27 11:00] VITALS: BP 143/84
--- NOTE | 2020-11-27 11:49 | PDOC ---
[facility] PROGRESS NOTE Date of Service DOS: DATE: 11/27/20 TIME: 11:43 Chief Complaint Chief Complaint Acute generalized weakness due to obstructive jaundice Hyperbilirubinemia, likely direct due to biliary stricture in the extrahepatic biliary ducts Transaminitis likely due to hepatic congestion Severe protein malnutrition Metastatic gastric cancer Biliary stricture Cholelithiasis Abnormal unintentional weight loss Rapid COVID negative 11/26/20 Admit to medicine for further management GI consult for possible ERCP Continue empiric prophylactic IV antibiotics N.p.o. Continue IV fluids Lovenox for DVT prophylaxis Protonix GI prophylaxis ADA diet Full code Discussed with RN and SW Disposition pending GI evaluation Surrogate decision maker is the History of Present Illness History of Present Illness Mr Hannon is a 65-year-old male who presents to the emergency room complaining of severe weakness. He states that he initially started getting weak about 10 days ago and was admitted to the hospital at that time. He had elevated LFTs and yesterday had an MRCP which she has not gotten the results of. He was discharged home on Friday and his weakness is progressively gotten worse. Today his legs gave out and he continues to not eat or drink anything. He states that he is unable to stand at this time. He denies any fever. He does have some nausea without vomiting. He has not had any diarrhea. He does not know if he has had any kind of fevers. 1: No acute events overnight. Patient remains afebrile. Seen and examined bed side. Continues to have nausea and little appetite. Denies abdominal pain or diarrhea. 11/26: No acute events overnight. Patient remains afebrile. Continues to be jaundiced. Little appetite but is tolerating clears. Afebrile. Still with some nausea, decreased appetite. Plan for ERCP in am Vitals/I&O Vitals/I&O: Vital Signs Date Time Temp Pulse Resp B/P (MAP) Pulse Ox O2 Delivery O2 Flow Rate FiO2 11/27/20 09:00 97.8 90 16 124/74 (91) 99 Room Air 97.8 I & O 11/26/20 11/26/20 11/27/20 15:00 23:00 07:00 Intake Total 1100 ml Balance 1100 ml Physical Exam General: Alert, Oriented X3, Cooperative Heart: Regular rate, Normal S1, Normal S2 Lungs: Clear Abdomen: Soft, No tenderness, No hepatosplenomegaly Extremities: No clubbing, No cyanosis Skin: No rashes, No breakdown Labs Labs: Laboratory Tests Test 11/26/20 14:51 11/26/20 16:39 11/26/20 20:42 11/27/20 07:40 SARS-CoV-2 Antigen (Rapid) Negative (NEGATIVE) Glucose (Fingerstick) 210 mg/dL (70-99) 201 mg/dL (70-99) 150 mg/dL (70-99) Test 11/27/20 11:18 Glucose (Fingerstick) 185 mg/dL (70-99) Assessment and Plan Assessmemt and Plan Problems Medical Problems: (1) Fall Status: Acute (2) Hyperbilirubinemia Status: Acute (3) Weakness Status: Acute Comment Review of Relevant I have reviewed the following items didier (where applicable) has been applied. Justifications for Admission Abdominal Pain Indications Is patient in severe pain?: Yes Justification for admission: Patient has severe pain that requires (parenteral analgesic-please state analgesics and route) at least every 4 hours necessitating inpatient level of care. Is NPO status required?: Yes Justification for admission: Patient may require to be NPO for greater 24hours making it medically necessary to manage patient as inpatient. Other Justification Acute cholecystitis LAURA KIRBY MD Nov 27, 2020 11:49
[2020-11-27 15:00] VITALS: BP 132/77
[2020-11-27] MEDS: HYDROcodone/APAP 5/325MG 1 TAB TABLET PO PRN (16:48)
[2020-11-27 19:00] VITALS: BP 130/81
[2020-11-27] MEDS: ATORVASTATIN CALCIUM 40 MG TABLET. PO SCH (20:39)
[2020-11-27] MEDS: ENOXAPARIN 40 MG/0.4 ML SYRINGE. SQ SCH (20:40)
[2020-11-27 23:00] VITALS: BP 128/79
[2020-11-28] VITALS (14 sets, daily range): BP systolic 123–149; BP diastolic 68–90
[2020-11-28] MEDS: ONDANSETRON PF 4 MG/2 ML VIAL. IVP SCH ×4 (05:07→23:18)
[2020-11-28] MEDS: HYDROmorphone 2 MG/ML VIAL IV PRN (05:07)
[2020-11-28] MEDS: PROCHLORPERAZINE 10 MG/2 ML VIAL. IV SCH ×4 (05:07→23:19)
[2020-11-28] MEDS ORDERED: IV RINGERS,LACTATED 1000ML 1,000 ML IV SCH (07:00)
[2020-11-28] MEDS: INSULIN LISPRO 300 UNITS/3 ML VIAL. SQ SCH ×3 (08:00→16:43)
[2020-11-28] MEDS ORDERED: IOHEXOL 300 MG/ML 100ML VIAL. ONE (08:12)
[2020-11-28 08:15] LABS: HEMATOCRIT 33.2 % (39.0-53.0); HEMOGLOBIN 10.9 g/dL (13.0-17.5); RED BLOOD COUNT 3.75 x10^6/uL (4.30-5.70); RED CELL DISTRIBUTION WIDTH 18.8 % (11.5-14.5); WHITE BLOOD COUNT 4.8 x10^3/uL (4.0-11.0)
[2020-11-28 08:24] LABS: PROTHROMBIN TIME PATIENT 14.4 SEC (11.7-14.0)
[2020-11-28 08:42] LABS: ALBUMIN 1.8 g/dL (3.4-5.0); ALBUMIN/GLOBULIN RATIO 0.6 (1.0-1.7); CALCIUM 8.1 mg/dL (8.5-10.1); CREATININE 0.6 mg/dL (0.7-1.3); TOTAL PROTEIN 4.9 g/dL (6.4-8.2)
[2020-11-28 08:43] LABS: GFR 134.4; POTASSIUM 3.4 mmol/L (3.5-5.1); TOTAL BILIRUBIN 19.3 mg/dL (0.2-1.0)
[2020-11-28] MEDS ORDERED: ESMOLOL 100 MG/10 ML VIAL. IVP ONE (09:00)
[2020-11-28] MEDS ORDERED: ePHEDrine PF IN SALINE 50 MG/10 ML SYRINGE. IV ONE (09:00)
[2020-11-28] MEDS ORDERED: DEXAMETHASONE SOD PHOS 20 MG/5 ML VIAL. ONE (09:00)
[2020-11-28] MEDS ORDERED: SUCCINYLCHOLINE 200 MG/10 ML VIAL. ONE (09:00)
[2020-11-28] MEDS ORDERED: PHENYLEPHRINE in 0.9% NACL PF 1 MG/10 ML SYRINGE. IV ONE (09:00)
[2020-11-28] MEDS ORDERED: PROPOFOL 10 MG/ML (20ML) VIAL. IV ONE (09:00)
[2020-11-28] MEDS: PANTOPRAZOLE IV PUSH 40 MG VIAL. IVP SCH (09:26)
[2020-11-28] MEDS: IV NORMAL SALINE 1000ML BAG 1,000 ML IV SCH ×2 (09:38→14:39)
--- NOTE | 2020-11-28 10:35 | NUR ---
SW following. Discussed with RN, pt from home, room air, NPO, rapid COVID-19 negative. Pt getting stents placed today. PT/OT recommending home health. SW to discuss home health with pt when back from procedure and closer to discharge. SW will continue to follow.
[2020-11-28] MEDS ORDERED: IV RINGERS,LACTATED 1000ML 1,000 ML IV ONE (11:15)
--- NOTE | 2020-11-28 11:20 | PDOC ---
[facility] [facility] PROGRESS NOTE Date of Service DOS: DATE: 11/28/20 TIME: 11:10 Chief Complaint Chief Complaint Acute generalized weakness due to obstructive jaundice Hyperbilirubinemia, likely direct due to biliary stricture in the extrahepatic biliary ducts Transaminitis likely due to hepatic congestion Severe protein malnutrition Metastatic gastric cancer Biliary stricture Cholelithiasis Abnormal unintentional weight loss Rapid COVID negative 11/26/20 Admit to medicine for further management GI consult for possible ERCP Continue empiric prophylactic IV antibiotics N.p.o. Continue IV fluids Lovenox for DVT prophylaxis Protonix GI prophylaxis ADA diet Full code Discussed with RN and SW Disposition pending GI evaluation Surrogate decision maker is the History of Present Illness History of Present Illness Mr Hannon is a 65-year-old male who presents to the emergency room complaining of severe weakness. He states that he initially started getting weak about 10 days ago and was admitted to the hospital at that time. He had elevated LFTs and yesterday had an MRCP which she has not gotten the results of. He was discharged home on Friday and his weakness is progressively gotten worse. Today his legs gave out and he continues to not eat or drink anything. He states that he is unable to stand at this time. He denies any fever. He does have some nausea without vomiting. He has not had any diarrhea. He does not know if he has had any kind of fevers. 12: No acute events overnight. Patient remains afebrile. Seen and examined bed side. Continues to have nausea and little appetite. Denies abdominal pain or diarrhea. 3: No acute events overnight. Patient remains afebrile. Continues to be jaundiced. Little appetite but is tolerating clears. 14: Afebrile. Still with some nausea, decreased appetite. Plan for ERCP in am A bit improved today a little stronger. Labs minimally improved. K3.4. Plan for ERCP soon today Vitals/I&O Vitals/I&O: Vital Signs Date Time Temp Pulse Resp B/P (MAP) Pulse Ox O2 Delivery O2 Flow Rate FiO2 11/28/20 11:05 Room Air 11/28/20 07:00 97.6 83 16 143/89 (107) 97 97.6 I & O 11/27/20 11/27/20 11/28/20 15:00 23:00 07:00 Intake Total 250 ml 1200 ml Balance 250 ml 1200 ml Physical Exam General: Alert, Oriented X3, Cooperative Heart: Regular rate, Normal S1, Normal S2 Lungs: Clear Abdomen: Soft, No tenderness, No hepatosplenomegaly Extremities: No clubbing, No cyanosis Skin: No rashes, No breakdown Labs Labs: Laboratory Tests Test 11/27/20 11:18 11/27/20 16:20 11/27/20 20:40 11/28/20 07:30 Glucose (Fingerstick) 185 mg/dL (70-99) 249 mg/dL (70-99) 237 mg/dL (70-99) White Blood Count 4.8 x10^3/uL (4.0-11.0) Red Blood Count 3.75 x10^6/uL (4.30-5.70) Hemoglobin 10.9 g/dL (13.0-17.5) Hematocrit 33.2 % (39.0-53.0) Mean Corpuscular Volume 89 fL (79-100) Mean Corpuscular Hemoglobin 29 pg (25-35) Mean Corpuscular Hemoglobin Concent 33 g/dL (31-37) Red Cell Distribution Width 18.8 % (11.5-14.5) Platelet Count 162 x10^3/uL (140-400) Prothrombin Time 14.4 SEC (11.7-14.0) Prothromb Time International Ratio 1.2 (0.8-1.1) Sodium Level 136 mmol/L (136-145) Potassium Level 3.4 mmol/L (3.5-5.1) Chloride Level 102 mmol/L (98-107) Carbon Dioxide Level 26 mmol/L (21-32) Anion Gap 8 (6-14) Blood Urea Nitrogen 13 mg/dL (8-26) Creatinine 0.6 mg/dL (0.7-1.3) Estimated GFR (Cockcroft-Gault) 134.4 BUN/Creatinine Ratio 22 (6-20) Glucose Level 170 mg/dL (70-99) Calcium Level 8.1 mg/dL (8.5-10.1) Total Bilirubin 19.3 mg/dL (0.2-1.0) Aspartate Amino Transf (AST/SGOT) 179 U/L (15-37) Alanine Aminotransferase (ALT/SGPT) 148 U/L (16-63) Alkaline Phosphatase 825 U/L (46-116) Total Protein 4.9 g/dL (6.4-8.2) Albumin 1.8 g/dL (3.4-5.0) Albumin/Globulin Ratio 0.6 (1.0-1.7) Test 11/28/20 08:00 Glucose (Fingerstick) 180 mg/dL (70-99) Assessment and Plan Assessmemt and Plan Problems Medical Problems: (1) Fall Status: Acute (2) Hyperbilirubinemia Status: Acute (3) Weakness Status: Acute Comment Review of Relevant I have reviewed the following items didier (where applicable) has been applied. Justifications for Admission Abdominal Pain Indications Is patient in severe pain?: Yes Justification for admission: Patient has severe pain that requires (parenteral analgesic-please state analgesics and route) at least every 4 hours necessitating inpatient level of care. Is NPO status required?: Yes Justification for admission: Patient may require to be NPO for greater 24hours making it medically necessary to manage patient as inpatient. Other Justification Acute cholecystitis LAURA KIRBY MD Nov 28, 2020 11:20
--- NOTE | 2020-11-28 11:42 | EKG ---
[facility] [address] [place] [address] Test Date: 2020-11-24 Test Time: 16:07:40 Pat Name: VANITA DE LA CRUZ Department: Room: 534 1 Gender: M Art Handler: : [id number] Requested By: SUZAN SAENZ Order Number: [id number] Reading MD: Martín Mccarthy Measurements Intervals [place] Rate: 90 P: 62 CO: 128 QRS: -29 QRSD: 86 T: 29 QT: 388 QTc: 479 Interpretive Statements SINUS RHYTHM LEFTWARD AXIS PROLONGED QT Electronically Signed On 11-28-2020 14:23:43 STAMP PAD FINISHER by Martín Mccarthy
[2020-11-28] MEDS: POTASSIUM CHLORIDE 10MEQ 100 ML IV SCH ×2 (11:46→19:55)
[2020-11-28] MEDS ORDERED: VASOPRESSIN 20 UNIT/ML VIAL. ONE (14:07)
--- NOTE | 2020-11-28 14:29 | PDOC4 ---
Operative Note Operative Note ERCP with sphincterotomy Meds propofol per anesthesia Pre-opdx jaundice/metastatic gastric cancer postop dx hilar obstruction s/p attempted 10 Fr 9 cm stent -stricture didn't allow stent to pass with crumpling gastric mets to duodenum Plan antibiotics IR consult for possible PTC with palliative drainage prognosis guarded XOCHITL BRUCE MD Nov 28, 2020 14:29
--- NOTE | 2020-11-28 16:17 | RAD ---
DG ERCP ENDO BILIARY DUCTAL SYS History: Reason: biliary stricture, gastric cancer, jaundice Comparison: MRI November 23, 2020 Technique/findings: Fluoroscopy provided during ERCP. Dilated irregular appearance of the intrahepatic ducts. See procedure note for further details. Fluoroscopy time: 6.8 minutes Number of fluoroscopic images: 7 Impression: 1. Fluoroscopy provided during ERCP. Electronically signed by: Leopoldo oHllis DO (11/28/2020 4:14 PM) [id number]
[2020-11-28] MEDS: CYANOCOBALAMIN (VITAMIN B-12) 1,000 MCG TABLET. PO SCH (16:29)
[2020-11-28] MEDS: SUCRALFATE 1 GM TABLET. PO SCH ×2 (16:29→20:14)
[2020-11-28] MEDS: FLUoxetine HCL 20 MG CAPSULE PO SCH (16:29)
[2020-11-28] MEDS: HYDROcodone/APAP 5/325MG 1 TAB TABLET PO PRN (16:47)
[2020-11-28] MEDS: ATORVASTATIN CALCIUM 40 MG TABLET. PO SCH (20:14)
[2020-11-28] MEDS: ENOXAPARIN 40 MG/0.4 ML SYRINGE. SQ SCH (20:17)
[2020-11-28] MEDS: ONDANSETRON PF 4 MG/2 ML VIAL. IVP PRN (20:20)
[2020-11-28] MEDS: ZOLPIDEM 5 MG TABLET. PO PRN (23:21)
[2020-11-29] VITALS (11 sets, daily range): BP systolic 95–162; BP diastolic 45–94
[2020-11-29] MEDS: PROCHLORPERAZINE 10 MG/2 ML VIAL. IV SCH ×4 (05:42→22:57)
[2020-11-29] MEDS: ONDANSETRON PF 4 MG/2 ML VIAL. IVP SCH ×3 (05:42→17:26)
[2020-11-29] MEDS ORDERED: IV RINGERS,LACTATED 1000ML 1,000 ML IV SCH ×2 (07:00→13:15)
[2020-11-29] MEDS: FLUoxetine HCL 20 MG CAPSULE PO SCH (08:00)
[2020-11-29] MEDS: SUCRALFATE 1 GM TABLET. PO SCH ×2 (08:12→21:00)
[2020-11-29] MEDS: CYANOCOBALAMIN (VITAMIN B-12) 1,000 MCG TABLET. PO SCH (08:12)
[2020-11-29] MEDS: PANTOPRAZOLE IV PUSH 40 MG VIAL. IVP SCH (08:25)
[2020-11-29] MEDS: IV NORMAL SALINE 1000ML BAG 1,000 ML IV SCH ×2 (08:26→17:26)
[2020-11-29] MEDS: INSULIN LISPRO 300 UNITS/3 ML VIAL. SQ SCH ×3 (08:31→17:30)
[2020-11-29 08:35] LABS: BASO % 0 % (0-3); EOS % 0 % (0-3); HEMATOCRIT 31.8 % (39.0-53.0); HEMOGLOBIN 10.6 g/dL (13.0-17.5); LYMPH # 0.5 x10^3/uL (1.0-4.8); LYMPH % 9 % (24-48); MEAN CORPUSCULAR HEMOGLOBIN 29 pg (25-35); MEAN CORPUSCULAR HGB CONC 33 g/dL (31-37); MEAN CORPUSCULAR VOLUME 87 fL (79-100); MONO # 0.3 x10^3/uL (0.0-1.1); MONO % 6 % (0-9); NEUT # 4.2 x10^3/uL (1.8-7.7); NEUT % 84 % (31-73); PLATELET COUNT 191 x10^3/uL (140-400); RED BLOOD COUNT 3.66 x10^6/uL (4.30-5.70); RED CELL DISTRIBUTION WIDTH 19.1 % (11.5-14.5)
[2020-11-29 08:57] LABS: ALBUMIN 1.9 g/dL (3.4-5.0); ALBUMIN/GLOBULIN RATIO 0.6 (1.0-1.7); CALCIUM 7.9 mg/dL (8.5-10.1); CREATININE 0.8 mg/dL (0.7-1.3); GFR 96.4; POTASSIUM 3.9 mmol/L (3.5-5.1); TOTAL BILIRUBIN 19.2 mg/dL (0.2-1.0); TOTAL PROTEIN 5.2 g/dL (6.4-8.2)
--- NOTE | 2020-11-29 09:22 | PDOC ---
[employer] PROGRESS NOTE Date of Service DOS: DATE: 11/29/20 TIME: 09:15 Chief Complaint Chief Complaint Acute generalized weakness due to obstructive jaundice Hyperbilirubinemia, likely direct due to biliary stricture in the extrahepatic biliary ducts Transaminitis likely due to hepatic congestion Severe protein malnutrition Metastatic gastric cancer Biliary stricture Cholelithiasis Abnormal unintentional weight loss Rapid COVID negative 11/26/20 Admit to medicine for further management GI consult for possible ERCP Continue empiric prophylactic IV antibiotics N.p.o. Continue IV fluids Lovenox for DVT prophylaxis Protonix GI prophylaxis ADA diet Full code Discussed with RN and SW Disposition pending GI evaluation Surrogate decision maker is the History of Present Illness History of Present Illness Mr Hannon is a 65-year-old male who presents to the emergency room complaining of severe weakness. He states that he initially started getting weak about 10 days ago and was admitted to the hospital at that time. He had elevated LFTs and yesterday had an MRCP which she has not gotten the results of. He was discharged home on Friday and his weakness is progressively gotten worse. Today his legs gave out and he continues to not eat or drink anything. He states that he is unable to stand at this time. He denies any fever. He does have some nausea without vomiting. He has not had any diarrhea. He does not know if he has had any kind of fevers. 12: No acute events overnight. Patient remains afebrile. Seen and examined bed side. Continues to have nausea and little appetite. Denies abdominal pain or diarrhea. 11/26: No acute events overnight. Patient remains afebrile. Continues to be jaundiced. Little appetite but is tolerating clears. 14: Afebrile. Still with some nausea, decreased appetite. Plan for ERCP in am 11/28: A bit improved today a little stronger. Labs minimally improved. K3.4. ERCP with sphincterotomy, not able to place stent Very drowsy today. Labs relatively unchanged. Plan for IR drain today. Vitals/I&O Vitals/I&O: Vital Signs Date Time Temp Pulse Resp B/P (MAP) Pulse Ox O2 Delivery O2 Flow Rate FiO2 11/29/20 07:00 97.7 109 22 162/94 (116) 96 Room Air 97.7 11/28/20 14:27 6 I & O 11/28/20 11/28/20 11/29/20 15:00 23:00 07:00 Intake Total 200 ml 0 ml Balance 200 ml 0 ml Physical Exam General: Alert, Oriented X3, Cooperative Heart: Regular rate, Normal S1, Normal S2 Lungs: Clear Abdomen: Soft, No tenderness, No hepatosplenomegaly Extremities: No clubbing, No cyanosis Skin: No rashes, No breakdown Labs Labs: Laboratory Tests Test 11/28/20 11:27 11/28/20 16:10 11/28/20 21:26 11/29/20 07:55 Glucose (Fingerstick) 189 mg/dL (70-99) 259 mg/dL (70-99) 319 mg/dL (70-99) White Blood Count 5.0 x10^3/uL (4.0-11.0) Red Blood Count 3.66 x10^6/uL (4.30-5.70) Hemoglobin 10.6 g/dL (13.0-17.5) Hematocrit 31.8 % (39.0-53.0) Mean Corpuscular Volume 87 fL (79-100) Mean Corpuscular Hemoglobin 29 pg (25-35) Mean Corpuscular Hemoglobin Concent 33 g/dL (31-37) Red Cell Distribution Width 19.1 % (11.5-14.5) Platelet Count 191 x10^3/uL (140-400) Neutrophils (%) (Auto) 84 % (31-73) Lymphocytes (%) (Auto) 9 % (24-48) Monocytes (%) (Auto) 6 % (0-9) Eosinophils (%) (Auto) 0 % (0-3) Basophils (%) (Auto) 0 % (0-3) Neutrophils # (Auto) 4.2 x10^3/uL (1.8-7.7) Lymphocytes # (Auto) 0.5 x10^3/uL (1.0-4.8) Monocytes # (Auto) 0.3 x10^3/uL (0.0-1.1) Eosinophils # (Auto) 0.0 x10^3/uL (0.0-0.7) Basophils # (Auto) 0.0 x10^3/uL (0.0-0.2) Sodium Level 133 mmol/L (136-145) Potassium Level 3.9 mmol/L (3.5-5.1) Chloride Level 101 mmol/L (98-107) Carbon Dioxide Level 24 mmol/L (21-32) Anion Gap 8 (6-14) Blood Urea Nitrogen 16 mg/dL (8-26) Creatinine 0.8 mg/dL (0.7-1.3) Estimated GFR (Cockcroft-Gault) 96.4 BUN/Creatinine Ratio 20 (6-20) Glucose Level 269 mg/dL (70-99) Calcium Level 7.9 mg/dL (8.5-10.1) Total Bilirubin 19.2 mg/dL (0.2-1.0) Aspartate Amino Transf (AST/SGOT) 176 U/L (15-37) Alanine Aminotransferase (ALT/SGPT) 139 U/L (16-63) Alkaline Phosphatase 848 U/L (46-116) Total Protein 5.2 g/dL (6.4-8.2) Albumin 1.9 g/dL (3.4-5.0) Albumin/Globulin Ratio 0.6 (1.0-1.7) Amylase Level 46 U/L (25-115) Test 11/29/20 08:21 Glucose (Fingerstick) 276 mg/dL (70-99) Assessment and Plan Assessmemt and Plan Problems Medical Problems: (1) Fall Status: Acute (2) Hyperbilirubinemia Status: Acute (3) Weakness Status: Acute Comment Review of Relevant I have reviewed the following items didier (where applicable) has been applied. Medications: Current Medications Medications (Trade) Dose Ordered Sig/Alex Route PRN Reason Start Time Stop Time Status Last Admin Dose Admin Potassium Chloride/Water 100 ml @ 100 mls/hr Q1H IV 11/28/20 11:30 11/28/20 13:29 DC 11/28/20 19:55 Levofloxacin/ Dextrose 100 ml @ 100 mls/hr 1X ONCE IV 11/28/20 15:00 11/28/20 15:59 DC 11/28/20 14:38 Justifications for Admission Abdominal Pain Indications Is patient in severe pain?: Yes Justification for admission: Patient has severe pain that requires (parenteral analgesic-please state analgesics and route) at least every 4 hours necessitating inpatient level of care. Is NPO status required?: Yes Justification for admission: Patient may require to be NPO for greater 24hours making it medically necessary to manage patient as inpatient. Other Justification Acute cholecystitis LAURA KIRBY MD Nov 29, 2020 09:22
[2020-11-29] MEDS ORDERED: KETAMINE HCL IN NACL, ISO-OSM 50 MG/5 ML SYRINGE ONE (09:56)
[2020-11-29] MEDS ORDERED: fentaNYL PF VIAL 100 MCG/2 ML VIAL ONE (09:56)
[2020-11-29] MEDS ORDERED: MIDAZOLAM HCL/PF 2 MG/2 ML VIAL. ONE (09:56)
[2020-11-29] MEDS ORDERED: LIDOCAINE 2% PF 5 ML VIAL. ONE (09:57)
[2020-11-29] MEDS ORDERED: PROPOFOL 50 ML IV ONE (09:57)
[2020-11-29] MEDS ORDERED: LIDOCAINE WITH 8.4% SOD BICARB 3 ML DISP.SYRIN. ONE (10:01)
[2020-11-29] MEDS ORDERED: IOHEXOL 300 MG/ML 100ML VIAL. ONE ×2 (10:01→11:10)
[2020-11-29] MEDS ORDERED: ceFAZolin SODIUM IV Push 1 GM VIAL. IVP ONE ×2 (10:13→10:30)
[2020-11-29] MEDS ORDERED: LIDOCAINE WITH 8.4% SOD BICARB 3 ML DISP.SYRIN. IJ ONE (10:30)
[2020-11-29] MEDS ORDERED: IOHEXOL 300 MG/ML 100ML VIAL. IART ONE (10:30)
--- NOTE | 2020-11-29 11:03 | PDOC ---
Date of Service: DATE: 11/29/20 TIME: 11:02 Objective: Vital Signs: Vital Signs Date Time Temp Pulse Resp B/P (MAP) Pulse Ox O2 Delivery O2 Flow Rate FiO2 11/29/20 08:00 Room Air 11/29/20 07:00 97.7 109 22 162/94 (116) 96 97.7 11/28/20 14:27 6 Labs: Laboratory Tests Test 11/28/20 11:27 11/28/20 16:10 11/28/20 21:26 11/29/20 07:55 Glucose (Fingerstick) 189 mg/dL 259 mg/dL 319 mg/dL White Blood Count 5.0 x10^3/uL Red Blood Count 3.66 x10^6/uL Hemoglobin 10.6 g/dL Hematocrit 31.8 % Mean Corpuscular Volume 87 fL Mean Corpuscular Hemoglobin 29 pg Mean Corpuscular Hemoglobin Concent 33 g/dL Red Cell Distribution Width 19.1 % Platelet Count 191 x10^3/uL Neutrophils (%) (Auto) 84 % Lymphocytes (%) (Auto) 9 % Monocytes (%) (Auto) 6 % Eosinophils (%) (Auto) 0 % Basophils (%) (Auto) 0 % Neutrophils # (Auto) 4.2 x10^3/uL Lymphocytes # (Auto) 0.5 x10^3/uL Monocytes # (Auto) 0.3 x10^3/uL Eosinophils # (Auto) 0.0 x10^3/uL Basophils # (Auto) 0.0 x10^3/uL Sodium Level 133 mmol/L Potassium Level 3.9 mmol/L Chloride Level 101 mmol/L Carbon Dioxide Level 24 mmol/L Anion Gap 8 Blood Urea Nitrogen 16 mg/dL Creatinine 0.8 mg/dL Estimated GFR (Cockcroft-Gault) 96.4 BUN/Creatinine Ratio 20 Glucose Level 269 mg/dL Calcium Level 7.9 mg/dL Total Bilirubin 19.2 mg/dL Aspartate Amino Transf (AST/SGOT) 176 U/L Alanine Aminotransferase (ALT/SGPT) 139 U/L Alkaline Phosphatase 848 U/L Total Protein 5.2 g/dL Albumin 1.9 g/dL Albumin/Globulin Ratio 0.6 Amylase Level 46 U/L Test 11/29/20 08:21 Glucose (Fingerstick) 276 mg/dL Imaging: ERCP ERCP with sphincterotomy Meds propofol per anesthesia Pre-opdx jaundice/metastatic gastric cancer postop dx hilar obstruction s/p attempted 10 Fr 9 cm stent -stricture didn't allow stent to pass with crumpling gastric mets to duodenum Plan antibiotics IR consult for possible PTC with palliative drainage prognosis guarded Technique/findings: Fluoroscopy provided during ERCP. Dilated irregular appearance of the intrahepatic ducts. See procedure note for further details. Fluoroscopy time: 6.8 minutes Number of fluoroscopic images: 7 Impression: 1. Fluoroscopy provided during ERCP. PE: out of room A/P: Metastatic gastric cancer, jaundice, hilar stricture COVID negative 11/26/20 -- To see IR today. Justicifation of Admission Dx: Justifications for Admission: Justification of Admission Dx: Yes MONICA RESTREPO Nov 29, 2020 11:03
[2020-11-29] MEDS ORDERED: hydrALAZINE 20 MG/ML VIAL. ONE (11:49)
--- NOTE | 2020-11-29 12:08 | PDOC ---
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 Condition of Patient Condition of Patient STABLE Disposition Disposition RETURN TO FLOOR FOR OBS JOSIE DYER MD Nov 29, 2020 12:08
--- NOTE | 2020-11-29 12:29 | NUR ---
SW following. Discussed with RN, pt from home with , room air, regular diet. Pt getting a drain placed today. Some discussion about whether pt needs hospice upon discharge. SW spoke with Dr. King - he plans to speak with pt after pt gets drain placed. SW will continue to follow.
[2020-11-29] MEDS ORDERED: HYDROmorphone 2 MG/ML VIAL ONE (12:33)
[2020-11-29] MEDS ORDERED: HYDROmorphone 2 MG/ML VIAL IV ONE (12:45)
[2020-11-29] MEDS ORDERED: INSULIN LISPRO 100 UNIT/ML 3ML VIAL for OP,RR ONLY. SQ ONE (13:00)
[2020-11-29] MEDS ORDERED: INSULIN LISPRO 100 UNIT/ML 3ML VIAL for OP,RR ONLY. SQ PRN (13:00)
--- NOTE | 2020-11-29 13:09 | RAD ---
11/29/2020 10:48 AM Procedure: 1. Percutaneous transhepatic cholangiogram 2. Placement of an 8 Azeri internal/external biliary drain Clinical Indication: Biliary obstruction. Symptomatic jaundice. ERCP with failed stent placement secondary to high-grade biliary stricture Discussion: The procedure was explained in its entirety to the patient or the patients designated retail service representative by a member of the treatment team, including a discussion of the risks, benefits and commonly accepted alternatives to the procedure, as well as the expected consequences of no therapy whatsoever. Discussion of the risks included, but was not limited to, those that are most frequent and those that are rare but possibly severe or life-threatening, as well as the possibility of unforeseen complications. All elements of maximal sterile barrier technique including the use of a cap, mask, sterile gown, sterile gloves, large sterile sheet, appropriate hand hygiene, and 2% chlorhexidine for cutaneous antisepsis (or acceptable alternative antiseptic per current guidelines) were followed for this procedure. The right abdomen was prepped and draped as described above. Ultrasound evaluation demonstrated relatively mild intrahepatic biliary dilatation on the right. The left-sided bile ducts are obscured secondary to air from recent endoscopic intervention. On prior imaging the left hepatic lobe was found to be relatively small in size, and though more dilated on the MRI right liver was selected for initial drainage. 1% lidocaine was administered for local anesthesia. Using a combination of fluoroscopic and ultrasound guidance a right bile duct was accessed with a 22-gauge needle. Cholangiograms were obtained which demonstrate a high-grade stenosis of the main right biliary duct with nonvisualization of the left hepatic ducts on initial cholangiogram. The stricture is several centimeters long, and extensive complex of the anterior posterior right bile ducts. Eventually, the stricture was traversed and a guidewire advanced into the duodenum. A 5 Azeri sheath was advanced centrally and cholangiograms repeated demonstrating high-grade strictures of what appear to be left-sided ducts. Based on these cholangiograms at least 2 or 3 left-sided segments appear to be isolated. Attempts were made to advance an 8 Azeri drain into duodenum which were unsuccessful due to the high-grade stricture. Balloon dilatation was performed with a 4 mm balloon throughout the structure biliary tree, ultimately resulting in successful advancement of an 8 Azeri internal/external drain into the duodenum. Expected hemobilia noted via the drain. The catheter was secured in place and sterile dressings were applied. No immediate complications. Total fluoroscopy time: 37.3 minutes min Dose area product: 121 Gycm2 Sedation was provided via the anesthesia department. Impression: PTC demonstrates high-grade central biliary strictures involving right and left biliary systems. Following balloon dilatation right-sided internal/external biliary drain was placed. Recommend following patient's labs to evaluate the degree of improvement/resolution of hyperbilirubinemia and symptoms. Given malignant nature of these structures, and dilated isolated left hepatic ducts attempted left-sided access and internal or external drainage may be considered in the future, but given the palliative nature of this procedure the benefits and risks with need to be carefully weighed .
[2020-11-29] MEDS ORDERED: fentaNYL PF VIAL 100 MCG/2 ML VIAL IV PRN ×2 (13:15)
[2020-11-29] MEDS ORDERED: PROCHLORPERAZINE 10 MG/2 ML VIAL. IV PRN (13:15)
[2020-11-29] MEDS ORDERED: LIDOCAINE 1% PF 2 ML VIAL. ID PRN (13:15)
[2020-11-29] MEDS ORDERED: ONDANSETRON PF 4 MG/2 ML VIAL. IV PRN (13:15)
[2020-11-29] MEDS ORDERED: HYDROmorphone 2 MG/ML VIAL IV PRN (13:15)
[2020-11-29] MEDS ORDERED: MORPHINE SULFATE 2 MG/ML VIAL. IV PRN (13:15)
[2020-11-29] MEDS: LACTOBACILLUS RHAMNOSUS GG 1 CAPSULE. PO SCH (21:00)
[2020-11-29] MEDS: ATORVASTATIN CALCIUM 40 MG TABLET. PO SCH (21:00)
[2020-11-29] MEDS: ENOXAPARIN 40 MG/0.4 ML SYRINGE. SQ SCH (21:14)
[2020-11-29] MEDS: HYDROcodone/APAP 5/325MG 1 TAB TABLET PO PRN (22:56)
[2020-11-30 03:00] VITALS: BP 147/80
[2020-11-30] MEDS: PROCHLORPERAZINE 10 MG/2 ML VIAL. IV SCH ×3 (06:00→17:41)
[2020-11-30] MEDS: IV NORMAL SALINE 1000ML BAG 1,000 ML IV SCH ×2 (06:11→13:22)
[2020-11-30] MEDS: ONDANSETRON PF 4 MG/2 ML VIAL. IVP SCH ×4 (06:11→17:45)
[2020-11-30] MEDS: PANTOPRAZOLE IV PUSH 40 MG VIAL. IVP SCH (06:12)
[2020-11-30 07:00] VITALS: BP 146/86
[2020-11-30] MEDS: SUCRALFATE 1 GM TABLET. PO SCH ×2 (08:46→22:08)
[2020-11-30] MEDS: CYANOCOBALAMIN (VITAMIN B-12) 1,000 MCG TABLET. PO SCH (08:46)
[2020-11-30] MEDS: FLUoxetine HCL 20 MG CAPSULE PO SCH (08:47)
[2020-11-30] MEDS: LACTOBACILLUS RHAMNOSUS GG 1 CAPSULE. PO SCH ×2 (08:47→22:08)
[2020-11-30] MEDS: INSULIN LISPRO 300 UNITS/3 ML VIAL. SQ SCH ×3 (08:51→17:48)
--- NOTE | 2020-11-30 09:54 | PDOC ---
[employer] PROGRESS NOTE Date of Service DOS: DATE: 11/30/20 TIME: 09:53 Chief Complaint Chief Complaint Acute generalized weakness due to obstructive jaundice Hyperbilirubinemia, likely direct due to biliary stricture in the extrahepatic biliary ducts Transaminitis likely due to hepatic congestion Severe protein malnutrition Metastatic gastric cancer Biliary stricture Cholelithiasis Abnormal unintentional weight loss Rapid COVID negative 11/26/20 Admit to medicine for further management GI consult for possible ERCP Continue empiric prophylactic IV antibiotics N.p.o. Continue IV fluids Lovenox for DVT prophylaxis Protonix GI prophylaxis ADA diet Full code Discussed with RN and SW Disposition pending GI evaluation Surrogate decision maker is the History of Present Illness History of Present Illness Mr Hannon is a 65-year-old male who presents to the emergency room complaining of severe weakness. He states that he initially started getting weak about 10 days ago and was admitted to the hospital at that time. He had elevated LFTs and yesterday had an MRCP which she has not gotten the results of. He was discharged home on Friday and his weakness is progressively gotten worse. Today his legs gave out and he continues to not eat or drink anything. He states that he is unable to stand at this time. He denies any fever. He does have some nausea without vomiting. He has not had any diarrhea. He does not know if he has had any kind of fevers. 12: No acute events overnight. Patient remains afebrile. Seen and examined bed side. Continues to have nausea and little appetite. Denies abdominal pain or diarrhea. 11/26: No acute events overnight. Patient remains afebrile. Continues to be jaundiced. Little appetite but is tolerating clears. 11/27: Afebrile. Still with some nausea, decreased appetite. Plan for ERCP in am 11/28: A bit improved today a little stronger. Labs minimally improved. K3.4. ERCP with sphincterotomy, not able to place stent 11/29: Very drowsy today. Labs relatively unchanged. PTC with biliary drain placement in IR Afebrile. A little less drowsy today but difficulty keeping his eyes open. He does not have much appetite. Biliary drain with 175 cc out this morning. Bilirubin down to 17.3. He is asking for hospice referral. Vitals/I&O Vitals/I&O: Vital Signs Date Time Temp Pulse Resp B/P (MAP) Pulse Ox O2 Delivery O2 Flow Rate FiO2 11/30/20 07:00 97.4 83 16 146/86 (106) 97 Nasal Cannula 2.0 97.4 I & O 11/29/20 11/29/20 11/30/20 15:00 23:00 07:00 Intake Total 0 ml 0 ml Output Total 100 ml Balance 0 ml -100 ml Physical Exam General: Alert, Oriented X3, Cooperative Heart: Regular rate, Normal S1, Normal S2 Lungs: Clear Abdomen: Soft, No tenderness, No hepatosplenomegaly Extremities: No clubbing, No cyanosis Skin: No rashes, No breakdown Labs Labs: Laboratory Tests Test 11/29/20 12:54 11/29/20 17:12 11/29/20 20:28 11/30/20 08:08 Glucose (Fingerstick) 232 mg/dL (70-99) 222 mg/dL (70-99) 199 mg/dL (70-99) 170 mg/dL (70-99) Assessment and Plan Assessmemt and Plan Problems Medical Problems: (1) Fall Status: Acute (2) Hyperbilirubinemia Status: Acute (3) Weakness Status: Acute Comment Review of Relevant I have reviewed the following items didier (where applicable) has been applied. Medications: Current Medications Medications (Trade) Dose Ordered Sig/Alex Route PRN Reason Start Time Stop Time Status Last Admin Dose Admin Levofloxacin/ Dextrose 100 ml @ 100 mls/hr Q24H IV 11/29/20 14:00 11/29/20 14:16 Lidocaine HCl (Buffered Lidocaine 1%) 3 ml 1X ONCE IJ 11/29/20 10:30 11/29/20 10:31 DC 11/29/20 10:30 Iohexol (Omnipaque 300 Mg/ml) 100 ml 1X ONCE IART 11/29/20 10:30 11/29/20 10:31 DC 11/29/20 12:02 Cefazolin Sodium (Ancef) 1 gm 1X ONCE IVP 11/29/20 10:30 11/29/20 10:31 DC 11/29/20 10:30 Hydromorphone HCl (Dilaudid) 0.5 mg PRN Q10MIN ONCE IV 11/29/20 12:45 11/29/20 12:46 DC 11/29/20 12:41 Insulin Human Lispro (HumaLOG VIAL for OP,RR ONLY) 0-10 units PRN Q1HR PRN SQ PER PROTOCOL 11/29/20 13:00 11/30/20 09:09 DC 11/29/20 12:59 Lactobacillus Rhamnosus (Culturelle) 1 cap BID PO 11/29/20 21:00 11/30/20 08:47 Justifications for Admission Abdominal Pain Indications Is patient in severe pain?: Yes Justification for admission: Patient has severe pain that requires (parenteral analgesic-please state analgesics and route) at least every 4 hours necessitating inpatient level of care. Is NPO status required?: Yes Justification for admission: Patient may require to be NPO for greater 24hours making it medically necessary to manage patient as inpatient. Other Justification Acute cholecystitis LAURA KIRBY MD Nov 30, 2020 09:54
[2020-11-30 10:09] LABS: ALBUMIN 1.8 g/dL (3.4-5.0); ALBUMIN/GLOBULIN RATIO 0.5 (1.0-1.7); CALCIUM 8.3 mg/dL (8.5-10.1); CREATININE 0.8 mg/dL (0.7-1.3); GFR 96.4; POTASSIUM 3.6 mmol/L (3.5-5.1); TOTAL BILIRUBIN 17.3 mg/dL (0.2-1.0); TOTAL PROTEIN 5.2 g/dL (6.4-8.2)
--- NOTE | 2020-11-30 10:57 | PDOC ---
Date of Service: DATE: 11/30/20 TIME: 10:41 Subjective: Subjective: Feels a little better after drain placement, no appetite. Objective: Objective: Reviewed other notes - possible Hospice referral. Vital Signs: Vital Signs Date Time Temp Pulse Resp B/P (MAP) Pulse Ox O2 Delivery O2 Flow Rate FiO2 11/30/20 08:00 Room Air 11/30/20 07:00 97.4 83 16 146/86 (106) 97 2.0 97.4 Labs: Laboratory Tests Test 11/29/20 12:54 11/29/20 17:12 11/29/20 20:28 11/30/20 08:08 Glucose (Fingerstick) 232 mg/dL 222 mg/dL 199 mg/dL 170 mg/dL Test 11/30/20 09:31 Sodium Level 134 mmol/L Potassium Level 3.6 mmol/L Chloride Level 101 mmol/L Carbon Dioxide Level 26 mmol/L Anion Gap 7 Blood Urea Nitrogen 13 mg/dL Creatinine 0.8 mg/dL Estimated GFR (Cockcroft-Gault) 96.4 BUN/Creatinine Ratio 16 Glucose Level 165 mg/dL Calcium Level 8.3 mg/dL Total Bilirubin 17.3 mg/dL Aspartate Amino Transf (AST/SGOT) 230 U/L Alanine Aminotransferase (ALT/SGPT) 137 U/L Alkaline Phosphatase 840 U/L Total Protein 5.2 g/dL Albumin 1.8 g/dL Albumin/Globulin Ratio 0.5 PE: GEN: chronically ill ABD: drain bilious, soft SKIN: +jaundice NEURO/PSYCH: A & O 3 A/P: Metastatic gastric cancer, jaundice, malignant biliary stricture s/p right internal external biliary drain placement -- Agree w/ consideration for Hospice discussion. Justicifation of Admission Dx: Justifications for Admission: Justification of Admission Dx: Yes MONICA RESTREPO Nov 30, 2020 10:57
[2020-11-30 11:00] VITALS: BP 145/94
--- NOTE | 2020-11-30 11:49 | NUR ---
SW following. Discussed with RN, pt from home with , regular diet. SW met with pt to discuss going home with hospice (no isolation precautions at the time), pt agreeable and does not have a preference of provider - is okay with referral to [facility]. Pt did not want SW to speak to his , and does not want [facility] to call his either. SW phoned and faxed referral to [facility] - notified of pt wishes. Anticipated discharge tomorrow. Awaiting confirmation from [facility]. RN notified. SW will continue to follow. Addendum: 11/30/20 at 1407 by MILES LOBO Antonette Lord) met with pt, pt is pretty sure he will be going home with [facility] but wants to talk to his first. Pt stated he does not need any equipment at home currently. Pt wanting to speak with oncologist to make sure there are no other treatment options - he doesn't think there are any, but stated no one has actually told him there isn't. Dr. King consulted oncology. Everything has been done with the hospice eval - except for pt signing consents. SW to follow up tomorrow to confirm pt is wanting to go home with hospice, after speaking with his . RN notified.
[2020-11-30] MEDS: HYDROcodone/APAP 5/325MG 1 TAB TABLET PO PRN ×2 (13:23→22:08)
[2020-11-30 15:00] VITALS: BP 147/96
[2020-11-30 19:00] VITALS: BP 144/84
[2020-11-30] MEDS: ZOLPIDEM 5 MG TABLET. PO PRN (22:08)
[2020-11-30] MEDS: ATORVASTATIN CALCIUM 40 MG TABLET. PO SCH (22:09)
[2020-11-30] MEDS: ENOXAPARIN 40 MG/0.4 ML SYRINGE. SQ SCH (22:09)
[2020-11-30 23:00] VITALS: BP 142/87
[2020-12-01] MEDS: ONDANSETRON PF 4 MG/2 ML VIAL. IVP SCH ×2 (01:13→05:56)
[2020-12-01] MEDS: PROCHLORPERAZINE 10 MG/2 ML VIAL. IV SCH ×2 (01:14→05:56)
[2020-12-01] MEDS: IV NORMAL SALINE 1000ML BAG 1,000 ML IV SCH ×3 (01:15→15:45)
[2020-12-01] MEDS: HYDROmorphone 2 MG/ML VIAL IV PRN (02:01)
[2020-12-01 03:00] VITALS: BP 104/68
[2020-12-01] MEDS: PANTOPRAZOLE IV PUSH 40 MG VIAL. IVP SCH (05:56)
[2020-12-01 07:15] VITALS: BP 112/75
--- NOTE | 2020-12-01 07:27 | PDOC ---
[employer] PROGRESS NOTE Date of Service DOS: DATE: 12/01/20 TIME: 07:27 Chief Complaint Chief Complaint Acute generalized weakness due to obstructive jaundice Hyperbilirubinemia, likely direct due to biliary stricture in the extrahepatic biliary ducts Transaminitis likely due to hepatic congestion Severe protein malnutrition Metastatic gastric cancer Biliary stricture Cholelithiasis Abnormal unintentional weight loss Rapid COVID negative 11/26/20 Admit to medicine for further management GI consult for possible ERCP Continue empiric prophylactic IV antibiotics N.p.o. Continue IV fluids Lovenox for DVT prophylaxis Protonix GI prophylaxis ADA diet Full code Discussed with RN and SW Disposition pending GI evaluation Surrogate decision maker is the History of Present Illness History of Present Illness Mr Hannon is a 65-year-old male who presents to the emergency room complaining of severe weakness. He states that he initially started getting weak about 10 days ago and was admitted to the hospital at that time. He had elevated LFTs and yesterday had an MRCP which she has not gotten the results of. He was discharged home on Friday and his weakness is progressively gotten worse. Today his legs gave out and he continues to not eat or drink anything. He states that he is unable to stand at this time. He denies any fever. He does have some nausea without vomiting. He has not had any diarrhea. He does not know if he has had any kind of fevers. 2: No acute events overnight. Patient remains afebrile. Seen and examined bed side. Continues to have nausea and little appetite. Denies abdominal pain or diarrhea. 11/26: No acute events overnight. Patient remains afebrile. Continues to be jaundiced. Little appetite but is tolerating clears. 11/27: Afebrile. Still with some nausea, decreased appetite. Plan for ERCP in am 11/28: A bit improved today a little stronger. Labs minimally improved. K3.4. ERCP with sphincterotomy, not able to place stent 11/29: Very drowsy today. Labs relatively unchanged. PTC with biliary drain placement in IR 11/30: Afebrile. A little less drowsy today but difficulty keeping his eyes open. He does not have much appetite. Biliary drain with 175 cc out this morning. Bilirubin down to 17.3. He is asking for hospice referral and his other options. Afebrile. Was more active yesterday and is more awake. Appetite about the same. Biliary drain with over 200cc drained and currently with 200 cc in it. Bilirubin down to 12. Met with oncology today notably this biliary stricture does not seem to be related to his cancer and patient is asked if he could potentially have a referral to [facility] for another endoscopy opinion for biliary stenting. Vitals/I&O Vitals/I&O: Vital Signs Date Time Temp Pulse Resp B/P (MAP) Pulse Ox O2 Delivery O2 Flow Rate FiO2 12/01/20 03:00 98.3 110 16 104/68 (80) 95 Room Air 98.3 11/30/20 23:08 2.0 I & O 11/30/20 11/30/20 12/01/20 14:59 22:59 06:59 Intake Total 200 ml 200 ml Output Total 180 ml 270 ml Balance 200 ml 20 ml -270 ml Physical Exam General: Alert, Oriented X3, Cooperative Heart: Regular rate, Normal S1, Normal S2 Lungs: Clear Abdomen: Soft, No tenderness, No hepatosplenomegaly Extremities: No clubbing, No cyanosis Skin: No rashes, No breakdown Labs Labs: Laboratory Tests Test 11/30/20 08:08 11/30/20 09:31 11/30/20 11:59 11/30/20 17:12 Glucose (Fingerstick) 170 mg/dL (70-99) 169 mg/dL (70-99) 182 mg/dL (70-99) Sodium Level 134 mmol/L (136-145) Potassium Level 3.6 mmol/L (3.5-5.1) Chloride Level 101 mmol/L (98-107) Carbon Dioxide Level 26 mmol/L (21-32) Anion Gap 7 (6-14) Blood Urea Nitrogen 13 mg/dL (8-26) Creatinine 0.8 mg/dL (0.7-1.3) Estimated GFR (Cockcroft-Gault) 96.4 BUN/Creatinine Ratio 16 (6-20) Glucose Level 165 mg/dL (70-99) Calcium Level 8.3 mg/dL (8.5-10.1) Total Bilirubin 17.3 mg/dL (0.2-1.0) Aspartate Amino Transf (AST/SGOT) 230 U/L (15-37) Alanine Aminotransferase (ALT/SGPT) 137 U/L (16-63) Alkaline Phosphatase 840 U/L (46-116) Total Protein 5.2 g/dL (6.4-8.2) Albumin 1.8 g/dL (3.4-5.0) Albumin/Globulin Ratio 0.5 (1.0-1.7) Test 11/30/20 20:42 Glucose (Fingerstick) 163 mg/dL (70-99) Assessment and Plan Assessmemt and Plan Problems Medical Problems: (1) Fall Status: Acute (2) Hyperbilirubinemia Status: Acute (3) Weakness Status: Acute Comment Review of Relevant I have reviewed the following items didier (where applicable) has been applied. Justifications for Admission Abdominal Pain Indications Is patient in severe pain?: Yes Justification for admission: Patient has severe pain that requires (parenteral analgesic-please state analgesics and route) at least every 4 hours necessitating inpatient level of care. Is NPO status required?: Yes Justification for admission: Patient may require to be NPO for greater 24hours making it medically necessary to manage patient as inpatient. Other Justification Acute cholecystitis LAURA KIRBY MD Dec 01, 2020 07:27
--- NOTE | 2020-12-01 08:10 | PDOC2 ---
CONSULT Date of Consult Date of Consult DATE: 12/01/20 TIME: 08:05 Reason for Consult Reason for Consult: Metastatic gastric cancer Referring Physician Referring Physician: Dr. King Identification/Chief Complaint Chief Complaint Jaundice and weakness Source Source: Chart review, Patient History of Present Illness Reason for Visit: Hi Abraham is a 65-year-old male with metastatic gastric cancer who has been admitted with generalized weakness and jaundice. Hi has HER-2 amplified metastatic gastric cancer for which she has been receiving palliative chemotherapy with 5-FU and Herceptin since January 2020. He was seen in the office for assessment of chemotherapy in October 2020 and was found to have abnormal LFTs. Follow-up lab evaluation has shown progressing elevation alkaline phosphatase and bilirubin. He received MRCP on 11/23/2020 as outpatient (this was declined by insurance inpatient) and this showed a biliary stricture at the junction of right and left hepatic ducts. He was admitted to the hospital November 24, 2020 after presenting with worsening jaundice and generalized weakness. He received ERCP and attempts to stent the stricture were unsuccessful due to cramping of the stent. PTC was also placed with no significant drop in bilirubin. Of note, total bilirubin does appear to have decreased today from 19-17. Hi is considering hospice enrollment. His most recent restaging scans on 11/07/2020 show disease response to therapy and no evidence of cancer progression. He does have periportal and retroperitoneal lymphadenopathy. Past Medical History Cardiovascular: HTN, Hyperlipidemia GI: GI bleed Heme/Onc: Cancer Rheumatologic: Gout Endocrine: Diabetes Past Surgical History Past Surgical History: Tonsillectomy, Other Family History Family History: Cancer, Other Social History ALCOHOL: none Drugs: None Lives: with Family Current Problem List Problem List Problems Medical Problems: (1) Fall Status: Acute (2) Hyperbilirubinemia Status: Acute (3) Weakness Status: Acute Current Medications Current Medications Current Medications Piperacillin Sod/ Tazobactam Sod 3.375 gm/Sodium Chloride 50 ml @ 100 mls/hr 1X ONCE IV ; Start 11/24/20 at 17:45; Stop 11/24/20 at 18:14; Status Cancel Sodium Chloride 1,000 ml @ 1,000 mls/hr 1X ONCE IV Last administered on 11/24/20at 17:26; Start 11/24/20 at 17:15; Stop 11/24/20 at 18:14; Status DC Sennosides (Senna) 17.2 mg PRN BID PRN PO CONSTIPATION Last administered on 11/24/20at 22:47; Start 11/24/20 at 17:15 Docusate Sodium (Colace) 100 mg PRN DAILY PRN PO HARD STOOLS; Start 11/24/20 at 17:15 Ondansetron HCl (Zofran) 4 mg PRN Q6HRS PRN IVP NAUSEA/VOMITING Last administered on 11/28/20at 20:20; Start 11/24/20 at 17:15 Dextrose (Dextrose 50%-Water Syringe) 12.5 gm PRN Q15MIN PRN IV SEE COMMENTS; Start 11/24/20 at 17:15; Stop 11/26/20 at 11:17; Status DC Sodium Chloride 1,000 ml @ 100 mls/hr Q10H IV Last administered on 12/01/20at 01:15; Start 11/24/20 at 17:15 Acetaminophen (Tylenol) 650 mg PRN Q4HRS PRN PO TEMP OVER 100.4F OR MILD PAIN; Start 11/24/20 at 17:15 Hydromorphone HCl (Dilaudid) 0.4 mg PRN Q2HRS PRN IV SEVERE PAIN 7-10 Last administered on 12/01/20at 02:01; Start 11/24/20 at 17:15 Enoxaparin Sodium (Lovenox 40mg Syringe) 40 mg Q24H SQ Last administered on 11/30/20at 22:09; Start 11/24/20 at 21:00 Cefepime HCl (Maxipime) 2 gm 1X ONCE IVP Last administered on 11/24/20at 17:26; Start 11/24/20 at 17:30; Stop 11/24/20 at 17:31; Status DC Metronidazole 100 ml @ 100 mls/hr Q12HR IV Last administered on 11/30/20at 22:09; Start 11/24/20 at 21:00 Cyanocobalamin (Vitamin B-12) 1,000 mcg DAILY PO Last administered on 11/30/20at 08:46; Start 11/25/20 at 09:00 Ergocalciferol (Vitamin D2) 50,000 unit WEEKLY PO ; Start 12/01/20 at 09:00 Acetaminophen/ Hydrocodone Bitart (Lortab 5/325) 1 tab Q6HRS PO ; Start 11/25/20 at 00:00; Stop 11/24/20 at 23:29; Status DC Pantoprazole Sodium (Protonix) 40 mg DAILYAC PO ; Start 11/25/20 at 07:30; Stop 11/25/20 at 23:40; Status DC Sucralfate (Carafate) 1 gm BID PO Last administered on 11/30/20at 22:08; Start 11/25/20 at 09:00 Fluoxetine HCl (PROzac) 40 mg DAILYWBKFT PO Last administered on 11/30/20at 08:47; Start 11/25/20 at 08:00 Non-Formulary Medication (Icosapent Ethyl (Vascepa)) 2 cap BID PO ; Start 11/25/20 at 09:00; Stop 11/26/20 at 12:31; Status DC Atorvastatin Calcium (Lipitor) 80 mg QHS PO Last administered on 11/30/20at 22:09; Start 11/24/20 at 22:00 Insulin Human Lispro (HumaLOG) 0-7 UNITS TIDWMEALS SQ Last administered on 11/30/20at 17:48; Start 11/25/20 at 08:00 Dextrose (Dextrose 50%-Water Syringe) 12.5 gm PRN Q15MIN PRN IV SEE COMMENTS; Start 11/24/20 at 21:30 Pharmacy Consult (C.diff Med Screen By Rx) 1 each 1X ONCE MC ; Start 11/24/20 at 23:15; Stop 11/24/20 at 23:19; Status DC Zolpidem Tartrate (Ambien) 5 mg PRN QHS PRN PO INSOMNIA Last administered on 11/30/20at 22:08; Start 11/24/20 at 23:30 Acetaminophen/ Hydrocodone Bitart (Lortab 5/325) 1 tab PRN Q6HRS PRN PO MODERATE PAIN 4-6 Last administered on 11/30/20at 22:08; Start 11/24/20 at 23:30 Ondansetron HCl (Zofran Odt) 8 mg Q6HRS PO ; Start 11/25/20 at 12:00; Stop 11/25/20 at 23:40; Status DC Prochlorperazine Maleate (Compazine) 10 mg Q6HRS PO ; Start 11/25/20 at 12:00; Stop 11/25/20 at 23:40; Status DC Pantoprazole Sodium (PROTONIX VIAL for IV PUSH) 40 mg DAILYAC IVP Last administered on 12/01/20at 05:56; Start 11/26/20 at 07:30 Ondansetron HCl (Zofran) 4 mg Q6HRS IVP Last administered on 12/01/20at 05:56; Start 11/26/20 at 00:00 Prochlorperazine Edisylate (Compazine) 10 mg Q6HRS IV Last administered on 12/01/20at 05:56; Start 11/26/20 at 00:00 Ringer's Solution 1,000 ml @ 30 mls/hr Q24H IV ; Start 11/28/20 at 07:00; Stop 11/28/20 at 18:59; Status DC Iohexol (Omnipaque 300 Mg/ml) 100 ml STK-MED ONCE .ROUTE ; Start 11/28/20 at 08:12; Stop 11/28/20 at 08:12; Status DC Ringer's Solution 1,000 ml @ 75 mls/hr 1X ONCE IV ; Start 11/28/20 at 11:15; Stop 11/29/20 at 00:34; Status DC Potassium Chloride/Water 100 ml @ 100 mls/hr Q1H IV Last administered on 11/28/20at 19:55; Start 11/28/20 at 11:30; Stop 11/28/20 at 13:29; Status DC Vasopressin (Vasostrict) 20 unit STK-MED ONCE .ROUTE ; Start 11/28/20 at 14:07; Stop 11/28/20 at 14:07; Status DC Levofloxacin/ Dextrose 100 ml @ 100 mls/hr 1X ONCE IV Last administered on 11/28/20at 14:38; Start 11/28/20 at 15:00; Stop 11/28/20 at 15:59; Status DC Levofloxacin/ Dextrose 100 ml @ 100 mls/hr Q24H IV Last administered on 11/30/20at 13:22; Start 11/29/20 at 14:00 Ringer's Solution 1,000 ml @ 50 mls/hr Q20H IV ; Start 11/29/20 at 07:00; Stop 11/29/20 at 18:59; Status DC Midazolam HCl (Versed) 2 mg STK-MED ONCE .ROUTE ; Start 11/29/20 at 09:56; Stop 11/29/20 at 09:56; Status DC Fentanyl Citrate (Fentanyl 2ml Vial) 100 mcg STK-MED ONCE .ROUTE ; Start 11/29/20 at 09:56; Stop 11/29/20 at 09:57; Status DC Ketamine HCl (Ketamine) 50 mg STK-MED ONCE .ROUTE ; Start 11/29/20 at 09:56; Stop 11/29/20 at 09:57; Status DC Propofol 50 ml @ As Directed STK-MED ONCE IV ; Start 11/29/20 at 09:57; Stop 11/29/20 at 09:57; Status DC Lidocaine HCl (Lidocaine Pf 2% Vial) 5 ml STK-MED ONCE .ROUTE ; Start 11/29/20 at 09:57; Stop 11/29/20 at 09:57; Status DC Lidocaine HCl (Buffered Lidocaine 1%) 3 ml STK-MED ONCE .ROUTE ; Start 11/29/20 at 10:01; Stop 11/29/20 at 10:02; Status DC Iohexol (Omnipaque 300 Mg/ml) 100 ml STK-MED ONCE .ROUTE ; Start 11/29/20 at 10:01; Stop 11/29/20 at 10:02; Status DC Cefazolin Sodium (Ancef) 1 gm STK-MED ONCE IVP ; Start 11/29/20 at 10:13; Stop 11/29/20 at 10:13; Status DC Lidocaine HCl (Buffered Lidocaine 1%) 3 ml 1X ONCE IJ Last administered on 11/29/20at 10:30; Start 11/29/20 at 10:30; Stop 11/29/20 at 10:31; Status DC Iohexol (Omnipaque 300 Mg/ml) 100 ml 1X ONCE IART Last administered on 11/29/20at 12:02; Start 11/29/20 at 10:30; Stop 11/29/20 at 10:31; Status DC Cefazolin Sodium (Ancef) 1 gm 1X ONCE IVP Last administered on 11/29/20at 10:30; Start 11/29/20 at 10:30; Stop 11/29/20 at 10:31; Status DC Iohexol (Omnipaque 300 Mg/ml) 100 ml STK-MED ONCE .ROUTE ; Start 11/29/20 at 11:10; Stop 11/29/20 at 11:10; Status DC Hydralazine HCl (Apresoline Inj) 20 mg STK-MED ONCE .ROUTE ; Start 11/29/20 at 11:49; Stop 11/29/20 at 11:49; Status DC Dexamethasone Sodium Phosphate (Decadron) 20 mg STK-MED ONCE .ROUTE ; Start 11/28/20 at 09:00; Stop 11/29/20 at 12:30; Status DC Esmolol HCl (Brevibloc) 100 mg STK-MED ONCE IVP ; Start 11/28/20 at 09:00; Stop 11/29/20 at 12:30; Status DC Ephedrine Sulfate (ePHEDrine PF IN SALINE SYRINGE) 50 mg STK-MED ONCE IV ; Start 11/28/20 at 09:00; Stop 11/29/20 at 12:30; Status DC Propofol (Diprivan) 200 mg STK-MED ONCE IV ; Start 11/28/20 at 09:00; Stop 11/29/20 at 12:30; Status DC Phenylephrine HCl (PHENYLEPHRINE in 0.9% NACL PF) 2 mg STK-MED ONCE IV ; Start 11/28/20 at 09:00; Stop 11/29/20 at 12:30; Status DC Succinylcholine Chloride (Anectine) 200 mg STK-MED ONCE .ROUTE ; Start 11/28/20 at 09:00; Stop 11/29/20 at 12:30; Status DC Hydromorphone HCl (Dilaudid) 2 mg STK-MED ONCE .ROUTE ; Start 11/29/20 at 12:33; Stop 11/29/20 at 12:34; Status DC Hydromorphone HCl (Dilaudid) 0.5 mg PRN Q10MIN ONCE IV Last administered on 11/29/20at 12:41; Start 11/29/20 at 12:45; Stop 11/29/20 at 12:46; Status DC Insulin Human Lispro (HumaLOG VIAL for OP,RR ONLY) 0-10 units PRN Q1HR PRN SQ PER PROTOCOL Last administered on 11/29/20at 12:59; Start 11/29/20 at 13:00; Stop 11/30/20 at 09:09; Status DC Ondansetron HCl (Zofran) 4 mg PRN Q6HRS PRN IV NAUSEA/VOMITING; Start 11/29/20 at 13:15; Stop 11/30/20 at 13:14; Status DC Fentanyl Citrate (Fentanyl 2ml Vial) 25 mcg PRN Q5MIN PRN IV MILD PAIN 1-3; Start 11/29/20 at 13:15; Stop 11/30/20 at 13:14; Status DC Fentanyl Citrate (Fentanyl 2ml Vial) 50 mcg PRN Q5MIN PRN IV MODERATE TO SEVERE PAIN; Start 11/29/20 at 13:15; Stop 11/30/20 at 13:14; Status DC Morphine Sulfate (Morphine Sulfate) 1 mg PRN Q10MIN PRN IV SEVERE PAIN 7-10; Start 11/29/20 at 13:15; Stop 11/30/20 at 13:14; Status DC Ringer's Solution 1,000 ml @ 30 mls/hr Q24H IV ; Start 11/29/20 at 13:15; Stop 11/30/20 at 01:14; Status DC Lidocaine HCl (Xylocaine-Mpf 1% 2ml Vial) 2 ml PRN 1X PRN ID PRIOR TO IV START; Start 11/29/20 at 13:15; Stop 11/30/20 at 13:14; Status DC Hydromorphone HCl (Dilaudid) 0.5 mg PRN Q10MIN PRN IV SEV PAIN, Second choice; Start 11/29/20 at 13:15; Stop 11/30/20 at 13:14; Status DC Prochlorperazine Edisylate (Compazine) 5 mg PACU PRN PRN IV NAUSEA, MRX1; Start 11/29/20 at 13:15; Stop 11/30/20 at 13:14; Status DC Lactobacillus Rhamnosus (Culturelle) 1 cap BID PO Last administered on 11/30/20at 22:08; Start 11/29/20 at 21:00 Insulin Human Lispro (HumaLOG VIAL for OP,RR ONLY) 6 unit STK-MED ONCE SQ ; Start 11/29/20 at 13:00; Stop 11/30/20 at 09:12; Status DC Active Scripts Active Reported Ondansetron Odt (Ondansetron) 8 Mg Tab.rapdis 8 Mg PO Q6HRS Prochlorperazine Maleate 10 Mg Tablet 1 Tab PO Q6H Carafate (Sucralfate) 1 Gm Tablet 1 Gm PO BID [place] 5-325 Tablet (Acetaminophen/Hydrocodone Bitart) 1 Each Tablet 1-2 Tab PO Q6HRS Vitamin B-12 (Cyanocobalamin (Vitamin B-12)) 1,000 Mcg Tablet 1 Tab PO DAILY 30 Days Protonix (Pantoprazole Sodium) 40 Mg Tablet.dr 40 Mg PO DAILYAC Tresiba (Insulin Degludec) 100 Unit/1 Ml Vial 45 Unit SQ HS Crestor (Rosuvastatin Calcium) 40 Mg Tablet 20 Mg PO HS Vascepa (Icosapent Ethyl) 1 Gm Capsule 2 Cap PO BID 30 Days Novolog (Insulin Aspart) 100 Unit/1 Ml Cartridge 25 Unit SQ TIDBFRMEAL Allopurinol 300 Mg Tablet 1 Tab PO HS Fluoxetine Hcl 40 Mg Capsule 1 Cap PO DAILYWBKFT Vitamin D2 (Ergocalciferol (Vitamin D2)) 50,000 Unit Capsule 1 Cap PO WEEKLY Amlodipine Besylate 5 Mg Tablet 5 Mg PO DAILY Lisinopril 20 Mg Tablet 1 Tab PO DAILY Bisoprolol-Hctz 10-6.25 Mg Tab (Bisoprolol Fumarate/Hctz) 1 Each Tablet 1 Tab PO DAILY Allergies Allergies: Coded Allergies: No Known Drug Allergies (Unverified , 11/29/20) ROS General: YES: Fatigue, Malaise PSYCHOLOGICAL ROS: No: Hallucinations, Hostility, Irritablity Eyes: No Eye Pain, No Itchy Eyes HEENT: No: Oral lesions, Sinus pain ALLERGY AND IMMUNOLOGY: No: Nasal Congestion, Post Nasal Drip Hematological and Lymphatic: No: Brusing, Night Sweats ENDOCRINE: YES: Malaise/lethargy Respiratory: YES: Shortness of breath; No: Cough Cardiovascular: No Chest Pain, No Palpitations Gastrointestinal: Yes Nausea, Yes Vomiting, Yes Abdominal Pain; No Diarrhea Genitourinary: No Flank Pain Musculoskeletal: No Joint Pain Neurological: No Dizziness Skin: No Eczema Physical Exam General: Alert, Oriented X3, Other (Icteric) HEENT: Atraumatic Lungs: Clear to auscultation Heart: Regular rate Abdomen: Normal bowel sounds, Soft, Other (Percutaneous biliary drain noted) Extremities: No clubbing Skin: No rashes Neuro: Normal speech MUSCULOSKELETAL: No swelling Vitals VITALS Vital Signs Date Time Temp Pulse Resp B/P (MAP) Pulse Ox O2 Delivery O2 Flow Rate FiO2 12/01/20 07:15 97.4 102 18 112/75 (87) 96 Room Air 97.4 11/30/20 23:08 2.0 Labs Labs Laboratory Tests Test 11/29/20 08:21 11/29/20 12:54 11/29/20 17:12 11/29/20 20:28 Glucose (Fingerstick) 276 mg/dL (70-99) 232 mg/dL (70-99) 222 mg/dL (70-99) 199 mg/dL (70-99) Test 11/30/20 08:08 11/30/20 09:31 11/30/20 11:59 11/30/20 17:12 Glucose (Fingerstick) 170 mg/dL (70-99) 169 mg/dL (70-99) 182 mg/dL (70-99) Sodium Level 134 mmol/L (136-145) Potassium Level 3.6 mmol/L (3.5-5.1) Chloride Level 101 mmol/L (98-107) Carbon Dioxide Level 26 mmol/L (21-32) Anion Gap 7 (6-14) Blood Urea Nitrogen 13 mg/dL (8-26) Creatinine 0.8 mg/dL (0.7-1.3) Estimated GFR (Cockcroft-Gault) 96.4 BUN/Creatinine Ratio 16 (6-20) Glucose Level 165 mg/dL (70-99) Calcium Level 8.3 mg/dL (8.5-10.1) Total Bilirubin 17.3 mg/dL (0.2-1.0) Aspartate Amino Transf (AST/SGOT) 230 U/L (15-37) Alanine Aminotransferase (ALT/SGPT) 137 U/L (16-63) Alkaline Phosphatase 840 U/L (46-116) Total Protein 5.2 g/dL (6.4-8.2) Albumin 1.8 g/dL (3.4-5.0) Albumin/Globulin Ratio 0.5 (1.0-1.7) Test 11/30/20 20:42 12/01/20 07:24 Glucose (Fingerstick) 163 mg/dL (70-99) 180 mg/dL (70-99) Laboratory Tests Test 11/30/20 08:08 11/30/20 09:31 11/30/20 11:59 11/30/20 17:12 Glucose (Fingerstick) 170 mg/dL (70-99) 169 mg/dL (70-99) 182 mg/dL (70-99) Sodium Level 134 mmol/L (136-145) Potassium Level 3.6 mmol/L (3.5-5.1) Chloride Level 101 mmol/L (98-107) Carbon Dioxide Level 26 mmol/L (21-32) Anion Gap 7 (6-14) Blood Urea Nitrogen 13 mg/dL (8-26) Creatinine 0.8 mg/dL (0.7-1.3) Estimated GFR (Cockcroft-Gault) 96.4 BUN/Creatinine Ratio 16 (6-20) Glucose Level 165 mg/dL (70-99) Calcium Level 8.3 mg/dL (8.5-10.1) Total Bilirubin 17.3 mg/dL (0.2-1.0) Aspartate Amino Transf (AST/SGOT) 230 U/L (15-37) Alanine Aminotransferase (ALT/SGPT) 137 U/L (16-63) Alkaline Phosphatase 840 U/L (46-116) Total Protein 5.2 g/dL (6.4-8.2) Albumin 1.8 g/dL (3.4-5.0) Albumin/Globulin Ratio 0.5 (1.0-1.7) Test 11/30/20 20:42 12/01/20 07:24 Glucose (Fingerstick) 163 mg/dL (70-99) 180 mg/dL (70-99) Assessment/Plan Assessment/Plan Assessment: Metastatic gastric cancer, HER-2 positive, on palliative chemotherapy with 5-FU and Trastuzumab Obstructive jaundice secondary to biliary stricture, s/p unsuccessful ERCP stenting and s/p placement of PTC Generalized weakness Normocytic anemia Recommendations: -I discussed with Hi that his most recent restaging scans do not show cancer progression. -Given biliary stricture that has not been amenable to stenting and percutaneous drainage, we discussed that his options included hospice versus seeking a second opinion for repeat ERCP acknowledging that this is likely going to be unsuccessful -Continue to follow GI recommendations -Rest per Dr. King. Discussed with Dr. King and Alicia RN Stanley Fuentes MD Medical Oncology/Hematology Ph: [phone] LOBO FUENTES MD Dec 01, 2020 08:10
[2020-12-01] MEDS: SUCRALFATE 1 GM TABLET. PO SCH ×2 (08:20→20:53)
[2020-12-01] MEDS: LACTOBACILLUS RHAMNOSUS GG 1 CAPSULE. PO SCH ×2 (08:20→20:53)
[2020-12-01] MEDS: CYANOCOBALAMIN (VITAMIN B-12) 1,000 MCG TABLET. PO SCH (08:20)
[2020-12-01] MEDS: FLUoxetine HCL 20 MG CAPSULE PO SCH (08:21)
[2020-12-01] MEDS: INSULIN LISPRO 300 UNITS/3 ML VIAL. SQ SCH ×3 (08:29→17:10)
[2020-12-01] MEDS ORDERED: ERGOCALCIFEROL (VITAMIN D2) 50,000 UNIT CAPSULE. PO SCH (09:00)
[2020-12-01 09:16] LABS: ALBUMIN 1.6 g/dL (3.4-5.0); ALBUMIN/GLOBULIN RATIO 0.5 (1.0-1.7); CALCIUM 8.2 mg/dL (8.5-10.1); CREATININE 1.3 mg/dL (0.7-1.3); GFR 55.1; TOTAL BILIRUBIN 12.7 mg/dL (0.2-1.0); TOTAL PROTEIN 4.9 g/dL (6.4-8.2)
--- NOTE | 2020-12-01 09:21 | PDOC ---
Date of Service: DATE: 12/01/20 TIME: 09:18 Objective: Objective: D/w nurse - pt agreeable to Hospice but wants to discuss if any other treatment recs per oncology first. She says he "almost passed out" this morning. Also says IR followed-up yesterday due to oozing around drain site - ?ascites? Vital Signs: Vital Signs Date Time Temp Pulse Resp B/P (MAP) Pulse Ox O2 Delivery O2 Flow Rate FiO2 12/01/20 07:15 97.4 102 18 112/75 (87) 96 Room Air 97.4 11/30/20 23:08 2.0 Labs: Laboratory Tests Test 11/30/20 09:31 11/30/20 11:59 11/30/20 17:12 11/30/20 20:42 Sodium Level 134 mmol/L Potassium Level 3.6 mmol/L Chloride Level 101 mmol/L Carbon Dioxide Level 26 mmol/L Anion Gap 7 Blood Urea Nitrogen 13 mg/dL Creatinine 0.8 mg/dL Estimated GFR (Cockcroft-Gault) 96.4 BUN/Creatinine Ratio 16 Glucose Level 165 mg/dL Calcium Level 8.3 mg/dL Total Bilirubin 17.3 mg/dL Aspartate Amino Transf (AST/SGOT) 230 U/L Alanine Aminotransferase (ALT/SGPT) 137 U/L Alkaline Phosphatase 840 U/L Total Protein 5.2 g/dL Albumin 1.8 g/dL Albumin/Globulin Ratio 0.5 Glucose (Fingerstick) 169 mg/dL 182 mg/dL 163 mg/dL Test 12/01/20 07:24 Glucose (Fingerstick) 180 mg/dL PE: GEN: appears chronically ill - breakfast tray untouched SKIN: +jaundice NEURO/PSYCH: sleeping, I did not awaken him A/P: Metastatic gastric cancer, jaundice/malignant biliary stricture S/p right internal external biliary drain placement -- Disposition plans per primary. Justicifation of Admission Dx: Justifications for Admission: Justification of Admission Dx: Yes MONICA RESTREPO Dec 01, 2020 09:20
[2020-12-01] MEDS ORDERED: PROCHLORPERAZINE 10 MG/2 ML VIAL. IV PRN (09:45)
[2020-12-01 11:02] VITALS: BP 99/63
--- NOTE | 2020-12-01 14:56 | NUR ---
SW following for discharge planning. Spoke with RN and reviewed chart. Consult to oncology. Pt considering outpatient follow up at regarding other options for chemo. Updated clinicals phoned and faxed to [facility]. Patient will likely discharge 12/02 self-care if pt does not choose hospice care. Pt has a drain and this will be removed prior to discharge. Pt added to weekend discharge list. Addendum: 12/04/20 at 1132 by COLT LOBO Pt discharged home with [facility] per chart review. Pt requiring drain at discharge. LASHELL confirmed with Carlie from [facility] orders received and start of care.
[2020-12-01 15:11] VITALS: BP 112/82
[2020-12-01] MEDS: HYDROcodone/APAP 5/325MG 1 TAB TABLET PO PRN (15:45)
[2020-12-01 19:00] VITALS: BP 131/72
[2020-12-01] MEDS: ATORVASTATIN CALCIUM 40 MG TABLET. PO SCH (20:53)
[2020-12-01] MEDS: ENOXAPARIN 40 MG/0.4 ML SYRINGE. SQ SCH (20:54)
[2020-12-01 23:00] VITALS: BP 133/75
[2020-12-02 03:00] VITALS: BP 147/82
[2020-12-02] MEDS: IV NORMAL SALINE 1000ML BAG 1,000 ML IV SCH ×2 (03:10→15:30)
[2020-12-02] MEDS: HYDROcodone/APAP 5/325MG 1 TAB TABLET PO PRN ×3 (04:38→17:28)
[2020-12-02] MEDS: PANTOPRAZOLE 40 MG TABLET.DR. PO SCH (06:06)
[2020-12-02 07:00] VITALS: BP 150/91
[2020-12-02] MEDS: SUCRALFATE 1 GM TABLET. PO SCH ×2 (08:20→20:48)
[2020-12-02] MEDS: FLUoxetine HCL 20 MG CAPSULE PO SCH (08:20)
[2020-12-02] MEDS: LACTOBACILLUS RHAMNOSUS GG 1 CAPSULE. PO SCH ×2 (08:21→20:48)
[2020-12-02] MEDS: CYANOCOBALAMIN (VITAMIN B-12) 1,000 MCG TABLET. PO SCH (08:21)
[2020-12-02] MEDS: INSULIN LISPRO 300 UNITS/3 ML VIAL. SQ SCH ×3 (08:26→17:32)
--- NOTE | 2020-12-02 08:36 | PDOC ---
[employer] PROGRESS NOTE Date of Service DOS: DATE: 12/02/20 TIME: 08:36 Chief Complaint Chief Complaint Acute generalized weakness due to obstructive jaundice Hyperbilirubinemia, likely direct due to biliary stricture in the extrahepatic biliary ducts Transaminitis likely due to hepatic congestion Severe protein malnutrition Metastatic gastric cancer Biliary stricture Cholelithiasis Abnormal unintentional weight loss Rapid COVID negative 11/26/20 ADA diet Full code Discussed with RN and SW Disposition pending GI evaluation Surrogate decision maker is the History of Present Illness History of Present Illness Mr Hannon is a 65-year-old male who presents to the emergency room complaining of severe weakness. He states that he initially started getting weak about 10 days ago and was admitted to the hospital at that time. He had elevated LFTs and yesterday had an MRCP which she has not gotten the results of. He was discharged home on Friday and his weakness is progressively gotten worse. Today his legs gave out and he continues to not eat or drink anything. He states that he is unable to stand at this time. He denies any fever. He does have some nausea without vomiting. He has not had any diarrhea. He does not know if he has had any kind of fevers. 2: No acute events overnight. Patient remains afebrile. Seen and examined bedside. Continues to have nausea and little appetite. Denies abdominal pain or diarrhea. 11/26: No acute events overnight. Patient remains afebrile. Continues to be jaundiced. Little appetite but is tolerating clears. 11/27: Afebrile. Still with some nausea, decreased appetite. Plan for ERCP in am 11/28: A bit improved today a little stronger. Labs minimally improved. K3.4. ERCP with sphincterotomy, not able to place stent 11/29: Very drowsy today. Labs relatively unchanged. PTC with biliary drain placement in IR 11/30: Afebrile. A little less drowsy today but difficulty keeping his eyes open. He does not have much appetite. Biliary drain with 175 cc out this morning. Bilirubin down to 17.3. He is asking for hospice referral and his other options. 12/01: Afebrile. Was more active yesterday and is more awake. Appetite about the same. Biliary drain with over 200cc drained and currently with 200 cc in it. Bilirubin down to 12. Met with oncology today notably this biliary stricture does not seem to be related to his cancer and patient is asked if he could potentially have a referral to [facility] for another endoscopy opinion for biliary stenting. Afebrile. Biliary drain still with excellent output. Hb down to 8.1 from 10.6. Bilirubin trended down to 10.6 alkaline phosphatase 583 AST 94 ALT 83. He is more alert and stronger today. Still requires max assistance up to chair but is able to help. Appetite still not improved. He is still thinking about speaking with his family about the possibility of referral to [facility] for further endoscopy versus home with hospice. He wants to continue current care for now. Vitals/I&O Vitals/I&O: Vital Signs Date Time Temp Pulse Resp B/P (MAP) Pulse Ox O2 Delivery O2 Flow Rate FiO2 12/02/20 05:38 18 100 Room Air 2.0 12/02/20 03:00 97.8 96 147/82 (103) 97.8 I & O 12/01/20 12/01/20 12/02/20 15:00 23:00 07:00 Intake Total 300 ml 240 ml 120 ml Output Total 125 ml Balance 300 ml 240 ml -5 ml Physical Exam General: Alert, Oriented X3, Other (Icteric) Heart: Regular rate Lungs: Clear Abdomen: Normal bowel sounds, Soft, Other (Percutaneous biliary drain noted) Extremities: No clubbing Skin: No rashes Labs Labs: Laboratory Tests Test 12/01/20 08:46 12/01/20 10:45 12/01/20 16:49 12/01/20 20:47 Sodium Level 135 mmol/L (136-145) Potassium Level 4.0 mmol/L (3.5-5.1) Chloride Level 102 mmol/L (98-107) Carbon Dioxide Level 26 mmol/L (21-32) Anion Gap 7 (6-14) Blood Urea Nitrogen 18 mg/dL (8-26) Creatinine 1.3 mg/dL (0.7-1.3) Estimated GFR (Cockcroft-Gault) 55.1 BUN/Creatinine Ratio 14 (6-20) Glucose Level 221 mg/dL (70-99) Calcium Level 8.2 mg/dL (8.5-10.1) Total Bilirubin 12.7 mg/dL (0.2-1.0) Aspartate Amino Transf (AST/SGOT) 126 U/L (15-37) Alanine Aminotransferase (ALT/SGPT) 103 U/L (16-63) Alkaline Phosphatase 683 U/L (46-116) Total Protein 4.9 g/dL (6.4-8.2) Albumin 1.6 g/dL (3.4-5.0) Albumin/Globulin Ratio 0.5 (1.0-1.7) Glucose (Fingerstick) 211 mg/dL (70-99) 198 mg/dL (70-99) 241 mg/dL (70-99) Assessment and Plan Assessmemt and Plan Problems Medical Problems: (1) Fall Status: Acute (2) Hyperbilirubinemia Status: Acute (3) Weakness Status: Acute Comment Review of Relevant I have reviewed the following items didier (where applicable) has been applied. Medications: Current Medications Medications (Trade) Dose Ordered Sig/Alex Route PRN Reason Start Time Stop Time Status Last Admin Dose Admin Ergocalciferol (Vitamin D2) 50,000 unit WEEKLY PO 12/01/20 09:00 12/01/20 08:20 Pantoprazole Sodium (Protonix) 40 mg DAILYAC PO 12/02/20 07:30 12/02/20 06:06 Justifications for Admission Abdominal Pain Indications Is patient in severe pain?: Yes Justification for admission: Patient has severe pain that requires (parenteral analgesic-please state analgesics and route) at least every 4 hours necessitating inpatient level of care. Is NPO status required?: Yes Justification for admission: Patient may require to be NPO for greater 24hours making it medically necessary to manage patient as inpatient. Other Justification Acute cholecystitis LAURA KIRBY MD Dec 02, 2020 08:36
[2020-12-02 10:08] LABS: BASO % 0 % (0-3); EOS # 0.1 x10^3/uL (0.0-0.7); EOS % 1 % (0-3); HEMATOCRIT 23.9 % (39.0-53.0); HEMOGLOBIN 8.1 g/dL (13.0-17.5); LYMPH # 0.4 x10^3/uL (1.0-4.8); LYMPH % 4 % (24-48); MEAN CORPUSCULAR HEMOGLOBIN 30 pg (25-35); MEAN CORPUSCULAR HGB CONC 34 g/dL (31-37); MEAN CORPUSCULAR VOLUME 88 fL (79-100); MONO # 0.9 x10^3/uL (0.0-1.1); MONO % 9 % (0-9); NEUT # 8.4 x10^3/uL (1.8-7.7); NEUT % 86 % (31-73); PLATELET COUNT 222 x10^3/uL (140-400); RED BLOOD COUNT 2.73 x10^6/uL (4.30-5.70); RED CELL DISTRIBUTION WIDTH 18.9 % (11.5-14.5); WHITE BLOOD COUNT 9.8 x10^3/uL (4.0-11.0)
[2020-12-02 10:24] LABS: ALBUMIN 1.7 g/dL (3.4-5.0); ALBUMIN/GLOBULIN RATIO 0.5 (1.0-1.7); CALCIUM 8.1 mg/dL (8.5-10.1); CREATININE 1.1 mg/dL (0.7-1.3); GFR 66.8; PHOSPHORUS 2.7 mg/dL (2.6-4.7); POTASSIUM 3.8 mmol/L (3.5-5.1); TOTAL BILIRUBIN 10.6 mg/dL (0.2-1.0); TOTAL PROTEIN 4.8 g/dL (6.4-8.2)
[2020-12-02 11:00] VITALS: BP 136/74
[2020-12-02 13:37] LABS: % EOS 1 % (0-5); % LYMPHS 5 % (24-48); % METAS 1 % (0-0); % MONOS 6 % (0-10); % SEGS 87 % (35-66)
[2020-12-02 13:38] LABS: ANISOCYTOSIS SLIGHT; PLT ESTIMATE ADEQUATE (ADEQUATE); POLYCHROMASIA SLIGHT; SPHEROCYTES PRESENT
[2020-12-02 15:00] VITALS: BP 134/79
[2020-12-02 19:00] VITALS: BP 141/77
[2020-12-02] MEDS: ATORVASTATIN CALCIUM 40 MG TABLET. PO SCH (20:48)
[2020-12-02] MEDS: ENOXAPARIN 40 MG/0.4 ML SYRINGE. SQ SCH (20:49)
[2020-12-02 23:00] VITALS: BP 150/90
[2020-12-03] MEDS: HYDROcodone/APAP 5/325MG 1 TAB TABLET PO PRN (01:05)
[2020-12-03] MEDS: IV NORMAL SALINE 1000ML BAG 1,000 ML IV SCH ×2 (02:28→09:15)
[2020-12-03 03:00] VITALS: BP 152/78
[2020-12-03] MEDS: ONDANSETRON PF 4 MG/2 ML VIAL. IVP PRN (06:52)
[2020-12-03 07:00] VITALS: BP 145/81
[2020-12-03 07:34] LABS: BASO % 0 % (0-3); EOS # 0.1 x10^3/uL (0.0-0.7); EOS % 2 % (0-3); HEMATOCRIT 23.2 % (39.0-53.0); HEMOGLOBIN 7.7 g/dL (13.0-17.5); LYMPH # 0.4 x10^3/uL (1.0-4.8); LYMPH % 5 % (24-48); MEAN CORPUSCULAR HEMOGLOBIN 29 pg (25-35); MEAN CORPUSCULAR HGB CONC 33 g/dL (31-37); MEAN CORPUSCULAR VOLUME 89 fL (79-100); MONO # 0.9 x10^3/uL (0.0-1.1); MONO % 10 % (0-9); NEUT # 7.3 x10^3/uL (1.8-7.7); NEUT % 84 % (31-73); PLATELET COUNT 275 x10^3/uL (140-400); RED BLOOD COUNT 2.62 x10^6/uL (4.30-5.70); RED CELL DISTRIBUTION WIDTH 20.2 % (11.5-14.5); WHITE BLOOD COUNT 8.8 x10^3/uL (4.0-11.0)
[2020-12-03 07:38] LABS: ALBUMIN 1.9 g/dL (3.4-5.0); ALBUMIN/GLOBULIN RATIO 0.5 (1.0-1.7); CALCIUM 8.4 mg/dL (8.5-10.1); GFR 74.5; TOTAL BILIRUBIN 10.9 mg/dL (0.2-1.0); TOTAL PROTEIN 5.4 g/dL (6.4-8.2)
--- NOTE | 2020-12-03 08:30 | PDOC ---
[employer] PROGRESS NOTE Date of Service DOS: DATE: 12/03/20 TIME: 08:29 Chief Complaint Chief Complaint Acute generalized weakness due to obstructive jaundice Hyperbilirubinemia, likely direct due to biliary stricture in the extrahepatic biliary ducts Transaminitis likely due to hepatic congestion Severe protein malnutrition Metastatic gastric cancer Biliary stricture Cholelithiasis Abnormal unintentional weight loss Rapid COVID negative 11/26/20 ADA diet Full code Discussed with RN and SW Disposition pending GI evaluation Surrogate decision maker is the History of Present Illness History of Present Illness Mr Hannon is a 65-year-old male who presents to the emergency room complaining of severe weakness. He states that he initially started getting weak about 10 days ago and was admitted to the hospital at that time. He had elevated LFTs and yesterday had an MRCP which she has not gotten the results of. He was discharged home on Friday and his weakness is progressively gotten worse. Today his legs gave out and he continues to not eat or drink anything. He states that he is unable to stand at this time. He denies any fever. He does have some nausea without vomiting. He has not had any diarrhea. He does not know if he has had any kind of fevers. 2: No acute events overnight. Patient remains afebrile. Seen and examined bedside. Continues to have nausea and little appetite. Denies abdominal pain or diarrhea. 11/26: No acute events overnight. Patient remains afebrile. Continues to be jaundiced. Little appetite but is tolerating clears. 11/27: Afebrile. Still with some nausea, decreased appetite. Plan for ERCP in am 11/28: A bit improved today a little stronger. Labs minimally improved. K3.4. ERCP with sphincterotomy, not able to place stent 11/29: Very drowsy today. Labs relatively unchanged. PTC with biliary drain placement in IR 11/30: Afebrile. A little less drowsy today but difficulty keeping his eyes open. He does not have much appetite. Biliary drain with 175 cc out this morning. Bilirubin down to 17.3. He is asking for hospice referral and his other options. 12/01: Afebrile. Was more active yesterday and is more awake. Appetite about the same. Biliary drain with over 200cc drained and currently with 200 cc in it. Bilirubin down to 12. Met with oncology today notably this biliary stricture does not seem to be related to his cancer and patient is asked if he could potentially have a referral to [facility] for another endoscopy opinion for biliary stenting. 12/02: Afebrile. Biliary drain still with excellent output. Hb down to 8.1 from 10.6. Bilirubin trended down to 10.6 alkaline phosphatase 583 AST 94 ALT 83. He is more alert and stronger today. Still requires max assistance up to chair but is able to help. Appetite still not improved. He is still thinking about speaking with his family about the possibility of referral to [facility] for further endoscopy versus home with hospice. He wants to continue current care for now. Afebrile. WBC 8.8, Hb 7.7, platelets 2 7 PERRLA, bilirubin 10.9, alkaline phosp hatase 572, AST 85, ALT 77. He is feeling stronger and improved. He would like to discharge home with home health and follow-up outpatient for his potential referral for second opinion on biliary stenting and does have outpatient follow- up with vascular and GI and with oncology Dr. Fuentes. Plan: Cont drain care at home Levaquin 7 days F/u outpatient Home health. Will transition to hospice care once his options are exhausted for definitive biliary stenting. Vitals/I&O Vitals/I&O: Vital Signs Date Time Temp Pulse Resp B/P (MAP) Pulse Ox O2 Delivery O2 Flow Rate FiO2 12/03/20 07:00 98.1 91 14 145/81 (102) 97 Room Air 98.1 12/02/20 15:00 2.0 I & O 12/02/20 12/02/20 12/03/20 15:00 23:00 07:00 Intake Total 100 ml 240 ml Output Total 50 ml Balance 100 ml 190 ml Physical Exam General: Alert, Oriented X3, Other (Icteric) Heart: Regular rate Lungs: Clear Abdomen: Normal bowel sounds, Soft, Other (Percutaneous biliary drain noted) Extremities: No clubbing Skin: No rashes Labs Labs: Laboratory Tests Test 12/02/20 09:29 12/02/20 11:35 12/02/20 16:34 12/02/20 20:55 White Blood Count 9.8 x10^3/uL (4.0-11.0) Red Blood Count 2.73 x10^6/uL (4.30-5.70) Hemoglobin 8.1 g/dL (13.0-17.5) Hematocrit 23.9 % (39.0-53.0) Mean Corpuscular Volume 88 fL (79-100) Mean Corpuscular Hemoglobin 30 pg (25-35) Mean Corpuscular Hemoglobin Concent 34 g/dL (31-37) Red Cell Distribution Width 18.9 % (11.5-14.5) Platelet Count 222 x10^3/uL (140-400) Neutrophils (%) (Auto) 86 % (31-73) Lymphocytes (%) (Auto) 4 % (24-48) Monocytes (%) (Auto) 9 % (0-9) Eosinophils (%) (Auto) 1 % (0-3) Basophils (%) (Auto) 0 % (0-3) Neutrophils # (Auto) 8.4 x10^3/uL (1.8-7.7) Lymphocytes # (Auto) 0.4 x10^3/uL (1.0-4.8) Monocytes # (Auto) 0.9 x10^3/uL (0.0-1.1) Eosinophils # (Auto) 0.1 x10^3/uL (0.0-0.7) Basophils # (Auto) 0.0 x10^3/uL (0.0-0.2) Segmented Neutrophils % 87 % (35-66) Lymphocytes % 5 % (24-48) Monocytes % 6 % (0-10) Eosinophils % 1 % (0-5) Metamyelocytes % 1 % (0-0) Platelet Estimate Adequate (ADEQUATE) Polychromasia Slight Anisocytosis Slight Spherocytes Present Sodium Level 138 mmol/L (136-145) Potassium Level 3.8 mmol/L (3.5-5.1) Chloride Level 104 mmol/L (98-107) Carbon Dioxide Level 27 mmol/L (21-32) Anion Gap 7 (6-14) Blood Urea Nitrogen 24 mg/dL (8-26) Creatinine 1.1 mg/dL (0.7-1.3) Estimated GFR (Cockcroft-Gault) 66.8 BUN/Creatinine Ratio 22 (6-20) Glucose Level 200 mg/dL (70-99) Calcium Level 8.1 mg/dL (8.5-10.1) Phosphorus Level 2.7 mg/dL (2.6-4.7) Total Bilirubin 10.6 mg/dL (0.2-1.0) Aspartate Amino Transf (AST/SGOT) 94 U/L (15-37) Alanine Aminotransferase (ALT/SGPT) 83 U/L (16-63) Alkaline Phosphatase 583 U/L (46-116) Total Protein 4.8 g/dL (6.4-8.2) Albumin 1.7 g/dL (3.4-5.0) Albumin/Globulin Ratio 0.5 (1.0-1.7) Glucose (Fingerstick) 202 mg/dL (70-99) 209 mg/dL (70-99) 178 mg/dL (70-99) Test 12/03/20 06:08 12/03/20 07:55 White Blood Count 8.8 x10^3/uL (4.0-11.0) Red Blood Count 2.62 x10^6/uL (4.30-5.70) Hemoglobin 7.7 g/dL (13.0-17.5) Hematocrit 23.2 % (39.0-53.0) Mean Corpuscular Volume 89 fL (79-100) Mean Corpuscular Hemoglobin 29 pg (25-35) Mean Corpuscular Hemoglobin Concent 33 g/dL (31-37) Red Cell Distribution Width 20.2 % (11.5-14.5) Platelet Count 275 x10^3/uL (140-400) Neutrophils (%) (Auto) 84 % (31-73) Lymphocytes (%) (Auto) 5 % (24-48) Monocytes (%) (Auto) 10 % (0-9) Eosinophils (%) (Auto) 2 % (0-3) Basophils (%) (Auto) 0 % (0-3) Neutrophils # (Auto) 7.3 x10^3/uL (1.8-7.7) Lymphocytes # (Auto) 0.4 x10^3/uL (1.0-4.8) Monocytes # (Auto) 0.9 x10^3/uL (0.0-1.1) Eosinophils # (Auto) 0.1 x10^3/uL (0.0-0.7) Basophils # (Auto) 0.0 x10^3/uL (0.0-0.2) Sodium Level 136 mmol/L (136-145) Potassium Level 4.0 mmol/L (3.5-5.1) Chloride Level 104 mmol/L (98-107) Carbon Dioxide Level 27 mmol/L (21-32) Anion Gap 5 (6-14) Blood Urea Nitrogen 20 mg/dL (8-26) Creatinine 1.0 mg/dL (0.7-1.3) Estimated GFR (Cockcroft-Gault) 74.5 BUN/Creatinine Ratio 20 (6-20) Glucose Level 198 mg/dL (70-99) Calcium Level 8.4 mg/dL (8.5-10.1) Total Bilirubin 10.9 mg/dL (0.2-1.0) Aspartate Amino Transf (AST/SGOT) 85 U/L (15-37) Alanine Aminotransferase (ALT/SGPT) 72 U/L (16-63) Alkaline Phosphatase 572 U/L (46-116) Total Protein 5.4 g/dL (6.4-8.2) Albumin 1.9 g/dL (3.4-5.0) Albumin/Globulin Ratio 0.5 (1.0-1.7) Glucose (Fingerstick) 192 mg/dL (70-99) Assessment and Plan Assessmemt and Plan Problems Medical Problems: (1) Fall Status: Acute (2) Hyperbilirubinemia Status: Acute (3) Weakness Status: Acute Comment Review of Relevant I have reviewed the following items didier (where applicable) has been applied. Justifications for Admission Abdominal Pain Indications Is patient in severe pain?: Yes Justification for admission: Patient has severe pain that requires (parenteral analgesic-please state analgesics and route) at least every 4 hours necessitating inpatient level of care. Is NPO status required?: Yes Justification for admission: Patient may require to be NPO for greater 24hours making it medically necessary to manage patient as inpatient. Other Justification Acute cholecystitis LAURA KIRBY MD Dec 03, 2020 08:29
[2020-12-03] MEDS: CYANOCOBALAMIN (VITAMIN B-12) 1,000 MCG TABLET. PO SCH (09:13)
[2020-12-03] MEDS: LACTOBACILLUS RHAMNOSUS GG 1 CAPSULE. PO SCH (09:13)
[2020-12-03] MEDS: SUCRALFATE 1 GM TABLET. PO SCH (09:14)
[2020-12-03] MEDS: PANTOPRAZOLE 40 MG TABLET.DR. PO SCH (09:14)
[2020-12-03] MEDS: FLUoxetine HCL 20 MG CAPSULE PO SCH (09:14)
[2020-12-03] MEDS: INSULIN LISPRO 300 UNITS/3 ML VIAL. SQ SCH ×3 (09:22→17:40)
[2020-12-03] MEDS ORDERED: LEVO500T8 PO (10:46)
--- NOTE | 2020-12-03 10:54 | SNU/HH DC ---
DISCHARGE WITH HOME HEALTH DISCHARGE INFORMATION: Discharge Date: Dec 03, 2020 Final Diagnosis: Problems Medical Problems: (1) Fall Status: Acute (2) Hyperbilirubinemia Status: Acute (3) Weakness Status: Acute Condition on Discharge: Stable CODE STATUS: Code Status: Full HOME HEALTH: Face to Face: I certify this patient is under my care and that I, or a nurse practitioner or physician's graduate assistant working with me, had a face to face encounter that meets the physician face to face encounter requirements with this patient on 12/03/20. Medical Complications: HTN, Other (Gastric cancer) Longterm For: Assess & Educate Safety, Assess/Skilled Observatio, Becki betic Care, Medication Management, Pain Management, rn cardiovascular For Eval/Treatment: Yes Physical Therapy For: Evalulation/Treatment Occupational Therapy For: Evaluation/Treatment Pt Meets Homebound Status: Extreme weakness w/ amb. POST DISCHARGE ORDERS: Activity Instructions for Disc: Activity as tolerated Weight Bearing Status after Di: As tolerated DIET AFTER DISCHARGE: ADA CHECKS AFTER DISCHARGE: Checks after discharge: Check blood press - daily, Check blood sugar, ac/hs FOLLOW-UP: PCP to follow Home Health: Dr. Fuentes - oncology [phone] [address] [address] Follow up with: Dr. Alfredo Buchanan Oncology 3 days Follow Up With: Dr. Vega- [phone] Additional Instructions: Dr. Alfredo gonzalez [phone] [address] [address] Vega [address] [place] [address] P: [phone] F: [phone] TREATMENT/EQUIPMENT ORDERS: Adaptive Equipment Issued: None CERTIFICATION STATEMENT: Certification Statement: Certification Statement: Based on the above finding, I certify that this patient is confined to the home and needs intermittent half-way care, physical therapy and/or speech therapy, or continues to need occupational therapy.~ This patient is under my care, and I have initiated the establishment of the plan of care.~ This patient will be followed by myself or a community physician who will periodically review the plan of care. Home Meds Active Scripts Levofloxacin (LEVOFLOXACIN) 500 Mg Tablet, 1 TAB PO DAILY for Biliary drain for 7 Days, #7 TAB Prov:LAURA KIRBY MD 12/03/20 Reported Medications Ondansetron (ONDANSETRON ODT) 8 Mg Tab.rapdis, 8 MG PO Q6HRS for nausea 11/25/20 Prochlorperazine Maleate (Prochlorperazine Maleate) 10 Mg Tablet, 1 TAB PO Q6H for nausea 11/25/20 Sucralfate (CARAFATE) 1 Gm Tablet, 1 GM PO BID for gerd, TAB 09/13/20 Hydrocodone/Apap 5-325 (NORCO 5-325 TABLET) 1 Each Tablet, 1-2 TAB PO Q6HRS for pain, #12 TAB 01/13/20 Cyanocobalamin (Vitamin B-12) (VITAMIN B-12) 1,000 Mcg Tablet, 1 TAB PO DAILY for VITAMIN DEFICIENCY for 30 Days, #30 TAB 0 Refills 01/04/20 Pantoprazole Sodium (PROTONIX ) 40 Mg Tablet.dr, 40 MG PO DAILYAC for GERD, TAB 01/04/20 Insulin Degludec (Tresiba) 100 Unit/1 Ml Vial, 45 UNIT SQ HS for diabetes, EACH 01/02/20 Rosuvastatin Calcium (CRESTOR) 40 Mg Tablet, 20 MG PO HS for FOR CHOLESTEROL, #30 TAB 0 Refills 01/02/20 Insulin Aspart (NOVOLOG) 100 Unit/1 Ml Cartridge, 25 UNIT SQ TIDBFRMEAL for diabetes, EACH 01/02/20 Allopurinol (ALLOPURINOL) 300 Mg Tablet, 1 TAB PO HS for gout, #30 TAB 5 Refills 01/02/20 Fluoxetine Hcl (FLUOXETINE HCL) 40 Mg Capsule, 1 CAP PO DAILYWBKFT for antidepressant, #30 CAP 2 Refills 02/12/19 Ergocalciferol (Vitamin D2) (VITAMIN D2) 50,000 Unit Capsule, 1 CAP PO WEEKLY for supplement, #12 CAP 02/12/19 Amlodipine Besylate (AMLODIPINE BESYLATE) 5 Mg Tablet, 5 MG PO DAILY for hypertension, TAB 02/12/19 Discontinued Reported Medications Icosapent Ethyl (VASCEPA) 1 Gm Capsule, 2 CAP PO BID for cholesterol for 30 Days, #120 CAP 0 Refills 01/02/20 Lisinopril (LISINOPRIL) 20 Mg Tablet, 1 TAB PO DAILY for hypertension, #30 TAB 5 Refills 02/12/19 Bisoprolol Fumarate/Hctz (BISOPROLOL-HCTZ 10-6.25 MG TAB) 1 Each Tablet, 1 TAB PO DAILY for hypertension, #30 TAB 5 Refills 02/12/19 LAURA KIRBY MD Dec 03, 2020 10:54
--- NOTE | 2020-12-03 10:59 | PDOC3 ---
Discharge Summary Visit Information Date of Admission: Nov 24, 2020 Date of Discharge: Dec 03, 2020 Admitting Diagnosis: Hyperbilirubinemia Final Diagnosis Problems Medical Problems: (1) Fall Status: Acute (2) Hyperbilirubinemia Status: Acute (3) Weakness Status: Acute Brief Hospital Course Allergies Allergies Coded Allergies Type Severity Reaction Last Updated Verified No Known Drug Allergies 11/29/20 No Vital Signs Vital Signs Date Time Temp Pulse Resp B/P (MAP) Pulse Ox O2 Delivery O2 Flow Rate FiO2 12/03/20 07:00 98.1 91 14 145/81 (102) 97 Room Air 98.1 12/02/20 15:00 2.0 Lab Results Laboratory Tests Test 12/01/20 16:49 12/01/20 20:47 12/02/20 07:56 12/02/20 09:29 Glucose (Fingerstick) 198 mg/dL (70-99) 241 mg/dL (70-99) 197 mg/dL (70-99) White Blood Count 9.8 x10^3/uL (4.0-11.0) Red Blood Count 2.73 x10^6/uL (4.30-5.70) Hemoglobin 8.1 g/dL (13.0-17.5) Hematocrit 23.9 % (39.0-53.0) Mean Corpuscular Volume 88 fL (79-100) Mean Corpuscular Hemoglobin 30 pg (25-35) Mean Corpuscular Hemoglobin Concent 34 g/dL (31-37) Red Cell Distribution Width 18.9 % (11.5-14.5) Platelet Count 222 x10^3/uL (140-400) Neutrophils (%) (Auto) 86 % (31-73) Lymphocytes (%) (Auto) 4 % (24-48) Monocytes (%) (Auto) 9 % (0-9) Eosinophils (%) (Auto) 1 % (0-3) Basophils (%) (Auto) 0 % (0-3) Neutrophils # (Auto) 8.4 x10^3/uL (1.8-7.7) Lymphocytes # (Auto) 0.4 x10^3/uL (1.0-4.8) Monocytes # (Auto) 0.9 x10^3/uL (0.0-1.1) Eosinophils # (Auto) 0.1 x10^3/uL (0.0-0.7) Basophils # (Auto) 0.0 x10^3/uL (0.0-0.2) Segmented Neutrophils % 87 % (35-66) Lymphocytes % 5 % (24-48) Monocytes % 6 % (0-10) Eosinophils % 1 % (0-5) Metamyelocytes % 1 % (0-0) Platelet Estimate Adequate (ADEQUATE) Polychromasia Slight Anisocytosis Slight Spherocytes Present Sodium Level 138 mmol/L (136-145) Potassium Level 3.8 mmol/L (3.5-5.1) Chloride Level 104 mmol/L (98-107) Carbon Dioxide Level 27 mmol/L (21-32) Anion Gap 7 (6-14) Blood Urea Nitrogen 24 mg/dL (8-26) Creatinine 1.1 mg/dL (0.7-1.3) Estimated GFR (Cockcroft-Gault) 66.8 BUN/Creatinine Ratio 22 (6-20) Glucose Level 200 mg/dL (70-99) Calcium Level 8.1 mg/dL (8.5-10.1) Phosphorus Level 2.7 mg/dL (2.6-4.7) Total Bilirubin 10.6 mg/dL (0.2-1.0) Aspartate Amino Transf (AST/SGOT) 94 U/L (15-37) Alanine Aminotransferase (ALT/SGPT) 83 U/L (16-63) Alkaline Phosphatase 583 U/L (46-116) Total Protein 4.8 g/dL (6.4-8.2) Albumin 1.7 g/dL (3.4-5.0) Albumin/Globulin Ratio 0.5 (1.0-1.7) Test 12/02/20 11:35 12/02/20 16:34 12/02/20 20:55 12/03/20 06:08 Glucose (Fingerstick) 202 mg/dL (70-99) 209 mg/dL (70-99) 178 mg/dL (70-99) White Blood Count 8.8 x10^3/uL (4.0-11.0) Red Blood Count 2.62 x10^6/uL (4.30-5.70) Hemoglobin 7.7 g/dL (13.0-17.5) Hematocrit 23.2 % (39.0-53.0) Mean Corpuscular Volume 89 fL (79-100) Mean Corpuscular Hemoglobin 29 pg (25-35) Mean Corpuscular Hemoglobin Concent 33 g/dL (31-37) Red Cell Distribution Width 20.2 % (11.5-14.5) Platelet Count 275 x10^3/uL (140-400) Neutrophils (%) (Auto) 84 % (31-73) Lymphocytes (%) (Auto) 5 % (24-48) Monocytes (%) (Auto) 10 % (0-9) Eosinophils (%) (Auto) 2 % (0-3) Basophils (%) (Auto) 0 % (0-3) Neutrophils # (Auto) 7.3 x10^3/uL (1.8-7.7) Lymphocytes # (Auto) 0.4 x10^3/uL (1.0-4.8) Monocytes # (Auto) 0.9 x10^3/uL (0.0-1.1) Eosinophils # (Auto) 0.1 x10^3/uL (0.0-0.7) Basophils # (Auto) 0.0 x10^3/uL (0.0-0.2) Sodium Level 136 mmol/L (136-145) Potassium Level 4.0 mmol/L (3.5-5.1) Chloride Level 104 mmol/L (98-107) Carbon Dioxide Level 27 mmol/L (21-32) Anion Gap 5 (6-14) Blood Urea Nitrogen 20 mg/dL (8-26) Creatinine 1.0 mg/dL (0.7-1.3) Estimated GFR (Cockcroft-Gault) 74.5 BUN/Creatinine Ratio 20 (6-20) Glucose Level 198 mg/dL (70-99) Calcium Level 8.4 mg/dL (8.5-10.1) Total Bilirubin 10.9 mg/dL (0.2-1.0) Aspartate Amino Transf (AST/SGOT) 85 U/L (15-37) Alanine Aminotransferase (ALT/SGPT) 72 U/L (16-63) Alkaline Phosphatase 572 U/L (46-116) Total Protein 5.4 g/dL (6.4-8.2) Albumin 1.9 g/dL (3.4-5.0) Albumin/Globulin Ratio 0.5 (1.0-1.7) Test 12/03/20 07:55 Glucose (Fingerstick) 192 mg/dL (70-99) Laboratory Tests Test 12/02/20 11:35 12/02/20 16:34 12/02/20 20:55 12/03/20 06:08 Glucose (Fingerstick) 202 mg/dL (70-99) 209 mg/dL (70-99) 178 mg/dL (70-99) White Blood Count 8.8 x10^3/uL (4.0-11.0) Red Blood Count 2.62 x10^6/uL (4.30-5.70) Hemoglobin 7.7 g/dL (13.0-17.5) Hematocrit 23.2 % (39.0-53.0) Mean Corpuscular Volume 89 fL (79-100) Mean Corpuscular Hemoglobin 29 pg (25-35) Mean Corpuscular Hemoglobin Concent 33 g/dL (31-37) Red Cell Distribution Width 20.2 % (11.5-14.5) Platelet Count 275 x10^3/uL (140-400) Neutrophils (%) (Auto) 84 % (31-73) Lymphocytes (%) (Auto) 5 % (24-48) Monocytes (%) (Auto) 10 % (0-9) Eosinophils (%) (Auto) 2 % (0-3) Basophils (%) (Auto) 0 % (0-3) Neutrophils # (Auto) 7.3 x10^3/uL (1.8-7.7) Lymphocytes # (Auto) 0.4 x10^3/uL (1.0-4.8) Monocytes # (Auto) 0.9 x10^3/uL (0.0-1.1) Eosinophils # (Auto) 0.1 x10^3/uL (0.0-0.7) Basophils # (Auto) 0.0 x10^3/uL (0.0-0.2) Sodium Level 136 mmol/L (136-145) Potassium Level 4.0 mmol/L (3.5-5.1) Chloride Level 104 mmol/L (98-107) Carbon Dioxide Level 27 mmol/L (21-32) Anion Gap 5 (6-14) Blood Urea Nitrogen 20 mg/dL (8-26) Creatinine 1.0 mg/dL (0.7-1.3) Estimated GFR (Cockcroft-Gault) 74.5 BUN/Creatinine Ratio 20 (6-20) Glucose Level 198 mg/dL (70-99) Calcium Level 8.4 mg/dL (8.5-10.1) Total Bilirubin 10.9 mg/dL (0.2-1.0) Aspartate Amino Transf (AST/SGOT) 85 U/L (15-37) Alanine Aminotransferase (ALT/SGPT) 72 U/L (16-63) Alkaline Phosphatase 572 U/L (46-116) Total Protein 5.4 g/dL (6.4-8.2) Albumin 1.9 g/dL (3.4-5.0) Albumin/Globulin Ratio 0.5 (1.0-1.7) Test 12/03/20 07:55 Glucose (Fingerstick) 192 mg/dL (70-99) Brief Hospital Course Mr Hannon is a 65-year-old male who presents to the emergency room complaining of severe weakness. He states that he initially started getting weak about 10 days ago and was admitted to the hospital at that time. He had elevated LFTs and yesterday had an MRCP which she has not gotten the results of. He was discharged home on Friday and his weakness is progressively gotten worse. Today his legs gave out and he continues to not eat or drink anything. He states that he is unable to stand at this time. He denies any fever. He does have some nausea without vomiting. He has not had any diarrhea. He does not know if he has had any kind of fevers. 1/2: No acute events overnight. Patient remains afebrile. Seen and examined bedside. Continues to have nausea and little appetite. Denies abdominal pain or diarrhea. 11/26: No acute events overnight. Patient remains afebrile. Continues to be jaundiced. Little appetite but is tolerating clears. 4: Afebrile. Still with some nausea, decreased appetite. Plan for ERCP in am 11/28: A bit improved today a little stronger. Labs minimally improved. K3.4. ERCP with sphincterotomy, not able to place stent 11/29: Very drowsy today. Labs relatively unchanged. PTC with biliary drain placement in IR 11/30: Afebrile. A little less drowsy today but difficulty keeping his eyes open. He does not have much appetite. Biliary drain with 175 cc out this morning. Bilirubin down to 17.3. He is asking for hospice referral and his other o ptions. 12/01: Afebrile. Was more active yesterday and is more awake. Appetite about the same. Biliary drain with over 200cc drained and currently with 200 cc in it. Bilirubin down to 12. Met with oncology today notably this biliary stricture does not seem to be related to his cancer and patient is asked if he could potentially have a referral to [facility] for another endoscopy opinion for biliary stenting. 12/02: Afebrile. Biliary drain still with excellent output. Hb down to 8.1 from 10.6. Bilirubin trended down to 10.6 alkaline phosphatase 583 AST 94 ALT 83. He is more alert and stronger today. Still requires max assistance up to chair but is able to help. Appetite still not improved. He is still thinking about speaking with his family about the possibility of referral to [facility] for further endoscopy versus home with hospice. He wants to continue current care for now. Afebrile. WBC 8.8, Hb 7.7, platelets 2 7 PERRLA, bilirubin 10.9, alkaline phosphatase 572, AST 85, ALT 77. He is feeling stronger and improved. He would like to discharge home with home health and follow-up outpatient for his potential referral for second opinion on biliary stenting and does have outpatient follow-up with vascular and GI and with oncology Dr. Fuentes. Consults: GI, general surgery, Oncology Problem list: Acute generalized weakness due to obstructive jaundice Hyperbilirubinemia, likely direct due to biliary stricture in the extrahepatic biliary ducts Transaminitis likely due to hepatic congestion Severe protein malnutrition Metastatic gastric cancer Biliary stricture Cholelithiasis Abnormal unintentional weight loss Plan: Cont drain care at home Levaquin 7 days F/u outpatient Home health. Will transition to hospice care once his options are exhausted for definitive biliary stenting. Greater than 30 minutes spent on d/c Discharge Information Condition at Discharge: Improved Follow Up: Weeks (1) Disposition/Orders: D/C to Home w/ HH Scheduled Allopurinol (Allopurinol) 300 Mg Tablet, 1 TAB PO HS for gout, #30 Ref 5 (Reported) Entered as Reported by: ROYA DAVIS on 01/02/20 1014 Amlodipine Besylate (Amlodipine Besylate) 5 Mg Tablet, 5 MG PO DAILY for hypertension, (Reported) Entered as Reported by: FAVIOLA DONG on 02/12/19 0738 Cyanocobalamin (Vitamin B-12) (Vitamin B-12) 1,000 Mcg Tablet, 1 TAB PO DAILY for VITAMIN DEFICIENCY for 30 Days, #30 Ref 0 (Reported) Entered as Reported by: ARTUR ARELLANO on 01/04/20 1733 Last Action: Continued on 11/24/202128 by CHINYERE PETERSON Ergocalciferol (Vitamin D2) (Vitamin D2) 50,000 Unit Capsule, 1 CAP PO WEEKLY for supplement, #12 (Reported) Entered as Reported by: FAVIOLA DONG on 02/12/19 0741 Last Action: Continued on 11/24/202128 by CHINYERE PETERSON Fluoxetine Hcl (Fluoxetine Hcl) 40 Mg Capsule, 1 CAP PO DAILYWBKFT for antidepressant, #30 Ref 2 (Reported) Entered as Reported by: FAVIOLA DONG on 02/12/19 0741 Last Action: Converted on 11/24/202128 by CHINYERE PETERSON Hydrocodone/Apap 5-325 (Hoven 5-325 Tablet) 1 Each Tablet, 1-2 TAB PO Q6HRS for pain, #12 (Reported) Entered as Reported by: AMARI HERNANDEZ RN on 01/13/20 1117 Last Action: Continued on 11/24/202128 by CHINYERE PETERSON Insulin Aspart (Novolog) 100 Unit/1 Ml Cartridge, 25 UNIT SQ TIDBFRMEAL for diabetes, (Reported) Entered as Reported by: ROYA DAVIS on 01/02/20 1019 Insulin Degludec (Tresiba) 100 Unit/1 Ml Vial, 45 UNIT SQ HS for diabetes, (Reported) Entered as Reported by: ROYA DAVIS on 01/02/20 1020 Levofloxacin (Levofloxacin) 500 Mg Tablet, 1 TAB PO DAILY for Biliary drain for 7 Days, #7 Prescribed by: LAURA KIRBY MD on 12/03/20 1046 Ondansetron (Ondansetron Odt) 8 Mg Tab.rapdis, 8 MG PO Q6HRS for nausea, (Reported) Entered as Reported by: CHINYERE PETERSON on 11/25/20732 Last Action: Converted on 11/25/20733 by CHINYERE PETERSON Pantoprazole Sodium (Protonix ) 40 Mg Tablet.dr, 40 MG PO DAILYAC for GERD, (Reported) Entered as Reported by: ARTUR ARELLANO on 01/04/20 1732 Last Action: Continued on 11/24/202128 by CHINYERE PETERSON Prochlorperazine Maleate (Prochlorperazine Maleate) 10 Mg Tablet, 1 TAB PO Q6H for nausea, (Reported) Entered as Reported by: CHINYERE PETERSON on 11/25/20732 Last Action: Converted on 11/25/20733 by CHINYERE PETERSON Rosuvastatin Calcium (Crestor) 40 Mg Tablet, 20 MG PO HS for FOR CHOLESTEROL, #3 0 Ref 0 (Reported) Entered as Reported by: ROYA DAVIS on 01/02/20 101 Last Action: Converted on 11/24/202128 by CHINYERE PETERSON Sucralfate (Carafate) 1 Gm Tablet, 1 GM PO BID for gerd, (Reported) Entered as Reported by: SHERIF AYALA on 09/13/20 1521 Last Action: Continued on 11/24/202128 by CHINYERE PETERSON Discontinued Medications Bisoprolol Fumarate/Hctz (Bisoprolol-Hctz 10-6.25 Mg Tab) 1 Each Tablet, 1 TAB PO DAILY for hypertension, #30 Ref 5 (Reported) Entered as Reported by: FAVIOLA DONG on 02/12/19 0737 Icosapent Ethyl (Vascepa) 1 Gm Capsule, 2 CAP PO BID for cholesterol for 30 Days, #120 Ref 0 (Reported) Entered as Reported by: ROYA DAVIS on 01/02/20 101 Last Action: Converted on 11/24/202128 by CHINYERE PETERSON Lisinopril (Lisinopril) 20 Mg Tablet, 1 TAB PO DAILY for hypertension, #30 Ref 5 (Reported) Entered as Reported by: FAVIOLA DONG on 02/12/19 0738 Justicifation of Admission Dx: Justifications for Admission: Justification of Admission Dx: Yes LAURA KIRBY MD Dec 03, 2020 10:58
[2020-12-03 11:00] VITALS: BP 131/85
[2020-12-03 15:00] VITALS: BP 136/87
--- NOTE | 2020-12-03 18:28 | NUR ---
Pt was given discharge information, follow up information and new prescriptions. Pt's iv removed. Pt's drain dressing was changed. All patients belongings left at the time of discharge, pt leaving with home health services, [facility]. Pt left at 1745 escorted by hospital staff via wheelchair to vehicle.
== END 2020-12-03 17:45 | disposition home health service (06) | DRG 374 ==
LOC: ER 15:55 → 5 NORTH 17:13
PROVIDERS: ADMIT Internal Medicine; ATTEND Internal Medicine
PROC: BF131ZZ Fluoroscopy of Gallbladder and Bile Ducts using Low Osmolar Contrast (ICD-10-PCS; 2020-11-28)
PROC: 0FJB8ZZ Inspection of Hepatobiliary Duct, Via Natural or Artificial Opening Endoscopic (ICD-10-PCS; principal; 2020-11-28 13:00)
PROC: 0F7 Hepatobiliary System and Pancreas, Dilation (ICD-10-PCS; 2020-11-29)
PROC: 0F9930Z Drainage of Common Bile Duct with Drainage Device, Percutaneous Approach (ICD-10-PCS; 2020-11-29)
DX: C16.9 Malignant neoplasm of stomach, unspecified (principal); K83.1 Obstruction of bile duct; E43 Unspecified severe protein-calorie malnutrition; C78.89 Secondary malignant neoplasm of other digestive organs; C78.4 Secondary malignant neoplasm of small intestine; K76.1 Chronic passive congestion of liver; D64.9 Anemia, unspecified; E10.9 Type 1 diabetes mellitus without complications; E78.00 Pure hypercholesterolemia, unspecified; E78.5 Hyperlipidemia, unspecified; I10 Essential (primary) hypertension; Z15.01 Genetic susceptibility to malignant neoplasm of breast; Z20.822 Contact with and (suspected) exposure to COVID-19; Z79.4 Long term (current) use of insulin; Z87.891 Personal history of nicotine dependence; F32.9 Major depressive disorder, single episode, unspecified; K21.9 Gastro-esophageal reflux disease without esophagitis; M10.9 Gout, unspecified; Z90.49 Acquired absence of other specified parts of digestive tract; Z88.8 Allergy status to other drugs, medicaments and biological substances; Z68.22 Body mass index [BMI] 22.0-22.9, adult
CPT/HCPCS: 36415; 43262; 43274; 47534; 74328; 76942; 80048; 80053; 82150; 82962; 83735; 84100; 84484; 85007; 85025; 85027; 85610; 87426; 93005; 96361; 96374; 99285; C1729; C1769; C9113; J0330; J0690; J0692; J0780; J1100; J1170; J1650; J1815; J1956; J2250; J2370; J2405; J2704; J3010; J3480; J3490; J7030; Q9967; U0003; 97110-GP; 97116-GP; 97530-GO; 97530-GP; 97535-GO; G0378

== ENCOUNTER 2020-12-11 11:50 | Inpatient (IN) | payer MEDICARE ==
[~2020-12-11] VITALS: Ht 185.4 cm; Wt 77.1 kg
[~2020-12-11 11:50] MED LIST changes: +LEVO500T8 PO; +LISI-334 PO; -LISI20TA18 PO; +ONDA8TAB15 PO; +PROC10TA2 PO
[2020-12-11 12:41] LABS: BASO % 0 % (0-3); EOS % 1 % (0-3); HEMATOCRIT 29.1 % (39.0-53.0); HEMOGLOBIN 9.8 g/dL (13.0-17.5); LYMPH # 0.2 x10^3/uL (1.0-4.8); LYMPH % 3 % (24-48); MEAN CORPUSCULAR HEMOGLOBIN 31 pg (25-35); MEAN CORPUSCULAR HGB CONC 34 g/dL (31-37); MEAN CORPUSCULAR VOLUME 93 fL (79-100); MONO # 0.6 x10^3/uL (0.0-1.1); MONO % 9 % (0-9); NEUT # 5.8 x10^3/uL (1.8-7.7); NEUT % 87 % (31-73); PLATELET COUNT 161 x10^3/uL (140-400); RED BLOOD COUNT 3.15 x10^6/uL (4.30-5.70); RED CELL DISTRIBUTION WIDTH 20.4 % (11.5-14.5); WHITE BLOOD COUNT 6.7 x10^3/uL (4.0-11.0)
[2020-12-11 12:49] LABS: PROTHROMBIN TIME PATIENT 15.3 SEC (11.7-14.0)
[2020-12-11 12:50] LABS: CALCIUM 8.8 mg/dL (8.5-10.1); GFR 74.5
[2020-12-11 12:57] LABS: ALBUMIN/GLOBULIN RATIO 0.5 (1.0-1.7); MAGNESIUM 1.6 mg/dL (1.8-2.4); TOTAL PROTEIN 5.9 g/dL (6.4-8.2)
--- NOTE | 2020-12-11 13:21 | PHYS DOC ---
Past Medical History Past Medical History: Cancer, Depression, Diabetes-Type I, Diabetes-Type II, GERD, High Cholesterol, Hypertension, Other Additional Past Medical Histor: STOMACH CA,GOUT/GI BLEED/LACTIC ACIDEMIA Past Surgical History: Tonsillectomy Smoking Status: Never Smoker Alcohol Use: None General Adult EDM: Chief Complaint: WEAKNESS/GENERALIZED HPI: HPI: Patient is a 65 year old male with a history of gastric cancer, history of biliary obstruction, currently has biliary drainage, presented to the ER today for evaluation of generalized weakness. Patient denies any fever, no nausea vomiting. Patient denies any headache. Patient denies any cough. Patient denies any chest pain. Patient states he has had no energy. Patient stated he is getting more jaundice. Review of Systems: Review of Systems: Constitutional: Denies fever or chills. [] Eyes: Denies change in visual acuity. [] HENT: Denies nasal congestion or sore throat. [] Respiratory: Denies cough or shortness of breath. [] Cardiovascular: Denies chest pain or edema. [] GI: Denies abdominal pain, nausea, vomiting, bloody stools or diarrhea. [] : Denies dysuria. [] Musculoskeletal: Denies back pain or joint pain. [] Integument: Denies rash. POSITIVE FOR JAUNDICE. Neurologic: Denies headache, focal weakness or sensory changes. POSITIVE FOR GENERALIZED WEAKNESS Endocrine: Denies polyuria or polydipsia. [] Lymphatic: Denies swollen glands. [] Psychiatric: Denies depression or anxiety. [] Heart Score: Risk Factors: Risk Factors: DM, Current or recent (<one month) smoker, HTN, HLP, family history of CAD, obesity. Risk Scores: Score 0 - 3: 2.5% MACE over next 6 weeks - Discharge Home Score 4 - 6: 20.3% MACE over next 6 weeks - Admit for Clinical Observation Score 7 - 10: 72.7% MACE over next 6 weeks - Early Invasive Strategies Allergies: Allergies: Allergies Coded Allergies Type Severity Reaction Last Updated Verified No Known Drug Allergies 11/29/20 No Physical Exam: PE: Constitutional: Well developed, well nourished, MILD acute distress, non-toxic appearance. [] HENT: Normocephalic, atraumatic, bilateral external ears normal, oropharynx moist, no oral exudates, nose normal. [] Eyes: PERRLA, EOMI, conjunctiva ICTERUS, no discharge. [] Neck: Normal range of motion, no tenderness, supple, no stridor. [] Cardiovascular:Heart rate regular rhythm, no murmur [] Lungs & Thorax: Bilateral breath sounds clear to auscultation [] Abdomen: Bowel sounds normal, soft, no tenderness, no masses, no pulsatile masses. Biliary drainage in place with tea color fluid. Skin: Warm, dry, JAUNDICE Back: No tenderness, no CVA tenderness. [] Extremities: No tenderness, no cyanosis, no clubbing, ROM intact, no edema. [] Neurologic: Alert and oriented X 3, normal motor function, normal sensory function, no focal deficits noted. [] Psychologic: Affect normal, judgement normal, mood normal. [] Current Patient Data: Labs: Laboratory Tests Test 12/11/20 12:29 White Blood Count 6.7 x10^3/uL (4.0-11.0) Red Blood Count 3.15 x10^6/uL (4.30-5.70) L Hemoglobin 9.8 g/dL (13.0-17.5) L Hematocrit 29.1 % (39.0-53.0) L Mean Corpuscular Volume 93 fL (79-100) Mean Corpuscular Hemoglobin 31 pg (25-35) Mean Corpuscular Hemoglobin Concent 34 g/dL (31-37) Red Cell Distribution Width 20.4 % (11.5-14.5) H Platelet Count 161 x10^3/uL (140-400) Neutrophils (%) (Auto) 87 % (31-73) H Lymphocytes (%) (Auto) 3 % (24-48) L Monocytes (%) (Auto) 9 % (0-9) Eosinophils (%) (Auto) 1 % (0-3) Basophils (%) (Auto) 0 % (0-3) Neutrophils # (Auto) 5.8 x10^3/uL (1.8-7.7) Lymphocytes # (Auto) 0.2 x10^3/uL (1.0-4.8) L Monocytes # (Auto) 0.6 x10^3/uL (0.0-1.1) Eosinophils # (Auto) 0.0 x10^3/uL (0.0-0.7) Basophils # (Auto) 0.0 x10^3/uL (0.0-0.2) Platelet Estimate Pending Prothrombin Time 15.3 SEC (11.7-14.0) H Prothrombin Time INR 1.3 (0.8-1.1) H Activated Partial Thromboplast Time 35 SEC (24-38) Sodium Level 139 mmol/L (136-145) Potassium Level 3.0 mmol/L (3.5-5.1) L Chloride Level 101 mmol/L (98-107) Carbon Dioxide Level 29 mmol/L (21-32) Anion Gap 9 (6-14) Blood Urea Nitrogen 16 mg/dL (8-26) Creatinine 1.0 mg/dL (0.7-1.3) Estimated GFR (Cockcroft-Gault) 74.5 BUN/Creatinine Ratio 16 (6-20) Glucose Level 234 mg/dL (70-99) H Calcium Level 8.8 mg/dL (8.5-10.1) Magnesium Level 1.6 mg/dL (1.8-2.4) L Total Bilirubin 15.0 mg/dL (0.2-1.0) H Aspartate Amino Transferase (AST) 88 U/L (15-37) H Alanine Aminotransferase (ALT) 56 U/L (16-63) Alkaline Phosphatase 377 U/L (46-116) H Total Protein 5.9 g/dL (6.4-8.2) L Albumin 2.0 g/dL (3.4-5.0) L Albumin/Globulin Ratio 0.5 (1.0-1.7) L Lipase 91 U/L (73-393) Laboratory Tests 12/11/20 12:29 Laboratory Tests 12/11/20 12:29 Vital Signs: Vital Signs Date Time Temp Pulse Resp B/P (MAP) Pulse Ox O2 Delivery O2 Flow Rate FiO2 12/11/20 11:50 98.0 123 24 131/80 (97) 98 Room Air 98.0 EKG: EKG: [] Radiology/Procedures: Radiology/Procedures: [] Course & Med Decision Making: Course & Med Decision Making Pertinent Labs and Imaging studies reviewed. (See chart for details) Patient is a 65-year-old male who presented with generalized weakness, increased jaundice due to biliary tree obstruction with biliary drainage in place. Patient is really weak, he was found to have hypokalemia and hypomagnesemia. Patient will be admitted to hospital. Dragon Disclaimer: Dragon Disclaimer: This electronic medical record was generated, in whole or in part, using a voice recognition dictation system. Departure Departure Impression: Primary Impression: Hyperbilirubinemia Additional Impressions: Hypokalemia Hypomagnesemia Weakness Disposition: ADMITTED INPT THIS HOSP Admitting Physician: SAMIA (Dr. King) Condition: STABLE Referrals: GELACIO PEREZ MD (PCP) BRITNEY SHEPARD DO Dec 11, 2020 13:21
[2020-12-11 13:37] LABS: % LYMPHS 5 % (24-48); % MONOS 3 % (0-10); % SEGS 92 % (35-66); PLT ESTIMATE ADEQUATE (ADEQUATE)
[2020-12-11] MEDS ORDERED: POTASSIUM CHLORIDE 10 MEQ TABLET.ER. PO ONE (13:45)
[2020-12-11] MEDS ORDERED: MAGNESIUM SULFATE 2GM 50 ML IV ONE (13:45)
--- NOTE | 2020-12-11 14:03 | PDOC1 ---
History and Physical Date of Admission Date of Admission DATE: 12/11/20 TIME: 14:02 Identification/Chief Complaint Chief Complaint Weakness, fall, jaundice Source Source: Chart review, Patient History of Present Illness History of Present Illness Mr Hannon is a 65-year-old w/ PMHX metastatic gastric cancer s/p radiation and palliative chemo, jaundice/malignant biliary stricture s/p ERCP w/ sphincterotomy 11/28/20 showing hilar obstruction and gastric mets to duodenum - stenting attempted but unsuccessful due to crumpling from stricture, and then s/p right internal external biliary drain placement by IR on 11/29/20 who presents to the emergency room complaining of severe weakness, worsening jaundice and slid off the toilet on 12/10/20 at home. He says he was feeling stronger at home after drain placement, able to eat and get around without his walker. Came at the insistence of his . He was discharged home on 12/03/20 and his weakness had initially improved, but over the past 24 hours stated getting much worse. He states that he is unable to stand at this time. He denies any fever. He does have some nausea without vomiting. He has not had any diarrhea. No fevers. Does note his dressing needs changed twice daily, has some red-tinged ascites at his drain site. Bile in drain, though clear fluid present as well. Met with oncology prior to d/c notably this biliary stricture does not seem to be related to his cancer and patient is asked if he could potentially have a referral to [facility] for another endoscopy opinion for biliary stenting. Hb 7.7 and bilirubin 10.9, alkaline phosphatase 572, AST 85, ALT 77 on discharge, was feeling stronger and improved with home health seeing him. Here today his bilirubin is 15 alkaline phosphatase 337 albumin 2 AST 88 INR 1.3 lipase 91. hb is 9.8. K 3, Mg 1.6 Admitted for further care. Past Medical History Cardiovascular: HTN, Hyperlipidemia GI: GI bleed Heme/Onc: Cancer Rheumatologic: Gout Endocrine: Diabetes Past Surgical History Past Surgical History: Tonsillectomy, Other Family History Family History: Cancer, Other Social History Smoke: No ALCOHOL: none Drugs: None Current Problem List Problem List Problems Medical Problems: (1) Hyperbilirubinemia Status: Acute (2) Hypokalemia Status: Acute (3) Hypomagnesemia Status: Acute Current Medications Current Medications Current Medications Magnesium Sulfate 50 ml @ 25 mls/hr 1X ONCE IV Last administered on 12/11/20at 13:48; Start 12/11/20 at 13:45; Stop 12/11/20 at 15:44 Potassium Chloride (Klor-Con) 40 meq 1X ONCE PO Last administered on 12/11/20at 13:47; Start 12/11/20 at 13:45; Stop 12/11/20 at 13:46; Status DC Active Scripts Active Levofloxacin 500 Mg Tablet 1 Tab PO DAILY 7 Days Reported Ondansetron Odt (Ondansetron) 8 Mg Tab.rapdis 8 Mg PO Q6HRS Prochlorperazine Maleate 10 Mg Tablet 1 Tab PO Q6H Carafate (Sucralfate) 1 Gm Tablet 1 Gm PO BID Napoleon 5-325 Tablet (Acetaminophen/Hydrocodone Bitart) 1 Each Tablet 1-2 Tab PO Q6HRS Vitamin B-12 (Cyanocobalamin (Vitamin B-12)) 1,000 Mcg Tablet 1 Tab PO DAILY 30 Days Protonix (Pantoprazole Sodium) 40 Mg Tablet.dr 40 Mg PO DAILYAC Tresiba (Insulin Degludec) 100 Unit/1 Ml Vial 45 Unit SQ HS Crestor (Rosuvastatin Calcium) 40 Mg Tablet 20 Mg PO HS Novolog (Insulin Aspart) 100 Unit/1 Ml Cartridge 25 Unit SQ TIDBFRMEAL Allopurinol 300 Mg Tablet 1 Tab PO HS Fluoxetine Hcl 40 Mg Capsule 1 Cap PO DAILYWBKFT Vitamin D2 (Ergocalciferol (Vitamin D2)) 50,000 Unit Capsule 1 Cap PO WEEKLY Amlodipine Besylate 5 Mg Tablet 5 Mg PO DAILY Allergies Allergies: Coded Allergies: No Known Drug Allergies (Unverified , 11/29/20) ROS General: YES: Fatigue, Malaise; No: Chills, Night Sweats, Appetite, Other PSYCHOLOGICAL ROS: No: Anxiety, Behavioral Disorder, Concentration difficultie, Decreased libido, Depression, Disorientation, Hallucinations, Hostility, Irritablity, Memory difficulties, Mood Swings, Obsessive thoughts, Physical abuse, Sexual abuse, Sleep disturbances, Suicidal ideation, Other Eyes: No Blurry vision, No Decreased vision, No Double vision, No Dry eyes, No Excessive tearing, No Eye Pain, No Itchy Eyes, No Loss of vision, No Photophobia, No Scotomata, No Uses contacts, No Uses glasses, No Other HEENT: No: Heacaches, Visual Changes, Hearing change, Nasal congestion, Nasal discharge, Oral lesions, Sinus pain, Sore Throat, Epistaxis, Sneezing, Snoring, Tinnitus, Vertigo, Vocal changes, Other ALLERGY AND IMMUNOLOGY: No: Hives, Insect Bite Sensitivity, Itchy/Watery Eyes, Nasal Congestion, Post Nasal Drip, Seasonal Allergies, Other Hematological and Lymphatic: No: Bleeding Problems, Blood Clots, Blood Transfusions, Brusing, Night Sweats, Pallor, Swollen Lymph Nodes, Other ENDOCRINE: No: Breast Changes, Galactorrhea, Hair Pattern Changes, Hot Flashes, Malaise/lethargy, Mood Swings, Palpitations, Polydipsia/polyuria, Skin Changes, Temperature Intolerance, Unexpected Weight Changes, Other Breast: No New/Changing Breast Lumps, No Nipple changes, No Nipple discharge, No Other Respiratory: No: Cough, Hemoptysis, Orthopnea, Pleuritic Pain, Shortness of breath, SOB with excertion, Sputum Changes, Stridor, Tachypnea, Wheezing, Other Cardiovascular: No Chest Pain, No Palpitations, No Orthopnea, No Paroxysmal Noc. Dyspnea, No Edema, No Lt Headedness, No Other Gastrointestinal: Yes Nausea, Yes Abdominal Pain; No Vomiting, No Diarrhea, No Constipation, No Melena, No Hematochezia, No Other Genitourinary: No Dysuria, No Frequency, No Incontinence, No Hematuria, No Retention, No Discharge, No Urgency, No Pain, No Flank Pain, No Other, No , No , No , No , No , No , No Musculoskeletal: No Gait Disturbance, No Joint Pain, No Joint Stiffness, No Joint Swelling, No Muscle Pain, No Muscular Weakness, No Pain In:, No Swelling In:, No Other Neurological: No Behavorial Changes, No Bowel/Bladder ControlChng, No Confusion, No Dizziness, No Gait Disturbance, No Headaches, No Impaired Coord/balance, No Memory Loss, No Numbness/Tingling, No Seizures, No Speech Problems, No Tremors, No Visual Changes, No Weakness, No Other Skin: No Dry Skin, No Eczema, No Hair Changes, No Lumps, No Mole Changes, No Mottling, No Nail Changes, No Pruritus, No Rash, No Skin Lesion Changes, No Other, No Acne Physical Exam General: Alert, Oriented X3, Cooperative, moderate distress HEENT: Atraumatic, PERRLA, EOMI, Mucous membr. moist/pink, Other (Icteric sclera) Lungs: Clear to auscultation, Normal air movement Heart: S1S2, RRR, no thrills, no rubs, no gallops, no murmurs Abdomen: Normal bowel sounds, Soft, No tenderness, No hepatosplenomegaly, No masses Rectal Exam: not examined Extremities: No clubbing, No cyanosis, No edema, Normal pulses, No tenderness/swelling Skin: No rashes, No breakdown, No significant lesion Neuro: Normal speech, Strength at 5/5 X4 ext, Normal tone, Sensation intact, Cranial nerves 3-12 NL, Reflexes 2+ Psych/Mental Status: Mental status NL, Mood NL Vitals Vitals Vital Signs Date Time Temp Pulse Resp B/P (MAP) Pulse Ox O2 Delivery O2 Flow Rate FiO2 12/11/20 11:50 98.0 123 24 131/80 (97) 98 Room Air 98.0 Labs Labs Laboratory Tests Test 12/11/20 12:29 12/11/20 12:30 White Blood Count 6.7 x10^3/uL (4.0-11.0) Red Blood Count 3.15 x10^6/uL (4.30-5.70) Hemoglobin 9.8 g/dL (13.0-17.5) Hematocrit 29.1 % (39.0-53.0) Mean Corpuscular Volume 93 fL (79-100) Mean Corpuscular Hemoglobin 31 pg (25-35) Mean Corpuscular Hemoglobin Concent 34 g/dL (31-37) Red Cell Distribution Width 20.4 % (11.5-14.5) Platelet Count 161 x10^3/uL (140-400) Neutrophils (%) (Auto) 87 % (31-73) Lymphocytes (%) (Auto) 3 % (24-48) Monocytes (%) (Auto) 9 % (0-9) Eosinophils (%) (Auto) 1 % (0-3) Basophils (%) (Auto) 0 % (0-3) Neutrophils # (Auto) 5.8 x10^3/uL (1.8-7.7) Lymphocytes # (Auto) 0.2 x10^3/uL (1.0-4.8) Monocytes # (Auto) 0.6 x10^3/uL (0.0-1.1) Eosinophils # (Auto) 0.0 x10^3/uL (0.0-0.7) Basophils # (Auto) 0.0 x10^3/uL (0.0-0.2) Segmented Neutrophils % 92 % (35-66) Lymphocytes % 5 % (24-48) Monocytes % 3 % (0-10) Platelet Estimate Adequate (ADEQUATE) Prothrombin Time 15.3 SEC (11.7-14.0) Prothromb Time International Ratio 1.3 (0.8-1.1) Activated Partial Thromboplast Time 35 SEC (24-38) Sodium Level 139 mmol/L (136-145) Potassium Level 3.0 mmol/L (3.5-5.1) Chloride Level 101 mmol/L (98-107) Carbon Dioxide Level 29 mmol/L (21-32) Anion Gap 9 (6-14) Blood Urea Nitrogen 16 mg/dL (8-26) Creatinine 1.0 mg/dL (0.7-1.3) Estimated GFR (Cockcroft-Gault) 74.5 BUN/Creatinine Ratio 16 (6-20) Glucose Level 234 mg/dL (70-99) Calcium Level 8.8 mg/dL (8.5-10.1) Magnesium Level 1.6 mg/dL (1.8-2.4) Total Bilirubin 15.0 mg/dL (0.2-1.0) Aspartate Amino Transf (AST/SGOT) 88 U/L (15-37) Alanine Aminotransferase (ALT/SGPT) 56 U/L (16-63) Alkaline Phosphatase 377 U/L (46-116) Total Protein 5.9 g/dL (6.4-8.2) Albumin 2.0 g/dL (3.4-5.0) Albumin/Globulin Ratio 0.5 (1.0-1.7) Lipase 91 U/L (73-393) Ammonia < 10 mcmol/L (11-34) Laboratory Tests Test 12/11/20 12:29 12/11/20 12:30 White Blood Count 6.7 x10^3/uL (4.0-11.0) Red Blood Count 3.15 x10^6/uL (4.30-5.70) Hemoglobin 9.8 g/dL (13.0-17.5) Hematocrit 29.1 % (39.0-53.0) Mean Corpuscular Volume 93 fL (79-100) Mean Corpuscular Hemoglobin 31 pg (25-35) Mean Corpuscular Hemoglobin Concent 34 g/dL (31-37) Red Cell Distribution Width 20.4 % (11.5-14.5) Platelet Count 161 x10^3/uL (140-400) Neutrophils (%) (Auto) 87 % (31-73) Lymphocytes (%) (Auto) 3 % (24-48) Monocytes (%) (Auto) 9 % (0-9) Eosinophils (%) (Auto) 1 % (0-3) Basophils (%) (Auto) 0 % (0-3) Neutrophils # (Auto) 5.8 x10^3/uL (1.8-7.7) Lymphocytes # (Auto) 0.2 x10^3/uL (1.0-4.8) Monocytes # (Auto) 0.6 x10^3/uL (0.0-1.1) Eosinophils # (Auto) 0.0 x10^3/uL (0.0-0.7) Basophils # (Auto) 0.0 x10^3/uL (0.0-0.2) Segmented Neutrophils % 92 % (35-66) Lymphocytes % 5 % (24-48) Monocytes % 3 % (0-10) Platelet Estimate Adequate (ADEQUATE) Prothrombin Time 15.3 SEC (11.7-14.0) Prothromb Time International Ratio 1.3 (0.8-1.1) Activated Partial Thromboplast Time 35 SEC (24-38) Sodium Level 139 mmol/L (136-145) Potassium Level 3.0 mmol/L (3.5-5.1) Chloride Level 101 mmol/L (98-107) Carbon Dioxide Level 29 mmol/L (21-32) Anion Gap 9 (6-14) Blood Urea Nitrogen 16 mg/dL (8-26) Creatinine 1.0 mg/dL (0.7-1.3) Estimated GFR (Cockcroft-Gault) 74.5 BUN/Creatinine Ratio 16 (6-20) Glucose Level 234 mg/dL (70-99) Calcium Level 8.8 mg/dL (8.5-10.1) Magnesium Level 1.6 mg/dL (1.8-2.4) Total Bilirubin 15.0 mg/dL (0.2-1.0) Aspartate Amino Transf (AST/SGOT) 88 U/L (15-37) Alanine Aminotransferase (ALT/SGPT) 56 U/L (16-63) Alkaline Phosphatase 377 U/L (46-116) Total Protein 5.9 g/dL (6.4-8.2) Albumin 2.0 g/dL (3.4-5.0) Albumin/Globulin Ratio 0.5 (1.0-1.7) Lipase 91 U/L (73-393) Ammonia < 10 mcmol/L (11-34) VTE Prophylaxis Ordered VTE Prophylaxis Devices: Yes VTE Pharmacological Prophylaxi: No Assessment/Plan Assessment/Plan A/P: Acute generalized weakness - likely due to obstructive jaundice, failure to thrive Fall at home - will have PT continue to work with him, could be having symptomatic hyperbilirubinemia now Hyperbilirubinemia, likely direct due to biliary stricture in the extrahepatic biliary ducts - s/p drain placement, failed stent placement due to biliary stricture Transaminitis likely due to hepatic congestion - will get KUB to assess biliary drain, had been functioning well at home Severe protein malnutrition - IV procalamine Metastatic gastric cancer - sees oncology, on palliative chemo regimen. HER-2 positive, on palliative chemotherapy with 5-FU and Trastuzumab Biliary stricture - above Anemia - related to chronic disease, did require blood transfusion previously Hypokalemia - will replace Hypomagnesemia - will replace Abnormal unintentional weight loss - due to above FEN - GI soft diet PPX - SCDs CODE - FULL Dispo -inpatient. Home health. Will transition to hospice care once his options are exhausted for definitive biliary stenting. Justifications for Admission Other Justification Acute cholecystitis LAURA KIRBY MD Dec 11, 2020 14:02
[2020-12-11] MEDS ORDERED: POTASSIUM CHLORIDE 40 MEQ in IV DEXTROSE 5% 1,000 ML IV ONE (14:15)
--- NOTE | 2020-12-11 14:51 | PDOC ---
Date of Service: DATE: 12/11/20 TIME: 14:35 Subjective: Subjective: 65 y/o male who we have seen several times recently. H/o metastatic gastric cancer s/p radiation and palliative chemo, jaundice/flor gnant biliary stricture s/p ERCP w/ sphincterotomy 11/28/20 showing hilar obstruction and gastric mets to duodenum - stenting attempted but unsuccessful due to crumpling from stricture, and then s/p right internal external biliary drain placement by IR on 11/29/20. Hospice was discussed but he tells me he was discharged w/ home health (on 12/03/20). He says he was feeling stronger at home after drain placement, able to eat and get around without his walker. The yesterday and today felt much weaker - fell off the toilet. Says drain is functioning but bleeds around insertion site - dressing has to be changed twice daily. Also reports increasing jaundice. I asked what came of his discussion with oncology last time and he said "I don't think anything." He says he thought he had more time since he was feeling better at home. I asked if he has thought more about Hospice - he says he doesn't know but doesn't want to be a burden. Objective: Objective: Reviewed oncology note from 12/01/20: Assessment: Metastatic gastric cancer, HER-2 positive, on palliative chemotherapy with 5- FU and Trastuzumab Obstructive jaundice secondary to biliary stricture, s/p unsuccessful ERCP stenting and s/p placement of PTC Generalized weakness Normocytic anemia Recommendations: -I discussed with Hi that his most recent restaging scans do not show cancer progression. -Given biliary stricture that has not been amenable to stenting and percutaneous drainage, we discussed that his options included hospice versus seeking a second opinion for repeat ERCP acknowledging that this is likely going to be unsuccessful -Continue to follow GI recommendations -Rest per Dr. King. Discussed with Dr. King and JESSE Vargas Vital Signs: Vital Signs Date Time Temp Pulse Resp B/P (MAP) Pulse Ox O2 Delivery O2 Flow Rate FiO2 12/11/20 11:50 98.0 123 24 131/80 (97) 98 Room Air 98.0 Labs: Laboratory Tests Test 12/11/20 12:29 12/11/20 12:30 White Blood Count 6.7 x10^3/uL Red Blood Count 3.15 x10^6/uL Hemoglobin 9.8 g/dL Hematocrit 29.1 % Mean Corpuscular Volume 93 fL Mean Corpuscular Hemoglobin 31 pg Mean Corpuscular Hemoglobin Concent 34 g/dL Red Cell Distribution Width 20.4 % Platelet Count 161 x10^3/uL Neutrophils (%) (Auto) 87 % Lymphocytes (%) (Auto) 3 % Monocytes (%) (Auto) 9 % Eosinophils (%) (Auto) 1 % Basophils (%) (Auto) 0 % Neutrophils # (Auto) 5.8 x10^3/uL Lymphocytes # (Auto) 0.2 x10^3/uL Monocytes # (Auto) 0.6 x10^3/uL Eosinophils # (Auto) 0.0 x10^3/uL Basophils # (Auto) 0.0 x10^3/uL Segmented Neutrophils % 92 % Lymphocytes % 5 % Monocytes % 3 % Platelet Estimate Adequate Prothrombin Time 15.3 SEC Prothromb Time International Ratio 1.3 Activated Partial Thromboplast Time 35 SEC Sodium Level 139 mmol/L Potassium Level 3.0 mmol/L Chloride Level 101 mmol/L Carbon Dioxide Level 29 mmol/L Anion Gap 9 Blood Urea Nitrogen 16 mg/dL Creatinine 1.0 mg/dL Estimated GFR (Cockcroft-Gault) 74.5 BUN/Creatinine Ratio 16 Glucose Level 234 mg/dL Calcium Level 8.8 mg/dL Magnesium Level 1.6 mg/dL Total Bilirubin 15.0 mg/dL Aspartate Amino Transf (AST/SGOT) 88 U/L Alanine Aminotransferase (ALT/SGPT) 56 U/L Alkaline Phosphatase 377 U/L Total Protein 5.9 g/dL Albumin 2.0 g/dL Albumin/Globulin Ratio 0.5 Lipase 91 U/L Ammonia < 10 mcmol/L PE: GEN: chronically ill - looks worse this visit compared to earlier this month HEENT: +sclerae icteric LUNGS: diminished anteriorly HEART: tachycardic ABD: drain w/ light bilious/thin contents, dressing around drain saturated w/ red blood, abdomen non-tender EXTREMITY: trace edema BLE SKIN: +jaundice NEURO/PSYCH: A & O 3 A/P: Weakness, fall Metastatic gastric cancer w/ jaundice/malignant biliary stricture s/p right internal external biliary drain placement by IR on 11/29/20 - now reports bleeding around drain Hypokalemia, hypomagnesemia, chronic anemia -- He has concern that he is weak due to bleeding around his drain. Hgb better than at discharge. Drain functioning. Bili worse than when discharged, Alk Phos better. Per last oncology discussion on 12/01/20: "his options included hospice versus seeking a second opinion for repeat ERCP acknowledging that this is likely going to be unsuccessful." Not sure what else we can offer from a GI standpoint - will review any addition al recommendations w/ Dr. Vega, though previously we have thought Hospice to be an appropriate option. Justicifation of Admission Dx: Justifications for Admission: Justification of Admission Dx: Yes MONICA RESTREPO Dec 11, 2020 14:51
[2020-12-11 17:00] VITALS: BP 134/82
[2020-12-11] MEDS ORDERED: ACETAMINOPHEN 325 MG TABLET. PO PRN (17:00)
[2020-12-11] MEDS ORDERED: ONDANSETRON PF 4 MG/2 ML VIAL. IV PRN (17:00)
--- NOTE | 2020-12-11 17:00 | NUR ---
Patient arrived to room 534. Patient alert and oriented. No visitors with patient at this time.
--- NOTE | 2020-12-11 17:23 | RAD ---
EXAM: Abdomen, single view. HISTORY: Biliary drain assessment. COMPARISON: None. FINDINGS: A frontal view of the abdomen is obtained. There is a percutaneous biliary drain terminatin g to the right of midline within the upper to mid abdomen, the location of which favors the proximal duodenum. There is no evidence of bowel obstruction. IMPRESSION: Biliary drainage catheter terminating over the abdomen to the right of midline, the locat ion of which favors the proximal duodenum. Electronically signed by: Antonette Cruz MD (12/11/2020 5:21 PM) [id number]
[2020-12-11] MEDS ORDERED: DEXTROSE 50% 25 GM / 50ML DISP.SYRIN. IV PRN (18:00)
[2020-12-11] MEDS: PROCHLORPERAZINE 5 MG TABLET. PO SCH (18:22)
[2020-12-11] MEDS: ONDANSETRON ODT 4 MG TAB.RAPDIS. PO SCH (18:22)
[2020-12-11 19:00] VITALS: BP 133/80
[2020-12-11] MEDS: SUCRALFATE 1 GM TABLET. PO SCH (20:43)
[2020-12-11] MEDS: ATORVASTATIN CALCIUM 40 MG TABLET. PO SCH (20:43)
[2020-12-11] MEDS: ALLOPURINOL 300 MG TABLET. PO SCH (20:43)
[2020-12-11] MEDS: HYDROcodone/APAP 5/325MG 1 TAB TABLET PO PRN (20:43)
[2020-12-11] MEDS: INSULIN GLARGINE SYRINGE. SQ SCH (20:45)
[2020-12-11] MEDS ORDERED: INSULIN GLARGINE SYRINGE. SQ SCH (21:00)
[2020-12-11 23:00] VITALS: BP 137/84
[2020-12-12] MEDS: ONDANSETRON ODT 4 MG TAB.RAPDIS. PO SCH ×3 (01:32→12:26)
[2020-12-12] MEDS: PROCHLORPERAZINE 5 MG TABLET. PO SCH ×5 (01:33→23:59)
[2020-12-12 03:00] VITALS: BP 130/82
[2020-12-12] MEDS: AMINO AC 3%/ELECTROLYTE/GLYCER 1,000 ML IV SCH ×3 (04:54→18:30)
[2020-12-12] MEDS: HYDROcodone/APAP 5/325MG 1 TAB TABLET PO PRN (04:55)
[2020-12-12 07:00] VITALS: BP 138/86
[2020-12-12] MEDS: INSULIN LISPRO 300 UNITS/3 ML VIAL. SQ SCH ×3 (08:00→17:00)
[2020-12-12 08:18] LABS: BASO % 0 % (0-3); EOS # 0.1 x10^3/uL (0.0-0.7); EOS % 1 % (0-3); HEMATOCRIT 26.5 % (39.0-53.0); HEMOGLOBIN 8.9 g/dL (13.0-17.5); LYMPH # 0.3 x10^3/uL (1.0-4.8); LYMPH % 4 % (24-48); MEAN CORPUSCULAR HEMOGLOBIN 31 pg (25-35); MEAN CORPUSCULAR HGB CONC 34 g/dL (31-37); MEAN CORPUSCULAR VOLUME 93 fL (79-100); MONO # 0.5 x10^3/uL (0.0-1.1); MONO % 8 % (0-9); NEUT # 5.5 x10^3/uL (1.8-7.7); NEUT % 86 % (31-73); PLATELET COUNT 135 x10^3/uL (140-400); RED BLOOD COUNT 2.85 x10^6/uL (4.30-5.70); RED CELL DISTRIBUTION WIDTH 20.1 % (11.5-14.5); WHITE BLOOD COUNT 6.3 x10^3/uL (4.0-11.0)
[2020-12-12 08:40] LABS: ALBUMIN 1.7 g/dL (3.4-5.0); ALBUMIN/GLOBULIN RATIO 0.5 (1.0-1.7); CALCIUM 8.2 mg/dL (8.5-10.1); GFR 74.5; MAGNESIUM 1.9 mg/dL (1.8-2.4); POTASSIUM 3.7 mmol/L (3.5-5.1); TOTAL BILIRUBIN 12.7 mg/dL (0.2-1.0); TOTAL PROTEIN 5.4 g/dL (6.4-8.2)
[2020-12-12] MEDS: amLODIPine BESYLATE 5 MG TABLET PO SCH (09:00)
[2020-12-12] MEDS: FLUoxetine HCL 20 MG CAPSULE PO SCH (09:00)
[2020-12-12] MEDS: SUCRALFATE 1 GM TABLET. PO SCH ×2 (09:00→20:51)
[2020-12-12] MEDS: CYANOCOBALAMIN (VITAMIN B-12) 1,000 MCG TABLET. PO SCH (09:00)
[2020-12-12] MEDS: PANTOPRAZOLE 40 MG TABLET.DR. PO SCH (09:00)
[2020-12-12] MEDS ORDERED: IOHEXOL 300 MG/ML 100ML VIAL. IV ONE (09:15)
[2020-12-12] MEDS ORDERED: CONTRAST GIVEN. MC PRN (09:30)
--- NOTE | 2020-12-12 09:47 | PDOC ---
Date of Service: DATE: 12/12/20 TIME: 09:40 Subjective: Subjective: Feels "terrible" - about the same as yesterday. Going to try eating pudding but not really hungry. 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 He says he usually empties bag twice daily at home - usually about half full each time. Objective: Objective: On PPN. Vital Signs: Vital Signs Date Time Temp Pulse Resp B/P (MAP) Pulse Ox O2 Delivery O2 Flow Rate FiO2 12/12/20 09:00 104 138/86 12/12/20 07:00 97.7 18 95 Room Air 97.7 Labs: Laboratory Tests Test 12/11/20 12:29 12/11/20 12:30 12/11/20 20:39 12/12/20 07:54 White Blood Count 6.7 x10^3/uL 6.3 x10^3/uL Red Blood Count 3.15 x10^6/uL 2.85 x10^6/uL Hemoglobin 9.8 g/dL 8.9 g/dL Hematocrit 29.1 % 26.5 % Mean Corpuscular Volume 93 fL 93 fL Mean Corpuscular Hemoglobin 31 pg 31 pg Mean Corpuscular Hemoglobin Concent 34 g/dL 34 g/dL Red Cell Distribution Width 20.4 % 20.1 % Platelet Count 161 x10^3/uL 135 x10^3/uL Neutrophils (%) (Auto) 87 % 86 % Lymphocytes (%) (Auto) 3 % 4 % Monocytes (%) (Auto) 9 % 8 % Eosinophils (%) (Auto) 1 % 1 % Basophils (%) (Auto) 0 % 0 % Neutrophils # (Auto) 5.8 x10^3/uL 5.5 x10^3/uL Lymphocytes # (Auto) 0.2 x10^3/uL 0.3 x10^3/uL Monocytes # (Auto) 0.6 x10^3/uL 0.5 x10^3/uL Eosinophils # (Auto) 0.0 x10^3/uL 0.1 x10^3/uL Basophils # (Auto) 0.0 x10^3/uL 0.0 x10^3/uL Segmented Neutrophils % 92 % Lymphocytes % 5 % Monocytes % 3 % Platelet Estimate Adequate Prothrombin Time 15.3 SEC Prothromb Time International Ratio 1.3 Activated Partial Thromboplast Time 35 SEC Sodium Level 139 mmol/L 138 mmol/L Potassium Level 3.0 mmol/L 3.7 mmol/L Chloride Level 101 mmol/L 103 mmol/L Carbon Dioxide Level 29 mmol/L 29 mmol/L Anion Gap 9 6 Blood Urea Nitrogen 16 mg/dL 14 mg/dL Creatinine 1.0 mg/dL 1.0 mg/dL Estimated GFR (Cockcroft-Gault) 74.5 74.5 BUN/Creatinine Ratio 16 14 Glucose Level 234 mg/dL 194 mg/dL Calcium Level 8.8 mg/dL 8.2 mg/dL Magnesium Level 1.6 mg/dL 1.9 mg/dL Total Bilirubin 15.0 mg/dL 12.7 mg/dL Aspartate Amino Transf (AST/SGOT) 88 U/L 75 U/L Alanine Aminotransferase (ALT/SGPT) 56 U/L 46 U/L Alkaline Phosphatase 377 U/L 324 U/L Total Protein 5.9 g/dL 5.4 g/dL Albumin 2.0 g/dL 1.7 g/dL Albumin/Globulin Ratio 0.5 0.5 Lipase 91 U/L Ammonia < 10 mcmol/L Glucose (Fingerstick) 233 mg/dL Test 12/12/20 08:27 Glucose (Fingerstick) 195 mg/dL PE: GEN: appears chronically ill LUNGS: clear anteriorly HEART: tachycardic ABD: drain bilious, site w/ thick bandage - looked dry when I saw SKIN: +jaundice NEURO/PSYCH: lethargic, depressed A/P: Weakness Metastatic gastric cancer w/ jaundice w/ malignant biliary stricture s/p right internal external biliary drain after unsuccessful ERCP stenting attempt (due to stricture) Chronic anemia - stable Hypokalemia, hypomagnesemia - resolved -- Drain functioning - bili from 15 to 12.7 today. Encouraged PO. Other per Dr. Vega. Justicifation of Admission Dx: Justifications for Admission: Justification of Admission Dx: Yes MONICA RESTREPO Dec 12, 2020 09:47
--- NOTE | 2020-12-12 10:25 | NUR ---
SW following. Discussed with RN, pt from home with , room air, ada diet. Pt is current with [facility]. RN notified pt might be ready for hospice now. LASHELL met with pt (no isolation precautions at the time. Pt is wanting to speak with [facility] again, stating "I don't think this is really working." SW notified [facility]osp[facility], they reported they spoke with pt yesterday and he said he had left [facility] with another hospice company, but didn't say which one. Marilin with [facility] advised yesterday pt was current with them. Pt may have gotten home health and hospice confused. LASHELL verfied with Marilin - pt is current with home health not hospice. SW faxed referral packet to [facility], they will come to see pt today. LASHELL will continue to follow. Addendum: 12/12/20 at 1507 by MILES LOBO [facility] and pt's at bedside. Pt signed consents for [facility]. Equipment will be delivered to pt's home tomorrow morning (12/13/20). Plan for pt to discharge home with [facility] tomorrow around noon. Dr. De La Vega completing out of hospital DNR. LASHELL will continue to follow.
[2020-12-12 11:00] VITALS: BP 126/80
--- NOTE | 2020-12-12 12:26 | PDOC2 ---
CONSULT Date of Consult Date of Consult DATE: 12/12/20 TIME: 12:17 Reason for Consult Reason for Consult: Metastatic gastric cancer and obstructive jaundice Referring Physician Referring Physician: Dr. King Identification/Chief Complaint Chief Complaint Generalized weakness and jaundice Source Source: Chart review, Patient History of Present Illness Reason for Visit: Hi Hannon is a 65-year-old male with metastatic gastric cancer who has been admitted with generalized weakness and jaundice. Hi has HER-2 amplified metastatic gastric cancer for which he has been receiving palliative chemotherapy with 5-FU and Herceptin since January 2020. He was seen in the office for assessment of chemotherapy in October 2020 and was found to have abnormal LFTs. Follow-up lab evaluation has shown progressing elevation alkaline phosphatase and bilirubin. He received MRCP on 11/23/2020 as outpatient (this was declined by insurance inpatient) and this showed a biliary stricture at the junction of right and left hepatic ducts. He was admitted to the hospital November 24, 2020 after presenting with worsening jaundice and generalized weakness. He received ERCP and attempts to stent the stricture were unsuccessful due to cramping of the stent. PTC was also placed with partial drop in bilirubin. He was discharged with plans for outpatient follow-up but has since been readmitted due to worsening generalized weakness and jaundice. He has been seen by GI service and repeat attempts at stenting are considered to be futile. GI has recommended that he consider hospice and Hi is open to it at this time. Oncology consultation has been sought due to the patient's metastatic gastric cancer.His most recent restaging scans on 11/07/2020 show disease response to therapy and no evidence of cancer progression. He does have periportal and retroperitoneal lymphadenopathy. Past Medical History Cardiovascular: HTN, Hyperlipidemia GI: GI bleed Heme/Onc: Cancer Rheumatologic: Gout Endocrine: Diabetes Past Surgical History Past Surgical History: Tonsillectomy, Other Family History Family History: Cancer, Other Social History No ALCOHOL: none Drugs: None Lives: with Family Current Problem List Problem List Problems Medical Problems: (1) Hyperbilirubinemia Status: Acute (2) Hypokalemia Status: Acute (3) Hypomagnesemia Status: Acute (4) Weakness Status: Acute Current Medications Current Medications Current Medications Magnesium Sulfate 50 ml @ 25 mls/hr 1X ONCE IV Last administered on 12/11/20at 13:48; Start 12/11/20 at 13:45; Stop 12/11/20 at 15:44; Status DC Potassium Chloride (Klor-Con) 40 meq 1X ONCE PO Last administered on 12/11/20at 13:47; Start 12/11/20 at 13:45; Stop 12/11/20 at 13:46; Status DC Potassium Chloride 40 meq/ Dextrose 1,020 ml @ 75 mls/hr 1X ONCE IV Last administered on 12/11/20at 15:40; Start 12/11/20 at 14:15; Stop 12/12/20 at 03:50; Status DC Allopurinol (Zyloprim) 300 mg HS PO Last administered on 12/11/20at 20:43; Start 12/11/20 at 21:00 Amlodipine Besylate (Norvasc) 5 mg DAILY PO Last administered on 12/12/20at 09:00; Start 12/12/20 at 09:00 Cyanocobalamin (Vitamin B-12) 1,000 mcg DAILY PO Last administered on 12/12/20at 09:00; Start 12/12/20 at 09:00 Ergocalciferol (Vitamin D2) 50,000 unit WEEKLY PO ; Start 12/15/20 at 09:00 Acetaminophen/ Hydrocodone Bitart (Lortab 5/325) 1 tab PRN Q6HRS PRN PO MODERATE PAIN Last administered on 12/12/20at 04:55; Start 12/11/20 at 16:45 Pantoprazole Sodium (Protonix) 40 mg DAILYAC PO Last administered on 12/12/20at 09:00; Start 12/12/20 at 07:30 Sucralfate (Carafate) 1 gm BID PO Last administered on 12/12/20at 09:00; Start 12/11/20 at 21:00 Fluoxetine HCl (PROzac) 40 mg DAILYWBKFT PO Last administered on 12/12/20at 09:00; Start 12/12/20 at 08:00 Insulin Glargine (Lantus Syringe) 45 unit QHS SQ ; Start 12/11/20 at 21:00; Stop 12/11/20 at 17:54; Status DC Ondansetron HCl (Zofran Odt) 8 mg Q6HRS PO Last administered on 12/12/20at 04:55; Start 12/11/20 at 18:00 Prochlorperazine Maleate (Compazine) 10 mg Q6HRS PO Last administered on 12/12/20at 04:55; Start 12/11/20 at 18:00 Atorvastatin Calcium (Lipitor) 80 mg QHS PO Last administered on 12/11/20at 20:43; Start 12/11/20 at 21:00 Amino Acids/ Glycerin/ Electrolytes 1,000 ml @ 80 mls/hr [id number] IV Last administered on 12/12/20at 04:54; Start 12/11/20 at 16:45 Ondansetron HCl (Zofran) 4 mg PRN Q4HRS PRN IV NAUSEA/VOMITING; Start 12/11/20 at 17:00 Acetaminophen (Tylenol) 650 mg PRN Q4HRS PRN PO TEMP OVER 100.4F; Start 12/11/20 at 17:00 Insulin Glargine (Lantus Syringe) 30 unit QHS SQ Last administered on 12/11/20at 20:45; Start 12/11/20 at 21:00 Insulin Human Lispro (HumaLOG) 0-9 UNITS TIDWMEALS SQ ; Start 12/12/20 at 08:00 Dextrose (Dextrose 50%-Water Syringe) 12.5 gm PRN Q15MIN PRN IV SEE COMMENTS; Start 12/11/20 at 18:00 Iohexol (Omnipaque 300 Mg/ml) 75 ml 1X ONCE IV Last administered on 12/12/20at 09:15; Start 12/12/20 at 09:15; Stop 12/12/20 at 09:18; Status DC Info (CONTRAST GIVEN -- Rx MONITORING) 1 each PRN DAILY PRN MC SEE COMMENTS; Start 12/12/20 at 09:30; Stop 12/14/20 at 09:29 Active Scripts Active Levofloxacin 500 Mg Tablet 1 Tab PO DAILY 7 Days Reported Ondansetron Odt (Ondansetron) 8 Mg Tab.rapdis 8 Mg PO Q6HRS Prochlorperazine Maleate 10 Mg Tablet 1 Tab PO Q6H Carafate (Sucralfate) 1 Gm Tablet 1 Gm PO BID [place] 5-325 Tablet (Acetaminophen/Hydrocodone Bitart) 1 Each Tablet 1-2 Tab PO Q6HRS Vitamin B-12 (Cyanocobalamin (Vitamin B-12)) 1,000 Mcg Tablet 1 Tab PO DAILY 30 Days Protonix (Pantoprazole Sodium) 40 Mg Tablet.dr 40 Mg PO DAILYAC Tresiba (Insulin Degludec) 100 Unit/1 Ml Vial 45 Unit SQ HS Crestor (Rosuvastatin Calcium) 40 Mg Tablet 20 Mg PO HS Novolog (Insulin Aspart) 100 Unit/1 Ml Cartridge 25 Unit SQ TIDBFRMEAL Allopurinol 300 Mg Tablet 1 Tab PO HS Fluoxetine Hcl 40 Mg Capsule 1 Cap PO DAILYWBKFT Vitamin D2 (Ergocalciferol (Vitamin D2)) 50,000 Unit Capsule 1 Cap PO WEEKLY Amlodipine Besylate 5 Mg Tablet 5 Mg PO DAILY Allergies Allergies: Coded Allergies: No Known Drug Allergies (Unverified , 11/29/20) ROS General: YES: Fatigue, Malaise PSYCHOLOGICAL ROS: No: Hallucinations, Hostility Eyes: No Eye Pain HEENT: No: Oral lesions, Sinus pain ALLERGY AND IMMUNOLOGY: No: Nasal Congestion, Post Nasal Drip Hematological and Lymphatic: No: Brusing, Night Sweats Respiratory: YES: Shortness of breath; No: Hemoptysis Cardiovascular: yes Chest Pain Gastrointestinal: Yes Nausea, Yes Vomiting, Yes Abdominal Pain; No Melena Genitourinary: No Dysuria, No Frequency Neurological: Yes Confusion; No Dizziness Skin: No Eczema Physical Exam General: Alert, Other (Icteric) HEENT: Atraumatic Lungs: Clear to auscultation Heart: Regular rate Abdomen: Normal bowel sounds, Soft Extremities: No clubbing Psych/Mental Status: Other (Appears somnolent) MUSCULOSKELETAL: No swelling Vitals VITALS Vital Signs Date Time Temp Pulse Resp B/P (MAP) Pulse Ox O2 Delivery O2 Flow Rate FiO2 12/12/20 09:00 104 138/86 12/12/20 07:50 Room Air 12/12/20 07:00 97.7 18 95 97.7 Labs Labs Laboratory Tests Test 12/11/20 12:29 12/11/20 12:30 12/11/20 20:39 12/12/20 07:54 White Blood Count 6.7 x10^3/uL (4.0-11.0) 6.3 x10^3/uL (4.0-11.0) Red Blood Count 3.15 x10^6/uL (4.30-5.70) 2.85 x10^6/uL (4.30-5.70) Hemoglobin 9.8 g/dL (13.0-17.5) 8.9 g/dL (13.0-17.5) Hematocrit 29.1 % (39.0-53.0) 26.5 % (39.0-53.0) Mean Corpuscular Volume 93 fL (79-100) 93 fL (79-100) Mean Corpuscular Hemoglobin 31 pg (25-35) 31 pg (25-35) Mean Corpuscular Hemoglobin Concent 34 g/dL (31-37) 34 g/dL (31-37) Red Cell Distribution Width 20.4 % (11.5-14.5) 20.1 % (11.5-14.5) Platelet Count 161 x10^3/uL (140-400) 135 x10^3/uL (140-400) Neutrophils (%) (Auto) 87 % (31-73) 86 % (31-73) Lymphocytes (%) (Auto) 3 % (24-48) 4 % (24-48) Monocytes (%) (Auto) 9 % (0-9) 8 % (0-9) Eosinophils (%) (Auto) 1 % (0-3) 1 % (0-3) Basophils (%) (Auto) 0 % (0-3) 0 % (0-3) Neutrophils # (Auto) 5.8 x10^3/uL (1.8-7.7) 5.5 x10^3/uL (1.8-7.7) Lymphocytes # (Auto) 0.2 x10^3/uL (1.0-4.8) 0.3 x10^3/uL (1.0-4.8) Monocytes # (Auto) 0.6 x10^3/uL (0.0-1.1) 0.5 x10^3/uL (0.0-1.1) Eosinophils # (Auto) 0.0 x10^3/uL (0.0-0.7) 0.1 x10^3/uL (0.0-0.7) Basophils # (Auto) 0.0 x10^3/uL (0.0-0.2) 0.0 x10^3/uL (0.0-0.2) Segmented Neutrophils % 92 % (35-66) Lymphocytes % 5 % (24-48) Monocytes % 3 % (0-10) Platelet Estimate Adequate (ADEQUATE) Prothrombin Time 15.3 SEC (11.7-14.0) Prothromb Time International Ratio 1.3 (0.8-1.1) Activated Partial Thromboplast Time 35 SEC (24-38) Sodium Level 139 mmol/L (136-145) 138 mmol/L (136-145) Potassium Level 3.0 mmol/L (3.5-5.1) 3.7 mmol/L (3.5-5.1) Chloride Level 101 mmol/L (98-107) 103 mmol/L (98-107) Carbon Dioxide Level 29 mmol/L (21-32) 29 mmol/L (21-32) Anion Gap 9 (6-14) 6 (6-14) Blood Urea Nitrogen 16 mg/dL (8-26) 14 mg/dL (8-26) Creatinine 1.0 mg/dL (0.7-1.3) 1.0 mg/dL (0.7-1.3) Estimated GFR (Cockcroft-Gault) 74.5 74.5 BUN/Creatinine Ratio 16 (6-20) 14 (6-20) Glucose Level 234 mg/dL (70-99) 194 mg/dL (70-99) Calcium Level 8.8 mg/dL (8.5-10.1) 8.2 mg/dL (8.5-10.1) Magnesium Level 1.6 mg/dL (1.8-2.4) 1.9 mg/dL (1.8-2.4) Total Bilirubin 15.0 mg/dL (0.2-1.0) 12.7 mg/dL (0.2-1.0) Aspartate Amino Transf (AST/SGOT) 88 U/L (15-37) 75 U/L (15-37) Alanine Aminotransferase (ALT/SGPT) 56 U/L (16-63) 46 U/L (16-63) Alkaline Phosphatase 377 U/L (46-116) 324 U/L (46-116) Total Protein 5.9 g/dL (6.4-8.2) 5.4 g/dL (6.4-8.2) Albumin 2.0 g/dL (3.4-5.0) 1.7 g/dL (3.4-5.0) Albumin/Globulin Ratio 0.5 (1.0-1.7) 0.5 (1.0-1.7) Lipase 91 U/L (73-393) Ammonia < 10 mcmol/L (11-34) Glucose (Fingerstick) 233 mg/dL (70-99) Test 12/12/20 08:27 Glucose (Fingerstick) 195 mg/dL (70-99) Laboratory Tests Test 12/11/20 12:29 12/11/20 12:30 12/11/20 20:39 12/12/20 07:54 White Blood Count 6.7 x10^3/uL (4.0-11.0) 6.3 x10^3/uL (4.0-11.0) Red Blood Count 3.15 x10^6/uL (4.30-5.70) 2.85 x10^6/uL (4.30-5.70) Hemoglobin 9.8 g/dL (13.0-17.5) 8.9 g/dL (13.0-17.5) Hematocrit 29.1 % (39.0-53.0) 26.5 % (39.0-53.0) Mean Corpuscular Volume 93 fL (79-100) 93 fL (79-100) Mean Corpuscular Hemoglobin 31 pg (25-35) 31 pg (25-35) Mean Corpuscular Hemoglobin Concent 34 g/dL (31-37) 34 g/dL (31-37) Red Cell Distribution Width 20.4 % (11.5-14.5) 20.1 % (11.5-14.5) Platelet Count 161 x10^3/uL (140-400) 135 x10^3/uL (140-400) Neutrophils (%) (Auto) 87 % (31-73) 86 % (31-73) Lymphocytes (%) (Auto) 3 % (24-48) 4 % (24-48) Monocytes (%) (Auto) 9 % (0-9) 8 % (0-9) Eosinophils (%) (Auto) 1 % (0-3) 1 % (0-3) Basophils (%) (Auto) 0 % (0-3) 0 % (0-3) Neutrophils # (Auto) 5.8 x10^3/uL (1.8-7.7) 5.5 x10^3/uL (1.8-7.7) Lymphocytes # (Auto) 0.2 x10^3/uL (1.0-4.8) 0.3 x10^3/uL (1.0-4.8) Monocytes # (Auto) 0.6 x10^3/uL (0.0-1.1) 0.5 x10^3/uL (0.0-1.1) Eosinophils # (Auto) 0.0 x10^3/uL (0.0-0.7) 0.1 x10^3/uL (0.0-0.7) Basophils # (Auto) 0.0 x10^3/uL (0.0-0.2) 0.0 x10^3/uL (0.0-0.2) Segmented Neutrophils % 92 % (35-66) Lymphocytes % 5 % (24-48) Monocytes % 3 % (0-10) Platelet Estimate Adequate (ADEQUATE) Prothrombin Time 15.3 SEC (11.7-14.0) Prothromb Time International Ratio 1.3 (0.8-1.1) Activated Partial Thromboplast Time 35 SEC (24-38) Sodium Level 139 mmol/L (136-145) 138 mmol/L (136-145) Potassium Level 3.0 mmol/L (3.5-5.1) 3.7 mmol/L (3.5-5.1) Chloride Level 101 mmol/L (98-107) 103 mmol/L (98-107) Carbon Dioxide Level 29 mmol/L (21-32) 29 mmol/L (21-32) Anion Gap 9 (6-14) 6 (6-14) Blood Urea Nitrogen 16 mg/dL (8-26) 14 mg/dL (8-26) Creatinine 1.0 mg/dL (0.7-1.3) 1.0 mg/dL (0.7-1.3) Estimated GFR (Cockcroft-Gault) 74.5 74.5 BUN/Creatinine Ratio 16 (6-20) 14 (6-20) Glucose Level 234 mg/dL (70-99) 194 mg/dL (70-99) Calcium Level 8.8 mg/dL (8.5-10.1) 8.2 mg/dL (8.5-10.1) Magnesium Level 1.6 mg/dL (1.8-2.4) 1.9 mg/dL (1.8-2.4) Total Bilirubin 15.0 mg/dL (0.2-1.0) 12.7 mg/dL (0.2-1.0) Aspartate Amino Transf (AST/SGOT) 88 U/L (15-37) 75 U/L (15-37) Alanine Aminotransferase (ALT/SGPT) 56 U/L (16-63) 46 U/L (16-63) Alkaline Phosphatase 377 U/L (46-116) 324 U/L (46-116) Total Protein 5.9 g/dL (6.4-8.2) 5.4 g/dL (6.4-8.2) Albumin 2.0 g/dL (3.4-5.0) 1.7 g/dL (3.4-5.0) Albumin/Globulin Ratio 0.5 (1.0-1.7) 0.5 (1.0-1.7) Lipase 91 U/L (73-393) Ammonia < 10 mcmol/L (11-34) Glucose (Fingerstick) 233 mg/dL (70-99) Test 12/12/20 08:27 Glucose (Fingerstick) 195 mg/dL (70-99) Assessment/Plan Assessment/Plan Assessment: Obstructive jaundice secondary to biliary stricture Metastatic gastric cancer, HER-2 positive Generalized weakness secondary to the above Protein calorie malnutrition Anemia of chronic disease Recommendations: -Noted repeat CT of the abdomen and pelvis obtained today. Will await radiology interpretation at this time -I discussed with Hi that his disease has been responsive to chemotherapy but we are likely going to be unable to continue with chemo at this time due to significant decline in his functional status -Noted GI recommendations for hospice given biliary stricture that has not been amenable to stenting and percutaneous drainage. Reasonable to proceed with hospice if repeat attempts at stenting are felt to be futile. -Rest per Dr. King. Discussed with JESSE Cardoza MD Medical Oncology/Hematology Ph: [phone] LOBO UGALDE MD Dec 12, 2020 12:26
--- NOTE | 2020-12-12 14:59 | PDOC ---
[employer] PROGRESS NOTE Date of Service DOS: DATE: 12/12/20 TIME: 14:57 Chief Complaint Chief Complaint A/P: Acute generalized weakness - likely due to obstructive jaundice, failure to thrive Fall at home - will have PT continue to work with him, could be having symptomatic hyperbilirubinemia now Hyperbilirubinemia, likely direct due to biliary stricture in the extrahepatic biliary ducts - s/p drain placement, failed stent placement due to biliary stricture Transaminitis likely due to hepatic congestion - will get KUB to assess biliary drain, had been functioning well at home Severe protein malnutrition - IV procalamine Metastatic gastric cancer - sees oncology, on palliative chemo regimen. HER-2 positive, on palliative chemotherapy with 5-FU and Trastuzumab Biliary stricture - above Anemia - related to chronic disease, did require blood transfusion previously Hypokalemia - will replace Hypomagnesemia - will replace Abnormal unintentional weight loss - due to above FEN - GI soft diet PPX - SCDs CODE - FULL Dispo -inpatient. Home health. Will transition to hospice care once his options are exhausted for definitive biliary stenting. History of Present Illness History of Present Illness Mr Hannon is a 65-year-old w/ PMHX metastatic gastric cancer s/p radiation and palliative chemo, jaundice/malignant biliary stricture s/p ERCP w/ sphincterotomy 11/28/20 showing hilar obstruction and gastric mets to duodenum - stenting attempted but unsuccessful due to crumpling from stricture, and then s/p right internal external biliary drain placement by IR on 11/29/20 who presents to the emergency room complaining of severe weakness, worsening jaundice and slid off the toilet on 12/10/20 at home. He says he was feeling stronger at home after drain placement, able to eat and get around without his walker. Came at the insistence of his . He was discharged home on 12/03/20 and his weakness had initially improved, but over the past 24 hours stated getting much worse. He states that he is unable to stand at this time. He denies any fever. He does have some nausea without vomiting. He has not had any diarrhea. No fevers. Does note his dressing needs changed twice daily, has some red-tinged ascites at his drain site. Bile in drain, though clear fluid present as well. Met with oncology prior to d/c notably this biliary stricture does not seem to be related to his cancer and patient is asked if he could potentially have a referral to [facility] for another endoscopy opinion for biliary stenting. Hb 7.7 and bilirubin 10.9, alkaline phosphatase 572, AST 85, ALT 77 on discharge, was feeling stronger and improved with home health seeing him. Here today his bilirubin is 15 alkaline phosphatase 337 albumin 2 AST 88 INR 1.3 lipase 91. hb is 9.8. K 3, Mg 1.6 Admitted for further care. 12/12: Patient seen and evaluated. He states he would like his CODE STATUS to be DNR. He met with hospice today following her discussion. He would prefer to discharge home with home hospice. Had discussion with engraver picture, who will help arrange this to happen tomorrow. Vitals/I&O Vitals/I&O: Vital Signs Date Time Temp Pulse Resp B/P (MAP) Pulse Ox O2 Delivery O2 Flow Rate FiO2 12/12/20 11:00 98.0 103 16 126/80 (95) 96 Room Air 98.0 I & O 12/11/20 12/11/20 12/12/20 15:00 23:00 07:00 Intake Total 290 ml 290 ml Output Total 350 ml Balance 290 ml -60 ml Physical Exam General: Alert, Other (Icteric) Heart: Regular rate Lungs: Clear Abdomen: Normal bowel sounds, Soft Extremities: No clubbing Skin: No rashes, No breakdown, No significant lesion, Other (Jaundiced) Labs Labs: Laboratory Tests Test 12/11/20 20:39 12/12/20 07:54 12/12/20 08:27 12/12/20 12:18 Glucose (Fingerstick) 233 mg/dL (70-99) 195 mg/dL (70-99) 199 mg/dL (70-99) White Blood Count 6.3 x10^3/uL (4.0-11.0) Red Blood Count 2.85 x10^6/uL (4.30-5.70) Hemoglobin 8.9 g/dL (13.0-17.5) Hematocrit 26.5 % (39.0-53.0) Mean Corpuscular Volume 93 fL (79-100) Mean Corpuscular Hemoglobin 31 pg (25-35) Mean Corpuscular Hemoglobin Concent 34 g/dL (31-37) Red Cell Distribution Width 20.1 % (11.5-14.5) Platelet Count 135 x10^3/uL (140-400) Neutrophils (%) (Auto) 86 % (31-73) Lymphocytes (%) (Auto) 4 % (24-48) Monocytes (%) (Auto) 8 % (0-9) Eosinophils (%) (Auto) 1 % (0-3) Basophils (%) (Auto) 0 % (0-3) Neutrophils # (Auto) 5.5 x10^3/uL (1.8-7.7) Lymphocytes # (Auto) 0.3 x10^3/uL (1.0-4.8) Monocytes # (Auto) 0.5 x10^3/uL (0.0-1.1) Eosinophils # (Auto) 0.1 x10^3/uL (0.0-0.7) Basophils # (Auto) 0.0 x10^3/uL (0.0-0.2) Sodium Level 138 mmol/L (136-145) Potassium Level 3.7 mmol/L (3.5-5.1) Chloride Level 103 mmol/L (98-107) Carbon Dioxide Level 29 mmol/L (21-32) Anion Gap 6 (6-14) Blood Urea Nitrogen 14 mg/dL (8-26) Creatinine 1.0 mg/dL (0.7-1.3) Estimated GFR (Cockcroft-Gault) 74.5 BUN/Creatinine Ratio 14 (6-20) Glucose Level 194 mg/dL (70-99) Calcium Level 8.2 mg/dL (8.5-10.1) Magnesium Level 1.9 mg/dL (1.8-2.4) Total Bilirubin 12.7 mg/dL (0.2-1.0) Aspartate Amino Transf (AST/SGOT) 75 U/L (15-37) Alanine Aminotransferase (ALT/SGPT) 46 U/L (16-63) Alkaline Phosphatase 324 U/L (46-116) Total Protein 5.4 g/dL (6.4-8.2) Albumin 1.7 g/dL (3.4-5.0) Albumin/Globulin Ratio 0.5 (1.0-1.7) Assessment and Plan Assessmemt and Plan Problems Medical Problems: (1) Hyperbilirubinemia Status: Acute (2) Hypokalemia Status: Acute (3) Hypomagnesemia Status: Acute (4) Weakness Status: Acute Comment Review of Relevant I have reviewed the following items didier (where applicable) has been applied. Medications: Current Medications Medications (Trade) Dose Ordered Sig/Alex Route PRN Reason Start Time Stop Time Status Last Admin Dose Admin Allopurinol (Zyloprim) 300 mg HS PO 12/11/20 21:00 12/11/20 20:43 Amlodipine Besylate (Norvasc) 5 mg DAILY PO 12/12/20 09:00 12/12/20 09:00 Cyanocobalamin (Vitamin B-12) 1,000 mcg DAILY PO 12/12/20 09:00 12/12/20 09:00 Acetaminophen/ Hydrocodone Bitart (Lortab 5/325) 1 tab PRN Q6HRS PRN PO MODERATE PAIN 12/11/20 16:45 12/12/20 04:55 Pantoprazole Sodium (Protonix) 40 mg DAILYAC PO 12/12/20 07:30 12/12/20 09:00 Sucralfate (Carafate) 1 gm BID PO 12/11/20 21:00 12/12/20 09:00 Fluoxetine HCl (PROzac) 40 mg DAILYWBKFT PO 12/12/20 08:00 12/12/20 09:00 Ondansetron HCl (Zofran Odt) 8 mg Q6HRS PO 12/11/20 18:00 12/12/20 04:55 Prochlorperazine Maleate (Compazine) 10 mg Q6HRS PO 12/11/20 18:00 12/12/20 04:55 Atorvastatin Calcium (Lipitor) 80 mg QHS PO 12/11/20 21:00 12/11/20 20:43 Amino Acids/ Glycerin/ Electrolytes 1,000 ml @ 80 mls/hr [id number] IV 12/11/20 16:45 12/12/20 04:54 Insulin Glargine (Lantus Syringe) 30 unit QHS SQ 12/11/20 21:00 12/11/20 20:45 Iohexol (Omnipaque 300 Mg/ml) 75 ml 1X ONCE IV 12/12/20 09:15 12/12/20 09:18 DC 1/19/21 09:15 Justifications for Admission Other Justification Acute cholecystitis NEAL ASHLEY MD Dec 12, 2020 14:59
[2020-12-12 15:00] VITALS: BP 155/97
[2020-12-12] MEDS ORDERED: ZOLPIDEM 5 MG TABLET. PO PRN (15:00)
[2020-12-12] MEDS ORDERED: ONDANSETRON ODT 4 MG TAB.RAPDIS. PO PRN (15:15)
--- NOTE | 2020-12-12 16:20 | PDOC ---
Provider Note Date of Service: DATE: 12/12/20 TIME: 16:16 Provider Note IR NOTE Spoke with Mr Hannon today. We discussed options including adding a left biliary drain or referral to a tertiary center, however he feels his overall condition has deteriorated to the point where he is not interested in further intervention. He has met with hospice and is planning on being discharged to home, with home hospice. I told him to feel free to call, or have any of his providers call, if there are any questions about the drain and how to care for it. Justifications for Admission Other Justification Acute cholecystitis JOSIE DYER MD Dec 12, 2020 16:20
--- NOTE | 2020-12-12 16:23 | RAD ---
EXAM: CT Abdomen and Pelvis with IV contrast INDICATION: Reason: Biliary drain, leakage around drain. Ascites? Assess left biliary tree. / Spl. In structions: omni 300 75ml / History: TECHNIQUE: Multi-detector row CT images were acquired from the lung bases through the abdomen and pel vis with the use of IV contrast. Sagittal and coronal images were acquired from the transaxial data. All CT scans performed at this facility utilize dose optimization techniques as appropriate to the ex am, including the following: Automated exposure control and adjustment of the mA and/or KV according to patient size (this includes techniques or standardized protocols for targeted exams where dose is indication/reason for exam). IV CONTRAST: Administered ORAL CONTRAST: None COMPARISON: 11/06/[address] with IV and oral contrast, abdominal MRI with MRCP of 2019 FINDINGS: LOWER CHEST: New small right pleural effusion and trace left pleural effusion. LIVER: There has been interval placement of a right-sided approach internal/external biliary drain w ith a coil in the duodenum. BILIARY SYSTEM: Contracted gallbladder with a small gallstone. The right-sided bile ducts are decompr essed. But there is mild left-sided intrahepatic biliary dilation that is new in the interval. PANCREAS: Unremarkable SPLEEN: Unremarkable ADRENALS: Ill-defined soft tissue mass in the suprarenal fossa on the right abuts the lateral limb o f the right adrenal gland and is equivocal for a retroperitoneal mass abutting versus arising from th e right adrenal gland. This measures 3.8 x 1.8 cm (image 20 of axial series 2). The left adrenal glan d is unremarkable.. KIDNEYS & URETERS: Unremarkable BLADDER: Unremarkable REPRODUCTIVE ORGANS: Enlarged prostate measuring 5.3 cm. There is asymmetric increased bulk to the l eft seminal vesicle. GASTROINTESTINAL: No bowel obstruction or perforation. Colonic diverticulosis. The appendix is normal . MESENTERY/PERITONEUM/RETROPERITONEUM: There is retroperitoneal soft tissue stranding, and small amoun t of ascites in the abdominal cavity mostly layering in the pelvis. A perihepatic fluid is also newly apparent. VASCULAR: Unremarkable LYMPH NODES: Retroperitoneal lymphadenopathy is redemonstrated and in addition, periportal lymphaden opathy is present similar to prior. These periportal lymph nodes have enlarged in the interval but ar e low in density. OSSEOUS & SOFT TISSUES: Subcutaneous fat in the ventral abdominal wall shows mild soft tissue strand ing bilaterally. IMPRESSION: 1. Patient has had an internal/external biliary drainage catheter placed from a right-sided approach in the interval but there is mild left-sided intrahepatic biliary dilation and some perihepatic fluid and more ascites in the pelvis that has developed in the interval. A biliary leak in this setting is difficult to exclude. 2. Interval increase in bulk of retroperitoneal and periportal lymphadenopathy, and suprarenal right soft tissue are concerning findings for disease progression. Electronically signed by: Anderson Adorno MD (12/12/2020 4:20 PM) [id number]
[2020-12-12 19:00] VITALS: BP 140/87
[2020-12-12] MEDS: INSULIN GLARGINE SYRINGE. SQ SCH (20:51)
[2020-12-12] MEDS: ALLOPURINOL 300 MG TABLET. PO SCH (20:51)
[2020-12-12] MEDS: ATORVASTATIN CALCIUM 40 MG TABLET. PO SCH (20:51)
--- NOTE | 2020-12-12 21:42 | NUR ---
Pt.'s blood sugar 175. Pt. refused lantus since he is not eating and has no appetite. Pt. states he doesn't want to be woken for meds throughout night.
[2020-12-12 23:00] VITALS: BP 141/84
[2020-12-13 03:00] VITALS: BP 147/75
[2020-12-13] MEDS: AMINO AC 3%/ELECTROLYTE/GLYCER 1,000 ML IV SCH (06:22)
[2020-12-13] MEDS: PROCHLORPERAZINE 5 MG TABLET. PO SCH (06:22)
[2020-12-13] MEDS: PANTOPRAZOLE 40 MG TABLET.DR. PO SCH (06:23)
[2020-12-13] MEDS: HYDROcodone/APAP 5/325MG 1 TAB TABLET PO PRN (06:28)
[2020-12-13 07:00] VITALS: BP 139/79
--- NOTE | 2020-12-13 08:26 | PDOC ---
[employer] PROGRESS NOTE Date of Service DOS: DATE: 12/13/20 TIME: 08:24 Chief Complaint Chief Complaint A/P: Acute generalized weakness - likely due to obstructive jaundice, failure to thrive Fall at home - will have PT continue to work with him, could be having symptomatic hyperbilirubinemia now Hyperbilirubinemia, likely direct due to biliary stricture in the extrahepatic biliary ducts - s/p drain placement, failed stent placement due to biliary stricture Transaminitis likely due to hepatic congestion - will get KUB to assess biliary drain, had been functioning well at home Severe protein malnutrition - IV procalamine Metastatic gastric cancer - sees oncology, on palliative chemo regimen. HER-2 positive, on palliative chemotherapy with 5-FU and Trastuzumab Biliary stricture - above Anemia - related to chronic disease, did require blood transfusion previously Hypokalemia - will replace Hypomagnesemia - will replace Abnormal unintentional weight loss - due to above FEN - GI soft diet PPX - SCDs CODE - FULL Dispo -inpatient. Home health. Will transition to hospice care once his options are exhausted for definitive biliary stenting. History of Present Illness History of Present Illness Mr Hannon is a 65-year-old w/ PMHX metastatic gastric cancer s/p radiation and palliative chemo, jaundice/malignant biliary stricture s/p ERCP w/ sphincterotomy 11/28/20 showing hilar obstruction and gastric mets to duodenum - stenting attempted but unsuccessful due to crumpling from stricture, and then s/p right internal external biliary drain placement by IR on 11/29/20 who presents to the emergency room complaining of severe weakness, worsening jaundice and slid off the toilet on 12/10/20 at home. He says he was feeling stronger at home after drain placement, able to eat and get around without his walker. Came at the insistence of his . He was discharged home on 12/03/20 and his weakness had initially improved, but over the past 24 hours stated getting much worse. He states that he is unable to stand at this time. He denies any fever. He does have some nausea without vomiting. He has not had any diarrhea. No fevers. Does note his dressing needs changed twice daily, has some red-tinged ascites at his drain site. Bile in drain, though clear fluid present as well. Met with oncology prior to d/c notably this biliary stricture does not seem to be related to his cancer and patient is asked if he could potentially have a referral to [facility] for another endoscopy opinion for biliary stenting. Hb 7.7 and bilirubin 10.9, alkaline phosphatase 572, AST 85, ALT 77 on discharge, was feeling stronger and improved with home health seeing him. Here today his bilirubin is 15 alkaline phosphatase 337 albumin 2 AST 88 INR 1.3 lipase 91. hb is 9.8. K 3, Mg 1.6 Admitted for further care. 12/12: Patient seen and evaluated. He states he would like his CODE STATUS to be DNR. He met with hospice today following her discussion. He would prefer to discharge home with home hospice. Had discussion with financial representative, who will help arrange this to happen tomorrow. 12/13:. Patient seen and evaluated. Currently DNR. Plan for home with home hospice today. >30 minutes was spent managing discharge this patient. Vitals/I&O Vitals/I&O: Vital Signs Date Time Temp Pulse Resp B/P (MAP) Pulse Ox O2 Delivery O2 Flow Rate FiO2 12/13/20 06:28 16 Room Air 12/13/20 03:00 98.5 112 147/75 (99) 97 98.5 I & O 12/12/20 12/12/20 12/13/20 15:00 23:00 07:00 Intake Total 1300 ml Output Total 400 ml 400 ml 360 ml Balance -400 ml -400 ml 940 ml Physical Exam General: Alert, Other (Icteric) Heart: Regular rate Lungs: Clear Abdomen: Normal bowel sounds, Soft Extremities: No clubbing Skin: No rashes, No breakdown, No significant lesion, Other (Jaundiced) Labs Labs: Laboratory Tests Test 12/12/20 08:27 12/12/20 12:18 12/12/20 17:21 12/12/20 20:49 Glucose (Fingerstick) 195 mg/dL (70-99) 199 mg/dL (70-99) 183 mg/dL (70-99) 175 mg/dL (70-99) Assessment and Plan Assessmemt and Plan Problems Medical Problems: (1) Hyperbilirubinemia Status: Acute (2) Hypokalemia Status: Acute (3) Hypomagnesemia Status: Acute (4) Weakness Status: Acute Comment Review of Relevant I have reviewed the following items didier (where applicable) has been applied. Medications: Current Medications Medications (Trade) Dose Ordered Sig/Alex Route PRN Reason Start Time Stop Time Status Last Admin Dose Admin Amlodipine Besylate (Norvasc) 5 mg DAILY PO 12/12/20 09:00 12/12/20 09:00 Cyanocobalamin (Vitamin B-12) 1,000 mcg DAILY PO 12/12/20 09:00 12/12/20 09:00 Iohexol (Omnipaque 300 Mg/ml) 75 ml 1X ONCE IV 12/12/20 09:15 12/12/20 09:18 DC 12/12/20 09:15 Zolpidem Tartrate (Ambien) 5 mg PRN QHS PRN PO INSOMNIA 12/12/20 15:00 12/12/20 20:51 Justifications for Admission Other Justification Acute cholecystitis NEAL ASHLEY MD Dec 13, 2020 08:25
[2020-12-13] MEDS: amLODIPine BESYLATE 5 MG TABLET PO SCH (08:50)
[2020-12-13] MEDS: CYANOCOBALAMIN (VITAMIN B-12) 1,000 MCG TABLET. PO SCH (08:50)
[2020-12-13] MEDS: FLUoxetine HCL 20 MG CAPSULE PO SCH (08:50)
[2020-12-13] MEDS: SUCRALFATE 1 GM TABLET. PO SCH (08:50)
--- NOTE | 2020-12-13 10:14 | PDOC ---
Date of Service: DATE: 12/13/20 TIME: 10:11 Objective: Objective: D/w nurse - plans to DC at noon home w/ hospice. Reviewed CT (below) and IR note: Spoke with Mr Hannon today. We discussed options including adding a left biliary drain or referral to a tertiary center, however he feels his overall condition has deteriorated to the point where he is not interested in further intervention. He has met with hospice and is planning on being discharged to home, with home hospice. I told him to feel free to call, or have any of his providers call, if there are any questions about the drain and how to care for it. Vital Signs: Vital Signs Date Time Temp Pulse Resp B/P (MAP) Pulse Ox O2 Delivery O2 Flow Rate FiO2 12/13/20 08:50 112 147/75 12/13/20 07:00 97.7 16 94 Room Air 97.7 Labs: Laboratory Tests Test 12/12/20 12:18 12/12/20 17:21 12/12/20 20:49 Glucose (Fingerstick) 199 mg/dL 183 mg/dL 175 mg/dL Imaging: CT A/P IMPRESSION: 1. Patient has had an internal/external biliary drainage catheter placed from a right-sided approach in the interval but there is mild left-sided intrahepatic biliary dilation and some perihepatic fluid and more ascites in the pelvis that has developed in the interval. A biliary leak in this setting is difficult to exclude. 2. Interval increase in bulk of retroperitoneal and periportal lymphadenopathy, and suprarenal right soft tissue are concerning findings for disease progression. PE: GEN: appears chronically ill SKIN: +jaundice NEURO/PSYCH: sleeping - not awakened A/P: Metastatic gastric cancer -- Plans for DC today w/ Hospice as above, GI will sign off. Justicifation of Admission Dx: Justifications for Admission: Justification of Admission Dx: Yes MONICA RESTREPO Dec 13, 2020 10:14 XOCHITL BRUCE MD Dec 13, 2020 14:10
--- NOTE | 2020-12-13 10:31 | NUR ---
SW following. Discussed with RN, pt from home, room air, ada diet. Plan is for pt to discharge home today with [facility]. [facility] transportation will collect pt at noon to take him home. Dr. De La Vega notified. Hospice eval and treat orders requested. RN, pt's and Daniel notified of transport time. LASHELL will continue to follow.
--- NOTE | 2020-12-13 10:37 | PDOC ---
[employer] PROGRESS NOTE Date of Service DOS: DATE: 12/13/20 TIME: 10:35 Chief Complaint Chief Complaint A/P: Acute generalized weakness - likely due to obstructive jaundice, failure to thrive Fall at home - will have PT continue to work with him, could be having symptomatic hyperbilirubinemia now Hyperbilirubinemia, likely direct due to biliary stricture in the extrahepatic biliary ducts - s/p drain placement, failed stent placement due to biliary stricture Transaminitis likely due to hepatic congestion - will get KUB to assess biliary drain, had been functioning well at home Severe protein malnutrition - IV procalamine Metastatic gastric cancer - sees oncology, on palliative chemo regimen. HER-2 positive, on palliative chemotherapy with 5-FU and Trastuzumab Biliary stricture - above Anemia - related to chronic disease, did require blood transfusion previously Hypokalemia - will replace Hypomagnesemia - will replace Abnormal unintentional weight loss - due to above FEN - GI soft diet PPX - SCDs CODE - FULL Dispo -inpatient. Home health. Will transition to hospice care once his options are exhausted for definitive biliary stenting. History of Present Illness History of Present Illness Mr Hannon is a 65-year-old w/ PMHX metastatic gastric cancer s/p radiation and palliative chemo, jaundice/malignant biliary stricture s/p ERCP w/ sphincterotomy 11/28/20 showing hilar obstruction and gastric mets to duodenum - stenting attempted but unsuccessful due to crumpling from stricture, and then s/p right internal external biliary drain placement by IR on 11/29/20 who presents to the emergency room complaining of severe weakness, worsening jaundice and slid off the toilet on 12/10/20 at home. He says he was feeling stronger at home after drain placement, able to eat and get around without his walker. Came at the insistence of his . He was discharged home on 12/03/20 and his weakness had initially improved, but over the past 24 hours stated getting much worse. He states that he is unable to stand at this time. He denies any fever. He does have some nausea without vomiting. He has not had any diarrhea. No fevers. Does note his dressing needs changed twice daily, has some red-tinged ascites at his drain site. Bile in drain, though clear fluid present as well. Met with oncology prior to d/c notably this biliary stricture does not seem to be related to his cancer and patient is asked if he could potentially have a referral to [facility] for another endoscopy opinion for biliary stenting. Hb 7.7 and bilirubin 10.9, alkaline phosphatase 572, AST 85, ALT 77 on discharge, was feeling stronger and improved with home health seeing him. Here today his bilirubin is 15 alkaline phosphatase 337 albumin 2 AST 88 INR 1.3 lipase 91. hb is 9.8. K 3, Mg 1.6 Admitted for further care. 12/12: Patient seen and evaluated. He states he would like his CODE STATUS to be DNR. He met with hospice today following her discussion. He would prefer to discharge home with home hospice. Had discussion with external grinder, who will help arrange this to happen tomorrow. 12/13:. Patient seen and evaluated. Currently DNR. Plan for home with home hospice today. >30 minutes was spent managing discharge this patient. Vitals/I&O Vitals/I&O: Vital Signs Date Time Temp Pulse Resp B/P (MAP) Pulse Ox O2 Delivery O2 Flow Rate FiO2 12/13/20 08:50 112 147/75 12/13/20 07:00 97.7 16 94 Room Air 97.7 I & O 12/12/20 12/12/20 12/13/20 14:59 22:59 06:59 Intake Total 1300 ml Output Total 400 ml 400 ml 360 ml Balance -400 ml -400 ml 940 ml Physical Exam General: Alert, Other (Icteric) Heart: Regular rate Lungs: Clear Abdomen: Normal bowel sounds, Soft Extremities: No clubbing Skin: No rashes, No breakdown, No significant lesion, Other (Jaundiced) Labs Labs: Laboratory Tests Test 12/12/20 12:18 12/12/20 17:21 12/12/20 20:49 Glucose (Fingerstick) 199 mg/dL (70-99) 183 mg/dL (70-99) 175 mg/dL (70-99) Assessment and Plan Assessmemt and Plan Problems Medical Problems: (1) Hyperbilirubinemia Status: Acute (2) Hypokalemia Status: Acute (3) Hypomagnesemia Status: Acute (4) Weakness Status: Acute Comment Review of Relevant I have reviewed the following items didier (where applicable) has been applied. Medications: Current Medications Medications (Trade) Dose Ordered Sig/Alex Route PRN Reason Start Time Stop Time Status Last Admin Dose Admin Zolpidem Tartrate (Ambien) 5 mg PRN QHS PRN PO INSOMNIA 12/12/20 15:00 12/12/20 20:51 Justifications for Admission Other Justification Acute cholecystitis NEAL ASHLEY MD Dec 13, 2020 10:37
--- NOTE | 2020-12-13 10:42 | SNU/HH DC ---
DISCHARGE ORDERS DISCHARGE INFORMATION: DISCHARGE DATE: Dec 13, 2020 FINAL DIAGNOSIS Problems Medical Problems: (1) Hyperbilirubinemia Status: Acute (2) Hypokalemia Status: Acute (3) Hypomagnesemia Status: Acute (4) Weakness Status: Acute CONDITION ON DISCHARGE: Stable CODE STATUS: Code Status: DNR/DNI FCI: SNF STAY <30 DAYS: Yes HOSPICE: HOSPICE: Yes HOSPICE EVAL & TREAT: Yes POST DISCHARGE ORDERS: ACTIVITY ORDERS: Activity as tolerated WEIGHT BEARING STATUS: Full weight bearing DIET AFTER DISCHARGE: Regular WOUND/INCISION CARE: Keep wound/cast CDI, Reinforce dressing PRN CHECKS AFTER DISCHARGE: CHECKS AFTER DISCHARGE: Check blood press - daily, Check blood sugar, ac/hs, Check your Temp as needed TREATMENT/EQUIPMENT ORDERS: ADAPTIVE EQUIPMENT NEEDED: None Physical Therapy For: Evalulation/Treatment Occupational Therapy For: Evaluation/Treatment DISCHARGE MEDICATIONS: Home Meds Active Scripts Levofloxacin (LEVOFLOXACIN) 500 Mg Tablet, 1 TAB PO DAILY for Biliary drain for 7 Days, #7 TAB Prov:LAURA KIRBY MD 12/03/20 Reported Medications Ondansetron (ONDANSETRON ODT) 8 Mg Tab.rapdis, 8 MG PO Q6HRS for nausea 11/25/20 Prochlorperazine Maleate (Prochlorperazine Maleate) 10 Mg Tablet, 1 TAB PO Q6H for nausea 11/25/20 Sucralfate (CARAFATE) 1 Gm Tablet, 1 GM PO BID for gerd, TAB 09/13/ Hydrocodone/Apap 5-325 (NORCO 5-325 TABLET) 1 Each Tablet, 1-2 TAB PO Q6HRS for pain, #12 TAB 01/13/20 Cyanocobalamin (Vitamin B-12) (VITAMIN B-12) 1,000 Mcg Tablet, 1 TAB PO DAILY for VITAMIN DEFICIENCY for 30 Days, #30 TAB 0 Refills 01/04/20 Pantoprazole Sodium (PROTONIX ) 40 Mg Tablet.dr, 40 MG PO DAILYAC for GERD, TAB 01/04/20 Insulin Degludec (Tresiba) 100 Unit/1 Ml Vial, 45 UNIT SQ HS for diabetes, EACH 01/02/20 Rosuvastatin Calcium (CRESTOR) 40 Mg Tablet, 20 MG PO HS for FOR CHOLESTEROL, #30 TAB 0 Refills 01/02/20 Insulin Aspart (NOVOLOG) 100 Unit/1 Ml Cartridge, 25 UNIT SQ TIDBFRMEAL for diabetes, EACH 01/02/20 Allopurinol (ALLOPURINOL) 300 Mg Tablet, 1 TAB PO HS for gout, #30 TAB 5 Refills 01/02/20 Fluoxetine Hcl (FLUOXETINE HCL) 40 Mg Capsule, 1 CAP PO DAILYWBKFT for antidepressant, #30 CAP 2 Refills 02/12/19 Ergocalciferol (Vitamin D2) (VITAMIN D2) 50,000 Unit Capsule, 1 CAP PO WEEKLY for supplement, #12 CAP 02/12/19 Amlodipine Besylate (AMLODIPINE BESYLATE) 5 Mg Tablet, 5 MG PO DAILY for hypertension, TAB 02/12/19 NEAL ASHLEY MD Dec 13, 2020 10:42
[2020-12-13 11:00] VITALS: BP 137/87
[2020-12-13] MEDS ORDERED: ZOLP5TAB PO (11:05)
--- NOTE | 2020-12-13 11:13 | PDOC3 ---
Discharge Summary Visit Information Date of Admission: Dec 11, 2020 Date of Discharge: Dec 13, 2020 Final Diagnosis Problems Medical Problems: (1) Hyperbilirubinemia Status: Acute (2) Hypokalemia Status: Acute (3) Hypomagnesemia Status: Acute (4) Weakness Status: Acute Brief Hospital Course Allergies Allergies Coded Allergies Type Severity Reaction Last Updated Verified No Known Drug Allergies 11/29/20 No Vital Signs Vital Signs Date Time Temp Pulse Resp B/P (MAP) Pulse Ox O2 Delivery O2 Flow Rate FiO2 12/13/20 08:50 112 147/75 12/13/20 07:00 97.7 16 94 Room Air 97.7 Lab Results Laboratory Tests Test 12/11/20 12:29 12/11/20 12:30 12/11/20 20:39 12/12/20 07:54 White Blood Count 6.7 x10^3/uL (4.0-11.0) 6.3 x10^3/uL (4.0-11.0) Red Blood Count 3.15 x10^6/uL (4.30-5.70) 2.85 x10^6/uL (4.30-5.70) Hemoglobin 9.8 g/dL (13.0-17.5) 8.9 g/dL (13.0-17.5) Hematocrit 29.1 % (39.0-53.0) 26.5 % (39.0-53.0) Mean Corpuscular Volume 93 fL (79-100) 93 fL (79-100) Mean Corpuscular Hemoglobin 31 pg (25-35) 31 pg (25-35) Mean Corpuscular Hemoglobin Concent 34 g/dL (31-37) 34 g/dL (31-37) Red Cell Distribution Width 20.4 % (11.5-14.5) 20.1 % (11.5-14.5) Platelet Count 161 x10^3/uL (140-400) 135 x10^3/uL (140-400) Neutrophils (%) (Auto) 87 % (31-73) 86 % (31-73) Lymphocytes (%) (Auto) 3 % (24-48) 4 % (24-48) Monocytes (%) (Auto) 9 % (0-9) 8 % (0-9) Eosinophils (%) (Auto) 1 % (0-3) 1 % (0-3) Basophils (%) (Auto) 0 % (0-3) 0 % (0-3) Neutrophils # (Auto) 5.8 x10^3/uL (1.8-7.7) 5.5 x10^3/uL (1.8-7.7) Lymphocytes # (Auto) 0.2 x10^3/uL (1.0-4.8) 0.3 x10^3/uL (1.0-4.8) Monocytes # (Auto) 0.6 x10^3/uL (0.0-1.1) 0.5 x10^3/uL (0.0-1.1) Eosinophils # (Auto) 0.0 x10^3/uL (0.0-0.7) 0.1 x10^3/uL (0.0-0.7) Basophils # (Auto) 0.0 x10^3/uL (0.0-0.2) 0.0 x10^3/uL (0.0-0.2) Segmented Neutrophils % 92 % (35-66) Lymphocytes % 5 % (24-48) Monocytes % 3 % (0-10) Platelet Estimate Adequate (ADEQUATE) Prothrombin Time 15.3 SEC (11.7-14.0) Prothromb Time International Ratio 1.3 (0.8-1.1) Activated Partial Thromboplast Time 35 SEC (24-38) Sodium Level 139 mmol/L (136-145) 138 mmol/L (136-145) Potassium Level 3.0 mmol/L (3.5-5.1) 3.7 mmol/L (3.5-5.1) Chloride Level 101 mmol/L (98-107) 103 mmol/L (98-107) Carbon Dioxide Level 29 mmol/L (21-32) 29 mmol/L (21-32) Anion Gap 9 (6-14) 6 (6-14) Blood Urea Nitrogen 16 mg/dL (8-26) 14 mg/dL (8-26) Creatinine 1.0 mg/dL (0.7-1.3) 1.0 mg/dL (0.7-1.3) Estimated GFR (Cockcroft-Gault) 74.5 74.5 BUN/Creatinine Ratio 16 (6-20) 14 (6-20) Glucose Level 234 mg/dL (70-99) 194 mg/dL (70-99) Calcium Level 8.8 mg/dL (8.5-10.1) 8.2 mg/dL (8.5-10.1) Magnesium Level 1.6 mg/dL (1.8-2.4) 1.9 mg/dL (1.8-2.4) Total Bilirubin 15.0 mg/dL (0.2-1.0) 12.7 mg/dL (0.2-1.0) Aspartate Amino Transf (AST/SGOT) 88 U/L (15-37) 75 U/L (15-37) Alanine Aminotransferase (ALT/SGPT) 56 U/L (16-63) 46 U/L (16-63) Alkaline Phosphatase 377 U/L (46-116) 324 U/L (46-116) Total Protein 5.9 g/dL (6.4-8.2) 5.4 g/dL (6.4-8.2) Albumin 2.0 g/dL (3.4-5.0) 1.7 g/dL (3.4-5.0) Albumin/Globulin Ratio 0.5 (1.0-1.7) 0.5 (1.0-1.7) Lipase 91 U/L (73-393) Ammonia < 10 mcmol/L (11-34) Glucose (Fingerstick) 233 mg/dL (70-99) Test 12/12/20 08:27 12/12/20 12:18 12/12/20 17:21 12/12/20 20:49 Glucose (Fingerstick) 195 mg/dL (70-99) 199 mg/dL (70-99) 183 mg/dL (70-99) 175 mg/dL (70-99) Laboratory Tests Test 12/12/20 12:18 12/12/20 17:21 12/12/20 20:49 Glucose (Fingerstick) 199 mg/dL (70-99) 183 mg/dL (70-99) 175 mg/dL (70-99) Brief Hospital Course Mr. Hannon is a 65 old male who presented with generalized weakness and fall at home. Patient has history of metastatic gastric carcinoma s/p radiation and palliative chemo, jaundice/malignant biliary stricture s/p ERCP w/ sphincterotomy 11/28/20 showing hilar obstruction and gastric mets to duodenum. Stenting attempted but unsuccessful due to crumpling from stricture, and then had right internal external biliary drain placement by IR on 11/29/20. He states the jaundice and weakness has been worsening at home. Consultation was placed to IR, who offered adding a left biliary drain or referral to a tertiary center, however he feels his overall condition has deteriorated to the point where he is not interested in further intervention. Consultation was placed to hematology/oncology and GI. Ultimately patient was recommended and settled on home hospice due to significant decline in his functional status. Discharge Information Condition at Discharge: Stable Disposition/Orders: D/C to Home w/ Hospice Scheduled Allopurinol (Allopurinol) 300 Mg Tablet, 1 TAB PO HS for gout, #30 Ref 5 (Reported) Entered as Reported by: ROYA DAVIS on 01/02/20 1014 Last Action: Continued on 12/11/20 1638 by LAURA KIRBY MD Fluoxetine Hcl (Fluoxetine Hcl) 40 Mg Capsule, 1 CAP PO DAILYWBKFT for antidepressant, #30 Ref 2 (Reported) Entered as Reported by: FAVIOLA DONG on 02/12/19 0741 Last Action: Converted on 12/11/201637 by LAURA KIRBY MD Hydrocodone/Apap 5-325 ([place] 5-325 Tablet) 1 Each Tablet, 1-2 TAB PO Q6HRS for pain, #12 (Reported) Entered as Reported by: AMARI HERNANDEZ RN on 01/13/20 1117 Last Action: Continued on 12/11/20 1638 by LAURA KIRBY MD Insulin Aspart (Novolog) 100 Unit/1 Ml Cartridge, 25 UNIT SQ TIDBFRMEAL for diabetes, (Reported) Entered as Reported by: ROYA DAVIS on 01/02/20 1019 Insulin Degludec (Tresiba) 100 Unit/1 Ml Vial, 45 UNIT SQ HS for diabetes, (Reported) Entered as Reported by: ROYA DAVIS on 01/02/20 1020 Last Action: Converted on 12/11/20 163 by LAURA KIRBY MD Ondansetron (Ondansetron Odt) 8 Mg Tab.rapdis, 8 MG PO Q6HRS for nausea, (Reported) Entered as Reported by: CHINYERE PETERSON on 11/25/20732 Last Action: Converted on 12/11/201637 by LAURA KIRBY MD Pantoprazole Sodium (Protonix ) 40 Mg Tablet.dr, 40 MG PO DAILYAC for GERD, (Reported) Entered as Reported by: ARTUR ARELLANO on 01/04/201731 Last Action: Continued on 12/11/201637 by LAURA KIRBY MD Prochlorperazine Maleate (Prochlorperazine Maleate) 10 Mg Tablet, 1 TAB PO Q6H for nausea, (Reported) Entered as Reported by: CHINYERE PETERSON on 11/25/20732 Last Action: Converted on 12/11/201637 by LAURA KIRBY MD Scheduled PRN Zolpidem Tartrate (Ambien) 5 Mg Tablet, 5 MG PO PRN QHS PRN for INSOMNIA, #30 Re f 0 Prescribed by: NEAL ASHLEY MD on 12/13/20 1105 Discontinued Medications Amlodipine Besylate (Amlodipine Besylate) 5 Mg Tablet, 5 MG PO DAILY for hypertension, (Reported) Entered as Reported by: FAVIOLA DONG on 02/12/1938 Last Action: Continued on 12/11/201637 by LAURA KIRBY MD Cyanocobalamin (Vitamin B-12) (Vitamin B-12) 1,000 Mcg Tablet, 1 TAB PO DAILY for VITAMIN DEFICIENCY for 30 Days, #30 Ref 0 (Reported) Entered as Reported by: ARTUR ARELLANO on 01/04/201732 Last Action: Continued on 12/11/201637 by LAURA KIRBY MD Ergocalciferol (Vitamin D2) (Vitamin D2) 50,000 Unit Capsule, 1 CAP PO WEEKLY for supplement, #12 (Reported) Entered as Reported by: FAVIOLA DONG on 02/12/1941 Last Action: Continued on 12/11/201637 by LAURA KIRBY MD Levofloxacin (Levofloxacin) 500 Mg Tablet, 1 TAB PO DAILY for Biliary drain for 7 Days, #7 Prescribed by: LAURA KIRBY MD on 12/03/20 1046 Rosuvastatin Calcium (Crestor) 40 Mg Tablet, 20 MG PO HS for FOR CHOLESTEROL, #30 Ref 0 (Reported) Entered as Reported by: ROYA DAVIS on 01/02/20 1019 Last Action: Converted on 12/11/201637 by LAURA KIRBY MD Sucralfate (Carafate) 1 Gm Tablet, 1 GM PO BID for gerd, (Reported) Entered as Reported by: SHERIF AYALA on 09/13/20 1521 Last Action: Continued on 12/11/201637 by LAURA KIRBY MD Justicifation of Admission Dx: Justifications for Admission: Justification of Admission Dx: Yes NEAL ASHLEY MD Dec 13, 2020 11:13
[2020-12-13] MEDS ORDERED: HEPARIN PF 500 UNIT/5 ML DISP.SYRIN. IVP ONE (13:45)
--- NOTE | 2020-12-13 14:00 | NUR ---
Patient discharged home on Hospice. No open area noted on coccyx under foam pad, placed new pad. Belongings in room sent with patient
[2020-12-15] MEDS ORDERED: ERGOCALCIFEROL (VITAMIN D2) 50,000 UNIT CAPSULE. PO SCH (09:00)
== END 2020-12-13 14:00 | disposition hospice, home (50) | DRG 444 ==
LOC: ER 11:50 → 5 NORTH 14:02
PROVIDERS: ADMIT Internal Medicine; ATTEND Internal Medicine
DX: K83.1 Obstruction of bile duct (principal); E43 Unspecified severe protein-calorie malnutrition; C16.9 Malignant neoplasm of stomach, unspecified; K81.0 Acute cholecystitis; R18.8 Other ascites; R62.7 Adult failure to thrive; D63.8 Anemia in other chronic diseases classified elsewhere; E87.6 Hypokalemia; E83.42 Hypomagnesemia; F32.9 Major depressive disorder, single episode, unspecified; K21.9 Gastro-esophageal reflux disease without esophagitis; E78.00 Pure hypercholesterolemia, unspecified; I10 Essential (primary) hypertension; M10.9 Gout, unspecified; Z51.5 Encounter for palliative care; Z66 Do not resuscitate; E78.5 Hyperlipidemia, unspecified; Z68.22 Body mass index [BMI] 22.0-22.9, adult; Z92.3 Personal history of irradiation; Z92.21 Personal history of antineoplastic chemotherapy; Z15.01 Genetic susceptibility to malignant neoplasm of breast; Z79.4 Long term (current) use of insulin
CPT/HCPCS: 36415; 74018; 74177; 80053; 82140; 82962; 83690; 83735; 85007; 85025; 85610; 85730; 96365; 96366; 96367; 99285; J1815; J3475; J3480; J3490; J7060; Q9967; G0378; Q0164